=== PATIENT | female | born 1940 | race Hispanic/Latino ===

== ENCOUNTER 2016-09-25 13:33 | Inpatient (IN) | payer MEDICARE ==
[~2016-09-25] VITALS: Ht 157.5 cm; Wt 48.4 kg
[2016-09-25] MEDS: amLODIPine 10 MG TAB PO SCH (09:00)
[~2016-09-25 13:33] MED LIST: AMLO10TA2 PO; CARV3.12 PO; FOLI1TAB2 PO; GLIM2TA PO; GLIMEPIRIDE 1 MG TABLET PO SCH; HYDR-4266 PO; HYDR50TA PO; IRBE300T12 PO; IRON65TA PO; POTA10CA PO; PRED20TA PO; PROTPAK PO; TRIC145T PO; VITMTA PO
[2016-09-25] MEDS ORDERED: ACETAMINOPHEN 325 MG TAB As Ordered ONE (14:47)
--- NOTE | 2016-09-25 15:01 | REP ---
Clinical: Weakness with recent fall . Findings: Age-related atrophy and microvascular ischemic changes are appreciated. The ventricles and sulci are symmetric. Sevilla-white differentiation is maintained. There is no evidence for acute intracranial hemorrhage, mass/mass effect, pathology or infarction. No extra-axial fluid collection. Calvarium is intact. Paranasal sinuses and mastoid air cells are clear. Impression: Age related atrophy and microvascular ischemic changes. No acute intracranial hemorrhage, infarction, or mass/mass effect. Signed by Ariel Gray MD 09/25/2016 02:53 P
[2016-09-25 15:09] LABS: BASO % 0.8 % (0.0-1.0); LARGE UNSTAINED CELL # 0.1 K/mm3 (0.0-0.4); LARGE UNSTAINED CELL % 7.2 % (0.0-4.0); LYMPH # 0.2 K/mm3 (1.5-4.5); LYMPH % 14.1 % (24.0-44.0); MEAN CORPUSCULAR HEMOGLOBIN 29.2 pg (27.0-33.0); MEAN CORPUSCULAR HGB CONC 33.3 g/dl (32.0-36.5); MEAN CORPUSCULAR VOLUME 87.6 fl (80.0-96.0); NEUTROPHILS # 1.1 K/mm3 (1.8-7.7); PLATELET COUNT, AUTOMATED 126 k/mm3 (150-450); RED CELL DISTRIBUTION WIDTH 16.6 % (11.5-14.5)
[2016-09-25 15:14] LABS: CALCIUM LEVEL 8.1 MG/DL (8.8-10.2); CREATININE FOR GFR 3.57 MG/DL (0.55-1.02); GLOMERULAR FILTRATION RATE 13.2 (>39); POTASSIUM SERUM 4.3 MEQ/L (3.5-5.1)
[2016-09-25 15:19] LABS: WHITE BLOOD COUNT 1.4 K/mm3 (4.0-10.0)
--- NOTE | 2016-09-25 15:20 | REP ---
Clinical: Low grade fever and weakness. Technique: AP and lateral views. Comparison: 02/24/2016. Findings: Mediastinum and cardiac silhouette are stable. Lung doe demonstrate diffuse chronic interstitial changes without definite consolidation, effusion or pneumothorax. Lateral view cannot exclude density overlying the mid lung zone for which chest CT correlation may be warranted. Skeletal structures demonstrate age-related degenerative changes. Impression: Chronic stable changes. Cannot exclude subtle nodular density on lateral radiograph only. Consider chest CT follow-up. Signed by Ariel Gray MD 09/25/2016 03:11 P
[2016-09-25] MEDS ORDERED: ONDANSETRON 4MG/2ML VIAL (J2405) IV PRN (16:15)
[2016-09-25] MEDS ORDERED: ACETAMINOPHEN TAB 650MG DOSE (2X325MG) PO PRN (16:15)
[2016-09-25] MEDS ORDERED: BISACODYL 5 MG TAB PO PRN (16:15)
[2016-09-25] MEDS ORDERED: AMLO10TA2 PO (16:21)
[2016-09-25] MEDS ORDERED: CARV3.12 PO (16:21)
[2016-09-25] MEDS ORDERED: RANI150T PO (16:21)
[2016-09-25] MEDS ORDERED: GLIM1TAB PO (16:21)
[2016-09-25] MEDS ORDERED: CYCL1CAP2 PO (16:21)
[2016-09-25] MEDS ORDERED: CALC1CAP31 PO (16:21)
[2016-09-25] MEDS ORDERED: PRED20TA PO (16:21)
[2016-09-25] MEDS ORDERED: HYDR-4267 PO (16:21)
[2016-09-25 16:31] LABS: RETIC HEMOGLOBIN CONTENT CHr 33.8 PG (24-36); RETICULOCYTE ABSOLUTE ADVIA212 27 x10(9)/L (17-77)
[2016-09-25 16:32] LABS: REASON FOR REVIEW COMPREHENSIVE REVIEW
[2016-09-25 16:52] LABS: PERCENT SATURATION 16.3 % (13.2-37.4)
[2016-09-25] MEDS ORDERED: GLUCAGON FOR INJ 1 MG VIAL (J1610) SC PRN (17:30)
[2016-09-25] MEDS ORDERED: DEXTROSE 50% 50 ML SYRINGE IV PRN (17:30)
[2016-09-25] MEDS ORDERED: GLUCOSE 4 GM CHEW TABLET PO PRN (17:30)
--- NOTE | 2016-09-25 18:13 | ECGEPIP ---
Stationary ECG Study [facility] - ED Test Date: 2016-09-25 Pat Name: NISREEN GA Department: Room: - Gender: F Field Installer: juvencio : 1940 Requested By: JUSTIN Alonso Order Number: [id number] Reading MD: Meme Palomares Measurements Intervals [place] Rate: 102 P: 77 OR: 136 QRS: 55 QRSD: 87 T: 52 QT: 323 QTc: 423 Interpretive Statements SINUS TACHYCARDIA ABNORMAL RHYTHM ECG LOW VOLTAGE LIMB INCREASED RATE 01/25/16 Electronically Signed On 09-25-2016 18:13:24 EST by Meme Palomares
--- NOTE | 2016-09-25 19:40 | HPE ---
DATE OF ADMISSION: 09/25/2016 HOSPITALIST ATTENDING: DR. STEFAN CHURCH PRIMARY CARE PHYSICIAN: SOFIA MARSHALL NP CHIEF COMPLAINT: Weakness. HISTORY OF PRESENT ILLNESS: 75-year-old female with history of glomerulonephritis, kidney disease, stage V, follows with Dr. Albarado, on chronic prednisone and cyclophosphamide, recurrent anemia, requiring six blood transfusions in July 2016, bone marrow biopsy showing normocytic anemia and renal biopsy showing glomerulonephritis presents to the emergency room with two week history of worsening weakness. Per the daughter, the patient has been increasingly lethargic. No appetite, about a 5 pound weight loss since previous admission, lethargic and generally weak. She has not been herself and not been tidying around the house or herself. On Friday, the patient was walking into her room and lost her balance and fell down. She was unable to get up and was found by the daughter on the floor. She was on the floor for about half an hour. Mother refused to be evaluated in the emergency room at that time and daughter continued to monitor her for the past two days. The patient finally agreed to coming into the hospital today due to increasing weakness, recurrent falls and was found to be severely anemic with hemoglobin of 5 and pancytopenic with a white count of 1.4, platelet count of 126. She had been on prednisone and cyclophosphamide managed by Dr. Albarado and had missed an appointment today with him due to severe weakness and falls. She otherwise denies any bright red blood per rectum, melena , black tarry stools. Previous esophagogastroduodenoscopy (EGD), colonoscopy showed sessile polyps with no signs of active bleeding. She denies any diarrhea, any NSAID use at home and denies any chest pain, pressure or tightness, shortness of breath, lightheadedness or dizziness prior to her falls. Previous EGD was 2015 showing 4 mm sessile polyp, no stigmata of recent bleeding in the gastric body and a pedunculated polyp in the first part of the duodenum. Hospitalist service was called for admission for symptomatic anemia requiring red blood cell transfusion. PAST MEDICAL HISTORY: Renal failure, stage V. Glomerulonephritis, not on hemodialysis. Symptomatic anemia requiring 6 units of red blood cell transfusion in July 2016. Hypercholesterolemia. Hypertension. End-stage renal disease. PAST SURGICAL HISTORY: Eye surgery. ALLERGIES: No known drug allergies. HOME MEDICATIONS: - Ranitidine 150 twice a day - prednisone 20 two tablets daily - calcitriol 0.25 mcg daily - glimepiride 1 mg daily - cyclophos 150 mg twice a day - Coreg 3.125 every 12 hourly - Norvasc 10 mg daily - hydralazine 50 mg three times a day - iron 325, tablet daily - folic acid 1 mg daily - Irbesartan-hydrochlorothiazide 300/12.5 mg daily - multivitamin one tablet daily SOCIAL HISTORY: Denies any history of smoking, recreational drug use or alcohol use. Lives with her daughter at home and has her own room. Four steps to get into the home. The patient walks unassisted without a walker or a cane. Daughter checks up on her multiple times throughout the day. FAMILY HISTORY: Noncontributory due to her age. REVIEW OF SYSTEMS: 12 point system negative aside from positive findings in history of present illness. PHYSICAL EXAMINATION: Blood pressure supine 125/62, sitting 123/60, standing 99/59. Pulse supine is 96, sitting 102, standing 114. Temperature 100.3. 96% on room air. 48.5 kg. 5 foot 2 inches tall. GENERAL: The patient appears her stated age. Appears cachectic. No jaundice icterus. No respiratory distress. Cyanotic. No cyanosis. Positive pallor. Dry mucous membranes. LUNGS: Clear to auscultation. No wheezing, rales. Normal inspiratory/expiratory ratio. HEENT: No jugular venous distention. No thyromegaly. No carotid bruits. Pupils round and reactive. Extraocular muscles are intact. NECK: Supple. Full range of motion. HEART: S1, S2. Sinus tachycardia. No murmurs, rubs or gallops. ABDOMEN: Soft, nontender, nondistended. Positive bowel sounds. No rebound, guarding or hepatosplenomegaly. EXTREMITIES: No cyanosis, clubbing or pitting edema. EKG: Sinus tachycardia, ventricular rate of 102. DE interval 136. QRS of 87. LABORATORY DATA: White count 1.4, previously 6.4 08/02/2016. Hemoglobin 5.2. Previous hemoglobin was 8.9 08/02/2016. Hematocrit 15.5. Platelet count 126. Sodium 139, potassium 4.2, chloride 106, bicarbonate 20, BUN 87, creatinine 3.57 , glucose of 267. Lactic acid 1.4, calcium 8.1, iron 21, TIBC 141, ferritin 5870. Total CK 31, MB fraction 1. Troponin 0.03. Albumin of 2.9. Microbiology: Influenza C and B negative. Blood culture negative. Urine culture pending. Chest x-ray: Chronic stable changes. Cannot exclude nodule with density on lateral radiograph only. Chest CT for followup. CT of the head: Age related atrophy. Microvascular ischemic changes. No acute intracranial hemorrhage, infarction or mass effect. ASSESSMENT AND PLAN: This is a 75-year-old female with recent diagnosis in July 2016 of glomerulonephritis on cyclophosphamide and chronic prednisone, followed by Dr. Albarado. Recurrent anemia requiring 6 units of red blood cell transfusion, unremarkable bone marrow biopsy. EGD colonoscopy showing sessile polyps. No active signs of bleeding January 2016. Steroid induced hyperglycemia, on chronic glimepiride, hypertension, hypercholesterolemia, end-stage renal disease , prior eye surgery presents to the emergency room with recurrent falls, generalized weakness found to have symptomatic anemia and significant orthostasis with hemoglobin of 5. The patient will be admitted as an inpatient for two midnights to hospitalist service. Attending physician will be Dr. Stefan Church. IMPRESSION: 1. Symptomatic anemia most likely secondary to end-stage renal disease. Prior EGD and colonoscopy unremarkable in January 2016, but will check for hemoccult stools. Peripheral blood smear. Iron studies prior to blood transfusion. Will transfuse red blood cells and recheck hemoglobin and hematocrit every 6 hourly after 4 units have been given. The patient is continued on iron. Will defer to Dr. Albarado. Followup precautions. Prior bone marrow biopsy in 01/2016 anemia of chronic disease. 2. End-stage renal disease. Not on hemodialysis, secondary to glomerulonephritis , on chronic prednisone and cyclophosphamide per Dr. Albarado. We will hold off on patient's cyclophosphamide for now. He will see the patient in consult in the morning. Monitor renal dysfunction. No hyperkalemia or significant acidemia at this time. Will continue to check urine output and metabolic panel. Strict Intake and output (I and O), daily weights and avoid nephrotoxins, renally dose all medications. Will continue patient's prednisone for now. Renal biopsy by interventional radiology in 07/31 pathology from [facility]: glomerulonephritis drug- induced versus ANCA-induced. 3. Hypertension. Controlled. Will continue Coreg, amlodipine and hydralazine with holding parameters. Defer to Dr. Albarado for any changes. 4. Hypercholesterolemia. Check lipid profile in the morning. 5. Pancytopenia. Obtain peripheral smear. Avoid NSAIDs. 6. Low grade fever, 100.3. Microbiology is still pending for a UA and urine culture. Influenza A and B, blood cultures are negative. Chest x-ray shows a questionable fibronodular density on the lateral radiograph, diffuse chronic interstitial changes with no definite consolidation, effusion or pneumothorax. Will start on empiric ceftriaxone, obtain sputum culture if possible. Obtain CT chest without contrast for better definition. 7. Deep venous thrombosis (DVT) prophylaxis. Monitor patient's platelets. May start on heparin for now. If decreases, discontinue heparin, and check heparin induced antibodies. The patient will be assigned to Dr. Stefan Church at 10:00 pm on 09/25/2016. He will assume care of this patient on 09/26/2016 at 7:00 a.m. RAULITO
[2016-09-25 19:50] VITALS: BP 129/72
[2016-09-25] MEDS: CARVedilol 3.125 MG TAB PO SCH (21:00)
[2016-09-25] MEDS: HumaLOG INSULIN (NovoLOG) PER UNIT SC SCH (21:00)
[2016-09-25] MEDS: **hydrALAZINE** 50 MG TAB PO SCH (21:00)
[2016-09-25] MEDS ORDERED: FAMOTIDINE 20 MG TAB As Ordered ONE (21:22)
[2016-09-25] MEDS ORDERED: HEPARIN SOD (PORCINE) 5000 UNITS/ML VIAL As Ordered ONE (21:22)
[2016-09-25] MEDS: FAMOTIDINE 20 MG TAB PO SCH (21:29)
[2016-09-25] MEDS: CALCITRIOL 0.25 MCG CAP (S0169) PO SCH (21:30)
[2016-09-25] MEDS: FERROUS SULFATE 325MG TAB PO SCH (21:30)
[2016-09-25] MEDS: cefTRIAXone SOD 2 GM in D5W MINI-BAG PLUS 50 ML IV SCH (21:30)
[2016-09-25] MEDS: HEPARIN SOD (PORCINE) 5000 UNITS/ML VIAL SC SCH (21:54)
[2016-09-26] VITALS (7 sets, daily range): BP systolic 111–140; BP diastolic 64–81
--- NOTE | 2016-09-26 00:30 | REPUSA ---
CLINICAL STATEMENT: Low-grade fever with nodular density on chest x-ray. TECHNIQUE: CT of the chest was performed without intravenous contrast by obtaining contiguous axial s lices from level of the thyroid gland to level of the kidneys. Post imaging 3-D technique processing was utilized and multiplanar reformats were obtained in coronal and sagittal projections. COMPARISON: None FINDINGS: Lower neck: Visualized thyroid gland unremarkable. No mass or suspicious cystic lesion. Lungs / airways / pleura: Mosaic attenuation pattern noted with groundglass and mild atelectatic agrawal ges toward the bases. No consolidation, effusion, mass, suspicious nodule, or pneumothorax. Central a nd visualized peripheral airways are patent. Mediastinum: No mass or suspicious cystic lesion. Heart normal in size with coronary calcination. No pericardial effusion. Thoracic aorta and pulmonary trunk normal in caliber. Lymph nodes: No enlarged adenopathy. Paratracheal, bihilar and subcarinal granulomatous calcification s. Upper abdomen: Status post cholecystectomy. Osseous structures/Soft tissues/thoracic wall: Mild scoliosis with multilevel [id number] dege nerative changes of the thoracic spine with endplate sclerosis, disc space narrowing with spurring. N o soft tissue abnormality or hernia. Line/devices: None. IMPRESSION: 1. No infiltrate, consolidation or suspicious nodule. 2. Mild scoliosis with multilevel [id number] degenerative changes of the thoracic spine with endplate sclerosis, disc space narrowing with spurring. ND
[2016-09-26] MEDS ORDERED: ACETAMINOPHEN TAB 650MG DOSE (2X325MG) As Ordered ONE (03:52)
[2016-09-26 05:37] LABS: MEAN CORPUSCULAR HEMOGLOBIN 31.4 pg (27.0-33.0); MEAN CORPUSCULAR VOLUME 85.3 fl (80.0-96.0); RED CELL DISTRIBUTION WIDTH 15.1 % (11.5-14.5); WHITE BLOOD COUNT 2.2 K/mm3 (4.0-10.0)
[2016-09-26 05:39] LABS: MEAN CORPUSCULAR HGB CONC 36.4 g/dl (32.0-36.5)
[2016-09-26 05:47] LABS: ALBUMIN 2.3 GM/DL (3.2-5.2); ALBUMIN/GLOBULIN RATIO 0.7 (1.00-1.93); BILIRUBIN,TOTAL 1.2 MG/DL (0.2-1.0); CALCIUM LEVEL 7.5 MG/DL (8.8-10.2); CREATININE FOR GFR 3.13 MG/DL (0.55-1.02); GLOMERULAR FILTRATION RATE 15.4 (>39); POTASSIUM SERUM 3.6 MEQ/L (3.5-5.1); TOTAL PROTEIN 5.6 GM/DL (6.4-8.2)
[2016-09-26] MEDS ORDERED: HEPARIN SOD (PORCINE) 5000 UNITS/ML VIAL As Ordered ONE ×2 (06:07→14:04)
[2016-09-26] MEDS: HEPARIN SOD (PORCINE) 5000 UNITS/ML VIAL SC SCH ×3 (06:11→21:06)
[2016-09-26] MEDS: HumaLOG INSULIN (NovoLOG) PER UNIT SC SCH ×4 (07:30→21:11)
[2016-09-26] MEDS: GLIMEPIRIDE 1 MG TABLET PO SCH (08:00)
[2016-09-26] MEDS ORDERED: predniSONE 20 MG TAB PO SCH (09:00)
[2016-09-26] MEDS: MULTIVITAMINS/MINERALS THERAP 1 TAB PO SCH (09:26)
[2016-09-26] MEDS: FOLIC ACID 1 MG TAB PO SCH (09:26)
[2016-09-26] MEDS: FAMOTIDINE 20 MG TAB PO SCH ×2 (09:26→21:06)
[2016-09-26] MEDS: CARVedilol 3.125 MG TAB PO SCH ×2 (09:26→21:00)
[2016-09-26] MEDS: amLODIPine 10 MG TAB PO SCH (09:26)
[2016-09-26] MEDS: FERROUS SULFATE 325MG TAB PO SCH (09:27)
[2016-09-26] MEDS: CALCITRIOL 0.25 MCG CAP (S0169) PO SCH (09:27)
[2016-09-26] MEDS: **hydrALAZINE** 50 MG TAB PO SCH ×3 (09:27→21:00)
[2016-09-26] MEDS ORDERED: POTASSIUM CHLORIDE 10 MEQ SR TABLET PO ONE (09:45)
[2016-09-26 10:40] LABS: MAGNESIUM LEVEL 1.5 MG/DL (1.8-2.4)
[2016-09-26] MEDS ORDERED: MAGNESIUM SULFATE 1 GM/100 ML D5W BAG (10MG/ML) (J3475) As Ordered ONE (11:28)
[2016-09-26] MEDS ORDERED: POTASSIUM CHLORIDE 10 MEQ SR TABLET As Ordered ONE (11:38)
[2016-09-26] MEDS ORDERED: MAG SULF 1GM/100ML (MAG RUN) 1 GM in APPROPRIATE DILUENT 1 EA IV ONE (12:00)
--- NOTE | 2016-09-26 12:02 | CR.PDOC ---
[facility] Consultation Consultation DATE OF ADMISSION: 09/25/2016 DATE OF CONSULTATION: 09/26/2016 REQUESTING PROVIDER: Dr. Kramer REASON FOR CONSULTATION/CHIEF COMPLAINT: Acute renal failure and anemia HISTORY OF PRESENT ILLNESS: Ms. Espitia is a 75 year old female with past medical history significant for hypertension, hyperlipidemia, chronic anemia requiring multiple transfusions who had been having worsening anemia as well as renal function. She recently underwent a bone marrow biopsy which showed anemia of chronic disease without any evidence of light chain disease. She was admitted back in July with acute renal failure and was noticed to have proteinuria and hematuria with subsequent biopsy done on 08/02/2016 showing focal necrotizing and crescentic glomerulonephritis with scattered immune complex deposition in the mesangium and along the glomerular capillary snowden. Biopsy also revealed acute tubular injury with focal global and segmental glomerular sclerosis and scarring with mild chronic interstitial nephritis. Initial ANCA was negative, however repeat ANCA after biopsy was positive. She was initiated on prednisone as well as cyclophosphamide. She was seen in the office on August 21 after initiation of treatment for her glomerulonephritis and renal function had improved to creatinine of 2.2, BUN 99. At that time, white blood cell count was 7.1, hemoglobin 10.1, hematocrit 31.1, and platelet count 178. Her urinalysis did continue to show large amounts of blood with greater than 300 mg of protein. Yesterday, patient was supposed to be seen in the office but decided to come to the emergency department instead. She reports that she has had increased weakness, poor appetite and that she was staying in bed a lot. She gives history of a fall on Friday while she was in the kitchen. She is not able to give any details of this fall as she is not clear on what happened but states that she thinks she passed out. She does not think she hit her head. Nonetheless head CT was negative. She reports that her son-in-law helped her up. She denies any chest pain, shortness of breath. No lightheadedness, dizziness or palpitations. She denies any nausea, vomiting, diarrhea, abdominal pain, hematochezia, melena, hematuria, hematemesis. She denies any recent NSAID or aspirin use. She reports that she has been urinating well. No sore throat or trouble swallowing. No rashes or increased joint or muscle pains. In the emergency department, she was found to have a hemoglobin of 5.2, white count of 1.4, platelet count 126, BUN 87, creatinine 3.57. Nephrology consultation was requested to help with management of renal failure and anemia. PAST MEDICAL HISTORY: 1. Focal and crescentic glomerulonephritis, diagnosed July 2016 2. Chronic kidney disease stage IV 3. Recurrent anemia requiring multiple transfusions in the past 4. Hypertension 5. Hyperlipidemia PAST SURGICAL HISTORY: 1. Bilateral cataract surgery 2. Tonsillectomy ALLERGIES: No known drug allergies HOME MEDICATIONS: Please see below. FAMILY HISTORY: Significant for diabetes, hypertension and hyperlipidemia. No kidney disease. SOCIAL HISTORY: Denies any smoking, alcohol use or illicit drug use. Lives with her daughter. REVIEW OF SYSTEMS: CONSTITUTIONAL: No fevers, chills. She does report weakness and decreased appetite. HEENT: No headache, lightheadedness or dizziness. No sore throat or difficulty swallowing. No visual disturbances such as loss of vision, blurry or double vision. CARDIOVASCULAR: No chest pain or pressure, no palpitations. No shortness of breath with exertion. No chronic lower extremity edema. RESPIRATORY: No cough or hemoptysis. No shortness of breath. GENITOURINARY: No change in frequency of urination. She reports that she has been urinating well. No hematuria or dysuria. MUSCULOSKELETAL: No unusual joint or muscle pains. GASTROINTESTINAL: No nausea, vomiting, diarrhea, abdominal pain, hematochezia, melena, hematemesis. SKIN: No unusual rashes or skin lesions. NEUROLOGICAL: She gives report of a fall/syncopal episode. ENDOCRINE: History of steroid-induced diabetes. No thyroid problems. HEMATOLOGIC/LYMPHATIC: Has recurrent anemia requiring transfusions. PHYSICAL EXAMINATION: Vital Signs Date Time Temp Pulse Resp B/P Pulse Ox O2 Delivery O2 Flow Rate FiO2 09/26/16 09:26 81 140/81 09/26/16 08:00 Room Air 09/26/16 08:00 98.4 18 99 I&O- Last 24 Hours up to 6 AM 09/26/16 06:00 Intake Total 240 ml Output Total 0 ml Balance 240 ml GENERAL APPEARANCE: Alert and oriented 3. In no acute distress. HEENT: Normocephalic, atraumatic. Pupils are round and reactive to light. No scleral icterus. Extra muscles are intact. No oral thrush or ulcers. NECK: Supple. No jugular venous distention. HEART: Normal S1, S2. Regular rate and rhythm. No gallops, rubs or gallops appreciated. LUNGS: Positive for bilateral crackles in lower bases. No rhonchi or wheezing appreciated. ABDOMEN: Soft, nontender, nondistended. Bowel sounds are present. No organomegaly appreciated. EXTREMITIES: No cyanosis or edema. Positive pedal pulses bilaterally. SKIN: No rashes noted. NEUROLOGIC: No focal deficits. Moving all extremities. LABORATORY DATA: 09/26/16 05:18 Calcium Level 7.5 L, Red Blood Count 3.33 L, Mean Corpuscular Volume 85.3, Mean Corpuscular Hemoglobin 31.4, Mean Corpuscular Hemoglobin Concentration 36.4, Red Cell Distribution Width 15.1 H, Aspartate Amino Transferase (AST/SGOT) 42 H , Alanine Aminotransferase (ALT/SGPT) 18, Alkaline Phosphatase 44 L, Total Bilirubin 1.2 H, Total Protein 5.6 L, Albumin 2.3 L, Total Creatine Kinase 31, Creatine Kinase MB 1.0, Creatine Kinase MB Relative Index 3.22, Ferritin 5870H, Glomerular Filtration Rate 13.2L, Iron Level 23L, Percent Reticulocyte Count 1.50, Total Iron Binding Capacity 141L, Transferrin % Saturation 16.3, Troponin I 0.03, Lactic Acid Level 1.4 MICROBIOLOGY: Blood cultures pending IMAGING: Chest x-ray cultures pending. Showed stable chronic changes. Could not exclude nodular density. Follow-up chest CT did not show any infiltrate, consolidation or suspicious nodule, mild scoliosis with multilevel moderate to severe degenerative changes in the thoracic spine with endplate sclerosis. Head CT showed age-related atrophy and microvascular ischemic changes, no acute pathology. ASSESSMENT/PLAN: 1. Acute on chronic kidney disease stage IV. Creatinine in August was 2.2. It had been improving after initiation of prednisone and cyclophosphamide for acute glomerulonephritis.This acute injury is likely secondary to hypovolemia in the setting of anemia. It appears that her creatinine is already improving and will continue to be monitored. 2. Symptomatic anemia with fall. No signs of acute bleeding. This is likely secondary to a combination of cyclophosphamide inducing pancytopenia along with renal disease. She is status post 3 units of packed red blood cells and hemoglobin is currently stable at 10.3. She remains on iron supplementation daily. 3. Focal and crescentic glomerulonephritis, diagnosed in July 2016. She is on prednisone 40 mg daily and cyclophosphamide 50 mg twice daily. She was placed on a lower dose of cyclophosphamide however still developed pancytopenia. For this reason, cyclophosphamide has not been resumed during hospitalization. 4. Pancytopenia, likely secondary to cyclophosphamide. It appears that her white cell count is improving. 5. Fever in the setting of pancytopenia. She was empirically started on ceftriaxone which is appropriate given her immunosuppression and risk of infection. 6. Episode of nonsustained V. tach in emergency department. Potassium was 3.6, oral supplementation was given to keep potassium above 4. Magnesium level was ordered. 7. Hypertension. Blood pressure stable. She is on Norvasc 10 mg daily, Coreg 3.125 mg twice daily, hydralazine 50 mg 3 times daily. Her Irbesartan/HCTZ was held due to acute renal failure. 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 Current hemoglobin A1c of 7.0. 9. Secondary hyperparathyroidism. Continue calcitriol 0.25 MCG daily. Thank you for the consultation and allowing us to participate in the care of Ms. Espitia. We will continue to follow along with you. Allergies Coded Allergies: No Known Allergies (Unverified , 03/15/15) Home Medications Scheduled (Iron) 325 Mg Tab 325 MG PO DAILY (Reported) (Cyclophosphamide) 50 Mg Cap 50 MG PO BID (Reported) Amlodipine Besylate (Amlodipine Besylate) 10 Mg Tab 10 MG PO DAILY (Reported) Calcitriol (Calcitriol) 0.25 Mcg Cap 0.25 MCG PO DAILY (Reported) Carvedilol (Carvedilol) 3.125 Mg Tab 3.125 MG PO BID (Reported) Folic Acid (Folic Acid) 1 Mg Tab 1 MG PO DAILY (Reported) Glimepiride (Glimepiride) 1 Mg Tab 1 MG PO DAILY (Reported) Hydralazine HCl (Hydralazine HCl) 50 Mg Tab 50 MG PO TID (Reported) Multivitamins *[facility] STOCKED* (Thera M Plus *[facility] STOCKED*) 1 Tab Tab 1 TAB PO DAILY (Reported) Prednisone (Prednisone) 20 Mg Tab 40 MG PO DAILY (Reported) Ranitidine HCl (Ranitidine HCl) 150 Mg Tab 1 TAB PO BID (Reported) GME ATTESTATION GME ATTESTATION My preceptor for this patient encounter was physically present in the building during the encounter and was fully available. As needed, all aspects of the patient interview, examination, medical decision making process, and medical care plan development were reviewed and approved by the preceptor. Preceptor is aware and concurs with the plan as stated in the body of this note and will attest to such by his/her cosignature. SUNDAY FLORES, Sep 26, 2016 12:02 attest to such by his/her cosignature. SUNDAY FLORES, Sep 26, 2016 12:02
--- NOTE | 2016-09-26 14:35 | EDDOCDS ---
Nurse's Notes [facility] Name: Mila Espitia Age: 75 yrs Sex: Female : 1940 Arrival Date: 09/25/2016 Time: 13:33 Bed Admit Hold Private MD: Diagnosis: Anemia, unspecified;Abnormal findings on diagnostic imaging of lung;Orthostatic hypotension Presentation: 09/25 13:49 Presenting complaint: Child states: being seen by Dr Albarado for kidney failure. for the dy last 2 weeks has had increased weakness. was placed on medication by Dr. Albarado 1 month ago and concerned that it may be medication related. Adult Sepsis Screening: The patient does not have new or worsening altered mentation. Patient's respiratory rate is less than 22. Systolic blood pressure is greater than 100. Patient has a qSOFA score of 0- Negative Sepsis Screen. Suicide/Homicide risk assessment- the patient denies having any suicidal and/or homicidal ideations and does not present with any other emotional, behavioral or mental health complaints. 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 Transition of care: patient was not received from another setting of care. 13:49 Acuity: WILLARD Level 3 dy 13:49 Method Of Arrival: Wheelchair dy Triage Assessment: 13:56 General: Appears in no apparent distress. Pain: Denies pain. dy Historical: - Allergies: No known drug Allergies; - Home Meds: 1. ranitidine HCl 150 mg Oral tab 1 tab 2 times per day 2. prednisone 20 mg Oral tab 2 tabs once daily 3. calcitriol 0.25 mcg oral cap 1 cap 4. glimepiride 1 mg Oral tab 1 tab once daily 5. cyclophosphamide 50 mg oral cap twice a day 6. Coreg 3.125 mg Oral tab 1 tab every 12 hours 7. amlodipine 10 mg Oral tab 1 tab once daily 8. hydralazine 50 mg Oral tab 1 tab three times a day 9. iron 325 mg (65 mg iron) oral tab daily 10. folic acid 1 mg Oral tab 1 tab once daily 11. irbesartan-hydrochlorothiazide 300-12.5 mg oral tab 1 tab once daily 12. multivitamin Oral tab 1 tablet daily - PMHx: Anemia; Hypercholesterolemia; Hypertension; ESRD; - PSHx: eye surgery; - Social history: Smoking status: Patient states was never smoker of tobacco. No barriers to communication noted, The patient speaks fluent [place], Speaks appropriately for age. - Family history: Not pertinent. - : The pt / caregiver states he / she is not on anticoagulants. Home medication list is obtained from the patient. - Exposure Risk Screening:: None identified. Screenin:37 Screening information is obtained from the patient. Fall risk: No risks identified. dsf Assistance ADL's: requires no assistance with activities of daily living. Abuse/DV Screen: The patient / caregiver reports he/she is: not in a situation that causes fear, pain or injury. Nutritional screening: No deficits noted. home support is adequate. 18:37 Advance Directives: Currently, there is no health care proxy. dsf Assessment: 15:20 General: Orthostatic vitals obtained at this time. Pt stated felt weak when standing. hs1 No other needs noted. . Pain: Denies pain. Neurological: Level of Consciousness is awake, alert, obeys commands, Oriented to person, place, time, Chief Optometry Service are equal bilaterally. Cardiovascular: Rhythm is sinus tachycardia No ectopy. Respiratory: Airway is patent Respiratory effort is even, unlabored, Respiratory pattern is regular, symmetrical. GI: other Pt reports lack of appetitie. Derm: Skin is pink, warm & dry. normal. 16:14 Adult Sepsis Screening: The patient does not have new or worsening altered mentation. dsf Patient's respiratory rate is less than 22. Systolic blood pressure is less than or equal to 100 (1 point). Patient has a qSOFA score of 1- Negative Sepsis Screen. General: Appears in no apparent distress, Behavior is appropriate for age, cooperative. Pain: Denies pain. Neurological: Level of Consciousness is awake, alert, obeys commands, Oriented to person, place, time. Cardiovascular: Capillary refill < 3 seconds Heart tones S1 S2 present Rhythm is sinus rhythm No ectopy. Respiratory: Airway is patent Respiratory effort is even, unlabored, Respiratory pattern is regular, symmetrical, Breath sounds are clear bilaterally. GI: Abdomen is non- distended Bowel sounds present X 4 quads. Abd is soft and non tender X 4 quads. Derm: Skin is dry, Skin is jaundiced, pale, Skin temperature is warm. 17:03 General: Dr. Kramer in room examining patient . dsf 17:15 General: first unit RPBC started. VS stable. pt educated on signs and sxs to report to dsf the nurse. See transfusion record. will continue to monitor. 17:30 General: PRBC infusion rate increased 240 ml/hr. no signs or sxs of transfusion dsf reaction. see transfusion record sheet. will continue to monitor . 17:35 General: Appears in no apparent distress, comfortable, Behavior is appropriate for age, dsf cooperative. Pain: Denies pain. Neurological: Level of Consciousness is awake, alert, Oriented to person, place, time. Cardiovascular: Capillary refill < 3 seconds Heart tones S1 S2 present Rhythm is sinus rhythm No ectopy. Respiratory: Airway is patent Respiratory effort is even, unlabored, Respiratory pattern is regular, symmetrical, Breath sounds are clear bilaterally. GI: Abdomen is non- distended Bowel sounds present X 4 quads. Abd is soft and non tender X 4 quads. Derm: Skin is dry, Skin is jaundiced, pale, Skin temperature is warm. 18:25 Adult Sepsis Screening: The patient does not have new or worsening altered mentation. dsf Patient's respiratory rate is less than 22. Systolic blood pressure is greater than 100. Patient has a qSOFA score of 0- Negative Sepsis Screen. General: Appears in no apparent distress, Behavior is appropriate for age, cooperative. Pain: Denies pain. Neurological: Level of Consciousness is awake, alert, Oriented to person, place, time. Cardiovascular: Capillary refill < 3 seconds Heart tones S1 S2 present Rhythm is sinus rhythm No ectopy. Respiratory: Airway is patent Respiratory effort is even, unlabored, Respiratory pattern is regular, symmetrical, Breath sounds are clear bilaterally. GI: Abdomen is non- distended Bowel sounds present X 4 quads. Abd is soft and non tender X 4 quads. Derm: Skin is dry, Skin is jaundiced, pale, Skin temperature is warm. 18:43 General: pt ate 100% of dinner tray . dsf 18:50 General: 2nd unit PRBC started. VS stable see transfusion record. no signs or SXS of a dsf transfusion reaction . 19:15 Adult Sepsis Screening: The patient does not have new or worsening altered mentation. dsf Patient's respiratory rate is less than 22. Systolic blood pressure is greater than 100. Patient has a qSOFA score of 0- Negative Sepsis Screen. General: Appears in no apparent distress, comfortable, Behavior is appropriate for age, cooperative. Pain: Denies pain. Neurological: Level of Consciousness is awake, alert, obeys commands, Oriented to person, place, time. Cardiovascular: Capillary refill < 3 seconds Heart tones S1 S2 present Rhythm is sinus rhythm No ectopy. Respiratory: Airway is patent Respiratory effort is even, unlabored, Respiratory pattern is regular, symmetrical, Breath sounds are clear bilaterally. GI: Abdomen is non- distended Bowel sounds present X 4 quads. Abd is soft and non tender X 4 quads. Derm: Skin is dry, Skin is jaundiced, pale, Skin temperature is warm. Vital Signs: 13:35 BP 117 / 74; Pulse 115; Resp 18; Temp 100.3(O); Pulse Ox 96% ; Weight 48.53 kg; Height cmb 5 ft. 2 in. (157.48 cm); Pain 0/10; 15:20 BP 125 / 62 Supine; Pulse 96; dsf 15:20 BP 123 / 60 Sitting; Pulse 102; dsf 15:20 BP 99 / 59 Standing; Pulse 114; dsf 15:21 BP 124 / 59 (auto/); dsf 15:21 Pulse 98 MON; Pulse Ox 98% ; dsf 15:36 BP 102 / 58 (auto/); dsf 15:36 Pulse 98 MON; Pulse Ox 92% ; dsf 15:51 BP 104 / 55 (auto/); dsf 15:51 Pulse 96 MON; Pulse Ox 94% ; dsf 16:06 BP 98 / 53 (auto/); dsf 16:06 Pulse 92 MON; Pulse Ox 93% ; dsf 16:13 Resp 20; Temp 98.3; Pain 0/10; dsf 16:21 BP 104 / 57 (auto/); dsf 16:21 Pulse 90 MON; Pulse Ox 93% ; dsf 16:36 BP 104 / 55 (auto/); dsf 16:36 Pulse 86 MON; Pulse Ox 92% ; dsf 16:51 BP 102 / 56 (auto/); dsf 16:51 Pulse 82 MON; Pulse Ox 91% ; dsf 17:02 BP 110 / 57 (auto/); dsf 17:02 Pulse 80 MON; Pulse Ox 93% ; dsf 17:06 BP 105 / 55 (auto/); dsf 17:06 Pulse 78 MON; Pulse Ox 93% ; dsf 17:21 BP 107 / 59 (auto/); dsf 17:21 Pulse 76 MON; Pulse Ox 91% ; dsf 17:29 BP 104 / 58 (auto/); dsf 17:29 Pulse 76 MON; Pulse Ox 93% ; dsf 17:36 BP 110 / 58 (auto/); dsf 17:36 Pulse 74 MON; Pulse Ox 92% ; dsf 17:51 BP 119 / 64 (auto/); dsf 17:51 Pulse 72 MON; Pulse Ox 94% ; dsf 18:06 Pulse 72 MON; Pulse Ox 96% ; dsf 18:06 BP 116 / 65 (auto/); dsf 18:09 BP 112 / 64 (auto/); dsf 18:09 Pulse 74 MON; dsf 18:21 BP 133 / 62 (auto/); dsf 18:21 Pulse 74 MON; dsf 18:36 BP 154 / 58 (auto/); dsf 18:38 Pulse 78 MON; Pulse Ox 97% ; dsf 18:51 BP 111 / 59 (auto/); dsf 18:51 Pulse 72 MON; Pulse Ox 97% ; dsf 19:04 BP 132 / 64 (auto/); dsf 19:04 Pulse 72 MON; Pulse Ox 95% ; dsf 19:06 BP 124 / 69 (auto/); dsf 19:06 Pulse 74 MON; Pulse Ox 94% ; dsf 19:21 BP 126 / 66 (auto/); dsf 19:21 Pulse 74 MON; Pulse Ox 95% ; dsf 19:36 BP 128 / 70 (auto/); dsf 19:36 Pulse 86 MON; Pulse Ox 94% ; dsf 19:47 BP 129 / 72 (auto/); dsf 19:47 Pulse 82 MON; Pulse Ox 93% ; dsf 19:51 BP 125 / 72 (auto/); dsf 19:51 Pulse 80 MON; Pulse Ox 95% ; dsf 20:06 Pulse 78 MON; Pulse Ox 97% ; dsf 20:06 BP 144 / 73 (auto/); dsf 20:21 BP 137 / 74 (auto/); dsf 20:21 Pulse 68 MON; Pulse Ox 95% ; dsf 20:36 BP 135 / 70 (auto/); dsf 20:51 BP 135 / 73 (auto/); dsf 20:58 BP 134 / 71 (auto/); dsf 13:35 Body Mass Index 19.57 (48.53 kg, 157.48 cm) cmb Vitals: 13:35 Log In Time: September 25, 2016 at 13:33. cmb ED Course: 13:35 Patient visited by Rox Gonzalez. cmb 13:35 Patient moved to Waiting cmb 13:37 Patient moved to Pre RCE cmb 13:51 Triage Initiated dy 14:17 Patient moved to 11 mlb1 14:17 The patient / caregiver is instructed regarding the plan of care and ED course. Patient dsf has correct armband on for positive identification. Placed in gown. Bed in low position. Call light in reach. Side rails up X2. monitor technician on. Pulse ox on. NIBP on. 14:23 Patient visited by Humera Dumont PCA. jlf 14:25 Justin Arceo MD is Attending Physician. br1 14:32 Patient visited by Justin Arceo MD. br1 14:43 Troponin Sent. ttb 14:43 Cardiac Injury Profile Sent. ttb 14:43 CBC with Diff Sent. ttb 14:43 Basic Metabolic Profile Sent. ttb 14:43 Inserted peripheral IV: 20gauge IV in left antecubital area and blood collected. ttb Patient tolerated the procedure well. Labs drawn. 15:05 Patient visited by Humera Dumont PCA. jlf 15:05 Patient visited by Humera Dumont PCA. jlf 15:05 EKG done. (by ED staff). Reviewed by Justin Arceo MD. jlf 15:10 CT Head Without Contrast Returned. EDMS 15:35 Notified attending ED physician of Critical lab value. Hgb--5.2 and Hct--15.5. mcp 15:37 PA-[facility] Payment Agreement was scanned into [employer] and attached to record. gjb 15:44 TYPE & SCREEN Sent. dsf 15:44 Type and Cross, Packed Cells Sent. dsf 15:44 BLOOD CULTURES Sent. dsf 16:10 Chest, 2 View (pa\E\lat) Returned. EDMS 16:15 Patient visited by Carlotta Mcconnell RN. dsf 16:20 Susu Kramer is Hospitalizing Provider. br1 17:03 Patient visited by [place], Jordain, E LEARNING COORDINATOR. jlf 17:17 Patient moved to Admit Hold mcp 17:35 Patient visited by Carlotta Mcconnell,OMAR. dsf 18:[address] dsf 18:39 Patient moved to 11 dsf 18:39 No procedures done that require assistance. dsf 18:40 Blood products: PRBCs X 1 unit given. dsf 18:44 Patient moved to Admit Hold mcp 18:59 Inserted saline lock: 20 gauge in right forearm The patient tolerated the procedure dsf well. 19:00 Patient visited by Carlotta Mcconnell RN. dsf 19:13 EKG-ADULT Returned. EDMS 19:16 Patient visited by Carlotta Mcconnell RN. dsf 0112 00:40 CT Chest without contrast Returned. EDMS 03:36 Patient moved to 20 cz 06:22 Patient moved to Admit Hold ml3 12:59 Krys Barreto,RN is Primary Nurse. nr1 13:31 T-Sheet-- Draft Copy was scanned into [employer] and attached to record. gb 13:32 Radiology Report was scanned into [employer] and attached to record. gb Administered Medications: 09/25 15:00 Drug: Acetaminophen 650 mg [acetaminophen 325 mg tablet (2 tabs)] Route: PO; hs1 16:13 Follow up: Resp 20 bpm; Temp 98.3; Pain 0/10 Adult dsf Intake: 18:40 IV: 300.00ml (PRBC); Total: 300.00ml. dsf Order Results: Lab Order: Basic Metabolic Profile; SPEC'M 09/25/16 14:39 Test: GLUCOSE, FASTING; Value: 267; Range: 83-110; Abnormal: Above high normal; Units: MG/DL; Status: F Test: BLOOD UREA NITROGEN; Value: 87; Range: 7-18; Abnormal: Above high normal; Units: MG/DL; Status: F Test: CREATININE FOR GFR; Value: 3.57; Range: 0.55-1.02; Abnormal: Above high normal; Units: MG/DL; Status: F Test: GLOMERULAR FILTRATION RATE; Value: 13.2; Range: >39; Abnormal: Below low normal; Status: F Test: SODIUM LEVEL; Value: 139; Range: 136-145; Units: MEQ/L; Status: F Test: POTASSIUM SERUM; Value: 4.3; Range: 3.5-5.1; Units: MEQ/L; Status: F Test: CHLORIDE LEVEL; Value: 106; Range: 98-107; Units: MEQ/L; Status: F Test: CARBON DIOXIDE LEVEL; Value: 20; Range: 21-32; Abnormal: Below low normal; Units: MEQ/L; Status: F Test: ANION GAP; Value: 13; Range: 8-16; Units: MEQ/L; Status: F Test: CALCIUM LEVEL; Value: 8.1; Range: 8.8-10.2; Abnormal: Below low normal; Units: MG/DL; Status: F Test Note: ; Units are mL/min/1.73 m2 Chronic Kidney Disease Staging per NKF: Stage I & II GFR >=60 Normal to Mildly Decreased Stage III GFR 30-59 Moderately Decreased Stage IV GFR 15-29 Severely Decreased Stage V GFR <15 Very Little GFR Left ESRD GFR <15 on SURVEYOR GEOPHYSICAL PROSPECTING Lab Order: CBC with Diff; SPEC'M 09/25/16 14:39 Test: WHITE BLOOD COUNT; Value: 1.4; Range: 4.0-10.0; Abnormal: Below low normal; Units: K/mm3; Status: F Test: RED BLOOD COUNT; Value: 1.77; Range: 4.00-5.40; Abnormal: Below low normal; Units: M/mm3; Status: F Test: HEMOGLOBIN; Value: 5.2; Range: 12.0-16.0; Abnormal: Critical Low; Units: g/dl; Status: F Test: HEMATOCRIT; Value: 15.5; Range: 36.0-47.0; Abnormal: Below low normal; Units: %; Status: F Test: MEAN CORPUSCULAR VOLUME; Value: 87.6; Range: 80.0-96.0; Units: fl; Status: F Test: MEAN CORPUSCULAR HEMOGLOBIN; Value: 29.2; Range: 27.0-33.0; Units: pg; Status: F Test: MEAN CORPUSCULAR HGB CONC; Value: 33.3; Range: 32.0-36.5; Units: g/dl; Status: F Test: RED CELL DISTRIBUTION WIDTH; Value: 16.6; Range: 11.5-14.5; Abnormal: Above high normal; Units: %; Status: F Test: PLATELET COUNT, AUTOMATED; Value: 126; Range: 150-450; Abnormal: Below low normal; Units: k/mm3; Status: F Test: NEUTROPHILS %; Value: 74.0; Range: 36.0-66.0; Abnormal: Above high normal; Units: %; Status: F Test: LYMPH %; Value: 14.1; Range: 24.0-44.0; Abnormal: Below low normal; Units: %; Status: F Test: MONO %; Value: 3.0; Range: 0.0-5.0; Units: %; Status: F Test: EOS %; Value: 1.0; Range: 0.0-3.0; Units: %; Status: F Test: BASO %; Value: 0.8; Range: 0.0-1.0; Units: %; Status: F Test: LARGE UNSTAINED CELL %; Value: 7.2; Range: 0.0-4.0; Abnormal: Above high normal; Units: %; Status: F Test: NEUTROPHILS #; Value: 1.1; Range: 1.8-7.7; Abnormal: Below low normal; Units: K/mm3; Status: F Test: LYMPH #; Value: 0.2; Range: 1.5-4.5; Abnormal: Below low normal; Units: K/mm3; Status: F Test: MONO #; Value: 0.0; Range: 0.0-0.8; Units: K/mm3; Status: F Test: EOS #; Value: 0.0; Range: 0.0-0.50; Units: K/mm3; Status: F Test: BASO #; Value: 0.0; Range: 0.0-0.2; Units: K/mm3; Status: F Test: LARGE UNSTAINED CELL #; Value: 0.1; Range: 0.0-0.4; Units: K/mm3; Status: F Lab Order: Cardiac Injury Profile; SPEC'M 09/25/16 14:39 Test: CPK CREATINE PHOSPHOKINASE; Value: 31; Range: 26-192; Units: U/L; Status: F Test: CK-MB VALUE MASS; Value: 1.0; Range: 0.0-3.6; Units: NG/ML; Status: F Test: MB/CK RELATIVE INDEX; Value: 3.22; Range: < OR =4; Status: F Test Note: ; DIAGNOSIS CRITERIA MMB ng/ml Relative Index (RI) NON-AMI < or = 5 N/A [place] > 5 < or = 4 AMI > 5 > 4 Lab Order: Troponin; [facility]' 09/25/16 14:39 Test: TROPONIN I; Value: 0.03; Range: < 0.10; Units: NG/ML; Status: F Test Note: ; Troponin I Reference Interval for [employer] LOCI: 99th Percentile= 0.00-0.045 ng/ml Risk Stratification: <= 0.10 ng/ml Decreased Risk for Adverse Clinical Events. 0.10-1.50 ng/ml Increased Risk for Adverse Clinical Events. Evaluation of additional criterion and/or repeat testing in 2-6 hours is suggested to rule out myocardial damage. >= 1.50 ng/ml Indicative of Myocardial Injury. Lab Order: -Influenza A&B Rapid Antigen - Nose; SPEC'M 09/25/16 15:12 Test: INFLUENZA A RAPID SCR by ICA; Value: INFLUENZA A RESULTS NEGATIVE; Status: F Test: INFLUENZA A RAPID SCR by ICA; Value: Comments:; Status: F Test: INFLUENZA B RAPID SCR by ICA; Value: INFLUENZA B RESULTS NEGATIVE; Status: F Test Note: ; The Influenza test is a direct rapid immunoassay for the qualitative detection of Influenza viral antigen. Cell culture (Viral Culture) testing should be considered to confirm NEGATIVE results and to assist in detecting other viruses that can provide similar clinical symptoms. Please contact the lab within 24 hours ([phone]) if confirmatory testing is desired. Lab Order: Lactic Acid ([place] tube on ice); SPEC'M 09/25/16 15:12 Test: LACTIC ACID LEVEL, LACTATE; Value: 1.4; Range: 0.4-2.0; Units: MMOL/L; Status: F Lab Order: TYPE & SCREEN; SPEC'M 09/25/16 15:43 Test: BLOOD TYPE; Value: A POS; Status: F Test: AB SCREEN (INDIRECT CARIDAD)GEL; Value: NEGATIVE; Status: F Test: IMMEDIATE SPIN CROSSMATCH; Value: [id number] A POSITIVE Compatible? Y; Status: F Test: IMMEDIATE SPIN CROSSMATCH; Value: [id number] A POSITIVE Compatible? Y; Status: F Test: IMMEDIATE SPIN CROSSMATCH; Value: [id number] A POSITIVE Compatible? Y; Status: F Test: IMMEDIATE SPIN CROSSMATCH; Value: [id number] A POSITIVE Compatible? Y; Status: F Lab Order: PATHOLOGIST REVIEW COMPREHENSI; [facility]09/25/16 14:39 Test: SLIDE REVIEW; Value: Report; Status: F Test: SOURCE; Value: PERIPHERAL SMEAR; Status: F Test: REASON FOR REVIEW; Value: COMPREHENSIVE REVIEW; Status: F Test Note: ; Slide and/or specimen referred to Pathologist for review. Results of the review are located in the EMR Pathology module under Peripheral Smear when completed. Lab Order: RETICULOCYTE COUNT; [facility] 09/25/16 14:39 Test: RETICULOCYTE % [id number]; Value: 1.50; Range: 0.5-1.5; Units: %; Status: F Test: RETICULOCYTE ABSOLUTE [id number]; Value: 27; Range: 17-77; Units: x10(9)/L; Status: F Test: RETIC HEMOGLOBIN CONTENT CHr; Value: 33.8; Range: 24-36; Units: PG; Status: F Lab Order: TOTAL IRON BINDING CAPACIT; [facility] 09/25/16 14:39 Test: IRON (FE); Value: 23; Range: 50-170; Abnormal: Below low normal; Units: UG/DL; Status: F Test: TOTAL IRON BINDING CAPACITY; Value: 141; Range: 250-450; Abnormal: Below low normal; Units: UG/DL; Status: F Test: PERCENT SATURATION; Value: 16.3; Range: 13.2-37.4; Units: %; Status: F Lab Order: FERRITIN; [facility] 09/25/16 14:39 Test: FERRITIN; Value: 5870; Range: 8-252; Abnormal: Above high normal; Units: NG/ML; Status: F Lab Order: HEMOGLOBIN & HEMATOCRIT; [facility] 09/26/16 11:57 Test: HEMOGLOBIN; Value: 10.8; Range: 12.0-16.0; Abnormal: Below low normal; Units: g/dl; Status: F Test: HEMATOCRIT; Value: 29.2; Range: 36.0-47.0; Abnormal: Below low normal; Units: %; Status: F Lab Order: COMPLETE BLOOD COUNT; [facility] 09/26/16 05:18 Test: WHITE BLOOD COUNT; Value: 2.2; Range: 4.0-10.0; Abnormal: Below low normal; Units: K/mm3; Status: F Test: RED BLOOD COUNT; Value: 3.33; Range: 4.00-5.40; Abnormal: Below low normal; Units: M/mm3; Status: F Test: HEMOGLOBIN; Value: 10.3; Range: 12.0-16.0; Units: g/dl; Status: F Test: HEMATOCRIT; Value: 28.4; Range: 36.0-47.0; Abnormal: Below low normal; Units: %; Status: F Test: MEAN CORPUSCULAR VOLUME; Value: 85.3; Range: 80.0-96.0; Units: fl; Status: F Test: MEAN CORPUSCULAR HEMOGLOBIN; Value: 31.4; Range: 27.0-33.0; Units: pg; Status: F Test: MEAN CORPUSCULAR HGB CONC; Value: 36.4; Range: 32.0-36.5; Units: g/dl; Status: F Test: RED CELL DISTRIBUTION WIDTH; Value: 15.1; Range: 11.5-14.5; Abnormal: Above high normal; Units: %; Status: F Test: PLATELET COUNT, AUTOMATED; Value: 119; Range: 150-450; Abnormal: Below low normal; Units: k/mm3; Status: F Lab Order: HEMOGLOBIN A1C; [facility] 09/26/16 05:18 Test: HEMOGLOBIN A1c; Value: 7.0; Range: 4.5-6.2; Abnormal: Above high normal; Units: %; Status: F Test: ESTIMATED AVERAGE GLUCOSE; Value: 154; Range: 60-110; Abnormal: Above high normal; Units: MG/DL; Status: F Lab Order: COMPLETE COMPHRENSIVE METABOLI; [facility]09/26/16 05:18 Test: GLUCOSE, FASTING; Value: 56; Range: 83-110; Abnormal: Below low normal; Units: MG/DL; Status: F Test: BLOOD UREA NITROGEN; Value: 84; Range: 7-18; Abnormal: Above high normal; Units: MG/DL; Status: F Test: CREATININE FOR GFR; Value: 3.13; Range: 0.55-1.02; Abnormal: Above high normal; Units: MG/DL; Status: F Test: GLOMERULAR FILTRATION RATE; Value: 15.4; Range: >39; Abnormal: Below low normal; Status: F Test: SODIUM LEVEL; Value: 139; Range: 136-145; Units: MEQ/L; Status: F Test: POTASSIUM SERUM; Value: 3.6; Range: 3.5-5.1; Units: MEQ/L; Status: F Test: CHLORIDE LEVEL; Value: 107; Range: 98-107; Units: MEQ/L; Status: F Test: CARBON DIOXIDE LEVEL; Value: 18; Range: 21-32; Abnormal: Below low normal; Units: MEQ/L; Status: F Test: ANION GAP; Value: 14; Range: 8-16; Units: MEQ/L; Status: F Test: CALCIUM LEVEL; Value: 7.5; Range: 8.8-10.2; Abnormal: Below low normal; Units: MG/DL; Status: F Test: AST/SGOT; Value: 42; Range: 15-37; Abnormal: Above high normal; Units: U/L; Status: F Test: ALT/SGPT; Value: 18; Range: 12-78; Units: U/L; Status: F Test: ALKALINE PHOSPHATASE; Value: 44; Range: 45-117; Abnormal: Below low normal; Units: U/L; Status: F Test: BILIRUBIN,TOTAL; Value: 1.2; Range: 0.2-1.0; Abnormal: Above high normal; Units: MG/DL; Status: F Test: TOTAL PROTEIN; Value: 5.6; Range: 6.4-8.2; Abnormal: Below low normal; Units: GM/DL; Status: F Test: ALBUMIN; Value: 2.3; Range: 3.2-5.2; Abnormal: Below low normal; Units: GM/DL; Status: F Test: ALBUMIN/GLOBULIN RATIO; Value: 0.70; Range: 1.00-1.93; Abnormal: Below low normal; Status: F Test Note: ; Units are mL/min/1.73 m2 Chronic Kidney Disease Staging per NKF: Stage I & II GFR >=60 Normal to Mildly Decreased Stage III GFR 30-59 Moderately Decreased Stage IV GFR 15-29 Severely Decreased Stage V GFR <15 Very Little GFR Left ESRD GFR <15 on SURVEYOR GEOPHYSICAL PROSPECTING Lab Order: Fingerstick Blood Sugar; SPEC'M 09/26/16 07:31 Test: BEDSIDE GLUCOSE; Value: 60; Range: 83-110; Abnormal: Below low normal; Units: MG/DL; Status: F Lab Order: Fingerstick Blood Sugar; SPEC'M 09/26/16 09:34 Test: BEDSIDE GLUCOSE; Value: 110; Range: 83-110; Units: MG/DL; Status: F Lab Order: MAGNESIUM LEVEL; SPEC'M 09/26/16 05:18 Test: MAGNESIUM LEVEL; Value: 1.5; Range: 1.8-2.4; Abnormal: Below low normal; Units: MG/DL; Status: F Lab Order: Fingerstick Blood Sugar; SPEC'M 09/26/16 11:43 Test: BEDSIDE GLUCOSE; Value: 92; Range: 83-110; Units: MG/DL; Status: F Radiology Order: Chest, 2 View (pa\E\lat) Test: Chest, 2 View (pa\E\lat) REASON FOR EXAMINATION: weak, low grade fever; Clinical: Low grade fever and weakness.; ; Technique: AP and lateral views.; ; Comparison: 02/24/2016.; ; Findings: Mediastinum and cardiac silhouette are stable. Lung doe; demonstrate diffuse chronic interstitial changes without definite consolidation,; effusion or pneumothorax. Lateral view cannot exclude density overlying the mid; lung zone for which chest CT correlation may be warranted. Skeletal structures; demonstrate age-related degenerative changes.; ; Impression:; Chronic stable changes.; Cannot exclude subtle nodular density on lateral radiograph only. 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; : 1940 Requested By: JUSTIN Alonso; Order Number: [id number] Maldonado MD: Meme Palomares; Measurements; Intervals [place]; Rate: 102 P: 77; MD: 136 QRS: 55; QRSD: 87 T: 52; QT: 323; QTc: 423; Interpretive Statements; SINUS TACHYCARDIA; ABNORMAL RHYTHM ECG; LOW VOLTAGE LIMB; INCREASED RATE 01/25/16; Electronically Signed On 09-25-2016 18:13:24 EST by Meme Palomares; Radiology Order: CT Head Without Contrast Test: CT Head Without Contrast REASON FOR EXAMINATION: weakness, fall 4 days ago; Clinical: Weakness with recent fall .; ; Findings:; Age-related atrophy and microvascular ischemic changes are appreciated. The; ventricles and sulci are symmetric. [place]-white differentiation is maintained.; There is no evidence for acute intracranial hemorrhage, mass/mass effect,; pathology or infarction. No extra-axial fluid collection. Calvarium is intact.; Paranasal sinuses and mastoid air cells are clear.; ; Impression:; Age related atrophy and microvascular ischemic changes.; No acute intracranial hemorrhage, infarction, or mass/mass effect.; ; ; Signed by; Ariel Gray MD 09/25/2016 02:53 P; Radiology Order: CT Chest without contrast Test: CT Chest without contrast REASON FOR EXAMINATION: LOW GRADE FEVER NODULAR DENSITY ON CXR.; ; CLINICAL STATEMENT: Low-grade fever with nodular density on chest x-ray.; TECHNIQUE: CT of the chest was performed without intravenous contrast by obtaining contiguous axial s; lices from level of the thyroid gland to level of the kidneys. Post imaging 3-D technique processing; was utilized and multiplanar reformats were obtained in coronal and sagittal projections.; COMPARISON: None; FINDINGS:; Lower neck: Visualized thyroid gland unremarkable. No mass or suspicious cystic lesion.; Lungs / airways / pleura: Mosaic attenuation pattern noted with groundglass and mild atelectatic agrawal; ges toward the bases. No consolidation, effusion, mass, suspicious nodule, or pneumothorax. Central a; nd visualized peripheral airways are patent.; Mediastinum: No mass or suspicious cystic lesion. Heart normal in size with coronary calcination. No; pericardial effusion. Thoracic aorta and pulmonary trunk normal in caliber.; Lymph nodes: No enlarged adenopathy. Paratracheal, bihilar and subcarinal granulomatous calcification; s.; Upper abdomen: Status post cholecystectomy.; Osseous structures/Soft tissues/thoracic wall: Mild scoliosis with multilevel gltyjniy-zx-pnowqx dege; nerative changes of the thoracic spine with endplate sclerosis, disc space narrowing with spurring. N; o soft tissue abnormality or hernia.; Line/devices: None.; IMPRESSION:; 1. No infiltrate, consolidation or suspicious nodule.; 2. Mild scoliosis with multilevel cmajmbgb-nr-zvhrfk degenerative changes of the thoracic spine with; endplate sclerosis, disc space narrowing with spurring.; ; Outcome: 16:20 Decision to Hospitalize by Provider. br1 18:37 CT Study completed. dsf 18:44 Discharge Assessment: patient administered narcotics - no. dsf 19:25 Admission hand-off: Other: report given to Ekaterina NELSON . f 09/26 14:34 Patient left the ED. nr1 Signatures: Dispatcher [employer] EDMS Ester Sellers RN Moe Lloyd mcp, RN RN cz Richard, Flakita, Reg Reg Kolby Riddle, RN Ceferino Hancock RN RN mlb1 Amanda Veras, Foreman Or Supervisor And Operator Unit ml3 Justin Arceo MD MD br1 Karen Park RN RN hs1 Carlotta McconnellRN RN f Rox Gonzalez Teresa, RN OMAR ttb Humera Dumont, AFSANEH E LEARNING COORDINATOR jlf Krys Barreto RN RN nr1 Sheree Balderas MTDD
--- NOTE | 2016-09-26 14:35 | EDDOCDS ---
Physician Documentation [facility] Name: Mila Espitia Age: 75 yrs Sex: Female : 1940 Arrival Date: 09/25/2016 Time: 13:33 Bed Admit Hold Private MD: Disposition: 09/25/16 16:20 Hospitalization ordered by Susu Kramer for Inpatient Admission. Preliminary diagnosis are Anemia, unspecified, Abnormal findings on diagnostic imaging of lung, Orthostatic hypotension. - Bed requested for PCU. - Status is Inpatient Admission. nr1 - Condition is Stable. - Problem is new. - Symptoms are unchanged. Historical: - Allergies: No known drug Allergies; - Home Meds: 1. ranitidine HCl 150 mg Oral tab 1 tab 2 times per day 2. prednisone 20 mg Oral tab 2 tabs once daily 3. calcitriol 0.25 mcg oral cap 1 cap 4. glimepiride 1 mg Oral tab 1 tab once daily 5. cyclophosphamide 50 mg oral cap twice a day 6. Coreg 3.125 mg Oral tab 1 tab every 12 hours 7. amlodipine 10 mg Oral tab 1 tab once daily 8. hydralazine 50 mg Oral tab 1 tab three times a day 9. iron 325 mg (65 mg iron) oral tab daily 10. folic acid 1 mg Oral tab 1 tab once daily 11. irbesartan-hydrochlorothiazide 300-12.5 mg oral tab 1 tab once daily 12. multivitamin Oral tab 1 tablet daily - PMHx: Anemia; Hypercholesterolemia; Hypertension; ESRD; - PSHx: eye surgery; - Social history: Smoking status: Patient states was never smoker of tobacco. No barriers to communication noted, The patient speaks fluent Wolof, Speaks appropriately for age. - Family history: Not pertinent. - : The pt / caregiver states he / she is not on anticoagulants. Home medication list is obtained from the patient. - Exposure Risk Screening:: None identified. Vital Signs: 09/25 13:35 BP 117 / 74; Pulse 115; Resp 18; Temp 100.3(O); Pulse Ox 96% ; Weight 48.53 kg / 106.99 cmb lbs; Height 5 ft. 2 in. (157.48 cm); Pain 0/10; 15:20 BP 125 / 62 Supine; Pulse 96; dsf 15:20 BP 123 / 60 Sitting; Pulse 102; dsf 15:20 BP 99 / 59 Standing; Pulse 114; dsf 15:21 BP 124 / 59 (auto/); dsf 15:21 Pulse 98 MON; Pulse Ox 98% ; dsf 15:36 BP 102 / 58 (auto/); dsf 15:36 Pulse 98 MON; Pulse Ox 92% ; dsf 15:51 BP 104 / 55 (auto/); dsf 15:51 Pulse 96 MON; Pulse Ox 94% ; dsf 16:06 BP 98 / 53 (auto/); dsf 16:06 Pulse 92 MON; Pulse Ox 93% ; dsf 16:13 Resp 20; Temp 98.3; Pain 0/10; dsf 16:21 BP 104 / 57 (auto/); dsf 16:21 Pulse 90 MON; Pulse Ox 93% ; dsf 16:36 BP 104 / 55 (auto/); dsf 16:36 Pulse 86 MON; Pulse Ox 92% ; dsf 16:51 BP 102 / 56 (auto/); dsf 16:51 Pulse 82 MON; Pulse Ox 91% ; dsf 17:02 BP 110 / 57 (auto/); dsf 17:02 Pulse 80 MON; Pulse Ox 93% ; dsf 17:06 BP 105 / 55 (auto/); dsf 17:06 Pulse 78 MON; Pulse Ox 93% ; dsf 17:21 BP 107 / 59 (auto/); dsf 17:21 Pulse 76 MON; Pulse Ox 91% ; dsf 17:29 BP 104 / 58 (auto/); dsf 17:29 Pulse 76 MON; Pulse Ox 93% ; dsf 17:36 BP 110 / 58 (auto/); dsf 17:36 Pulse 74 MON; Pulse Ox 92% ; dsf 17:51 BP 119 / 64 (auto/); dsf 17:51 Pulse 72 MON; Pulse Ox 94% ; dsf 18:06 Pulse 72 MON; Pulse Ox 96% ; dsf 18:06 BP 116 / 65 (auto/); dsf 18:09 BP 112 / 64 (auto/); dsf 18:09 Pulse 74 MON; dsf 18:21 BP 133 / 62 (auto/); dsf 18:21 Pulse 74 MON; dsf 18:36 BP 154 / 58 (auto/); dsf 18:38 Pulse 78 MON; Pulse Ox 97% ; dsf 18:51 BP 111 / 59 (auto/); dsf 18:51 Pulse 72 MON; Pulse Ox 97% ; dsf 19:04 BP 132 / 64 (auto/); dsf 19:04 Pulse 72 MON; Pulse Ox 95% ; dsf 19:06 BP 124 / 69 (auto/); dsf 19:06 Pulse 74 MON; Pulse Ox 94% ; dsf 19:21 BP 126 / 66 (auto/); dsf 19:21 Pulse 74 MON; Pulse Ox 95% ; dsf 19:36 BP 128 / 70 (auto/); dsf 19:36 Pulse 86 MON; Pulse Ox 94% ; dsf 19:47 BP 129 / 72 (auto/); dsf 19:47 Pulse 82 MON; Pulse Ox 93% ; dsf 19:51 BP 125 / 72 (auto/); dsf 19:51 Pulse 80 MON; Pulse Ox 95% ; dsf 20:06 Pulse 78 MON; Pulse Ox 97% ; dsf 20:06 BP 144 / 73 (auto/); dsf 20:21 BP 137 / 74 (auto/); dsf 20:21 Pulse 68 MON; Pulse Ox 95% ; dsf 20:36 BP 135 / 70 (auto/); dsf 20:51 BP 135 / 73 (auto/); dsf 20:58 BP 134 / 71 (auto/); dsf 13:35 Body Mass Index 19.57 (48.53 kg, 157.48 cm) cmb MDM: 14:33 Electronic Systems Technician/Pulse Ox/q 30 min VS ordered. br1 14:33 IV Saline Lock ordered. br1 14:33 Rhythm Strip to chart ordered. br1 14:33 Undress patient appropriately for examination ordered. br1 14:33 Orthostatic VS ordered. br1 14:33 -Blood Culture (Adults Only), peripheral from different site, or from device/port/PICC br1 etc. if present ordered. 14:34 Acetaminophen Tablet 650 mg PO once ordered. br1 14:34 Basic Metabolic Profile Ordered. EDMS 14:34 CBC with Diff Ordered. EDMS 14:34 Cardiac Injury Profile Ordered. EDMS 14:34 Troponin Ordered. EDMS 14:35 Chest, 2 View (pa\E\lat) Ordered. EDMS 14:35 ECG WITH READING ER PHYS+CARDIAG ordered. EDMS 14:35 CT Head Without Contrast Ordered. EDMS 14:35 -Influenza A&B Rapid Antigen - Nose Ordered. EDMS 14:36 Lactic Acid ([place] tube on ice) Ordered. EDMS 14:36 -Blood Culture Ordered. EDMS 14:46 -Blood Culture (Adults Only), peripheral from different site, or from device/port/PICC lbd etc. if present complete. 14:47 BLOOD CULTURES Ordered. EDMS 15:21 Type and Cross, Packed Cells Ordered. EDMS 15:23 TYPE & SCREEN Ordered. EDMS 15:33 Financial registration complete. gjb 15:37 [facility] Payment Agreement was scanned into [employer] and attached to record. gjb 15:42 Basic Metabolic Profile Reviewed. br1 15:42 CBC with Diff Reviewed. br1 15:42 Cardiac Injury Profile Reviewed. br1 15:42 Troponin Reviewed. br1 15:42 -Influenza A&B Rapid Antigen - Nose Reviewed. br1 15:42 Lactic Acid ([place] tube on ice) Reviewed. br1 15:42 CT Head Without Contrast Reviewed. br1 15:51 Transfuse PRBC's 2 units, ensure PRBCs ordered in lab ordered. br1 15:51 BED REQUEST+ADM ordered. EDMS 16:10 PATHOLOGIST REVIEW COMPREHENSI Ordered. EDMS 16:10 RETICULOCYTE COUNT Ordered. EDMS 16:14 PHYSICAL THERAPY EVAL & TREAT ordered. EDMS 16:15 Admission / Observation Status ordered. EDMS 16:32 PACKED CELLS Ordered. EDMS 17:31 RENAL DIET ordered. EDMS 17:40 URINALYSIS Ordered. EDMS 17:40 URINE CULTURE Ordered. EDMS 17:47 CT Chest without contrast Ordered. EDMS 19:33 HEMOGLOBIN & HEMATOCRIT Ordered. EDMS 19:33 HEMOGLOBIN & HEMATOCRIT Ordered. EDMS 19:33 COMPLETE BLOOD COUNT Ordered. EDMS 19:33 HEMOGLOBIN A1C Ordered. EDMS 21:31 Fingerstick Blood Sugar Ordered. EDMS 09/26 07:44 Fingerstick Blood Sugar Ordered. EDMS 09:48 Fingerstick Blood Sugar Ordered. EDMS 10:24 MAGNESIUM LEVEL Ordered. EDMS 11:56 Fingerstick Blood Sugar Ordered. EDMS 13:31 T-Sheet-- Draft Copy was scanned into [employer] and attached to record. gb 13:32 Radiology Report was scanned into [employer] and attached to record. gb 13:42 ELECTROCARDIOGRAM ADULT ordered. EDMS Administered Medications: 09/25 15:00 Drug: Acetaminophen 650 mg [acetaminophen 325 mg tablet (2 tabs)] Route: PO; hs1 16:13 Follow up: Resp 20 bpm; Temp 98.3; Pain 0/10 Adult dsf Signatures: Dispatcher [employer] EDMS Deborah Gutierrez, Hematology Supervisor Unit lbd Joselyn Cast, Hematology Supervisor Unit deg Sola Gutierres RN RN srm Barnilst, Flakita, Reg Reg gb Kolby Broussard RN RN dy Elijah Arceo MD MD br1 Carlotta Mcconnell RN RN dsf Krys Barreto RN RN nr1 Sheree Balderas [facility] Karen Park RN hs1 The chart was reviewed and I authenticate all verbal orders and agree with the evaluation and treatment provided.Corrections: (The following items were deleted from the chart) 16:29 16:10 IRON (FE) ordered. EDMS EDMS 16:29 16:10 TOTAL IRON BINDING CAPACIT ordered. EDMS EDMS 16:29 16:10 FERRITIN ordered. EDMS EDMS 16:32 16:15 PACKED CELLS ordered. EDMS EDMS 16:32 16:17 TYPE & SCREEN ordered. EDMS EDMS 17:31 16:15 OTHER CUSTOM DIETS ordered. EDMS EDMS 09/26 03:58 09/25 19:33 BASIC METABOLIC PROFILE ordered. EDMS EDMS 09/26 03:58 03:53 COMPLETE COMPHRENSIVE METABOLI ordered. EDMS EDMS 04:17 03:58 COMPLETE COMPHRENSIVE METABOLI ordered. EDMS EDMS 10:24 09:42 MAGNESIUM LEVEL ordered. EDMS EDMS Attachments: 09/25 15:37 [facility] Payment Agreement gj 09/26 13:31 T-Sheet-- Draft Copy gb MTDD
[2016-09-26 17:21] LABS: MEAN CORPUSCULAR HEMOGLOBIN 30.8 pg (27.0-33.0); MEAN CORPUSCULAR HGB CONC 35.8 g/dl (32.0-36.5); PLATELET COUNT, AUTOMATED 113 k/mm3 (150-450); RED CELL DISTRIBUTION WIDTH 15.5 % (11.5-14.5); WHITE BLOOD COUNT 2.2 K/mm3 (4.0-10.0)
[2016-09-26 17:35] LABS: POTASSIUM SERUM 4.8 MEQ/L (3.5-5.1)
--- NOTE | 2016-09-26 17:42 | IPNPDOC ---
Text Note Date of Service The patient was seen on 09/26/16 at 17:27. NOTE Subjective: Patient states that she feels much better. No bleeding noted. No hematuria/hematachezia/melanotic stools. Patient did have an episode of V. tach this a.m., however patient was asymptomatic. She does tell me that she had a syncopal episode on Friday and since then has been having generalized weakness. No head trauma. Objective: Vitals: (see below) General: No acute distress, laying comfortably in bed. HEENT: Moist mucous membranes. Neck: No JVD or lymphadenopathy Cardiac: RRR, No murmurs Pulm: Coarse crackles at the bases b/l. No wheezing, rhonchi Abd: NT/ND + BS Ext: No edema or cyanosis Labs (see below) Images: CT Head 09/25/16 Impression: Age related atrophy and microvascular ischemic changes. No acute intracranial hemorrhage, infarction, or mass/mass effect. CXR 09/25/16 Impression: Chronic stable changes. Cannot exclude subtle nodular density on lateral radiograph only. Consider chest CT follow-up. CT Chest 09/26/16 IMPRESSION: 1. No infiltrate, consolidation or suspicious nodule. 2. Mild scoliosis with multilevel meejopqo-dy-armhhz degenerative changes of the thoracic spine with endplate sclerosis, disc space narrowing with spurring. Assessment/Plan 1. Symptomatically anemia- likely related to cyclophosphamide. Patient has a previous episode in July, requiring 6 units PRBC. Patient did have 3 units PRBC, and the fourth was discontinued as the patient had a fever. It appears that the patient has been having low-grade temps even prior to receiving blood. She has been prophylactically started on Rocephin. Her CT of the chest is negative for pneumonia. Her UA negative. No acute source of infection at this time. Follow blood cultures. 2. Asymptomatic nonsustained ventricular tachycardia- noted in the ED. Patient' s denies any chest pain/palpitations. Given her recent syncopal episode questionable whether her syncopal episode was due to symptomatic anemia versus ventricular tachycardia. Her magnesium and potassium have been replaced. On BB , Appreciate Dr. Albarado's input, as well as Dr. Arroyo for evaluating her. 3. Acute on Chronic Kidney Disease - Stage 5. Cr in august was reported to be 2.2. 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 4. HTN - continue current home meds except for ARB and HCTZ. DVT prophy: SCDs VS,Fishbone, I+O VS, Fishbone, I+O Laboratory Tests 09/26/16 05:18 Calcium Level 7.5 L, Aspartate Amino Transf (AST/SGOT) 42 H, Alanine Aminotransferase (ALT/SGPT) 18, Alkaline Phosphatase 44 L, Total Bilirubin 1.2 H , Total Protein 5.6 L, Albumin 2.3 L, Red Blood Count 3.33 L, Mean Corpuscular Volume 85.3, Mean Corpuscular Hemoglobin 31.4, Mean Corpuscular Hemoglobin Concent 36.4, Red Cell Distribution Width 15.1 H 09/26/16 11:57 09/26/16 17:10 Red Blood Count 3.62 L, Mean Corpuscular Volume 86.0, Mean Corpuscular Hemoglobin 30.8, Mean Corpuscular Hemoglobin Concent 35.8, Red Cell Distribution Width 15.5 H, Neutrophils (%) (Auto) , Lymphocytes (%) (Auto) , Monocytes (%) (Auto) , Eosinophils (%) (Auto) , Basophils (%) (Auto) , Neutrophils # (Auto) , Lymphocytes # (Auto) , Monocytes # (Auto) , Eosinophils # (Auto) , Basophils # (Auto) Vital Signs Date Time Temp Pulse Resp B/P Pulse Ox O2 Delivery O2 Flow Rate FiO2 09/26/16 16:31 85 111/65 09/26/16 15:00 Room Air 09/26/16 14:40 96.2 20 93 I&O- Last 24 Hours up to 6 AM 09/26/16 06:00 Intake Total 240 ml Output Total 0 ml Balance 240 ml STEFAN CHURCH MD Sep 26, 2016 17:41
[2016-09-26 18:17] LABS: BASOPHILS 1 % (0-4)
[2016-09-26 18:21] LABS: CALCIUM LEVEL 7.9 MG/DL (8.8-10.2); CREATININE FOR GFR 3.23 MG/DL (0.55-1.02); GLOMERULAR FILTRATION RATE 14.9 (>39); MAGNESIUM LEVEL 2.1 MG/DL (1.8-2.4)
[2016-09-26] MEDS: cefTRIAXone SOD 2 GM in D5W MINI-BAG PLUS 50 ML IV SCH (18:57)
[2016-09-27] VITALS (7 sets, daily range): BP systolic 121–152; BP diastolic 52–83
[2016-09-27] MEDS ORDERED: SLF 3 ML SYR IV PRN (02:00)
[2016-09-27] MEDS: HEPARIN SOD (PORCINE) 5000 UNITS/ML VIAL SC SCH ×2 (05:04→13:24)
[2016-09-27] MEDS: SLF 3 ML SYR IV SCH ×3 (05:05→20:41)
[2016-09-27 06:17] LABS: MEAN CORPUSCULAR HGB CONC 35.2 g/dl (32.0-36.5); RED CELL DISTRIBUTION WIDTH 15.6 % (11.5-14.5)
[2016-09-27 06:19] LABS: CALCIUM LEVEL 7.8 MG/DL (8.8-10.2); CREATININE FOR GFR 3.02 MG/DL (0.55-1.02); GLOMERULAR FILTRATION RATE 16.1 (>39); POTASSIUM SERUM 4.7 MEQ/L (3.5-5.1)
[2016-09-27] MEDS ORDERED: predniSONE 10 MG TAB PO ONE (09:30)
[2016-09-27] MEDS: HumaLOG INSULIN (NovoLOG) PER UNIT SC SCH ×4 (09:32→20:43)
[2016-09-27] MEDS: FOLIC ACID 1 MG TAB PO SCH (09:33)
[2016-09-27] MEDS: **hydrALAZINE** 50 MG TAB PO SCH ×3 (09:33→20:22)
[2016-09-27] MEDS: amLODIPine 10 MG TAB PO SCH (09:33)
[2016-09-27] MEDS: CALCITRIOL 0.25 MCG CAP (S0169) PO SCH (09:34)
[2016-09-27] MEDS: GLIMEPIRIDE 1 MG TABLET PO SCH (09:34)
[2016-09-27] MEDS: predniSONE 10 MG TAB PO SCH (09:34)
[2016-09-27] MEDS: FERROUS SULFATE 325MG TAB PO SCH (09:35)
[2016-09-27] MEDS: CARVedilol 3.125 MG TAB PO SCH ×2 (09:35→20:21)
[2016-09-27] MEDS: FAMOTIDINE 20 MG TAB PO SCH ×2 (09:35→20:41)
[2016-09-27] MEDS: MULTIVITAMINS/MINERALS THERAP 1 TAB PO SCH (09:36)
--- NOTE | 2016-09-27 09:51 | ECGEPIP ---
Stationary ECG Study [facility] Test Date: 2016-09-26 Pat Name: NISREEN GA Department: Room: [place] [address] Gender: F Unleavened Dough Mixer: JUAN : 1940 Requested By: STEFAN CHURCH Order Number: [id number] Reading MD: Kolby Mora Measurements Intervals [place] Rate: 75 P: 56 ID: [id number] QRS: 23 QRSD: 87 T: 42 QT: 389 QTc: 435 Interpretive Statements SINUS RHYTHM WITH SHORT ID INTERVAL Rate decreased from tracing 09-25-16 Electronically Signed On 09-27-2016 9:50:39 EST by Kolby Mora
--- NOTE | 2016-09-27 13:35 | IPNPDOC ---
Date of Service/Time The patient was seen on 09/27/16. Progress Note DATE OF ENCOUNTER: 09/27/2016 SUBJECTIVE: Patient was seen this morning at bedside. No acute overnight issues. She does report that she did not sleep too well. She reports that her weakness is improved and she has been ambulating to the bathroom and window, which she could not do prior to admission. She denies any chest pain, palpitations or shortness of breath. No nausea, vomiting, abdominal pain, diarrhea. She has been afebrile for 24 hours, white count remains low. OBJECTIVE: Vital Signs Date Time Temp Pulse Resp B/P Pulse Ox O2 Delivery O2 Flow Rate FiO2 09/27/16 12:00 95.6 77 20 140/68 98 Room Air I&O- Last 24 Hours up to 6 AM 09/27/16 06:00 Intake Total 1370 ml Output Total 375 ml Balance 995 ml GENERAL APPEARANCE: Alert and oriented 3. In no acute distress. HEENT: Normocephalic, atraumatic. Extraocular muscles are intact. No oral thrush or ulcers. NECK: Supple. No jugular venous distention. HEART: Normal S1, S2. Regular rate and rhythm. No gallops, rubs or gallops appreciated. LUNGS: Positive for bilateral crackles in lower bases. No rhonchi or wheezing appreciated. ABDOMEN: Soft, nontender, nondistended. Bowel sounds are present. No organomegaly appreciated. EXTREMITIES: No cyanosis or edema. Positive pedal pulses bilaterally. NEUROLOGIC: No focal deficits. LABORATORY DATA: 09/27/16 05:27 Red Blood Count 3.28 L, Mean Corpuscular Volume 88.0, Mean Corpuscular Hemoglobin 31.0, Mean Corpuscular Hemoglobin Concent 35.2, Red Cell Distribution Width 15.6 H, Anion Gap 10, Calcium Level 7.8L, Glomerular Filtration Rate 16.1L MICROBIOLOGY: Blood cultures show no growth thus far ASSESSMENT/PLAN: 1. Acute on chronic kidney disease stage IV. Creatinine in August was 2.2. It had been improving after initiation of prednisone and cyclophosphamide for acute glomerulonephritis.This acute injury is likely secondary to hypovolemia in the setting of anemia as well as depressed blood count from cyclophosphamide. Creatinine does appear to be improving. 2. Symptomatic anemia with fall/syncopal episode. No signs of acute bleeding. This is likely secondary to a combination of cyclophosphamide inducing pancytopenia along with renal disease. She is status post 3 units of packed red blood cells on 09/26 and hemoglobin remains stable. 3. Focal and crescentic glomerulonephritis, diagnosed in July 2016. She was on prednisone 40 mg daily and cyclophosphamide 50 mg twice daily at home. Due to her pancytopenia, cyclophosphamide has not been resumed. Her prednisone is also being tapered down as she has been on this since last hospital discharge on August 02. 4. Pancytopenia, likely secondary to cyclophosphamide. Continue to monitor blood counts. 5. Fever in the setting of pancytopenia. She was empirically started on ceftriaxone given her immunosuppression and risk of infection. 6. Episode of nonsustained V. tach in emergency department. Potassium and magnesium supplementation was given yesterday. Electrolytes are stable this morning. She has not had any recurrence on telemetry overnight. 7. Mild acidosis. Hopefully as her renal function improves, this will correct. No intervention at this time. 8. Hypertension. Blood pressure stable. She is on Norvasc 10 mg daily, Coreg 3.125 mg twice daily, hydralazine 50 mg 3 times daily. Her Irbesartan/HCTZ was held on admission. 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 Current hemoglobin A1c of 7.0. Her prednisone is being tapered which should help with her blood sugars. 10. Secondary hyperparathyroidism. Continue calcitriol 0.25mcg daily. GME ATTESTATION GME ATTESTATION My preceptor for this patient encounter was physically present in the building during the encounter and was fully available. As needed, all aspects of the patient interview, examination, medical decision making process, and medical care plan development were reviewed and approved by the preceptor. Preceptor is aware and concurs with the plan as stated in the body of this note and will attest to such by his/her cosignature. SUNDAY FLORES DO Sep 27, 2016 13:35
--- NOTE | 2016-09-27 15:29 | IPNPDOC ---
Text Note Date of Service The patient was seen on 09/27/16 at 15:27. NOTE Subjective: Patient denies any complaints. No other episodes of V. tach. Objective: Vitals: (see below) General: No acute distress, laying comfortably in bed. HEENT: Moist mucous membranes. Neck: No JVD or lymphadenopathy Cardiac: RRR, No murmurs Pulm: Coarse crackles at the bases b/l. No wheezing, rhonchi Abd: NT/ND + BS Ext: No edema or cyanosis Labs (see below) Images: CT Head 09/25/16 Impression: Age related atrophy and microvascular ischemic changes. No acute intracranial hemorrhage, infarction, or mass/mass effect. CXR 09/25/16 Impression: Chronic stable changes. Cannot exclude subtle nodular density on lateral radiograph only. Consider chest CT follow-up. CT Chest 09/26/16 IMPRESSION: 1. No infiltrate, consolidation or suspicious nodule. 2. Mild scoliosis with multilevel pdndzaxs-le-mqhwno degenerative changes of the thoracic spine with endplate sclerosis, disc space narrowing with spurring. Assessment/Plan 1. Symptomatically anemia- likely related to cyclophosphamide. Patient has a previous episode in July, requiring 6 units PRBC. Patient did have 3 units PRBC, and the fourth was discontinued as the patient had a fever. It appears that the patient has been having low-grade temps even prior to receiving blood. She has been prophylactically started on Rocephin. Her CT of the chest is negative for pneumonia. Her UA negative. No acute source of infection at this time. Follow blood cultures. 2. Asymptomatic nonsustained ventricular tachycardia- noted in the ED. Patient' s denies any chest pain/palpitations. Given her recent syncopal episode questionable whether her syncopal episode was due to symptomatic anemia versus ventricular tachycardia. Her magnesium and potassium have been replaced. On BB , Appreciate Dr. Albarado's input, as well as Dr. Arroyo for evaluating her. 3. Acute on Chronic Kidney Disease - Stage 5. Cr in august was reported to be 2.2. 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 4. HTN - continue current home meds except for ARB and HCTZ. 5. Pancytopenia- secondary to cyclophosphamide, which has been stopped. Her platelets have decreased. No bleeding noted at this time. DVT prophy: SCDs VS,Fishbone, I+O VS, Fishbone, I+O Laboratory Tests 09/26/16 17:10 Calcium Level 7.9 L, Red Blood Count 3.62 L, Mean Corpuscular Volume 86.0, Mean Corpuscular Hemoglobin 30.8, Mean Corpuscular Hemoglobin Concent 35.8, Red Cell Distribution Width 15.5 H, Neutrophils (%) (Auto) , Lymphocytes (%) (Auto) , Monocytes (%) (Auto) , Eosinophils (%) (Auto) , Basophils (%) (Auto) , Neutrophils # (Auto) , Lymphocytes # (Auto) , Monocytes # (Auto) , Eosinophils # (Auto) , Basophils # (Auto) 09/27/16 00:00 09/27/16 05:27 Calcium Level 7.8 L, Red Blood Count 3.28 L, Mean Corpuscular Volume 88.0, Mean Corpuscular Hemoglobin 31.0, Mean Corpuscular Hemoglobin Concent 35.2, Red Cell Distribution Width 15.6 H 09/27/16 12:04 Vital Signs Date Time Temp Pulse Resp B/P Pulse Ox O2 Delivery O2 Flow Rate FiO2 09/27/16 12:00 95.6 77 20 140/68 98 Room Air I&O- Last 24 Hours up to 6 AM 09/27/16 06:00 Intake Total 1370 ml Output Total 375 ml Balance 995 ml STEFAN CHURCH MD Sep 27, 2016 15:29
[2016-09-27] MEDS: cefTRIAXone SOD 2 GM in D5W MINI-BAG PLUS 50 ML IV SCH (19:07)
--- NOTE | 2016-09-28 01:22 | CR ---
DATE OF CONSULTATION: 09/27/2016 REFERRING PROVIDER: Adonis Sánchez MD. REASON FOR CONSULTATION: Ventricular tachycardia. HISTORY OF PRESENT ILLNESS: 75-year-old woman with a history of chronic anemia diagnosed by bone marrow biopsy done last year, anemia, hyperlipidemia, and also last July she was diagnosed with focal necrotizing and crescentic glomerulonephritis and was started on treatment with prednisone and cyclophosphamide. She came to the emergency room (ER) on 09/25/2016, because of increasing weakness. According to the nephrology note, her kidney function has initially improved, as well as her anemia. She was being admitted yesterday and while in the ER, she was found to have a short run of ventricular tachycardia. Cardiology consult was called. When I saw Mrs. Mila Espitia this evening, she was supine in bed in no acute distress at rest. She denies any chest pain or shortness of breath or palpitations. She has been ambulating. She thinks she feels better since in the hospital. She is on prednisone and she has received three units of packed red blood cells. She has not been having any new episode of ventricular tachycardia. She denies any nausea, vomiting, diarrhea, melena or hematemesis. She denies any active bleeding problems. She has a past medical history as mentioned above for hypertension, hyperlipidemia, chronic kidney disease, and underlying glomerulonephritis, chronic anemia and her labs revealed hypomagnesemia of 1.5. She denies any history of coronary artery disease, myocardial infarction, significant valvular heart disease, congestive heart failure, atrial fibrillation, CVA, cardiomyopathy, sudden cardiac . She denies thyroid disorders. She does have a history of diabetes mellitus. PAST SURGICAL HISTORY: Positive for bilateral cataract extraction and tonsillectomy. CURRENT MEDICATIONS: - prednisone 30 mg by mouth daily - folic acid 1 mg by mouth daily - multivitamins one tablet by mouth daily - glimepiride 1 mg by mouth daily - regular insulin coverage - heparin subcutaneously 5000 units every 8 hours - carvedilol 3.125 mg by mouth twice a day - hydralazine 50 mg by mouth three times a day - famotidine 20 mg by mouth twice a day - ceftriaxone 2 grams intravenously (IV) every 24 hours - D50 as well as glucose tablets and Glucagon for hypoglycemia episodes - Zofran 4 mg IV every 6 hours as needed for nausea and vomiting - Tylenol 650 mg by mouth every 4 hours as needed for pain - Dulcolax 5 mg daily as needed for constipation - amlodipine 10 mg by mouth daily - calcitriol 0.25 mg by mouth daily - ferrous sulfate 325 mg by mouth daily FAMILY HISTORY: Noncontributory, but significant for diabetes mellitus, hypertension, hyperlipidemia. SOCIAL HISTORY: Patient lives with her daughter and there is no report of smoking or ethyl alcohol (EtOH) abuse or illicit drugs. ALLERGIES: No known drug allergies. ADVANCED DIRECTIVES: Patient is a FULL CODE. PHYSICAL EXAMINATION: Patient is alert and oriented, in no acute distress at rest. Her last vital signs today revealed a blood pressure of 132/52 with a pulse of 70, respirations 18, and her temperature is 96.8 degrees Fahrenheit with an oxygen saturation of 96% on room air. She has a positive fluid balance of 1.2 liters. Examination of the head, ears, eyes, nose and throat: Atraumatic. Neck is supple. No jugular venous distention (JVD). I could not appreciate any carotid bruits. The lungs reveal minimal crackles that seem to be dry in nature at the bases, but no wheezing. The heart examination revealed normal S1, S2 without gallops. The point of maximal impulse (PMI) is not displaced. There is no rub. There is a systolic murmur grade 1-2 over 6 at the lower left sternal border without any significant radiation. Abdomen is soft and nontender. Bowel sounds are active. Extremities revealed no pedal edema. Neurological examination is negative for focal deficit. LABORATORIES: CBC done today revealed a WBC of 2.0, hemoglobin 10.2, hematocrit 28.9, and platelets 89,000 and on admission the CBC revealed a WBC of 1.4, hemoglobin 5.2, hematocrit 15.5, and platelets 126,000. BMP done today revealed a sodium of 139, potassium 4.7, chloride 109, CO2 20, BUN 84, creatinine 3.02, GFR 16.1, and fasting glucose 199. Magnesium on 09/26/2016, was 1.5 and today upon repeating it about 12 hours later, it was 2.1. BMP on admission revealed a sodium of 139, potassium 4.3, chloride 106, CO2 20, BUN 87, creatinine 3.5, GFR 13.2, fasting glucose 267. Calcium was 8.1. Serum troponin was normal. Liver enzymes on 09/26/2016, revealed a total bilirubin of 1.2, AST 42, ALT 18, alkaline phosphatase 44, total protein 5.6, albumin 2.3. Urinalysis is positive for protein and blood, RBCs. Head CT on 09/25/2016, revealed age-related atrophy and microvascular ischemic changes, but no intracranial bleed or mass effect. Chest x-ray on admission revealed chronic stable changes. Chest CT on 09/25/2016, revealed no infiltrate or consolidation, moderate to severe degenerative disc disease. No pleural effusion. No cardiomegaly, but coronary calcification was noted. Electrocardiogram on admission 09/25/2016, revealed normal sinus rhythm and repolarization on the monitor, otherwise unremarkable. There are borderline low voltage QRS complexes noted in the limb leads. Electrocardiogram on 09/26/2016, did not reveal any significant changes, but QRS voltages are higher and heart rate is slower. Telemetry in the ER on 09/26/2016, at 9:39:12 revealed normal sinus rhythm with a 10-beat ventricular tachycardia going at about 180 beats per minute and no symptom was reported. IMPRESSION: 1. Ventricular tachycardia in this 75-year-old woman, asymptomatic with history of hypertension, hyperlipidemia, diabetes mellitus, and her chest CT revealed coronary artery calcifications. Patient has no prior cardiac workup. She has been asymptomatic. Her serum troponin is negative. Her anemia may be a contributing factor, but she is at risk to have underlying obstructive coronary artery disease and she will need further cardiac workup. Will continue current medications, currently on AV blocking agent. Her serum magnesium was low, but now corrected and we will continue to monitor her serum magnesium while in the hospital. I will assess her left ventricular systolic function with an echocardiogram and I will ask Dr. Valenzuela to review it for me over the weekend. Upon discharge, if she agrees, she will come to the office for further cardiac workup, particularly when she is more stable with her kidney function and her anemia. 2. Hypertension under control with current medications and she will continue the same. 3. Anemia is being addressed and patient is status post transfusion of three units of packed red blood cells. She had bone marrow biopsy last year and malignancy was ruled out and she was told she has anemia similar to chronic disease process. 4. History of hyperlipidemia. 5. Chronic kidney disease stage IV. 6. History of diabetes mellitus, being addressed. 7. Glomerulonephritis diagnosed last July with a biopsy, necrotizing and crescentic glomerulonephritis. 8. Status post hypomagnesemia. It was a pleasure to participate in the care of . Mila Espitia for her underlying cardiac condition. I will continue to monitor along with you while in the hospital. At this present time, she appears to be stable. Please do not hesitate to call if any questions. DAVIDD
[2016-09-28 04:00] VITALS: BP 134/66
[2016-09-28] MEDS: SLF 3 ML SYR IV SCH (04:02)
[2016-09-28 05:31] LABS: MEAN CORPUSCULAR HEMOGLOBIN 29.9 pg (27.0-33.0); MEAN CORPUSCULAR HGB CONC 34.6 g/dl (32.0-36.5); MEAN CORPUSCULAR VOLUME 86.3 fl (80.0-96.0); RED CELL DISTRIBUTION WIDTH 16.4 % (11.5-14.5); WHITE BLOOD COUNT 2.9 K/mm3 (4.0-10.0)
[2016-09-28 05:42] LABS: CALCIUM LEVEL 8.2 MG/DL (8.8-10.2); CREATININE FOR GFR 2.8 MG/DL (0.55-1.02); GLOMERULAR FILTRATION RATE 17.5 (>39); POTASSIUM SERUM 4.7 MEQ/L (3.5-5.1)
[2016-09-28 08:00] VITALS: BP 126/52
[2016-09-28] MEDS: MULTIVITAMINS/MINERALS THERAP 1 TAB PO SCH (08:15)
[2016-09-28] MEDS: HumaLOG INSULIN (NovoLOG) PER UNIT SC SCH ×2 (08:15→12:00)
[2016-09-28] MEDS: FAMOTIDINE 20 MG TAB PO SCH (08:15)
[2016-09-28] MEDS: predniSONE 10 MG TAB PO SCH (08:16)
[2016-09-28] MEDS: **hydrALAZINE** 50 MG TAB PO SCH (08:16)
[2016-09-28] MEDS: FERROUS SULFATE 325MG TAB PO SCH (08:16)
[2016-09-28 08:17] VITALS: BP 126/52
[2016-09-28] MEDS: CARVedilol 3.125 MG TAB PO SCH (08:17)
[2016-09-28] MEDS: amLODIPine 10 MG TAB PO SCH (08:17)
[2016-09-28] MEDS: FOLIC ACID 1 MG TAB PO SCH (08:18)
[2016-09-28] MEDS: CALCITRIOL 0.25 MCG CAP (S0169) PO SCH (08:18)
[2016-09-28] MEDS: GLIMEPIRIDE 1 MG TABLET PO SCH (08:18)
[2016-09-28] MEDS ORDERED: PRED20TA PO (11:12)
[2016-09-28] MEDS ORDERED: PRED10TA PO (11:12)
[2016-09-28] MEDS ORDERED: HYDR10TAB PO (11:19)
--- NOTE | 2016-09-28 13:12 | IPNPDOC ---
Date/Time Seen The patient was seen on 09/28/16 at 12:51. Progress Note DATE OF ENCOUNTER: 09/28/2016 SUBJECTIVE: Patient was seen this morning at bedside. No acute overnight issues. She reports a very mild headache this morning, but does not wish to take anything for it. States that usually her headaches resolve on their own. No dizziness or lightheadedness. She reports that her weakness is improved and she is ambulating without any difficulty. She denies any chest pain, palpitations or shortness of breath. No nausea, vomiting, abdominal pain, diarrhea, fever or chills. OBJECTIVE: Vital Signs Date Time Temp Pulse Resp B/P Pulse Ox O2 Delivery O2 Flow Rate FiO2 09/28/16 08:24 Room Air 09/28/16 08:17 80 126/52 09/28/16 08:00 98.0 18 97 I&O- Last 24 Hours up to 6 AM 09/28/16 05:59 Intake Total 1190 ml Output Total 475 ml Balance 715 ml GENERAL APPEARANCE: Alert and oriented 3. In no acute distress. HEENT: Normocephalic, atraumatic. Extraocular muscles are intact. No oral thrush or ulcers. Moist mucosa. NECK: Supple. No jugular venous distention. HEART: Normal S1, S2. Regular rate and rhythm. No gallops, rubs or gallops appreciated. LUNGS: Positive for bilateral fine crackles in lower bases, improved from prior. No rhonchi or wheezing appreciated. ABDOMEN: Soft, nontender, nondistended. Bowel sounds are present. No organomegaly appreciated. EXTREMITIES: No cyanosis or edema. Positive pedal pulses bilaterally. NEUROLOGIC: No focal deficits. LABORATORY DATA: 09/28/16 05:08 Red Blood Count 3.63 L, Mean Corpuscular Volume 86.3, Mean Corpuscular Hemoglobin 29.9, Mean Corpuscular Hemoglobin Concent 34.6, Red Cell Distribution Width 16.4 H, Anion Gap 12, Calcium Level 8.2L, Glomerular Filtration Rate 17.5L, Magnesium Level 2.0 MICROBIOLOGY: Blood cultures show no growth thus far ASSESSMENT/PLAN: 1. Acute on chronic kidney disease stage IV. Her renal function is improving. We will continue to monitor, given her glomerulonephritis. 2. Symptomatic anemia, likely secondary to a combination of cyclophosphamide inducing pancytopenia along with renal disease. She is status post 3 units of packed red blood cells on 09/26 and hemoglobin remains stable. She was found to have positive fecal occult and will need a colonoscopy as outpatient. 3. Focal and crescentic glomerulonephritis, diagnosed in July 2016. She was on prednisone 40 mg daily and cyclophosphamide 50 mg twice daily at home. Due to her pancytopenia, cyclophosphamide has been discontinued. Prednisone will continue to be tapered as outpatient. 4. Pancytopenia, likely secondary to cyclophosphamide. Cell counts are improving. 5. Mild acidosis. With continued improvement of her renal function, this should normalize. 6. Hypertension. Blood pressure stable. She is on Norvasc 10 mg daily, Coreg 3.125 mg twice daily, hydralazine 50 mg 3 times daily. Irbesartan and HCTZ have been discontinued. They are not to be resumed on discharge. 7. Steroid induced diabetes. She is currently on glimepiride daily. Current hemoglobin A1c of 7.0. Her prednisone is being tapered which should help with her blood sugars. 8. Secondary hyperparathyroidism. Continue calcitriol 0.25mcg daily. DISPOSITION: Renal function is improved. She will be discharged to follow up with nephrology next week. GME ATTESTATION GME ATTESTATION My preceptor for this patient encounter was physically present in the building during the encounter and was fully available. As needed, all aspects of the patient interview, examination, medical decision making process, and medical care plan development were reviewed and approved by the preceptor. Preceptor is aware and concurs with the plan as stated in the body of this note and will attest to such by his/her cosignature. SUNDAY FLORES DO Sep 28, 2016 13:11
--- NOTE | 2016-09-28 13:33 | DS.PDOC ---
Discharge Summary General Date of Admission Sep 25, 2016 at 16:09 Date of Discharge 09/28/16 Attending Physician: STEFAN CHURCH MD Specialist/Consultants Involve: Julia Albarado MD Discharge Summary PROCEDURES PERFORMED DURING STAY: None. COMPLICATIONS/CHIEF COMPLAINT: Symptomatic Anemia ADMISSION/DISCHARGE DIAGNOSES: 1. Symptomatic anemia secondary to cyclophosphamide, requiring 4 PRBC 2. Pancytopenia secondary to cyclophosphamide 3. Asymptomatic nonsustained V. tach 4. End-stage renal disease, not on hemodialysis 5. focal crescentic glomerulonephritis 6. Hypertension HISTORY OF PRESENT ILLNESS/HOSPITAL COURSE: This 75-year-old female with a past medical history of CKD stage IV and focal crescentic glomerulonephritis following a Dr. Albarado on cyclophosphamide who presents with generalized weakness. As per the daughter the patient's been having increasing lethargy with decreased appetite and 5 pound weight loss or prior to admission. On Friday the patient was walking into her room and she lost her balance and fell down. She was found by her daughter on the floor with generalized weakness unable to get up. Patient refused further emergency department for 2 days. Given her increased generalized weakness she presented to the ED and found to be severely anemic with a hemoglobin of 5 as well as pancytopenic with leukopenia and cytopenia. Patient had a recent admission in July with similar symptoms since she has been started on cyclophosphamide. Given her second episode of pancytopenia requiring multiple blood transfusions, her cyclophosphamide was discontinued. The patient was maintained on prednisone 30 mg for another week followed by [address] Albarado's input was appreciated.. On admission patient did have a short run of nonsustained V. tach. The patient is currently on a beta warren and her electrolytes were corrected. Appreciate Dr. Arroyo's input. Patient does not have any recurrent episodes of V. tach. Patient was asymptomatic during that initial episode. We'll have her follow-up with Dr. Arroyo outpatient. Patient's hemoglobin remained stable after the blood transfusions and she had remained hemodynamically stable. In addition, patient had a positive occult blood however recent EGD and colonoscopy only showed a polyp. Given her symptomatically anemia was secondary to the cyclophosphamide, we will have her follow-up with Dr. Damian outpatient indicates that she may need repeat colonoscopy. DISCHARGE MEDICATIONS: Please see below. ALLERGIES: Please see below. PHYSICAL EXAMINATION ON DISCHARGE: Vitals: (see below) General: No acute distress, laying comfortably in bed. HEENT: Moist mucous membranes. Neck: No JVD or lymphadenopathy Cardiac: RRR, No murmurs Pulm: Coarse crackles at the bases b/l. No wheezing, rhonchi Abd: NT/ND + BS Ext: No edema or cyanosis LABORATORY DATA: Please see below. IMAGING: CT Head 09/25/16 Impression: Age related atrophy and microvascular ischemic changes. No acute intracranial hemorrhage, infarction, or mass/mass effect. CXR 09/25/16 Impression: Chronic stable changes. Cannot exclude subtle nodular density on lateral radiograph only. Consider chest CT follow-up. CT Chest 09/26/16 IMPRESSION: 1. No infiltrate, consolidation or suspicious nodule. 2. Mild scoliosis with multilevel [id number] degenerative changes of the thoracic spine with endplate sclerosis, disc space narrowing with spurring. VTE Prophylaxis ordered?: Yes DISCHARGE CONDITION: Stable DISPOSITION: Discharged to home ACTIVITY: As tolerated DIET: Renal diet DISCHARGE PLAN AND INSTRUCTIONS: 1. Follow-up with PCP, Dr. Albarado, Dr. Arroyo, Dr. Damian in 1-2 weeks. TIME SPENT ON DISCHARGE: Greater than 30 minutes. Vital Signs/I&Os Vital Signs Date Time Temp Pulse Resp B/P Pulse Ox O2 Delivery O2 Flow Rate FiO2 09/28/16 08:24 Room Air 09/28/16 08:17 80 126/52 09/28/16 08:00 98.0 18 97 I&O- Last 24 Hours up to 6 AM 09/28/16 06:00 Intake Total 1370 ml Output Total 975 ml Balance 395 ml Laboratory Data Labs 24H Laboratory Tests 2 09/27/16 17:02: Bedside Glucose (Misc Panel) 248H 09/27/16 20:42: Bedside Glucose (Misc Panel) 152H 09/28/16 05:08: Anion Gap 12, Blood Urea Nitrogen 88H, Creatinine 2.80H, Sodium Level 138, Potassium Level 4.7, Chloride Level 107, Carbon Dioxide Level 19L, Calcium Level 8.2L, Glomerular Filtration Rate 17.5L, Magnesium Level 2.0 CBC/BMP Laboratory Tests 09/27/16 17:48 09/27/16 23:22 09/28/16 05:08 Calcium Level 8.2 L, Red Blood Count 3.63 L, Mean Corpuscular Volume 86.3, Mean Corpuscular Hemoglobin 29.9, Mean Corpuscular Hemoglobin Concent 34.6, Red Cell Distribution Width 16.4 H 09/28/16 12:21 FSBS Laboratory Tests Test 09/27/16 17:02 09/27/16 20:42 Range/Units Bedside Glucose (Misc Panel) 248 152 83-110 MG/DL Microbiology Microbiology 09/25/16 Blood Culture - Preliminary, Resulted No Growth after 48 hours. All Specime... 09/25/16 Blood Culture - Preliminary, Resulted No Growth after 48 hours. All Specime... 09/27/16 Stool Occult Blood (JADYN) - Final, Complete 09/25/16 Influenza Virus Type A Antigen - Final, Complete 09/25/16 Influenza Virus Type B Antigen - Final, Complete 09/26/16 Urine Culture - Final, Complete Medications Scheduled (Iron) 325 Mg Tab 325 MG PO DAILY Amlodipine Besylate (Amlodipine Besylate) 10 Mg Tab 10 MG PO DAILY Calcitriol (Calcitriol) 0.25 Mcg Cap 0.25 MCG PO DAILY Carvedilol (Carvedilol) 3.125 Mg Tab 3.125 MG PO BID Folic Acid (Folic Acid) 1 Mg Tab 1 MG PO DAILY Glimepiride (Glimepiride) 1 Mg Tab 1 MG PO DAILY Hydralazine HCl (Hydralazine HCl) 10 Mg Tab 10 MG PO TID Multivitamins *[facility] STOCKED* (Thera M Plus *[facility] STOCKED*) 1 Tab Tab 1 TAB PO DAILY Prednisone (Prednisone) 20 Mg Tab 20 MG PO DAILY Prednisone (Prednisone) 10 Mg Tab 30 MG PO DAILY Ranitidine HCl (Ranitidine HCl) 150 Mg Tab 1 TAB PO BID Allergies Coded Allergies: No Known Allergies (Unverified , 03/15/15) STEFAN CHURCH MD Sep 28, 2016 13:33
--- NOTE | 2016-09-28 15:35 | EDDOCDS ---
Physician Documentation [facility] Name: Mila Espitia Age: 75 yrs Sex: Female : 1940 Arrival Date: 09/25/2016 Time: 13:33 Bed Admit Hold Private MD: Disposition: 09/25/16 16:20 Hospitalization ordered by Susu Kramer for Inpatient Admission. Preliminary diagnosis are Anemia, unspecified, Abnormal findings on diagnostic imaging of lung, Orthostatic hypotension. - Bed requested for PCU. - Status is Inpatient Admission. nr1 - Condition is Stable. - Problem is new. - Symptoms are unchanged. Historical: - Allergies: No known drug Allergies; - Home Meds: 1. ranitidine HCl 150 mg Oral tab 1 tab 2 times per day 2. prednisone 20 mg Oral tab 2 tabs once daily 3. calcitriol 0.25 mcg oral cap 1 cap 4. glimepiride 1 mg Oral tab 1 tab once daily 5. cyclophosphamide 50 mg oral cap twice a day 6. Coreg 3.125 mg Oral tab 1 tab every 12 hours 7. amlodipine 10 mg Oral tab 1 tab once daily 8. hydralazine 50 mg Oral tab 1 tab three times a day 9. iron 325 mg (65 mg iron) oral tab daily 10. folic acid 1 mg Oral tab 1 tab once daily 11. irbesartan-hydrochlorothiazide 300-12.5 mg oral tab 1 tab once daily 12. multivitamin Oral tab 1 tablet daily - PMHx: Anemia; Hypercholesterolemia; Hypertension; ESRD; - PSHx: eye surgery; - Social history: Smoking status: Patient states was never smoker of tobacco. No barriers to communication noted, The patient speaks fluent Upper Sor[place], Speaks appropriately for age. - Family history: Not pertinent. - : The pt / caregiver states he / she is not on anticoagulants. Home medication list is obtained from the patient. - Exposure Risk Screening:: None identified. Vital Signs: 09/25 13:35 BP 117 / 74; Pulse 115; Resp 18; Temp 100.3(O); Pulse Ox 96% ; Weight 48.53 kg / 106.99 cmb lbs; Height 5 ft. 2 in. (157.48 cm); Pain 0/10; 15:20 BP 125 / 62 Supine; Pulse 96; dsf 15:20 BP 123 / 60 Sitting; Pulse 102; dsf 15:20 BP 99 / 59 Standing; Pulse 114; dsf 15:21 BP 124 / 59 (auto/); dsf 15:21 Pulse 98 MON; Pulse Ox 98% ; dsf 15:36 BP 102 / 58 (auto/); dsf 15:36 Pulse 98 MON; Pulse Ox 92% ; dsf 15:51 BP 104 / 55 (auto/); dsf 15:51 Pulse 96 MON; Pulse Ox 94% ; dsf 16:06 BP 98 / 53 (auto/); dsf 16:06 Pulse 92 MON; Pulse Ox 93% ; dsf 16:13 Resp 20; Temp 98.3; Pain 0/10; dsf 16:21 BP 104 / 57 (auto/); dsf 16:21 Pulse 90 MON; Pulse Ox 93% ; dsf 16:36 BP 104 / 55 (auto/); dsf 16:36 Pulse 86 MON; Pulse Ox 92% ; dsf 16:51 BP 102 / 56 (auto/); dsf 16:51 Pulse 82 MON; Pulse Ox 91% ; dsf 17:02 BP 110 / 57 (auto/); dsf 17:02 Pulse 80 MON; Pulse Ox 93% ; dsf 17:06 BP 105 / 55 (auto/); dsf 17:06 Pulse 78 MON; Pulse Ox 93% ; dsf 17:21 BP 107 / 59 (auto/); dsf 17:21 Pulse 76 MON; Pulse Ox 91% ; dsf 17:29 BP 104 / 58 (auto/); dsf 17:29 Pulse 76 MON; Pulse Ox 93% ; dsf 17:36 BP 110 / 58 (auto/); dsf 17:36 Pulse 74 MON; Pulse Ox 92% ; dsf 17:51 BP 119 / 64 (auto/); dsf 17:51 Pulse 72 MON; Pulse Ox 94% ; dsf 18:06 Pulse 72 MON; Pulse Ox 96% ; dsf 18:06 BP 116 / 65 (auto/); dsf 18:09 BP 112 / 64 (auto/); dsf 18:09 Pulse 74 MON; dsf 18:21 BP 133 / 62 (auto/); dsf 18:21 Pulse 74 MON; dsf 18:36 BP 154 / 58 (auto/); dsf 18:38 Pulse 78 MON; Pulse Ox 97% ; dsf 18:51 BP 111 / 59 (auto/); dsf 18:51 Pulse 72 MON; Pulse Ox 97% ; dsf 19:04 BP 132 / 64 (auto/); dsf 19:04 Pulse 72 MON; Pulse Ox 95% ; dsf 19:06 BP 124 / 69 (auto/); dsf 19:06 Pulse 74 MON; Pulse Ox 94% ; dsf 19:21 BP 126 / 66 (auto/); dsf 19:21 Pulse 74 MON; Pulse Ox 95% ; dsf 19:36 BP 128 / 70 (auto/); dsf 19:36 Pulse 86 MON; Pulse Ox 94% ; dsf 19:47 BP 129 / 72 (auto/); dsf 19:47 Pulse 82 MON; Pulse Ox 93% ; dsf 19:51 BP 125 / 72 (auto/); dsf 19:51 Pulse 80 MON; Pulse Ox 95% ; dsf 20:06 Pulse 78 MON; Pulse Ox 97% ; dsf 20:06 BP 144 / 73 (auto/); dsf 20:21 BP 137 / 74 (auto/); dsf 20:21 Pulse 68 MON; Pulse Ox 95% ; dsf 20:36 BP 135 / 70 (auto/); dsf 20:51 BP 135 / 73 (auto/); dsf 20:58 BP 134 / 71 (auto/); dsf 13:35 Body Mass Index 19.57 (48.53 kg, 157.48 cm) cmb MDM: 14:33 Pile Header/Pulse Ox/q 30 min VS ordered. br1 14:33 IV Saline Lock ordered. br1 14:33 Rhythm Strip to chart ordered. br1 14:33 Undress patient appropriately for examination ordered. br1 14:33 Orthostatic VS ordered. br1 14:33 -Blood Culture (Adults Only), peripheral from different site, or from device/port/PICC br1 etc. if present ordered. 14:34 Acetaminophen Tablet 650 mg PO once ordered. br1 14:34 Basic Metabolic Profile Ordered. EDMS 14:34 CBC with Diff Ordered. EDMS 14:34 Cardiac Injury Profile Ordered. EDMS 14:34 Troponin Ordered. EDMS 14:35 Chest, 2 View (pa\E\lat) Ordered. EDMS 14:35 ECG WITH READING ER PHYS+CARDIAG ordered. EDMS 14:35 CT Head Without Contrast Ordered. EDMS 14:35 -Influenza A&B Rapid Antigen - Nose Ordered. EDMS 14:36 Lactic Acid ([place] tube on ice) Ordered. EDMS 14:36 -Blood Culture Ordered. EDMS 14:46 -Blood Culture (Adults Only), peripheral from different site, or from device/port/PICC lbd etc. if present complete. 14:47 BLOOD CULTURES Ordered. EDMS 15:21 Type and Cross, Packed Cells Ordered. EDMS 15:23 TYPE & SCREEN Ordered. EDMS 15:33 Financial registration complete. gjb 15:37 [facility] Payment Agreement was scanned into [employer] and attached to record. gjb 15:42 Basic Metabolic Profile Reviewed. br1 15:42 CBC with Diff Reviewed. br1 15:42 Cardiac Injury Profile Reviewed. br1 15:42 Troponin Reviewed. br1 15:42 -Influenza A&B Rapid Antigen - Nose Reviewed. br1 15:42 Lactic Acid ([place] tube on ice) Reviewed. br1 15:42 CT Head Without Contrast Reviewed. br1 15:51 Transfuse PRBC's 2 units, ensure PRBCs ordered in lab ordered. br1 15:51 BED REQUEST+ADM ordered. EDMS 16:10 PATHOLOGIST REVIEW COMPREHENSI Ordered. EDMS 16:10 RETICULOCYTE COUNT Ordered. EDMS 16:14 PHYSICAL THERAPY EVAL & TREAT ordered. EDMS 16:15 Admission / Observation Status ordered. EDMS 16:32 PACKED CELLS Ordered. EDMS 17:31 RENAL DIET ordered. EDMS 17:40 URINALYSIS Ordered. EDMS 17:40 URINE CULTURE Ordered. EDMS 17:47 CT Chest without contrast Ordered. EDMS 19:33 HEMOGLOBIN & HEMATOCRIT Ordered. EDMS 19:33 HEMOGLOBIN & HEMATOCRIT Ordered. EDMS 19:33 COMPLETE BLOOD COUNT Ordered. EDMS 19:33 HEMOGLOBIN A1C Ordered. EDMS 21:31 Fingerstick Blood Sugar Ordered. EDMS 09/26 07:44 Fingerstick Blood Sugar Ordered. EDMS 09:48 Fingerstick Blood Sugar Ordered. EDMS 10:24 MAGNESIUM LEVEL Ordered. EDMS 11:56 Fingerstick Blood Sugar Ordered. EDMS 13:31 T-Sheet-- Draft Copy was scanned into [employer] and attached to record. gb 13:32 Radiology Report was scanned into [employer] and attached to record. gb 13:42 ELECTROCARDIOGRAM ADULT ordered. EDMS Administered Medications: 09/25 15:00 Drug: Acetaminophen 650 mg [acetaminophen 325 mg tablet (2 tabs)] Route: PO; hs1 16:13 Follow up: Resp 20 bpm; Temp 98.3; Pain 0/10 Adult dsf Signatures: Dispatcher [employer] EDMS Deborah Gutierrez, Liquor Grinding Mill Operator Unit lbd Joselyn Cast, Liquor Grinding Mill Operator Unit deg Sola Gutierres RN RN srm Barnilst, Flakita, Reg Reg gb Kolby Broussard RN RN dy Elijah Arceo MD MD br1 Carlotta Mcconnell RN RN dsf Krys Barreto RN RN nr1 Sheree Balderas [facility] Karen Park RN hs1 The chart was reviewed and I authenticate all verbal orders and agree with the evaluation and treatment provided.Corrections: (The following items were deleted from the chart) 16:29 16:10 IRON (FE) ordered. EDMS EDMS 16:29 16:10 TOTAL IRON BINDING CAPACIT ordered. EDMS EDMS 16:29 16:10 FERRITIN ordered. EDMS EDMS 16:32 16:15 PACKED CELLS ordered. EDMS EDMS 16:32 16:17 TYPE & SCREEN ordered. EDMS EDMS 17:31 16:15 OTHER CUSTOM DIETS ordered. EDMS EDMS 09/26 03:58 09/25 19:33 BASIC METABOLIC PROFILE ordered. EDMS EDMS 09/26 03:58 03:53 COMPLETE COMPHRENSIVE METABOLI ordered. EDMS EDMS 04:17 03:58 COMPLETE COMPHRENSIVE METABOLI ordered. EDMS EDMS 10:24 09:42 MAGNESIUM LEVEL ordered. EDMS EDMS Attachments: 09/25 15:37 [facility] Payment Agreement gj 09/26 13:31 T-Sheet-- Draft Copy gb Chart Complete MTDD
--- NOTE | 2016-09-28 15:35 | EDDOCDS ---
Physician Documentation [facility] Name: Mila Espitia Age: 75 yrs Sex: Female : 1940 Arrival Date: 09/25/2016 Time: 13:33 Bed Admit Hold Private MD: Disposition: 09/25/16 16:20 Hospitalization ordered by Susu Kramer for Inpatient Admission. Preliminary diagnosis are Anemia, unspecified, Abnormal findings on diagnostic imaging of lung, Orthostatic hypotension. - Bed requested for PCU. - Status is Inpatient Admission. nr1 - Condition is Stable. - Problem is new. - Symptoms are unchanged. Historical: - Allergies: No known drug Allergies; - Home Meds: 1. ranitidine HCl 150 mg Oral tab 1 tab 2 times per day 2. prednisone 20 mg Oral tab 2 tabs once daily 3. calcitriol 0.25 mcg oral cap 1 cap 4. glimepiride 1 mg Oral tab 1 tab once daily 5. cyclophosphamide 50 mg oral cap twice a day 6. Coreg 3.125 mg Oral tab 1 tab every 12 hours 7. amlodipine 10 mg Oral tab 1 tab once daily 8. hydralazine 50 mg Oral tab 1 tab three times a day 9. iron 325 mg (65 mg iron) oral tab daily 10. folic acid 1 mg Oral tab 1 tab once daily 11. irbesartan-hydrochlorothiazide 300-12.5 mg oral tab 1 tab once daily 12. multivitamin Oral tab 1 tablet daily - PMHx: Anemia; Hypercholesterolemia; Hypertension; ESRD; - PSHx: eye surgery; - Social history: Smoking status: Patient states was never smoker of tobacco. No barriers to communication noted, The patient speaks fluent Bengali, Speaks appropriately for age. - Family history: Not pertinent. - : The pt / caregiver states he / she is not on anticoagulants. Home medication list is obtained from the patient. - Exposure Risk Screening:: None identified. Vital Signs: 09/25 13:35 BP 117 / 74; Pulse 115; Resp 18; Temp 100.3(O); Pulse Ox 96% ; Weight 48.53 kg / 106.99 cmb lbs; Height 5 ft. 2 in. (157.48 cm); Pain 0/10; 15:20 BP 125 / 62 Supine; Pulse 96; dsf 15:20 BP 123 / 60 Sitting; Pulse 102; dsf 15:20 BP 99 / 59 Standing; Pulse 114; dsf 15:21 BP 124 / 59 (auto/); dsf 15:21 Pulse 98 MON; Pulse Ox 98% ; dsf 15:36 BP 102 / 58 (auto/); dsf 15:36 Pulse 98 MON; Pulse Ox 92% ; dsf 15:51 BP 104 / 55 (auto/); dsf 15:51 Pulse 96 MON; Pulse Ox 94% ; dsf 16:06 BP 98 / 53 (auto/); dsf 16:06 Pulse 92 MON; Pulse Ox 93% ; dsf 16:13 Resp 20; Temp 98.3; Pain 0/10; dsf 16:21 BP 104 / 57 (auto/); dsf 16:21 Pulse 90 MON; Pulse Ox 93% ; dsf 16:36 BP 104 / 55 (auto/); dsf 16:36 Pulse 86 MON; Pulse Ox 92% ; dsf 16:51 BP 102 / 56 (auto/); dsf 16:51 Pulse 82 MON; Pulse Ox 91% ; dsf 17:02 BP 110 / 57 (auto/); dsf 17:02 Pulse 80 MON; Pulse Ox 93% ; dsf 17:06 BP 105 / 55 (auto/); dsf 17:06 Pulse 78 MON; Pulse Ox 93% ; dsf 17:21 BP 107 / 59 (auto/); dsf 17:21 Pulse 76 MON; Pulse Ox 91% ; dsf 17:29 BP 104 / 58 (auto/); dsf 17:29 Pulse 76 MON; Pulse Ox 93% ; dsf 17:36 BP 110 / 58 (auto/); dsf 17:36 Pulse 74 MON; Pulse Ox 92% ; dsf 17:51 BP 119 / 64 (auto/); dsf 17:51 Pulse 72 MON; Pulse Ox 94% ; dsf 18:06 Pulse 72 MON; Pulse Ox 96% ; dsf 18:06 BP 116 / 65 (auto/); dsf 18:09 BP 112 / 64 (auto/); dsf 18:09 Pulse 74 MON; dsf 18:21 BP 133 / 62 (auto/); dsf 18:21 Pulse 74 MON; dsf 18:36 BP 154 / 58 (auto/); dsf 18:38 Pulse 78 MON; Pulse Ox 97% ; dsf 18:51 BP 111 / 59 (auto/); dsf 18:51 Pulse 72 MON; Pulse Ox 97% ; dsf 19:04 BP 132 / 64 (auto/); dsf 19:04 Pulse 72 MON; Pulse Ox 95% ; dsf 19:06 BP 124 / 69 (auto/); dsf 19:06 Pulse 74 MON; Pulse Ox 94% ; dsf 19:21 BP 126 / 66 (auto/); dsf 19:21 Pulse 74 MON; Pulse Ox 95% ; dsf 19:36 BP 128 / 70 (auto/); dsf 19:36 Pulse 86 MON; Pulse Ox 94% ; dsf 19:47 BP 129 / 72 (auto/); dsf 19:47 Pulse 82 MON; Pulse Ox 93% ; dsf 19:51 BP 125 / 72 (auto/); dsf 19:51 Pulse 80 MON; Pulse Ox 95% ; dsf 20:06 Pulse 78 MON; Pulse Ox 97% ; dsf 20:06 BP 144 / 73 (auto/); dsf 20:21 BP 137 / 74 (auto/); dsf 20:21 Pulse 68 MON; Pulse Ox 95% ; dsf 20:36 BP 135 / 70 (auto/); dsf 20:51 BP 135 / 73 (auto/); dsf 20:58 BP 134 / 71 (auto/); dsf 13:35 Body Mass Index 19.57 (48.53 kg, 157.48 cm) cmb MDM: 14:33 Business Manager/Pulse Ox/q 30 min VS ordered. br1 14:33 IV Saline Lock ordered. br1 14:33 Rhythm Strip to chart ordered. br1 14:33 Undress patient appropriately for examination ordered. br1 14:33 Orthostatic VS ordered. br1 14:33 -Blood Culture (Adults Only), peripheral from different site, or from device/port/PICC br1 etc. if present ordered. 14:34 Acetaminophen Tablet 650 mg PO once ordered. br1 14:34 Basic Metabolic Profile Ordered. EDMS 14:34 CBC with Diff Ordered. EDMS 14:34 Cardiac Injury Profile Ordered. EDMS 14:34 Troponin Ordered. EDMS 14:35 Chest, 2 View (pa\E\lat) Ordered. EDMS 14:35 ECG WITH READING ER PHYS+CARDIAG ordered. EDMS 14:35 CT Head Without Contrast Ordered. EDMS 14:35 -Influenza A&B Rapid Antigen - Nose Ordered. EDMS 14:36 Lactic Acid ([place] tube on ice) Ordered. EDMS 14:36 -Blood Culture Ordered. EDMS 14:46 -Blood Culture (Adults Only), peripheral from different site, or from device/port/PICC lbd etc. if present complete. 14:47 BLOOD CULTURES Ordered. EDMS 15:21 Type and Cross, Packed Cells Ordered. EDMS 15:23 TYPE & SCREEN Ordered. EDMS 15:33 Financial registration complete. gjb 15:37 [facility] Payment Agreement was scanned into [employer] and attached to record. gjb 15:42 Basic Metabolic Profile Reviewed. br1 15:42 CBC with Diff Reviewed. br1 15:42 Cardiac Injury Profile Reviewed. br1 15:42 Troponin Reviewed. br1 15:42 -Influenza A&B Rapid Antigen - Nose Reviewed. br1 15:42 Lactic Acid ([place] tube on ice) Reviewed. br1 15:42 CT Head Without Contrast Reviewed. br1 15:51 Transfuse PRBC's 2 units, ensure PRBCs ordered in lab ordered. br1 15:51 BED REQUEST+ADM ordered. EDMS 16:10 PATHOLOGIST REVIEW COMPREHENSI Ordered. EDMS 16:10 RETICULOCYTE COUNT Ordered. EDMS 16:14 PHYSICAL THERAPY EVAL & TREAT ordered. EDMS 16:15 Admission / Observation Status ordered. EDMS 16:32 PACKED CELLS Ordered. EDMS 17:31 RENAL DIET ordered. EDMS 17:40 URINALYSIS Ordered. EDMS 17:40 URINE CULTURE Ordered. EDMS 17:47 CT Chest without contrast Ordered. EDMS 19:33 HEMOGLOBIN & HEMATOCRIT Ordered. EDMS 19:33 HEMOGLOBIN & HEMATOCRIT Ordered. EDMS 19:33 COMPLETE BLOOD COUNT Ordered. EDMS 19:33 HEMOGLOBIN A1C Ordered. EDMS 21:31 Fingerstick Blood Sugar Ordered. EDMS 09/26 07:44 Fingerstick Blood Sugar Ordered. EDMS 09:48 Fingerstick Blood Sugar Ordered. EDMS 10:24 MAGNESIUM LEVEL Ordered. EDMS 11:56 Fingerstick Blood Sugar Ordered. EDMS 13:31 T-Sheet-- Draft Copy was scanned into [employer] and attached to record. gb 13:32 Radiology Report was scanned into [employer] and attached to record. gb 13:42 ELECTROCARDIOGRAM ADULT ordered. EDMS Administered Medications: 09/25 15:00 Drug: Acetaminophen 650 mg [acetaminophen 325 mg tablet (2 tabs)] Route: PO; hs1 16:13 Follow up: Resp 20 bpm; Temp 98.3; Pain 0/10 Adult dsf Signatures: Dispatcher [employer] EDMS Deborah Gutierrez, Graphics Intern Unit lbd Joselyn Cast, Graphics Intern Unit deg Sola Gutierres RN RN srm Barnilst, Flakita, Reg Reg gb Kolby Broussard RN RN dy Elijah Arceo MD MD br1 Carlotta Mcconnell RN RN dsf Krys Barreto RN RN nr1 Sheree Balderas [facility] Karen Park RN hs1 The chart was reviewed and I authenticate all verbal orders and agree with the evaluation and treatment provided.Corrections: (The following items were deleted from the chart) 16:29 16:10 IRON (FE) ordered. EDMS EDMS 16:29 16:10 TOTAL IRON BINDING CAPACIT ordered. EDMS EDMS 16:29 16:10 FERRITIN ordered. EDMS EDMS 16:32 16:15 PACKED CELLS ordered. EDMS EDMS 16:32 16:17 TYPE & SCREEN ordered. EDMS EDMS 17:31 16:15 OTHER CUSTOM DIETS ordered. EDMS EDMS 09/26 03:58 09/25 19:33 BASIC METABOLIC PROFILE ordered. EDMS EDMS 09/26 03:58 03:53 COMPLETE COMPHRENSIVE METABOLI ordered. EDMS EDMS 04:17 03:58 COMPLETE COMPHRENSIVE METABOLI ordered. EDMS EDMS 10:24 09:42 MAGNESIUM LEVEL ordered. EDMS EDMS Attachments: 09/25 15:37 [facility] Payment Agreement gj 09/26 13:31 T-Sheet-- Draft Copy gb Chart Complete MTDD
--- NOTE | 2016-09-28 15:36 | EDDOCDS ---
Nurse's Notes [facility] Name: Mila Espitia Age: 75 yrs Sex: Female : 1940 Arrival Date: 09/25/2016 Time: 13:33 Bed Admit Hold Private MD: Diagnosis: Anemia, unspecified;Abnormal findings on diagnostic imaging of lung;Orthostatic hypotension Presentation: 09/25 13:49 Presenting complaint: Child states: being seen by Dr Albarado for kidney failure. for the dy last 2 weeks has had increased weakness. was placed on medication by Dr. Albarado 1 month ago and concerned that it may be medication related. Adult Sepsis Screening: The patient does not have new or worsening altered mentation. Patient's respiratory rate is less than 22. Systolic blood pressure is greater than 100. Patient has a qSOFA score of 0- Negative Sepsis Screen. Suicide/Homicide risk assessment- the patient denies having any suicidal and/or homicidal ideations and does not present with any other emotional, behavioral or mental health complaints. Status: Patient is not a financial services rep or dependent. Transition of care: patient was not received from another setting of care. 13:49 Acuity: WILLARD Level 3 dy 13:49 Method Of Arrival: Wheelchair dy Triage Assessment: 13:56 General: Appears in no apparent distress. Pain: Denies pain. dy Historical: - Allergies: No known drug Allergies; - Home Meds: 1. ranitidine HCl 150 mg Oral tab 1 tab 2 times per day 2. prednisone 20 mg Oral tab 2 tabs once daily 3. calcitriol 0.25 mcg oral cap 1 cap 4. glimepiride 1 mg Oral tab 1 tab once daily 5. cyclophosphamide 50 mg oral cap twice a day 6. Coreg 3.125 mg Oral tab 1 tab every 12 hours 7. amlodipine 10 mg Oral tab 1 tab once daily 8. hydralazine 50 mg Oral tab 1 tab three times a day 9. iron 325 mg (65 mg iron) oral tab daily 10. folic acid 1 mg Oral tab 1 tab once daily 11. irbesartan-hydrochlorothiazide 300-12.5 mg oral tab 1 tab once daily 12. multivitamin Oral tab 1 tablet daily - PMHx: Anemia; Hypercholesterolemia; Hypertension; ESRD; - PSHx: eye surgery; - Social history: Smoking status: Patient states was never smoker of tobacco. No barriers to communication noted, The patient speaks fluent Ethiopian, Speaks appropriately for age. - Family history: Not pertinent. - : The pt / caregiver states he / she is not on anticoagulants. Home medication list is obtained from the patient. - Exposure Risk Screening:: None identified. Screenin:37 Screening information is obtained from the patient. Fall risk: No risks identified. dsf Assistance ADL's: requires no assistance with activities of daily living. Abuse/DV Screen: The patient / caregiver reports he/she is: not in a situation that causes fear, pain or injury. Nutritional screening: No deficits noted. home support is adequate. 18:37 Advance Directives: Currently, there is no health care proxy. dsf Assessment: 15:20 General: Orthostatic vitals obtained at this time. Pt stated felt weak when standing. hs1 No other needs noted. . Pain: Denies pain. Neurological: Level of Consciousness is awake, alert, obeys commands, Oriented to person, place, time, Holter Technician are equal bilaterally. Cardiovascular: Rhythm is sinus tachycardia No ectopy. Respiratory: Airway is patent Respiratory effort is even, unlabored, Respiratory pattern is regular, symmetrical. GI: other Pt reports lack of appetitie. Derm: Skin is pink, warm & dry. normal. 16:14 Adult Sepsis Screening: The patient does not have new or worsening altered mentation. dsf Patient's respiratory rate is less than 22. Systolic blood pressure is less than or equal to 100 (1 point). Patient has a qSOFA score of 1- Negative Sepsis Screen. General: Appears in no apparent distress, Behavior is appropriate for age, cooperative. Pain: Denies pain. Neurological: Level of Consciousness is awake, alert, obeys commands, Oriented to person, place, time. Cardiovascular: Capillary refill < 3 seconds Heart tones S1 S2 present Rhythm is sinus rhythm No ectopy. Respiratory: Airway is patent Respiratory effort is even, unlabored, Respiratory pattern is regular, symmetrical, Breath sounds are clear bilaterally. GI: Abdomen is non- distended Bowel sounds present X 4 quads. Abd is soft and non tender X 4 quads. Derm: Skin is dry, Skin is jaundiced, pale, Skin temperature is warm. 17:03 General: Dr. Kramer in room examining patient . dsf 17:15 General: first unit RPBC started. VS stable. pt educated on signs and sxs to report to dsf the nurse. See transfusion record. will continue to monitor. 17:30 General: PRBC infusion rate increased 240 ml/hr. no signs or sxs of transfusion dsf reaction. see transfusion record sheet. will continue to monitor . 17:35 General: Appears in no apparent distress, comfortable, Behavior is appropriate for age, dsf cooperative. Pain: Denies pain. Neurological: Level of Consciousness is awake, alert, Oriented to person, place, time. Cardiovascular: Capillary refill < 3 seconds Heart tones S1 S2 present Rhythm is sinus rhythm No ectopy. Respiratory: Airway is patent Respiratory effort is even, unlabored, Respiratory pattern is regular, symmetrical, Breath sounds are clear bilaterally. GI: Abdomen is non- distended Bowel sounds present X 4 quads. Abd is soft and non tender X 4 quads. Derm: Skin is dry, Skin is jaundiced, pale, Skin temperature is warm. 18:25 Adult Sepsis Screening: The patient does not have new or worsening altered mentation. dsf Patient's respiratory rate is less than 22. Systolic blood pressure is greater than 100. Patient has a qSOFA score of 0- Negative Sepsis Screen. General: Appears in no apparent distress, Behavior is appropriate for age, cooperative. Pain: Denies pain. Neurological: Level of Consciousness is awake, alert, Oriented to person, place, time. Cardiovascular: Capillary refill < 3 seconds Heart tones S1 S2 present Rhythm is sinus rhythm No ectopy. Respiratory: Airway is patent Respiratory effort is even, unlabored, Respiratory pattern is regular, symmetrical, Breath sounds are clear bilaterally. GI: Abdomen is non- distended Bowel sounds present X 4 quads. Abd is soft and non tender X 4 quads. Derm: Skin is dry, Skin is jaundiced, pale, Skin temperature is warm. 18:43 General: pt ate 100% of dinner tray . dsf 18:50 General: 2nd unit PRBC started. VS stable see transfusion record. no signs or SXS of a dsf transfusion reaction . 19:15 Adult Sepsis Screening: The patient does not have new or worsening altered mentation. dsf Patient's respiratory rate is less than 22. Systolic blood pressure is greater than 100. Patient has a qSOFA score of 0- Negative Sepsis Screen. General: Appears in no apparent distress, comfortable, Behavior is appropriate for age, cooperative. Pain: Denies pain. Neurological: Level of Consciousness is awake, alert, obeys commands, Oriented to person, place, time. Cardiovascular: Capillary refill < 3 seconds Heart tones S1 S2 present Rhythm is sinus rhythm No ectopy. Respiratory: Airway is patent Respiratory effort is even, unlabored, Respiratory pattern is regular, symmetrical, Breath sounds are clear bilaterally. GI: Abdomen is non- distended Bowel sounds present X 4 quads. Abd is soft and non tender X 4 quads. Derm: Skin is dry, Skin is jaundiced, pale, Skin temperature is warm. Vital Signs: 13:35 BP 117 / 74; Pulse 115; Resp 18; Temp 100.3(O); Pulse Ox 96% ; Weight 48.53 kg; Height cmb 5 ft. 2 in. (157.48 cm); Pain 0/10; 15:20 BP 125 / 62 Supine; Pulse 96; dsf 15:20 BP 123 / 60 Sitting; Pulse 102; dsf 15:20 BP 99 / 59 Standing; Pulse 114; dsf 15:21 BP 124 / 59 (auto/); dsf 15:21 Pulse 98 MON; Pulse Ox 98% ; dsf 15:36 BP 102 / 58 (auto/); dsf 15:36 Pulse 98 MON; Pulse Ox 92% ; dsf 15:51 BP 104 / 55 (auto/); dsf 15:51 Pulse 96 MON; Pulse Ox 94% ; dsf 16:06 BP 98 / 53 (auto/); dsf 16:06 Pulse 92 MON; Pulse Ox 93% ; dsf 16:13 Resp 20; Temp 98.3; Pain 0/10; dsf 16:21 BP 104 / 57 (auto/); dsf 16:21 Pulse 90 MON; Pulse Ox 93% ; dsf 16:36 BP 104 / 55 (auto/); dsf 16:36 Pulse 86 MON; Pulse Ox 92% ; dsf 16:51 BP 102 / 56 (auto/); dsf 16:51 Pulse 82 MON; Pulse Ox 91% ; dsf 17:02 BP 110 / 57 (auto/); dsf 17:02 Pulse 80 MON; Pulse Ox 93% ; dsf 17:06 BP 105 / 55 (auto/); dsf 17:06 Pulse 78 MON; Pulse Ox 93% ; dsf 17:21 BP 107 / 59 (auto/); dsf 17:21 Pulse 76 MON; Pulse Ox 91% ; dsf 17:29 BP 104 / 58 (auto/); dsf 17:29 Pulse 76 MON; Pulse Ox 93% ; dsf 17:36 BP 110 / 58 (auto/); dsf 17:36 Pulse 74 MON; Pulse Ox 92% ; dsf 17:51 BP 119 / 64 (auto/); dsf 17:51 Pulse 72 MON; Pulse Ox 94% ; dsf 18:06 Pulse 72 MON; Pulse Ox 96% ; dsf 18:06 BP 116 / 65 (auto/); dsf 18:09 BP 112 / 64 (auto/); dsf 18:09 Pulse 74 MON; dsf 18:21 BP 133 / 62 (auto/); dsf 18:21 Pulse 74 MON; dsf 18:36 BP 154 / 58 (auto/); dsf 18:38 Pulse 78 MON; Pulse Ox 97% ; dsf 18:51 BP 111 / 59 (auto/); dsf 18:51 Pulse 72 MON; Pulse Ox 97% ; dsf 19:04 BP 132 / 64 (auto/); dsf 19:04 Pulse 72 MON; Pulse Ox 95% ; dsf 19:06 BP 124 / 69 (auto/); dsf 19:06 Pulse 74 MON; Pulse Ox 94% ; dsf 19:21 BP 126 / 66 (auto/); dsf 19:21 Pulse 74 MON; Pulse Ox 95% ; dsf 19:36 BP 128 / 70 (auto/); dsf 19:36 Pulse 86 MON; Pulse Ox 94% ; dsf 19:47 BP 129 / 72 (auto/); dsf 19:47 Pulse 82 MON; Pulse Ox 93% ; dsf 19:51 BP 125 / 72 (auto/); dsf 19:51 Pulse 80 MON; Pulse Ox 95% ; dsf 20:06 Pulse 78 MON; Pulse Ox 97% ; dsf 20:06 BP 144 / 73 (auto/); dsf 20:21 BP 137 / 74 (auto/); dsf 20:21 Pulse 68 MON; Pulse Ox 95% ; dsf 20:36 BP 135 / 70 (auto/); dsf 20:51 BP 135 / 73 (auto/); dsf 20:58 BP 134 / 71 (auto/); dsf 13:35 Body Mass Index 19.57 (48.53 kg, 157.48 cm) cmb Vitals: 13:35 Log In Time: September 25, 2016 at 13:33. cmb ED Course: 13:35 Patient visited by Rox Gonzalez. cmb 13:35 Patient moved to Waiting cmb 13:37 Patient moved to Pre RCE cmb 13:51 Triage Initiated dy 14:17 Patient moved to 11 mlb1 14:17 The patient / caregiver is instructed regarding the plan of care and ED course. Patient dsf has correct armband on for positive identification. Placed in gown. Bed in low position. Call light in reach. Side rails up X2. diesel engine tester on. Pulse ox on. NIBP on. 14:23 Patient visited by Humera Dumont PCA. jlf 14:25 Justin Arceo MD is Attending Physician. br1 14:32 Patient visited by Justin Arceo MD. br1 14:43 Troponin Sent. ttb 14:43 Cardiac Injury Profile Sent. ttb 14:43 CBC with Diff Sent. ttb 14:43 Basic Metabolic Profile Sent. ttb 14:43 Inserted peripheral IV: 20gauge IV in left antecubital area and blood collected. ttb Patient tolerated the procedure well. Labs drawn. 15:05 Patient visited by Humera Dumont PCA. jlf 15:05 Patient visited by Humera Dumont PCA. jlf 15:05 EKG done. (by ED staff). Reviewed by Justin Arceo MD. jlf 15:10 CT Head Without Contrast Returned. EDMS 15:35 Notified attending ED physician of Critical lab value. Hgb--5.2 and Hct--15.5. mcp 15:37 [facility] Payment Agreement was scanned into [employer] and attached to record. gjb 15:44 TYPE & SCREEN Sent. dsf 15:44 Type and Cross, Packed Cells Sent. dsf 15:44 BLOOD CULTURES Sent. dsf 16:10 Chest, 2 View (pa\E\lat) Returned. EDMS 16:15 Patient visited by Carlotta Mcconnell RN. dsf 16:20 Susu Kramer is Hospitalizing Provider. br1 17:03 Patient visited by [place], Jordain, PLASTICS FITTER. jlf 17:17 Patient moved to Admit Hold mcp 17:35 Patient visited by Carlotta Mcconnell,OMAR. dsf 18:[address] dsf 18:39 Patient moved to 11 dsf 18:39 No procedures done that require assistance. dsf 18:40 Blood products: PRBCs X 1 unit given. dsf 18:44 Patient moved to Admit Hold mcp 18:59 Inserted saline lock: 20 gauge in right forearm The patient tolerated the procedure dsf well. 19:00 Patient visited by Carlotta Mcconnell RN. dsf 19:13 EKG-ADULT Returned. EDMS 19:16 Patient visited by Carlotta Mcconnell RN. dsf 0112 00:40 CT Chest without contrast Returned. EDMS 03:36 Patient moved to 20 cz 06:22 Patient moved to Admit Hold ml3 12:59 Krys Barreto,RN is Primary Nurse. nr1 13:31 T-Sheet-- Draft Copy was scanned into [employer] and attached to record. gb 13:32 Radiology Report was scanned into [employer] and attached to record. gb Administered Medications: 09/25 15:00 Drug: Acetaminophen 650 mg [acetaminophen 325 mg tablet (2 tabs)] Route: PO; hs1 16:13 Follow up: Resp 20 bpm; Temp 98.3; Pain 0/10 Adult dsf Intake: 18:40 IV: 300.00ml (PRBC); Total: 300.00ml. dsf Order Results: Lab Order: Basic Metabolic Profile; SPEC'M 09/25/16 14:39 Test: GLUCOSE, FASTING; Value: 267; Range: 83-110; Abnormal: Above high normal; Units: MG/DL; Status: F Test: BLOOD UREA NITROGEN; Value: 87; Range: 7-18; Abnormal: Above high normal; Units: MG/DL; Status: F Test: CREATININE FOR GFR; Value: 3.57; Range: 0.55-1.02; Abnormal: Above high normal; Units: MG/DL; Status: F Test: GLOMERULAR FILTRATION RATE; Value: 13.2; Range: >39; Abnormal: Below low normal; Status: F Test: SODIUM LEVEL; Value: 139; Range: 136-145; Units: MEQ/L; Status: F Test: POTASSIUM SERUM; Value: 4.3; Range: 3.5-5.1; Units: MEQ/L; Status: F Test: CHLORIDE LEVEL; Value: 106; Range: 98-107; Units: MEQ/L; Status: F Test: CARBON DIOXIDE LEVEL; Value: 20; Range: 21-32; Abnormal: Below low normal; Units: MEQ/L; Status: F Test: ANION GAP; Value: 13; Range: 8-16; Units: MEQ/L; Status: F Test: CALCIUM LEVEL; Value: 8.1; Range: 8.8-10.2; Abnormal: Below low normal; Units: MG/DL; Status: F Test Note: ; Units are mL/min/1.73 m2 Chronic Kidney Disease Staging per NKF: Stage I & II GFR >=60 Normal to Mildly Decreased Stage III GFR 30-59 Moderately Decreased Stage IV GFR 15-29 Severely Decreased Stage V GFR <15 Very Little GFR Left ESRD GFR <15 on EMS DIRECTOR Lab Order: CBC with Diff; SPEC'M 09/25/16 14:39 Test: WHITE BLOOD COUNT; Value: 1.4; Range: 4.0-10.0; Abnormal: Below low normal; Units: K/mm3; Status: F Test: RED BLOOD COUNT; Value: 1.77; Range: 4.00-5.40; Abnormal: Below low normal; Units: M/mm3; Status: F Test: HEMOGLOBIN; Value: 5.2; Range: 12.0-16.0; Abnormal: Critical Low; Units: g/dl; Status: F Test: HEMATOCRIT; Value: 15.5; Range: 36.0-47.0; Abnormal: Below low normal; Units: %; Status: F Test: MEAN CORPUSCULAR VOLUME; Value: 87.6; Range: 80.0-96.0; Units: fl; Status: F Test: MEAN CORPUSCULAR HEMOGLOBIN; Value: 29.2; Range: 27.0-33.0; Units: pg; Status: F Test: MEAN CORPUSCULAR HGB CONC; Value: 33.3; Range: 32.0-36.5; Units: g/dl; Status: F Test: RED CELL DISTRIBUTION WIDTH; Value: 16.6; Range: 11.5-14.5; Abnormal: Above high normal; Units: %; Status: F Test: PLATELET COUNT, AUTOMATED; Value: 126; Range: 150-450; Abnormal: Below low normal; Units: k/mm3; Status: F Test: NEUTROPHILS %; Value: 74.0; Range: 36.0-66.0; Abnormal: Above high normal; Units: %; Status: F Test: LYMPH %; Value: 14.1; Range: 24.0-44.0; Abnormal: Below low normal; Units: %; Status: F Test: MONO %; Value: 3.0; Range: 0.0-5.0; Units: %; Status: F Test: EOS %; Value: 1.0; Range: 0.0-3.0; Units: %; Status: F Test: BASO %; Value: 0.8; Range: 0.0-1.0; Units: %; Status: F Test: LARGE UNSTAINED CELL %; Value: 7.2; Range: 0.0-4.0; Abnormal: Above high normal; Units: %; Status: F Test: NEUTROPHILS #; Value: 1.1; Range: 1.8-7.7; Abnormal: Below low normal; Units: K/mm3; Status: F Test: LYMPH #; Value: 0.2; Range: 1.5-4.5; Abnormal: Below low normal; Units: K/mm3; Status: F Test: MONO #; Value: 0.0; Range: 0.0-0.8; Units: K/mm3; Status: F Test: EOS #; Value: 0.0; Range: 0.0-0.50; Units: K/mm3; Status: F Test: BASO #; Value: 0.0; Range: 0.0-0.2; Units: K/mm3; Status: F Test: LARGE UNSTAINED CELL #; Value: 0.1; Range: 0.0-0.4; Units: K/mm3; Status: F Lab Order: Cardiac Injury Profile; SPEC'M 09/25/16 14:39 Test: CPK CREATINE PHOSPHOKINASE; Value: 31; Range: 26-192; Units: U/L; Status: F Test: CK-MB VALUE MASS; Value: 1.0; Range: 0.0-3.6; Units: NG/ML; Status: F Test: MB/CK RELATIVE INDEX; Value: 3.22; Range: < OR =4; Status: F Test Note: ; DIAGNOSIS CRITERIA MMB ng/ml Relative Index (RI) NON-AMI < or = 5 N/A [place] > 5 < or = 4 AMI > 5 > 4 Lab Order: Troponin; [facility] 09/25/16 14:39 Test: TROPONIN I; Value: 0.03; Range: < 0.10; Units: NG/ML; Status: F Test Note: ; Troponin I Reference Interval for Siemens [place]go LOCI: 99th Percentile= 0.00-0.045 ng/ml Risk Stratification: <= 0.10 ng/ml Decreased Risk for Adverse Clinical Events. 0.10-1.50 ng/ml Increased Risk for Adverse Clinical Events. Evaluation of additional criterion and/or repeat testing in 2-6 hours is suggested to rule out myocardial damage. >= 1.50 ng/ml Indicative of Myocardial Injury. Lab Order: -Influenza A&B Rapid Antigen - Nose; SPEC'M 09/25/16 15:12 Test: INFLUENZA A RAPID SCR by ICA; Value: INFLUENZA A RESULTS NEGATIVE; Status: F Test: INFLUENZA A RAPID SCR by ICA; Value: Comments:; Status: F Test: INFLUENZA B RAPID SCR by ICA; Value: INFLUENZA B RESULTS NEGATIVE; Status: F Test Note: ; The Influenza test is a direct rapid immunoassay for the qualitative detection of Influenza viral antigen. Cell culture (Viral Culture) testing should be considered to confirm NEGATIVE results and to assist in detecting other viruses that can provide similar clinical symptoms. Please contact the lab within 24 hours ([phone] if confirmatory testing is desired. Lab Order: Lactic Acid ([place] tube on ice); SPEC'M 09/25/16 15:12 Test: LACTIC ACID LEVEL, LACTATE; Value: 1.4; Range: 0.4-2.0; Units: MMOL/L; Status: F Lab Order: TYPE & SCREEN; SPEC'M 09/25/16 15:43 Test: BLOOD TYPE; Value: A POS; Status: F Test: AB SCREEN (INDIRECT CARIDAD)GEL; Value: NEGATIVE; Status: F Test: IMMEDIATE SPIN CROSSMATCH; Value: [id number] A POSITIVE Compatible? Y; Status: F Test: IMMEDIATE SPIN CROSSMATCH; Value: [id number] A POSITIVE Compatible? Y; Status: F Test: IMMEDIATE SPIN CROSSMATCH; Value: [id number] A POSITIVE Compatible? Y; Status: F Test: IMMEDIATE SPIN CROSSMATCH; Value: [id number] A POSITIVE Compatible? Y; Status: F Lab Order: PATHOLOGIST REVIEW COMPREHENSI; [facility]09/25/16 14:39 Test: SLIDE REVIEW; Value: Report; Status: F Test: SOURCE; Value: PERIPHERAL SMEAR; Status: F Test: REASON FOR REVIEW; Value: COMPREHENSIVE REVIEW; Status: F Test Note: ; Slide and/or specimen referred to Pathologist for review. Results of the review are located in the EMR Pathology module under Peripheral Smear when completed. Lab Order: RETICULOCYTE COUNT; [facility] 09/25/16 14:39 Test: RETICULOCYTE % [id number]; Value: 1.50; Range: 0.5-1.5; Units: %; Status: F Test: RETICULOCYTE ABSOLUTE [id number]; Value: 27; Range: 17-77; Units: x10(9)/L; Status: F Test: RETIC HEMOGLOBIN CONTENT CHr; Value: 33.8; Range: 24-36; Units: PG; Status: F Lab Order: TOTAL IRON BINDING CAPACIT; [facility] 09/25/16 14:39 Test: IRON (FE); Value: 23; Range: 50-170; Abnormal: Below low normal; Units: UG/DL; Status: F Test: TOTAL IRON BINDING CAPACITY; Value: 141; Range: 250-450; Abnormal: Below low normal; Units: UG/DL; Status: F Test: PERCENT SATURATION; Value: 16.3; Range: 13.2-37.4; Units: %; Status: F Lab Order: FERRITIN; [facility] 09/25/16 14:39 Test: FERRITIN; Value: 5870; Range: 8-252; Abnormal: Above high normal; Units: NG/ML; Status: F Lab Order: HEMOGLOBIN & HEMATOCRIT; [facility] 09/26/16 11:57 Test: HEMOGLOBIN; Value: 10.8; Range: 12.0-16.0; Abnormal: Below low normal; Units: g/dl; Status: F Test: HEMATOCRIT; Value: 29.2; Range: 36.0-47.0; Abnormal: Below low normal; Units: %; Status: F Lab Order: COMPLETE BLOOD COUNT; [facility] 09/26/16 05:18 Test: WHITE BLOOD COUNT; Value: 2.2; Range: 4.0-10.0; Abnormal: Below low normal; Units: K/mm3; Status: F Test: RED BLOOD COUNT; Value: 3.33; Range: 4.00-5.40; Abnormal: Below low normal; Units: M/mm3; Status: F Test: HEMOGLOBIN; Value: 10.3; Range: 12.0-16.0; Units: g/dl; Status: F Test: HEMATOCRIT; Value: 28.4; Range: 36.0-47.0; Abnormal: Below low normal; Units: %; Status: F Test: MEAN CORPUSCULAR VOLUME; Value: 85.3; Range: 80.0-96.0; Units: fl; Status: F Test: MEAN CORPUSCULAR HEMOGLOBIN; Value: 31.4; Range: 27.0-33.0; Units: pg; Status: F Test: MEAN CORPUSCULAR HGB CONC; Value: 36.4; Range: 32.0-36.5; Units: g/dl; Status: F Test: RED CELL DISTRIBUTION WIDTH; Value: 15.1; Range: 11.5-14.5; Abnormal: Above high normal; Units: %; Status: F Test: PLATELET COUNT, AUTOMATED; Value: 119; Range: 150-450; Abnormal: Below low normal; Units: k/mm3; Status: F Lab Order: HEMOGLOBIN A1C; [facility] 09/26/16 05:18 Test: HEMOGLOBIN A1c; Value: 7.0; Range: 4.5-6.2; Abnormal: Above high normal; Units: %; Status: F Test: ESTIMATED AVERAGE GLUCOSE; Value: 154; Range: 60-110; Abnormal: Above high normal; Units: MG/DL; Status: F Lab Order: COMPLETE COMPHRENSIVE METABOLI; [facility]09/[facility]16 05:18 Test: GLUCOSE, FASTING; Value: 56; Range: 83-110; Abnormal: Below low normal; Units: MG/DL; Status: F Test: BLOOD UREA NITROGEN; Value: 84; Range: 7-18; Abnormal: Above high normal; Units: MG/DL; Status: F Test: CREATININE FOR GFR; Value: 3.13; Range: 0.55-1.02; Abnormal: Above high normal; Units: MG/DL; Status: F Test: GLOMERULAR FILTRATION RATE; Value: 15.4; Range: >39; Abnormal: Below low normal; Status: F Test: SODIUM LEVEL; Value: 139; Range: 136-145; Units: MEQ/L; Status: F Test: POTASSIUM SERUM; Value: 3.6; Range: 3.5-5.1; Units: MEQ/L; Status: F Test: CHLORIDE LEVEL; Value: 107; Range: 98-107; Units: MEQ/L; Status: F Test: CARBON DIOXIDE LEVEL; Value: 18; Range: 21-32; Abnormal: Below low normal; Units: MEQ/L; Status: F Test: ANION GAP; Value: 14; Range: 8-16; Units: MEQ/L; Status: F Test: CALCIUM LEVEL; Value: 7.5; Range: 8.8-10.2; Abnormal: Below low normal; Units: MG/DL; Status: F Test: AST/SGOT; Value: 42; Range: 15-37; Abnormal: Above high normal; Units: U/L; Status: F Test: ALT/SGPT; Value: 18; Range: 12-78; Units: U/L; Status: F Test: ALKALINE PHOSPHATASE; Value: 44; Range: 45-117; Abnormal: Below low normal; Units: U/L; Status: F Test: BILIRUBIN,TOTAL; Value: 1.2; Range: 0.2-1.0; Abnormal: Above high normal; Units: MG/DL; Status: F Test: TOTAL PROTEIN; Value: 5.6; Range: 6.4-8.2; Abnormal: Below low normal; Units: GM/DL; Status: F Test: ALBUMIN; Value: 2.3; Range: 3.2-5.2; Abnormal: Below low normal; Units: GM/DL; Status: F Test: ALBUMIN/GLOBULIN RATIO; Value: 0.70; Range: 1.00-1.93; Abnormal: Below low normal; Status: F Test Note: ; Units are mL/min/1.73 m2 Chronic Kidney Disease Staging per NKF: Stage I & II GFR >=60 Normal to Mildly Decreased Stage III GFR 30-59 Moderately Decreased Stage IV GFR 15-29 Severely Decreased Stage V GFR <15 Very Little GFR Left ESRD GFR <15 on EMS DIRECTOR Lab Order: Fingerstick Blood Sugar; SPEC'M 09/26/16 07:31 Test: BEDSIDE GLUCOSE; Value: 60; Range: 83-110; Abnormal: Below low normal; Units: MG/DL; Status: F Lab Order: Fingerstick Blood Sugar; SPEC'M 09/26/16 09:34 Test: BEDSIDE GLUCOSE; Value: 110; Range: 83-110; Units: MG/DL; Status: F Lab Order: MAGNESIUM LEVEL; SPEC'M 09/26/16 05:18 Test: MAGNESIUM LEVEL; Value: 1.5; Range: 1.8-2.4; Abnormal: Below low normal; Units: MG/DL; Status: F Lab Order: Fingerstick Blood Sugar; SPEC'M 09/26/16 11:43 Test: BEDSIDE GLUCOSE; Value: 92; Range: 83-110; Units: MG/DL; Status: F Radiology Order: Chest, 2 View (pa\E\lat) Test: Chest, 2 View (pa\E\lat) REASON FOR EXAMINATION: weak, low grade fever; Clinical: Low grade fever and weakness.; ; Technique: AP and lateral views.; ; Comparison: 02/24/2016.; ; Findings: Mediastinum and cardiac silhouette are stable. Lung doe; demonstrate diffuse chronic interstitial changes without definite consolidation,; effusion or pneumothorax. Lateral view cannot exclude density overlying the mid; lung zone for which chest CT correlation may be warranted. Skeletal structures; demonstrate age-related degenerative changes.; ; Impression:; Chronic stable changes.; Cannot exclude subtle nodular density on lateral radiograph only. Consider chest; CT follow-up.; ; ; Signed by; Ariel Gray MD 09/25/2016 03:11 P; Radiology Order: EKG-ADULT Test: EKG-ADULT REASON FOR EXAMINATION: dysrhythmia; Stationary ECG Study; [facility] - ED; ; Test Date: 2016-09-25; Pat Name: MILA ESPITIA Department:; Room: -; Gender: F [employer] Investigator: [email or web address]; : 1940 Requested By: JUSTIN Alonso; Order Number: [id number] Maldonado MD: Meme Palomares; Measurements; Intervals [place]; Rate: 102 P: 77; MT: 136 QRS: 55; QRSD: 87 T: 52; QT: 323; QTc: 423; Interpretive Statements; SINUS TACHYCARDIA; ABNORMAL RHYTHM ECG; LOW VOLTAGE LIMB; INCREASED RATE 01/25/16; Electronically Signed On 09-25-2016 18:13:24 EST by Meme Palomares; Radiology Order: CT Head Without Contrast Test: CT Head Without Contrast REASON FOR EXAMINATION: weakness, fall 4 days ago; Clinical: Weakness with recent fall .; ; Findings:; Age-related atrophy and microvascular ischemic changes are appreciated. The; ventricles and sulci are symmetric. [place]-white differentiation is maintained.; There is no evidence for acute intracranial hemorrhage, mass/mass effect,; pathology or infarction. No extra-axial fluid collection. Calvarium is intact.; Paranasal sinuses and mastoid air cells are clear.; ; Impression:; Age related atrophy and microvascular ischemic changes.; No acute intracranial hemorrhage, infarction, or mass/mass effect.; ; ; Signed by; Ariel Gray MD 09/25/2016 02:53 P; Radiology Order: CT Chest without contrast Test: CT Chest without contrast REASON FOR EXAMINATION: LOW GRADE FEVER NODULAR DENSITY ON CXR.; ; CLINICAL STATEMENT: Low-grade fever with nodular density on chest x-ray.; TECHNIQUE: CT of the chest was performed without intravenous contrast by obtaining contiguous axial s; lices from level of the thyroid gland to level of the kidneys. Post imaging 3-D technique processing; was utilized and multiplanar reformats were obtained in coronal and sagittal projections.; COMPARISON: None; FINDINGS:; Lower neck: Visualized thyroid gland unremarkable. No mass or suspicious cystic lesion.; Lungs / airways / pleura: Mosaic attenuation pattern noted with groundglass and mild atelectatic agrawal; ges toward the bases. No consolidation, effusion, mass, suspicious nodule, or pneumothorax. Central a; nd visualized peripheral airways are patent.; Mediastinum: No mass or suspicious cystic lesion. Heart normal in size with coronary calcination. No; pericardial effusion. Thoracic aorta and pulmonary trunk normal in caliber.; Lymph nodes: No enlarged adenopathy. Paratracheal, bihilar and subcarinal granulomatous calcification; s.; Upper abdomen: Status post cholecystectomy.; Osseous structures/Soft tissues/thoracic wall: Mild scoliosis with multilevel uebofurm-zy-cznyja dege; nerative changes of the thoracic spine with endplate sclerosis, disc space narrowing with spurring. N; o soft tissue abnormality or hernia.; Line/devices: None.; IMPRESSION:; 1. No infiltrate, consolidation or suspicious nodule.; 2. Mild scoliosis with multilevel mqgncedf-da-xfbrzi degenerative changes of the thoracic spine with; endplate sclerosis, disc space narrowing with spurring.; ; Outcome: 16:20 Decision to Hospitalize by Provider. br1 18:37 CT Study completed. dsf 18:44 Discharge Assessment: patient administered narcotics - no. dsf 19:25 Admission hand-off: Other: report given to Ekaterina NELSON . f 09/26 14:34 Patient left the ED. nr1 Signatures: Dispatcher [employer] EDMS Ester Sellers RN Moe Lloyd mcp, RN RN cz Flakita Ramos, Reg Reg Kolby Riddle, RN Ceferino Hancock RN RN mlb1 Amanda Veras, Cheese Grader Unit ml3 Justin Arceo MD MD br1 Karen Park RN RN hs1 Carlotta McconnellRN RN f Rox Gonzalez Teresa, RN RN ttb Humera Dumont, AFSANEH PLASTICS FITTER jlf Krys Barreto RN RN nr1 Sheree Balderas Chart Complete MTDD
== END 2016-09-28 13:19 | disposition home or self-care (01) | DRG 812 ==
LOC: M ED 13:33 → M ED INP 16:09 → M PCU 09-26 14:40
PROVIDERS: ADMIT General Practice; ATTEND Internal Medicine
PROC: 30253N1 (ICD-10-PCS; principal; 2016-09-25)
DX: D64.2 Secondary sideroblastic anemia due to drugs and toxins (principal); N18.4 Chronic kidney disease, stage 4 (severe); N25.81 Secondary hyperparathyroidism of renal origin; I47.2 Ventricular tachycardia; N17.9 Acute kidney failure, unspecified; I12.9 Hypertensive chronic kidney disease with stage 1 through stage 4 chronic kidney disease, or unspecified chronic kidney disease; T38.0X5A Adverse effect of glucocorticoids and synthetic analogues, initial encounter; E03.9 Hypothyroidism, unspecified; D61.811 Other drug-induced pancytopenia; T45.1X5A Adverse effect of antineoplastic and immunosuppressive drugs, initial encounter; D63.1 Anemia in chronic kidney disease; Z79.52 Long term (current) use of systemic steroids; Z79.899 Other long term (current) drug therapy

== ENCOUNTER 2016-11-20 10:35 | Emergency (ER) | payer MEDICARE ==
[~2016-11-20] VITALS: Ht 157.5 cm; Wt 54.9 kg
[~2016-11-20 10:35] MED LIST changes: +CALC1CAP31 PO; +CYCL1CAP2 PO; +GLIM1TAB PO; -GLIMEPIRIDE 1 MG TABLET PO SCH; +HYDR-4267 PO; +HYDR10TAB PO; +PRED10TA PO; +RANI150T PO
[2016-11-20] MEDS ORDERED: NORCO, ANEXSIA 5/325MG TABLET (HYDROcodone/ACETAMINOPHEN) PO ONE (11:30)
[2016-11-20] MEDS ORDERED: FLEET OIL RETENTION ENEMA PR STA (11:35)
--- NOTE | 2016-11-20 12:23 | REP ---
CT HEAD WITHOUT CONTRAST: HISTORY: Trauma. COMPARISON: 09/25/2016. Areas of decreased attenuation are present in the periventricular white matter. This represents small vessel ischemic disease. There is no intraparenchymal hemorrhage, mass or midline shift. The ventricular system and cortical sulci are dilated consistent with moderate volume loss. There is no extracerebral collection. There is no fracture. Mucosal thickening is present in the left frontal sinus. IMPRESSION: 1. Small vessel ischemic disease. 2. Moderate volume loss. Signed by Ranjeet Hodges MD 11/20/2016 12:29 P
--- NOTE | 2016-11-20 13:05 | REP ---
MAXILLOFACIAL CT WITHOUT CONTRAST: HISTORY: Trauma. Bilateral Marcio cells are present. Minimal mucosal thickening is present in the right maxillary and left frontal sinuses. The remaining sinuses are clear. The ostiomeatal units are patent. The middle and inferior nasal turbinates are partially paradoxical. There is tory bullosa of the middle nasal turbinates. There is minimal deviation of the nasal septum to the left. A spur is present arising from the left side of the nasal septum. The cribriform plate, medial snowden of the orbits and optic canals are intact. There is aeration of the entire clinoid processes. The carotid canals form a segment of the posterolateral snowden of the sphenoid sinus. There is no fracture. Soft tissue swelling is present over the frontal bones. IMPRESSION: Sinus mucosal thickening as described above. Signed by Ranjeet Hodges MD 11/20/2016 01:19 P
[2016-11-20 13:27] VITALS: BP 173/86
== END 2016-11-20 14:09 | disposition home or self-care (01) ==
LOC: M ED 11:22
DX: S00.83XA Contusion of other part of head, initial encounter (principal); W10.8XXA Fall (on) (from) other stairs and steps, initial encounter; Y92.098 Other place in other non-institutional residence as the place of occurrence of the external cause; Y93.89 Activity, other specified; Y99.8 Other external cause status; I12.9 Hypertensive chronic kidney disease with stage 1 through stage 4 chronic kidney disease, or unspecified chronic kidney disease; N18.9 Chronic kidney disease, unspecified; Z79.899 Other long term (current) drug therapy; Z79.52 Long term (current) use of systemic steroids

== ENCOUNTER → 2016-11-28 | Outpatient (REF) | payer MEDICARE ==
[2016-11-28 19:32] LABS: PERCENT SATURATION 48.7 % (13.2-37.4)
== END ==
LOC: M LAB REF 17:04
PROVIDERS: ATTEND Internal Medicine Nephrology
DX: D50.9 Iron deficiency anemia, unspecified (principal)

== ENCOUNTER → 2017-02-04 | Outpatient (REF) | payer MEDICARE ==
[2017-02-04 14:11] LABS: BASO % 0.6 % (0.0-1.0); EOS # 0.2 K/mm3 (0.0-0.50); EOS % 3.5 % (0.0-3.0); LARGE UNSTAINED CELL # 0.1 K/mm3 (0.0-0.4); LARGE UNSTAINED CELL % 2.2 % (0.0-4.0); LYMPH % 16.6 % (24.0-44.0); MEAN CORPUSCULAR HEMOGLOBIN 30.7 pg (27.0-33.0); MEAN CORPUSCULAR HGB CONC 33.5 g/dl (32.0-36.5); MEAN CORPUSCULAR VOLUME 91.7 fl (80.0-96.0); MONO # 0.4 K/mm3 (0.0-0.8); MONO % 6.4 % (0.0-5.0); NEUTROPHILS # 4.2 K/mm3 (1.8-7.7); NEUTROPHILS % 70.6 % (36.0-66.0); PLATELET COUNT, AUTOMATED 231 k/mm3 (150-450); RED CELL DISTRIBUTION WIDTH 13.6 % (11.5-14.5)
[2017-02-04 14:24] LABS: FOLATE > 24.0 NG/ML; VITAMIN B12 LEVEL 665 PG/ML
[2017-02-04 14:34] LABS: ALBUMIN 3.3 GM/DL (3.2-5.2); ALKALINE PHOSPHATASE 66 U/L (45-117); ALT/SGPT 20 U/L (12-78); ANION GAP 9 MEQ/L (8-16); AST/SGOT 19 U/L (15-37); BILIRUBIN,TOTAL 0.4 MG/DL (0.2-1.0); BLOOD UREA NITROGEN 52 MG/DL (7-18); CARBON DIOXIDE LEVEL 24 MEQ/L (21-32); CHLORIDE LEVEL 107 MEQ/L (98-107); CREATININE FOR GFR 2.42 MG/DL (0.55-1.02); GLOMERULAR FILTRATION RATE 20.7 (>39); GLUCOSE, FASTING 109 MG/DL (83-110); POTASSIUM SERUM 4.3 MEQ/L (3.5-5.1); SODIUM LEVEL 140 MEQ/L (136-145); TOTAL PROTEIN 7.4 GM/DL (6.4-8.2)
[2017-02-04 15:26] LABS: ERYTHROCYTE SEDIMENTATION RATE > 140 mm/hr (0-30)
[2017-02-06 12:07] LABS: ALBUMIN % 51.4 % (55.8-66.1); GAMMA GLOBULIN % 18.9 % (11.1-18.8)
[2017-02-08 00:06] LABS: Lyme Disease IgG/IgM Antibodie <0.91 ISR (0.00-0.90); Lyme Disease IgM Ab Quantitati <0.80 index (0.00-0.79); VITAMIN E LEVEL 23.7 mg/L (6.5-21.5)
== END ==
LOC: M LABNEURO 13:04
PROVIDERS: ATTEND Psychiatry & Neurology Neurology
DX: G62.9 Polyneuropathy, unspecified (principal); Z79.899 Other long term (current) drug therapy

== ENCOUNTER → 2017-02-19 | Outpatient (REF) | payer MEDICARE ==
[2017-02-19 19:05] LABS: PERCENT SATURATION 33.8 % (13.2-37.4)
== END ==
LOC: M LAB REF 17:29
PROVIDERS: ATTEND Internal Medicine Nephrology
DX: D50.9 Iron deficiency anemia, unspecified (principal)

== ENCOUNTER → 2017-03-31 | Outpatient (CLI) | payer MEDICARE ==
[~2017-03-31] MED LIST changes: +CARV12.5 PO; +COLA100C5 PO; +FERR1TAB8 PO; -FOLI1TAB2 PO; +FOLI1TAB4 PO; +HYDR-3363 PO; +HYDR-3910 PO; +HYDR-3911 PO; -HYDR-4266 PO; -HYDR-4267 PO; +LOSA25TA8 PO; +MIRA3350 PO; +MYCO500T PO; -PRED10TA PO; +PRED10TA2 PO; +PROC1INJ2 IV; +PROC20004 SQ; +TERA2CAP3 PO; -TRIC145T PO; +TRIC145T22 PO
== END ==
LOC: M LAB 08:49
PROVIDERS: ATTEND Internal Medicine Nephrology
DX: D64.9 Anemia, unspecified (principal)

== ENCOUNTER 2017-04-01 10:30 | Outpatient (CLI) | payer MEDICARE ==
[~2017-04-01 10:30] MED LIST changes: -CARV12.5 PO; -COLA100C5 PO; -FERR1TAB8 PO; -HYDR-3363 PO; -LOSA25TA8 PO; -MIRA3350 PO; -MYCO500T PO; -PROC1INJ2 IV; -PROC20004 SQ; -TERA2CAP3 PO
[2017-04-01] MEDS ORDERED: LOSA25TA8 PO (12:13)
[2017-04-01] MEDS ORDERED: PROC1INJ2 IV (12:13)
[2017-05-05] MEDS ORDERED: CARV12.5 PO (09:18)
[2017-05-05] MEDS ORDERED: HYDR-3363 PO (09:18)
[2017-05-05] MEDS ORDERED: PROC20004 SQ (09:18)
[2017-05-05] MEDS ORDERED: AMLO10TA2 PO (09:18)
[2017-05-05] MEDS ORDERED: TERA2CAP3 PO (09:18)
[2017-05-05] MEDS ORDERED: COLA100C5 PO (09:18)
[2017-05-05] MEDS ORDERED: MIRA3350 PO (09:18)
[2017-05-05] MEDS ORDERED: MYCO500T PO (09:18)
[2017-05-05] MEDS ORDERED: FERR1TAB8 PO (09:18)
== END 2017-04-01 15:30 | disposition home or self-care (01) ==
LOC: M INFU 10:30
PROVIDERS: ATTEND Internal Medicine Nephrology
DX: D61.9 Aplastic anemia, unspecified (principal); N19 Unspecified kidney failure; I10 Essential (primary) hypertension; E78.00 Pure hypercholesterolemia, unspecified; Z79.899 Other long term (current) drug therapy
CPT/HCPCS: 36430; P9016

== ENCOUNTER → 2017-05-05 | Outpatient (CLI) | payer MEDICARE ==
[~2017-05-05] MED LIST changes: +CARV12.5 PO; +COLA100C5 PO; +FERR1TAB8 PO; +HYDR-3363 PO; +LOSA25TA8 PO; +MIRA3350 PO; +MYCO500T PO; +PROC1INJ2 IV; +PROC20004 SQ; +TERA2CAP3 PO
== END ==
LOC: M RROUT 08:58
PROVIDERS: ATTEND Internal Medicine Nephrology
DX: D50.0 Iron deficiency anemia secondary to blood loss (chronic) (principal)
CPT/HCPCS: 36415; 36430; 86850; 86900; 86901; 86920; P9016

== ENCOUNTER 2017-05-30 15:28 | Outpatient (CLI) | payer MEDICARE ==
[~2017-05-30] VITALS: Ht 157.5 cm; Wt 47.5 kg
[2017-05-30 17:00] VITALS: BP 141/67
== END 2017-05-31 | disposition home or self-care (01) ==
LOC: M OPCLI5PR 15:28 → M MS5PR 15:32 → M OPCLI5PR 05-31
PROVIDERS: ATTEND Internal Medicine Nephrology
DX: D61.9 Aplastic anemia, unspecified (principal); Z79.899 Other long term (current) drug therapy
CPT/HCPCS: 36415; 36430; 85046; 86850; 86900; 86901; 86920; P9016

== ENCOUNTER → 2017-05-30 | Outpatient (REF) | payer MEDICARE ==
[2017-05-30 13:41] LABS: RETIC HEMOGLOBIN CONTENT CHr 32.3 PG (24-36); RETICULOCYTE % 0.4 % (0.5-1.5)
== END ==
LOC: M LAB REF 12:54
PROVIDERS: ATTEND Internal Medicine Nephrology
DX: D64.9 Anemia, unspecified (principal)

== ENCOUNTER 2017-07-03 16:14 | Outpatient (CLI) | payer MEDICARE ==
[~2017-07-03] VITALS: Ht 157.5 cm; Wt 51.0 kg
[2017-07-03 17:00] VITALS: BP 102/47
[2017-07-03] MEDS: ONDANSETRON 4 MG TAB (S0181) PO PRN (17:15)
[2017-07-03 19:20] VITALS: BP 100/49
[2017-07-04] MEDS: ONDANSETRON 4 MG TAB (S0181) PO PRN (01:37)
[2017-07-04 03:30] VITALS: BP 129/63
[2017-07-04 04:30] VITALS: BP 146/72
== END 2017-07-04 04:30 | disposition home or self-care (01) ==
LOC: M OPCLI4PR 16:14 → M MS4PR 16:28 → M OPCLI4PR 07-04 04:30
PROVIDERS: ATTEND Internal Medicine Nephrology
DX: D61.9 Aplastic anemia, unspecified (principal); Z79.899 Other long term (current) drug therapy
CPT/HCPCS: 36415; 36430; 82728; 83550; 86850; 86900; 86901; 86920; P9016

== ENCOUNTER → 2017-07-03 | Outpatient (REF) | payer MEDICARE ==
[2017-07-03 20:36] LABS: PERCENT SATURATION 105.6 % (13.2-45.0)
== END ==
LOC: M LAB REF 17:50
PROVIDERS: ATTEND Internal Medicine Nephrology
DX: D50.9 Iron deficiency anemia, unspecified (principal)

== ENCOUNTER → 2017-08-18 | Outpatient (REF) | payer MEDICARE ==
[2017-08-18 13:34] LABS: RETIC HEMOGLOBIN EQUIVALENT 37.9 pg (24-36); RETICULOCYTE % 2.7 % (0.5-1.5)
== END ==
LOC: M LAB REF 13:06
PROVIDERS: ATTEND Internal Medicine Nephrology
DX: D64.9 Anemia, unspecified (principal)

== ENCOUNTER → 2017-10-31 | Outpatient (REF) | payer MEDICARE ==
[2017-10-31 14:27] LABS: VITAMIN B12 LEVEL 764 PG/ML
[2017-10-31 14:28] LABS: FOLATE > 24.0 NG/ML
== END ==
LOC: M LAB REF 13:47
DX: D53.1 Other megaloblastic anemias, not elsewhere classified (principal)
CPT/HCPCS: 82746

== ENCOUNTER 2017-12-02 09:32 | Outpatient (CLI) | payer MEDICARE ==
[2017-12-02 13:44] LABS: IMMEDIATE SPIN CROSSMATCH 1 2
== END 2017-12-02 17:05 | disposition home or self-care (01) ==
LOC: M INFU 09:32
DX: D61.9 Aplastic anemia, unspecified (principal); Z79.899 Other long term (current) drug therapy
CPT/HCPCS: 36430

== ENCOUNTER → 2017-12-15 | Outpatient (REF) | payer MEDICARE ==
[2017-12-16 13:50] LABS: REASON FOR REVIEW PLATELET MORPHOLOGY; SLIDE REVIEW Report; SOURCE PERIPHERAL SMEAR
== END ==
LOC: M LAB REF 13:07
DX: D69.6 Thrombocytopenia, unspecified (principal)

== ENCOUNTER 2017-12-26 12:36 | Emergency (ER) | payer MEDICARE ==
[2017-12-26 14:48] LABS: HEMATOCRIT 16.6 % (36.0-47.0); IMMATURE GRANULOCYTE % 0.7 % (0-3.0); LYMPH # 1.5 10^3/uL (1.5-4.5); LYMPH % 20.2 % (24.0-44.0); MEAN CORPUSCULAR HEMOGLOBIN 31.7 pg (27.0-33.0); MEAN CORPUSCULAR HGB CONC 34.9 g/dl (32.0-36.5); MEAN CORPUSCULAR VOLUME 90.7 fl (80.0-96.0); MONO # 0.7 10^3/uL (0.0-0.8); MONO % 9.2 % (0.0-5.0); NEUTROPHILS # 5.3 10^3/uL (1.8-7.7); NEUTROPHILS % 69.9 % (36.0-66.0); RED BLOOD COUNT 1.83 10^6/uL (4.00-5.40); RED CELL DISTRIBUTION WIDTH 15.9 % (11.5-14.5); WHITE BLOOD COUNT 7.5 10^3/uL (4.0-10.0)
[2017-12-26] MEDS: NS 500 ML IV (14:57)
[2017-12-26 15:09] LABS: INR 1.08; PARTIAL THROMBOPLASTIN TIME 32.7 SECONDS (26.8-37.9); PROTHROMBIN TIME 14.2 SECONDS (12.4-14.5)
[2017-12-26 15:15] LABS: HEMOGLOBIN 5.8 g/dl (12.0-15.5); PLATELET COUNT, AUTOMATED 1 10^3/uL (150-450); POS COUNT POS FLAG; POSITIVE MORPH POS FLAG
[2017-12-26 15:16] LABS: IMMATURE PLATELET FRACTION % 0.9 % (0.0-9.6); PLATELET F 0; SUSPECT SAMPLE POS FLAG
[2017-12-26 15:20] LABS: ALBUMIN 3.8 GM/DL (3.2-5.2); ALBUMIN/GLOBULIN RATIO 0.83 (1.00-1.93); ALKALINE PHOSPHATASE 91 U/L (45-117); ALT/SGPT 24 U/L (12-78); ANION GAP 9 MEQ/L (8-16); AST/SGOT 17 U/L (7-37); BILIRUBIN,DIRECT < 0.1 MG/DL (0.0-0.2); BILIRUBIN,TOTAL 0.4 MG/DL (0.2-1.0); BLOOD UREA NITROGEN 84 MG/DL (7-18); CALCIUM LEVEL 8.7 MG/DL (8.8-10.2); CARBON DIOXIDE LEVEL 21 MEQ/L (21-32); CHLORIDE LEVEL 108 MEQ/L (98-107); CREATININE FOR GFR 2.48 MG/DL (0.55-1.30); GLOMERULAR FILTRATION RATE 20.1 (>39); GLUCOSE, FASTING 144 MG/DL (70-100); POTASSIUM SERUM 4.8 MEQ/L (3.5-5.1); SODIUM LEVEL 138 MEQ/L (136-145); TOTAL PROTEIN 8.4 GM/DL (6.4-8.2)
[2017-12-26 17:11] LABS: REASON FOR REVIEW WBC/LEUKEMIA/BLAST; SLIDE REVIEW Report; SOURCE PERIPHERAL SMEAR
[2017-12-26 17:12] LABS: LDH LACTATE DEHYDROGENASE 212 U/L (84-246)
[2017-12-26 17:16] LABS: RETICULOCYTE # 1.7 10^9/L (17-77); RETICULOCYTE % 0.1 % (0.5-1.5)
[2017-12-26 17:29] LABS: RETIC HEMOGLOBIN EQUIVALENT 34.4 pg (24-36)
[2017-12-28 10:16] LABS: HAPTOGLOBIN 111 mg/dL (34-200)
[2017-12-30 09:50] LABS: DRVV SCREEN 48.7 SEC
[2017-12-30 10:34] LABS: PTT LUPUS TYPE ANTICOAG SCREEN 1.1 (0-1.2)
[2018-01-02 00:06] LABS: PHOSPHOLIPIDS LEVEL 275 mg/dL (150-250)
[2018-01-02 00:06] LABS: ANTI THROMBIN 3 ANTIGEN IMMUNO 119 % (72-124); ANTI THROMBIN 3 FUNCT ACTIVITY 113 % (75-135); CARDIOLIPIN IGA ANTIBODY <9 APL U/mL (0-11); CARDIOLIPIN IGG ANTIBODY 11 GPL U/mL (0-14); CARDIOLIPIN IGM ANTIBODY <9 MPL U/mL (0-12); PROTEIN C FUNCTIONAL ACTIVITY 112 % (73-180); PROTEIN S FUNCTIONAL ACTIVITY 78 % (63-140)
== END 2017-12-26 18:31 | disposition short-term general hospital (02) ==
LOC: M ED 12:36
DX: D69.6 Thrombocytopenia, unspecified (principal); D64.9 Anemia, unspecified; R04.0 Epistaxis; I10 Essential (primary) hypertension; N05.9 Unspecified nephritic syndrome with unspecified morphologic changes; Z79.899 Other long term (current) drug therapy
CPT/HCPCS: 83010

== ENCOUNTER → 2018-01-05 | Outpatient (REF) | payer MEDICARE ==
[2018-01-06 09:27] LABS: CONTROL LINE HPYORI INT CTR LINE PRESENT; H PYLORI QUALITATIVE IgG NEGATIVE (NEGATIVE)
== END ==
LOC: M LAB REF 17:04
DX: Z11.8 Encounter for screening for other infectious and parasitic diseases (principal)
CPT/HCPCS: 86677

== ENCOUNTER 2018-01-08 13:38 | Emergency (ER) | payer MEDICARE ==
[2018-01-08 14:15] LABS: HEMATOCRIT 13.1 % (36.0-47.0)
[2018-01-08 14:17] LABS: POS COUNT POS FLAG
[2018-01-08 14:24] LABS: HEMOGLOBIN 4.5 g/dl (12.0-15.5)
[2018-01-08 14:42] LABS: IRON (FE) 172 UG/DL (50-170); PERCENT SATURATION 94.5 % (13.2-45.0); TOTAL IRON BINDING CAPACITY 182 UG/DL (250-450)
[2018-01-08 15:30] LABS: IMMEDIATE SPIN CROSSMATCH 1
[2018-01-08] MEDS: PANTOPRAZOLE SODIUM 40 MG in D5W 50 ML IV (16:15)
[2018-01-08 16:44] LABS: ANION GAP 10 MEQ/L (8-16); BLOOD UREA NITROGEN 126 MG/DL (7-18); CALCIUM LEVEL 7.9 MG/DL (8.8-10.2); CARBON DIOXIDE LEVEL 21 MEQ/L (21-32); CHLORIDE LEVEL 107 MEQ/L (98-107); CREATININE FOR GFR 2.87 MG/DL (0.55-1.30); GLUCOSE, FASTING 150 MG/DL (70-100); POTASSIUM SERUM 4.5 MEQ/L (3.5-5.1); SODIUM LEVEL 138 MEQ/L (136-145)
[2018-01-08] MEDS: PANTOPRAZOLE 40MG INJ (PROTONIX) (C9113) IV (16:55)
[2018-01-08 18:01] LABS: IMMEDIATE SPIN CROSSMATCH 1 2
== END 2018-01-08 19:02 | disposition home or self-care (01) ==
LOC: M ED 13:38
DX: K92.2 Gastrointestinal hemorrhage, unspecified (principal); N03.9 Chronic nephritic syndrome with unspecified morphologic changes; D60.9 Acquired pure red cell aplasia, unspecified; D69.6 Thrombocytopenia, unspecified; I12.9 Hypertensive chronic kidney disease with stage 1 through stage 4 chronic kidney disease, or unspecified chronic kidney disease; N18.4 Chronic kidney disease, stage 4 (severe); Z79.899 Other long term (current) drug therapy
CPT/HCPCS: C9113

== ENCOUNTER → 2018-01-08 | Outpatient (CLI) | payer MEDICARE ==
[~2018-01-08] MED LIST changes: +ACETAMINOPHEN TAB 650MG DOSE (2X325MG) PO; -AMLO10TA2 PO; -CALC1CAP31 PO; -CARV12.5 PO; -CARV3.12 PO; -COLA100C5 PO; -CYCL1CAP2 PO; -FERR1TAB8 PO; -FOLI1TAB4 PO; -GLIM1TAB PO; -GLIM2TA PO; -HYDR-3363 PO; -HYDR-3910 PO; -HYDR-3911 PO; -HYDR10TAB PO; -HYDR50TA PO; -IRBE300T12 PO; -IRON65TA PO; -LOSA25TA8 PO; -MIRA3350 PO; -MYCO500T PO; -POTA10CA PO; -PRED10TA2 PO; -PRED20TA PO; -PROC1INJ2 IV; -PROC20004 SQ; -PROTPAK PO; -RANI150T PO; -TERA2CAP3 PO; -TRIC145T22 PO; -VITMTA PO; +diphenhydrAMINE 25 MG CAP PO
== END ==
LOC: M RROUT 12:46
DX: D64.89 Other specified anemias (principal); Z53.8 Procedure and treatment not carried out for other reasons

== ENCOUNTER → 2018-01-08 | Outpatient (REF) | payer MEDICARE | LOC: M LAB REF 12:55 | DX: R60.9 Edema, unspecified (principal); D69.6 Thrombocytopenia, unspecified ==

== ENCOUNTER 2018-01-20 08:51 | Outpatient (CLI) | payer MEDICARE ==
[2018-01-20] MEDS: ACETAMINOPHEN TAB 650MG DOSE (2X325MG) PO (09:25)
[2018-01-20] MEDS: diphenhydrAMINE 25 MG CAP PO (09:26)
== END 2018-01-20 11:30 | disposition home or self-care (01) ==
LOC: M INFU 08:51
DX: D61.9 Aplastic anemia, unspecified (principal); Z79.899 Other long term (current) drug therapy
CPT/HCPCS: 36430

== ENCOUNTER 2018-01-23 12:17 | Outpatient (CLI) | payer MEDICARE ==
[2018-01-23] MEDS: diphenhydrAMINE 25 MG CAP PO (12:00)
[2018-01-23] MEDS: ACETAMINOPHEN TAB 650MG DOSE (2X325MG) PO (12:00)
[2018-01-23 12:48] LABS: IMMEDIATE SPIN CROSSMATCH 1
[2018-01-23 14:45] LABS: IMMEDIATE SPIN CROSSMATCH 1 1
== END 2018-01-23 17:15 | disposition home or self-care (01) ==
LOC: M INFU 12:17
DX: D61.9 Aplastic anemia, unspecified (principal); I12.9 Hypertensive chronic kidney disease with stage 1 through stage 4 chronic kidney disease, or unspecified chronic kidney disease; E78.00 Pure hypercholesterolemia, unspecified; N18.9 Chronic kidney disease, unspecified; Z79.899 Other long term (current) drug therapy
CPT/HCPCS: 36430

== ENCOUNTER 2018-01-30 09:15 | Outpatient (CLI) | payer MEDICARE ==
[2018-01-30] MEDS: ACETAMINOPHEN TAB 650MG DOSE (2X325MG) PO (11:03)
[2018-01-30] MEDS: diphenhydrAMINE 25 MG CAP PO (11:03)
[2018-01-30 11:31] LABS: IMMEDIATE SPIN CROSSMATCH 1 1
== END 2018-01-30 15:12 | disposition home or self-care (01) ==
LOC: M OPCLI5PR 09:15 → M MS5PR 09:30 → M OPCLI5PR 15:12
DX: D61.9 Aplastic anemia, unspecified (principal)

== ENCOUNTER 2018-02-01 12:15 | Inpatient (IN) | payer MEDICARE ==
[2018-02-01 13:10] LABS: ALBUMIN 3.5 GM/DL (3.2-5.2); ALBUMIN/GLOBULIN RATIO 0.71 (1.00-1.93); ALKALINE PHOSPHATASE 86 U/L (45-117); ALT/SGPT 24 U/L (12-78); ANION GAP 11 MEQ/L (8-16); AST/SGOT 21 U/L (7-37); BILIRUBIN,DIRECT 0.1 MG/DL (0.0-0.2); BILIRUBIN,TOTAL 0.8 MG/DL (0.2-1.0); BLOOD UREA NITROGEN 96 MG/DL (7-18); CALCIUM LEVEL 8.6 MG/DL (8.8-10.2); CARBON DIOXIDE LEVEL 21 MEQ/L (21-32); CHLORIDE LEVEL 108 MEQ/L (98-107); CPK CREATINE PHOSPHOKINASE 160 U/L (26-192); CREATININE FOR GFR 2.99 MG/DL (0.55-1.30); GLOMERULAR FILTRATION RATE 16.2 (>39); GLUCOSE, FASTING 235 MG/DL (70-100); LIPASE 263 U/L (73-393); POTASSIUM SERUM 3.6 MEQ/L (3.5-5.1); SODIUM LEVEL 140 MEQ/L (136-145); TOTAL PROTEIN 8.4 GM/DL (6.4-8.2); TROPONIN I 0.22 NG/ML (< 0.10)
[2018-02-01] MEDS: PANTOPRAZOLE 40MG INJ (PROTONIX) (C9113) IV (13:14)
[2018-02-01] MEDS: NS 500 ML IV (13:15)
[2018-02-01 13:16] LABS: CK-MB VALUE MASS 2.6 NG/ML (<3.6); MB/CK RELATIVE INDEX 1.62 (< OR =4)
[2018-02-01] MEDS: PANTOPRAZOLE SODIUM 40 MG in D5W 50 ML IV ×3 (13:16→23:04)
[2018-02-01 13:23] LABS: BASO % 0.1 % (0.0-1.0); HEMATOCRIT 23.9 % (36.0-47.0); HEMOGLOBIN 8.1 g/dl (12.0-15.5); IMMATURE GRANULOCYTE % 1.2 % (0-3.0); LYMPH # 1.7 10^3/uL (1.5-4.5); LYMPH % 7.4 % (24.0-44.0); MEAN CORPUSCULAR HEMOGLOBIN 27.3 pg (27.0-33.0); MEAN CORPUSCULAR HGB CONC 33.9 g/dl (32.0-36.5); MEAN CORPUSCULAR VOLUME 80.5 fl (80.0-96.0); MONO # 0.8 10^3/uL (0.0-0.8); MONO % 3.5 % (0.0-5.0); NEUTROPHILS # 20.6 10^3/uL (1.8-7.7); NEUTROPHILS % 87.8 % (36.0-66.0); RED BLOOD COUNT 2.97 10^6/uL (4.00-5.40); RED CELL DISTRIBUTION WIDTH 16.1 % (11.5-14.5); WHITE BLOOD COUNT 23.4 10^3/uL (4.0-10.0)
[2018-02-01 13:35] LABS: INR 1.15; PROTHROMBIN TIME 14.9 SECONDS (12.4-14.5)
[2018-02-01 13:46] LABS: PLATELET COUNT, AUTOMATED 1 10^3/uL (150-450); POS COUNT POS FLAG
[2018-02-01 13:47] LABS: IMMATURE PLATELET FRACTION % 53.8 % (0.0-9.6)
[2018-02-01] MEDS ORDERED: NS 750 ML IV (14:41)
[2018-02-01 14:52] LABS: IMMEDIATE SPIN CROSSMATCH 1
[2018-02-01] MEDS: hydrALAZINE INJ 20 MG/ML VIAL IV ×2 (16:00→23:05)
[2018-02-01 20:11] LABS: IMMEDIATE SPIN CROSSMATCH 1 2
[2018-02-01 22:05] LABS: IMMEDIATE SPIN CROSSMATCH 1
[2018-02-01 22:27] LABS: CK-MB VALUE MASS 3.1 NG/ML (<3.6); CPK CREATINE PHOSPHOKINASE 162 U/L (26-192); MB/CK RELATIVE INDEX 1.91 (< OR =4); TROPONIN I 0.19 NG/ML (< 0.10)
[2018-02-02 01:32] LABS: PLATELET COUNT, AUTOMATED 59 10^3/uL (150-450)
[2018-02-02] MEDS: PANTOPRAZOLE SODIUM 40 MG in D5W 50 ML IV ×4 (02:48→20:11)
[2018-02-02 04:03] LABS: HEMATOCRIT 26.3 % (36.0-47.0); HEMOGLOBIN 9.4 g/dl (12.0-15.5); MEAN CORPUSCULAR HGB CONC 35.7 g/dl (32.0-36.5); MEAN CORPUSCULAR VOLUME 78.3 fl (80.0-96.0); RED BLOOD COUNT 3.36 10^6/uL (4.00-5.40); RED CELL DISTRIBUTION WIDTH 15.9 % (11.5-14.5); WHITE BLOOD COUNT 14.9 10^3/uL (4.0-10.0)
[2018-02-02 04:04] LABS: PLATELET COUNT, AUTOMATED 65 10^3/uL (150-450)
[2018-02-02] MEDS: hydrALAZINE INJ 20 MG/ML VIAL IV ×2 (04:10→10:39)
[2018-02-02 04:25] LABS: ANION GAP 12 MEQ/L (8-16); BLOOD UREA NITROGEN 85 MG/DL (7-18); CALCIUM LEVEL 8.7 MG/DL (8.8-10.2); CARBON DIOXIDE LEVEL 22 MEQ/L (21-32); CHLORIDE LEVEL 113 MEQ/L (98-107); CK-MB VALUE MASS 2.8 NG/ML (<3.6); CPK CREATINE PHOSPHOKINASE 176 U/L (26-192); CREATININE FOR GFR 2.68 MG/DL (0.55-1.30); GLOMERULAR FILTRATION RATE 18.3 (>39); GLUCOSE, FASTING 135 MG/DL (70-100); MAGNESIUM LEVEL 2.3 MG/DL (1.8-2.4); MB/CK RELATIVE INDEX 1.59 (< OR =4); POTASSIUM SERUM 3.7 MEQ/L (3.5-5.1); SODIUM LEVEL 147 MEQ/L (136-145); TROPONIN I 0.21 NG/ML (< 0.10)
[2018-02-02] MEDS: ONDANSETRON 4MG/2ML VIAL (J2405) IV ×2 (04:38→12:13)
[2018-02-02] MEDS: NS 500 ML IV (08:45)
[2018-02-02 13:29] LABS: CPK CREATINE PHOSPHOKINASE 209 U/L (26-192); MB/CK RELATIVE INDEX 1.91 (< OR =4); TROPONIN I 0.19 NG/ML (< 0.10)
[2018-02-03] MEDS: PANTOPRAZOLE SODIUM 40 MG in D5W 50 ML IV ×3 (00:10→09:43)
[2018-02-03 06:14] LABS: HEMATOCRIT 26.8 % (36.0-47.0); HEMOGLOBIN 9.2 g/dl (12.0-15.5); MEAN CORPUSCULAR HEMOGLOBIN 27.8 pg (27.0-33.0); MEAN CORPUSCULAR HGB CONC 34.3 g/dl (32.0-36.5); RED BLOOD COUNT 3.31 10^6/uL (4.00-5.40); RED CELL DISTRIBUTION WIDTH 16.4 % (11.5-14.5); WHITE BLOOD COUNT 9.2 10^3/uL (4.0-10.0)
[2018-02-03 06:16] LABS: IMMATURE PLATELET FRACTION % 0.1 % (0.0-9.6); PLATELET COUNT, AUTOMATED 38 10^3/uL (150-450)
[2018-02-03 06:37] LABS: ANION GAP 8 MEQ/L (8-16); BLOOD UREA NITROGEN 80 MG/DL (7-18); CALCIUM LEVEL 8.3 MG/DL (8.8-10.2); CARBON DIOXIDE LEVEL 24 MEQ/L (21-32); CHLORIDE LEVEL 115 MEQ/L (98-107); CREATININE FOR GFR 2.76 MG/DL (0.55-1.30); GLOMERULAR FILTRATION RATE 17.7 (>39); GLUCOSE, FASTING 121 MG/DL (70-100); MAGNESIUM LEVEL 2.4 MG/DL (1.8-2.4); POTASSIUM SERUM 3.6 MEQ/L (3.5-5.1); SODIUM LEVEL 147 MEQ/L (136-145)
[2018-02-03] MEDS: ONDANSETRON 4MG/2ML VIAL (J2405) IV (09:40)
[2018-02-03] MEDS: PANTOPRAZOLE 40MG TAB (PROTONIX) PO (13:16)
[2018-02-04 06:00] LABS: HEMOGLOBIN 9.4 g/dl (12.0-15.5); MEAN CORPUSCULAR HEMOGLOBIN 27.6 pg (27.0-33.0); MEAN CORPUSCULAR HGB CONC 33.6 g/dl (32.0-36.5); MEAN CORPUSCULAR VOLUME 82.4 fl (80.0-96.0); WHITE BLOOD COUNT 10.5 10^3/uL (4.0-10.0)
[2018-02-04 06:02] LABS: PLATELET COUNT, AUTOMATED 26 10^3/uL (150-450); POS COUNT POS FLAG
[2018-02-04 06:26] LABS: ANION GAP 5 MEQ/L (8-16); BLOOD UREA NITROGEN 68 MG/DL (7-18); CALCIUM LEVEL 8.4 MG/DL (8.8-10.2); CARBON DIOXIDE LEVEL 27 MEQ/L (21-32); CHLORIDE LEVEL 111 MEQ/L (98-107); CREATININE FOR GFR 2.64 MG/DL (0.55-1.30); GLOMERULAR FILTRATION RATE 18.7 (>39); GLUCOSE, FASTING 114 MG/DL (70-100); MAGNESIUM LEVEL 2.5 MG/DL (1.8-2.4); POTASSIUM SERUM 3.7 MEQ/L (3.5-5.1); SODIUM LEVEL 143 MEQ/L (136-145)
[2018-02-04] MEDS: amLODIPine 5 MG TAB PO (08:19)
[2018-02-04] MEDS: PANTOPRAZOLE 40MG TAB (PROTONIX) PO (08:19)
[2018-02-05 06:29] LABS: HEMATOCRIT 25.7 % (36.0-47.0); HEMOGLOBIN 8.9 g/dl (12.0-15.5); MEAN CORPUSCULAR HGB CONC 34.6 g/dl (32.0-36.5); MEAN CORPUSCULAR VOLUME 80.8 fl (80.0-96.0); RED BLOOD COUNT 3.18 10^6/uL (4.00-5.40); RED CELL DISTRIBUTION WIDTH 15.5 % (11.5-14.5); WHITE BLOOD COUNT 7.5 10^3/uL (4.0-10.0)
[2018-02-05 06:33] LABS: PLATELET COUNT, AUTOMATED 11 10^3/uL (150-450); POS COUNT POS FLAG
[2018-02-05 06:36] LABS: IMMATURE PLATELET FRACTION % 0.3 % (0.0-9.6)
[2018-02-05 06:58] LABS: ANION GAP 7 MEQ/L (8-16); BLOOD UREA NITROGEN 62 MG/DL (7-18); CALCIUM LEVEL 8.3 MG/DL (8.8-10.2); CARBON DIOXIDE LEVEL 25 MEQ/L (21-32); CHLORIDE LEVEL 107 MEQ/L (98-107); CREATININE FOR GFR 2.37 MG/DL (0.55-1.30); GLOMERULAR FILTRATION RATE 21.1 (>39); GLUCOSE, FASTING 121 MG/DL (70-100); MAGNESIUM LEVEL 2.1 MG/DL (1.8-2.4); SODIUM LEVEL 139 MEQ/L (136-145)
[2018-02-05] MEDS: amLODIPine 5 MG TAB PO (08:20)
[2018-02-05] MEDS: PANTOPRAZOLE 40MG TAB (PROTONIX) PO (08:21)
[2018-02-05 13:22] LABS: IMMEDIATE SPIN CROSSMATCH 1
[2018-02-06 06:21] LABS: HEMATOCRIT 24.6 % (36.0-47.0); HEMOGLOBIN 8.2 g/dl (12.0-15.5); MEAN CORPUSCULAR HGB CONC 33.3 g/dl (32.0-36.5); MEAN CORPUSCULAR VOLUME 80.9 fl (80.0-96.0); RED BLOOD COUNT 3.04 10^6/uL (4.00-5.40); RED CELL DISTRIBUTION WIDTH 15.2 % (11.5-14.5)
[2018-02-06] MEDS: PROMACTA 50 MG PO (06:26)
[2018-02-06 06:35] LABS: ANION GAP 7 MEQ/L (8-16); BLOOD UREA NITROGEN 61 MG/DL (7-18); CALCIUM LEVEL 8.1 MG/DL (8.8-10.2); CARBON DIOXIDE LEVEL 27 MEQ/L (21-32); CHLORIDE LEVEL 106 MEQ/L (98-107); CREATININE FOR GFR 2.41 MG/DL (0.55-1.30); GLOMERULAR FILTRATION RATE 20.7 (>39); GLUCOSE, FASTING 113 MG/DL (70-100); MAGNESIUM LEVEL 2.2 MG/DL (1.8-2.4); SODIUM LEVEL 140 MEQ/L (136-145)
[2018-02-06 06:46] LABS: PLATELET COUNT, AUTOMATED 63 10^3/uL (150-450)
[2018-02-06] MEDS: ONDANSETRON 4MG/2ML VIAL (J2405) IV (08:31)
[2018-02-06] MEDS: PANTOPRAZOLE 40MG TAB (PROTONIX) PO (08:31)
[2018-02-06] MEDS: amLODIPine 5 MG TAB PO (08:31)
[2018-02-06] MEDS ORDERED: NON-FORMULARY COMPOUNDED MEDICATION PO (09:00)
== END 2018-02-06 14:52 | DRG 813 ==
LOC: M MSPAV 02-02 12:15 → M ED 12:15 → M ED INP 14:41 → M ICU 18:33
PROC: 30233R1 Transfusion of Nonautologous Platelets into Peripheral Vein, Percutaneous Approach (ICD-10-PCS; principal; ~2018-02-01)
PROC: 30233N1 Transfusion of Nonautologous Red Blood Cells into Peripheral Vein, Percutaneous Approach (ICD-10-PCS; ~2018-02-01)
PROC: 30233N1 Transfusion of Nonautologous Red Blood Cells into Peripheral Vein, Percutaneous Approach (ICD-10-PCS; ~2018-02-01)
DX: D69.6 Thrombocytopenia, unspecified (principal); N18.4 Chronic kidney disease, stage 4 (severe); D61.9 Aplastic anemia, unspecified; K92.0 Hematemesis; I12.9 Hypertensive chronic kidney disease with stage 1 through stage 4 chronic kidney disease, or unspecified chronic kidney disease; D72.829 Elevated white blood cell count, unspecified; R33.9 Retention of urine, unspecified; N05.9 Unspecified nephritic syndrome with unspecified morphologic changes; Z79.899 Other long term (current) drug therapy

== ENCOUNTER 2018-02-06 15:00 | Inpatient (IN) | payer MEDICARE ==
[~2018-02-06 15:00] MED LIST changes: -ACETAMINOPHEN TAB 650MG DOSE (2X325MG) PO; +BISACODYL 10 MG SUPP PR; +BISACODYL 5 MG TAB PO; +FLEET ENEMA PR; +MOM 30ML SUSPENSION UDC PO; -diphenhydrAMINE 25 MG CAP PO
[2018-02-06] MEDS: BISACODYL 5 MG TAB PO (16:18)
[2018-02-06] MEDS: ONDANSETRON 4 MG ORAL DISINTEGRATING TAB (Q0162 PER 1MG) PO (20:42)
[2018-02-06] MEDS: FOLIC ACID 1 MG TAB PO (21:32)
[2018-02-06] MEDS: SENOKOT S TAB PO (21:33)
[2018-02-06] MEDS: MULTIVITAMINS/MINERALS THERAP 1 TAB PO (21:33)
[2018-02-07] MEDS: ELTROMBOPAG OLAMINE 50 MG PO (05:56)
[2018-02-07] MEDS: ONDANSETRON 4 MG ORAL DISINTEGRATING TAB (Q0162 PER 1MG) PO (06:21)
[2018-02-07 06:48] LABS: BASO % 0.1 % (0.0-1.0); HEMATOCRIT 23.8 % (36.0-47.0); HEMOGLOBIN 8.3 g/dl (12.0-15.5); LYMPH % 21.4 % (24.0-44.0); MEAN CORPUSCULAR HEMOGLOBIN 27.9 pg (27.0-33.0); MEAN CORPUSCULAR HGB CONC 34.9 g/dl (32.0-36.5); MEAN CORPUSCULAR VOLUME 79.9 fl (80.0-96.0); MONO # 0.9 10^3/uL (0.0-0.8); MONO % 9.8 % (0.0-5.0); NEUTROPHILS # 6.3 10^3/uL (1.8-7.7); NEUTROPHILS % 67.7 % (36.0-66.0); RED BLOOD COUNT 2.98 10^6/uL (4.00-5.40); RED CELL DISTRIBUTION WIDTH 15.1 % (11.5-14.5); WHITE BLOOD COUNT 9.4 10^3/uL (4.0-10.0)
[2018-02-07 06:50] LABS: PLATELET COUNT, AUTOMATED 40 10^3/uL (150-450)
[2018-02-07 07:07] LABS: ALBUMIN 3.1 GM/DL (3.2-5.2); ALBUMIN/GLOBULIN RATIO 0.74 (1.00-1.93); ALKALINE PHOSPHATASE 81 U/L (45-117); ALT/SGPT 18 U/L (12-78); ANION GAP 9 MEQ/L (8-16); AST/SGOT 18 U/L (7-37); BILIRUBIN,TOTAL 1.1 MG/DL (0.2-1.0); BLOOD UREA NITROGEN 63 MG/DL (7-18); CALCIUM LEVEL 8.5 MG/DL (8.8-10.2); CARBON DIOXIDE LEVEL 25 MEQ/L (21-32); CHLORIDE LEVEL 104 MEQ/L (98-107); CREATININE FOR GFR 2.59 MG/DL (0.55-1.30); GLOMERULAR FILTRATION RATE 19.1 (>39); GLUCOSE, FASTING 134 MG/DL (70-100); POTASSIUM SERUM 3.8 MEQ/L (3.5-5.1); SODIUM LEVEL 138 MEQ/L (136-145); TOTAL PROTEIN 7.3 GM/DL (6.4-8.2)
[2018-02-07] MEDS: SENOKOT S TAB PO ×2 (08:42→21:00)
[2018-02-07] MEDS: MIRALAX *UNIT DOSE* 17GM PACKET PO (08:42)
[2018-02-07 12:46] LABS: IMMATURE PLATELET FRACTION % 0.1 % (0.0-9.6)
[2018-02-07] MEDS: amLODIPine 10 MG TAB PO (21:56)
[2018-02-07] MEDS: MULTIVITAMINS/MINERALS THERAP 1 TAB PO (21:56)
[2018-02-07] MEDS: FOLIC ACID 1 MG TAB PO (21:57)
[2018-02-08] MEDS: ELTROMBOPAG OLAMINE 50 MG PO (05:58)
[2018-02-08] MEDS: ONDANSETRON 4 MG ORAL DISINTEGRATING TAB (Q0162 PER 1MG) PO (07:59)
[2018-02-08] MEDS: MIRALAX *UNIT DOSE* 17GM PACKET PO (08:00)
[2018-02-08] MEDS: SENOKOT S TAB PO ×2 (08:00→20:03)
[2018-02-08] MEDS: MECLIZINE 25 MG TABLET PO (11:37)
[2018-02-08] MEDS: amLODIPine 10 MG TAB PO (20:29)
[2018-02-08] MEDS: FOLIC ACID 1 MG TAB PO (20:29)
[2018-02-08] MEDS: MULTIVITAMINS/MINERALS THERAP 1 TAB PO (20:29)
[2018-02-09] MEDS: ELTROMBOPAG OLAMINE 50 MG PO (05:38)
[2018-02-09 07:06] LABS: HEMATOCRIT 20.7 % (36.0-47.0); HEMOGLOBIN 7.3 g/dl (12.0-15.5); IMMATURE GRANULOCYTE % 1.6 % (0-3.0); LYMPH # 1.5 10^3/uL (1.5-4.5); LYMPH % 17.6 % (24.0-44.0); MEAN CORPUSCULAR HEMOGLOBIN 28.1 pg (27.0-33.0); MEAN CORPUSCULAR HGB CONC 35.3 g/dl (32.0-36.5); MEAN CORPUSCULAR VOLUME 79.6 fl (80.0-96.0); MONO # 0.9 10^3/uL (0.0-0.8); MONO % 10.7 % (0.0-5.0); NEUTROPHILS % 70.1 % (36.0-66.0); RED CELL DISTRIBUTION WIDTH 14.9 % (11.5-14.5); WHITE BLOOD COUNT 8.6 10^3/uL (4.0-10.0)
[2018-02-09 07:09] LABS: IMMATURE PLATELET FRACTION % 0.3 % (0.0-9.6); PLATELET COUNT, AUTOMATED 13 10^3/uL (150-450); POS COUNT POS FLAG
[2018-02-09 07:14] LABS: INR 1.01; PROTHROMBIN TIME 13.4 SECONDS (12.4-14.5)
[2018-02-09 07:19] LABS: ANION GAP 6 MEQ/L (8-16); BLOOD UREA NITROGEN 54 MG/DL (7-18); CALCIUM LEVEL 7.8 MG/DL (8.8-10.2); CARBON DIOXIDE LEVEL 28 MEQ/L (21-32); CHLORIDE LEVEL 103 MEQ/L (98-107); CREATININE FOR GFR 2.56 MG/DL (0.55-1.30); GLOMERULAR FILTRATION RATE 19.3 (>39); GLUCOSE, FASTING 117 MG/DL (70-100); SODIUM LEVEL 137 MEQ/L (136-145)
[2018-02-09] MEDS: MIRALAX *UNIT DOSE* 17GM PACKET PO (08:46)
[2018-02-09] MEDS: SENOKOT S TAB PO ×2 (08:47→20:02)
[2018-02-09] MEDS: MECLIZINE 25 MG TABLET PO (08:47)
[2018-02-09 11:02] LABS: IMMEDIATE SPIN CROSSMATCH 1 1
[2018-02-09 13:29] LABS: IMMEDIATE SPIN CROSSMATCH 1
[2018-02-09] MEDS: MULTIVITAMINS/MINERALS THERAP 1 TAB PO (20:01)
[2018-02-09] MEDS: amLODIPine 10 MG TAB PO (20:02)
[2018-02-09] MEDS: FOLIC ACID 1 MG TAB PO (20:02)
[2018-02-10] MEDS: ELTROMBOPAG OLAMINE 50 MG PO (05:42)
[2018-02-10 07:19] LABS: BASO % 0.1 % (0.0-1.0); HEMATOCRIT 24.6 % (36.0-47.0); HEMOGLOBIN 8.8 g/dl (12.0-15.5); IMMATURE GRANULOCYTE % 1.5 % (0-3.0); LYMPH # 1.4 10^3/uL (1.5-4.5); LYMPH % 15.4 % (24.0-44.0); MEAN CORPUSCULAR HEMOGLOBIN 28.5 pg (27.0-33.0); MEAN CORPUSCULAR HGB CONC 35.8 g/dl (32.0-36.5); MEAN CORPUSCULAR VOLUME 79.6 fl (80.0-96.0); MONO % 11.2 % (0.0-5.0); NEUTROPHILS # 6.6 10^3/uL (1.8-7.7); NEUTROPHILS % 71.8 % (36.0-66.0); PLATELET COUNT, AUTOMATED 32 10^3/uL (150-450); RED BLOOD COUNT 3.09 10^6/uL (4.00-5.40); RED CELL DISTRIBUTION WIDTH 14.6 % (11.5-14.5); WHITE BLOOD COUNT 9.2 10^3/uL (4.0-10.0)
[2018-02-10 07:20] LABS: IMMATURE PLATELET FRACTION % 0.1 % (0.0-9.6)
[2018-02-10 07:41] LABS: ANION GAP 6 MEQ/L (8-16); BLOOD UREA NITROGEN 52 MG/DL (7-18); CALCIUM LEVEL 8.2 MG/DL (8.8-10.2); CARBON DIOXIDE LEVEL 27 MEQ/L (21-32); CHLORIDE LEVEL 104 MEQ/L (98-107); CREATININE FOR GFR 2.31 MG/DL (0.55-1.30); GLOMERULAR FILTRATION RATE 21.8 (>39); GLUCOSE, FASTING 116 MG/DL (70-100); POTASSIUM SERUM 3.8 MEQ/L (3.5-5.1); SODIUM LEVEL 137 MEQ/L (136-145)
[2018-02-10] MEDS: MIRALAX *UNIT DOSE* 17GM PACKET PO (09:00)
[2018-02-10] MEDS: SENOKOT S TAB PO ×2 (09:08→20:58)
[2018-02-10] MEDS: ONDANSETRON 4 MG ORAL DISINTEGRATING TAB (Q0162 PER 1MG) PO (09:08)
[2018-02-10] MEDS: MULTIVITAMINS/MINERALS THERAP 1 TAB PO (20:57)
[2018-02-10] MEDS: FOLIC ACID 1 MG TAB PO (20:57)
[2018-02-10] MEDS: amLODIPine 10 MG TAB PO (20:58)
[2018-02-11] MEDS: ELTROMBOPAG OLAMINE 50 MG PO (06:39)
[2018-02-11 06:59] LABS: HEMATOCRIT 25.3 % (36.0-47.0); IMMATURE GRANULOCYTE % 1.7 % (0-3.0); LYMPH # 1.6 10^3/uL (1.5-4.5); LYMPH % 17.3 % (24.0-44.0); MEAN CORPUSCULAR HEMOGLOBIN 28.6 pg (27.0-33.0); MEAN CORPUSCULAR HGB CONC 35.6 g/dl (32.0-36.5); MEAN CORPUSCULAR VOLUME 80.3 fl (80.0-96.0); MONO % 10.5 % (0.0-5.0); NEUTROPHILS # 6.6 10^3/uL (1.8-7.7); NEUTROPHILS % 70.5 % (36.0-66.0); RED BLOOD COUNT 3.15 10^6/uL (4.00-5.40); RED CELL DISTRIBUTION WIDTH 14.6 % (11.5-14.5); WHITE BLOOD COUNT 9.4 10^3/uL (4.0-10.0)
[2018-02-11 07:02] LABS: PLATELET COUNT, AUTOMATED 25 10^3/uL (150-450); POS COUNT POS FLAG
[2018-02-11 07:25] LABS: ANION GAP 6 MEQ/L (8-16); BLOOD UREA NITROGEN 55 MG/DL (7-18); CALCIUM LEVEL 8.4 MG/DL (8.8-10.2); CARBON DIOXIDE LEVEL 28 MEQ/L (21-32); CHLORIDE LEVEL 105 MEQ/L (98-107); CREATININE FOR GFR 2.75 MG/DL (0.55-1.30); GLOMERULAR FILTRATION RATE 17.8 (>39); GLUCOSE, FASTING 121 MG/DL (70-100); POTASSIUM SERUM 4.4 MEQ/L (3.5-5.1); SODIUM LEVEL 139 MEQ/L (136-145)
[2018-02-11] MEDS: SENOKOT S TAB PO ×2 (08:30→21:39)
[2018-02-11] MEDS: MIRALAX *UNIT DOSE* 17GM PACKET PO (08:30)
[2018-02-11] MEDS: ONDANSETRON 4 MG ORAL DISINTEGRATING TAB (Q0162 PER 1MG) PO (09:20)
[2018-02-11] MEDS: METOCLOPRAMIDE 5 MG TAB PO (11:04)
[2018-02-11] MEDS: FOLIC ACID 1 MG TAB PO (21:39)
[2018-02-11] MEDS: MULTIVITAMINS/MINERALS THERAP 1 TAB PO (21:39)
[2018-02-11] MEDS: amLODIPine 10 MG TAB PO (21:40)
[2018-02-12] MEDS: ELTROMBOPAG OLAMINE 50 MG PO (06:11)
[2018-02-12 06:28] LABS: BASO % 0.1 % (0.0-1.0); HEMATOCRIT 27.1 % (36.0-47.0); HEMOGLOBIN 9.4 g/dl (12.0-15.5); IMMATURE GRANULOCYTE % 1.7 % (0-3.0); LYMPH # 1.7 10^3/uL (1.5-4.5); LYMPH % 16.8 % (24.0-44.0); MEAN CORPUSCULAR HGB CONC 34.7 g/dl (32.0-36.5); MEAN CORPUSCULAR VOLUME 80.7 fl (80.0-96.0); MONO # 0.9 10^3/uL (0.0-0.8); NEUTROPHILS # 7.1 10^3/uL (1.8-7.7); NEUTROPHILS % 72.4 % (36.0-66.0); RED BLOOD COUNT 3.36 10^6/uL (4.00-5.40); RED CELL DISTRIBUTION WIDTH 14.6 % (11.5-14.5); WHITE BLOOD COUNT 9.8 10^3/uL (4.0-10.0)
[2018-02-12 06:34] LABS: ANION GAP 7 MEQ/L (8-16); BLOOD UREA NITROGEN 45 MG/DL (7-18); CALCIUM LEVEL 8.6 MG/DL (8.8-10.2); CARBON DIOXIDE LEVEL 27 MEQ/L (21-32); CHLORIDE LEVEL 103 MEQ/L (98-107); CREATININE FOR GFR 2.44 MG/DL (0.55-1.30); GLOMERULAR FILTRATION RATE 20.4 (>39); GLUCOSE, FASTING 117 MG/DL (70-100); POTASSIUM SERUM 4.1 MEQ/L (3.5-5.1); SODIUM LEVEL 137 MEQ/L (136-145)
[2018-02-12 06:38] LABS: INR 0.98; PROTHROMBIN TIME 13.1 SECONDS (12.4-14.5)
[2018-02-12 06:48] LABS: PLATELET COUNT, AUTOMATED 11 10^3/uL (150-450); POS COUNT POS FLAG
[2018-02-12 06:52] LABS: IMMATURE PLATELET FRACTION % 0.1 % (0.0-9.6)
[2018-02-12] MEDS: METOCLOPRAMIDE 5 MG TAB PO ×2 (07:02→11:14)
[2018-02-12] MEDS: MIRALAX *UNIT DOSE* 17GM PACKET PO (09:22)
[2018-02-12] MEDS: SENOKOT S TAB PO ×2 (09:23→20:35)
[2018-02-12 11:23] LABS: IMMEDIATE SPIN CROSSMATCH 1
[2018-02-12 15:58] LABS: IMMEDIATE SPIN CROSSMATCH 1
[2018-02-12] MEDS: MULTIVITAMINS/MINERALS THERAP 1 TAB PO (21:43)
[2018-02-12] MEDS: amLODIPine 10 MG TAB PO (21:43)
[2018-02-12] MEDS: FOLIC ACID 1 MG TAB PO (21:43)
[2018-02-13] MEDS: ELTROMBOPAG OLAMINE 50 MG PO (05:40)
[2018-02-13] MEDS: METOCLOPRAMIDE 5 MG TAB PO ×2 (06:12→11:55)
[2018-02-13 07:04] LABS: HEMOGLOBIN 8.2 g/dl (12.0-15.5); LYMPH # 1.2 10^3/uL (1.5-4.5); LYMPH % 12.6 % (24.0-44.0); MEAN CORPUSCULAR HEMOGLOBIN 27.9 pg (27.0-33.0); MEAN CORPUSCULAR HGB CONC 34.2 g/dl (32.0-36.5); MEAN CORPUSCULAR VOLUME 81.6 fl (80.0-96.0); MONO # 0.8 10^3/uL (0.0-0.8); MONO % 8.4 % (0.0-5.0); NEUTROPHILS # 7.7 10^3/uL (1.8-7.7); RED BLOOD COUNT 2.94 10^6/uL (4.00-5.40); RED CELL DISTRIBUTION WIDTH 14.6 % (11.5-14.5); WHITE BLOOD COUNT 9.9 10^3/uL (4.0-10.0)
[2018-02-13 07:05] LABS: IMMATURE PLATELET FRACTION % 1.2 % (0.0-9.6); PLATELET COUNT, AUTOMATED 56 10^3/uL (150-450)
[2018-02-13 07:18] LABS: ANION GAP 7 MEQ/L (8-16); BLOOD UREA NITROGEN 46 MG/DL (7-18); CALCIUM LEVEL 8.2 MG/DL (8.8-10.2); CARBON DIOXIDE LEVEL 28 MEQ/L (21-32); CHLORIDE LEVEL 103 MEQ/L (98-107); CREATININE FOR GFR 2.41 MG/DL (0.55-1.30); GLOMERULAR FILTRATION RATE 20.7 (>39); GLUCOSE, FASTING 118 MG/DL (70-100); POTASSIUM SERUM 4.2 MEQ/L (3.5-5.1); SODIUM LEVEL 138 MEQ/L (136-145)
[2018-02-13] MEDS: MIRALAX *UNIT DOSE* 17GM PACKET PO (09:00)
[2018-02-13] MEDS: SENOKOT S TAB PO ×2 (09:00→21:00)
[2018-02-13] MEDS: FOLIC ACID 1 MG TAB PO (21:34)
[2018-02-13] MEDS: MULTIVITAMINS/MINERALS THERAP 1 TAB PO (21:34)
[2018-02-13] MEDS: amLODIPine 10 MG TAB PO (21:34)
[2018-02-13] MEDS: ACETAMINOPHEN TAB 650MG DOSE (2X325MG) PO (23:31)
[2018-02-14] MEDS: ELTROMBOPAG OLAMINE 50 MG PO (06:19)
[2018-02-14 07:15] LABS: HEMATOCRIT 23.2 % (36.0-47.0); HEMOGLOBIN 8.2 g/dl (12.0-15.5); IMMATURE GRANULOCYTE % 0.7 % (0-3.0); LYMPH # 1.5 10^3/uL (1.5-4.5); LYMPH % 13.2 % (24.0-44.0); MEAN CORPUSCULAR HEMOGLOBIN 28.5 pg (27.0-33.0); MEAN CORPUSCULAR HGB CONC 35.3 g/dl (32.0-36.5); MEAN CORPUSCULAR VOLUME 80.6 fl (80.0-96.0); MONO % 9.1 % (0.0-5.0); NEUTROPHILS # 8.7 10^3/uL (1.8-7.7); RED BLOOD COUNT 2.88 10^6/uL (4.00-5.40); RED CELL DISTRIBUTION WIDTH 14.6 % (11.5-14.5); WHITE BLOOD COUNT 11.3 10^3/uL (4.0-10.0)
[2018-02-14 07:27] LABS: PLATELET COUNT, AUTOMATED 39 10^3/uL (150-450)
[2018-02-14 07:28] LABS: IMMATURE PLATELET FRACTION % 0.6 % (0.0-9.6)
[2018-02-14 07:41] LABS: ANION GAP 8 MEQ/L (8-16); BLOOD UREA NITROGEN 44 MG/DL (7-18); CALCIUM LEVEL 8.4 MG/DL (8.8-10.2); CARBON DIOXIDE LEVEL 25 MEQ/L (21-32); CHLORIDE LEVEL 103 MEQ/L (98-107); CREATININE FOR GFR 2.32 MG/DL (0.55-1.30); GLOMERULAR FILTRATION RATE 21.7 (>39); GLUCOSE, FASTING 141 MG/DL (70-100); POTASSIUM SERUM 3.9 MEQ/L (3.5-5.1); SODIUM LEVEL 136 MEQ/L (136-145)
[2018-02-14] MEDS: SENOKOT S TAB PO ×2 (08:17→20:37)
[2018-02-14] MEDS: METOCLOPRAMIDE 5 MG TAB PO (08:17)
[2018-02-14] MEDS: MIRALAX *UNIT DOSE* 17GM PACKET PO (08:17)
[2018-02-14] MEDS: ACETAMINOPHEN TAB 650MG DOSE (2X325MG) PO ×2 (08:17→19:45)
[2018-02-14] MEDS: MULTIVITAMINS/MINERALS THERAP 1 TAB PO (20:37)
[2018-02-14] MEDS: amLODIPine 10 MG TAB PO (20:37)
[2018-02-14] MEDS: FOLIC ACID 1 MG TAB PO (20:37)
[2018-02-15] MEDS: ACETAMINOPHEN TAB 650MG DOSE (2X325MG) PO ×2 (05:10→20:13)
[2018-02-15] MEDS: ELTROMBOPAG OLAMINE 50 MG PO (06:38)
[2018-02-15 07:02] LABS: HEMOGLOBIN 7.6 g/dl (12.0-15.5); IMMATURE GRANULOCYTE % 0.5 % (0-3.0); LYMPH # 1.6 10^3/uL (1.5-4.5); MEAN CORPUSCULAR HGB CONC 34.5 g/dl (32.0-36.5); MEAN CORPUSCULAR VOLUME 81.2 fl (80.0-96.0); MONO # 1.1 10^3/uL (0.0-0.8); MONO % 9.2 % (0.0-5.0); NEUTROPHILS # 8.7 10^3/uL (1.8-7.7); NEUTROPHILS % 76.3 % (36.0-66.0); RED BLOOD COUNT 2.71 10^6/uL (4.00-5.40); RED CELL DISTRIBUTION WIDTH 14.7 % (11.5-14.5); WHITE BLOOD COUNT 11.4 10^3/uL (4.0-10.0)
[2018-02-15 07:15] LABS: IMMATURE PLATELET FRACTION % 0.4 % (0.0-9.6); PLATELET COUNT, AUTOMATED 25 10^3/uL (150-450); POS COUNT POS FLAG
[2018-02-15 07:33] LABS: ALBUMIN 2.7 GM/DL (3.2-5.2); ALKALINE PHOSPHATASE 87 U/L (45-117); ALT/SGPT 15 U/L (12-78); ANION GAP 9 MEQ/L (8-16); AST/SGOT 12 U/L (7-37); BILIRUBIN,DIRECT 0.1 MG/DL (0.0-0.2); BILIRUBIN,TOTAL 0.8 MG/DL (0.2-1.0); BLOOD UREA NITROGEN 49 MG/DL (7-18); CALCIUM LEVEL 8.2 MG/DL (8.8-10.2); CARBON DIOXIDE LEVEL 25 MEQ/L (21-32); CHLORIDE LEVEL 102 MEQ/L (98-107); CK-MB VALUE MASS < 1.0 NG/ML (<3.6); CPK CREATINE PHOSPHOKINASE 29 U/L (26-192); CREATININE FOR GFR 2.47 MG/DL (0.55-1.30); GLOMERULAR FILTRATION RATE 20.2 (>39); GLUCOSE, FASTING 119 MG/DL (70-100); MB/CK RELATIVE INDEX 3.44 (< OR =4); SODIUM LEVEL 136 MEQ/L (136-145); TOTAL PROTEIN 7.2 GM/DL (6.4-8.2); TROPONIN I 0.04 NG/ML (< 0.10)
[2018-02-15] MEDS: MIRALAX *UNIT DOSE* 17GM PACKET PO (08:37)
[2018-02-15] MEDS: METOCLOPRAMIDE 5 MG TAB PO (08:37)
[2018-02-15] MEDS: SENOKOT S TAB PO ×2 (08:37→20:14)
[2018-02-15] MEDS: tiZANidine 4 MG TAB PO (10:44)
[2018-02-15 13:07] LABS: IMMEDIATE SPIN CROSSMATCH 1 1
[2018-02-15] MEDS: MULTIVITAMINS/MINERALS THERAP 1 TAB PO (20:14)
[2018-02-15] MEDS: FOLIC ACID 1 MG TAB PO (20:14)
[2018-02-15] MEDS: amLODIPine 10 MG TAB PO (20:14)
[2018-02-16] MEDS: ELTROMBOPAG OLAMINE 50 MG PO (06:08)
[2018-02-16] MEDS: METOCLOPRAMIDE 5 MG TAB PO (06:08)
[2018-02-16 06:59] LABS: HEMATOCRIT 27.4 % (36.0-47.0); IMMATURE GRANULOCYTE % 0.6 % (0-3.0); LYMPH # 1.9 10^3/uL (1.5-4.5); LYMPH % 18.2 % (24.0-44.0); MEAN CORPUSCULAR HEMOGLOBIN 28.5 pg (27.0-33.0); MEAN CORPUSCULAR HGB CONC 35.4 g/dl (32.0-36.5); MEAN CORPUSCULAR VOLUME 80.6 fl (80.0-96.0); MONO # 1.1 10^3/uL (0.0-0.8); MONO % 10.7 % (0.0-5.0); NEUTROPHILS # 7.5 10^3/uL (1.8-7.7); NEUTROPHILS % 70.5 % (36.0-66.0); RED CELL DISTRIBUTION WIDTH 14.3 % (11.5-14.5); WHITE BLOOD COUNT 10.6 10^3/uL (4.0-10.0)
[2018-02-16 07:06] LABS: HEMOGLOBIN 9.7 g/dl (12.0-15.5); PLATELET COUNT, AUTOMATED 18 10^3/uL (150-450); POS COUNT POS FLAG
[2018-02-16 07:07] LABS: INR 1.07
[2018-02-16 07:08] LABS: ANION GAP 8 MEQ/L (8-16); BLOOD UREA NITROGEN 55 MG/DL (7-18); CALCIUM LEVEL 8.6 MG/DL (8.8-10.2); CARBON DIOXIDE LEVEL 25 MEQ/L (21-32); CHLORIDE LEVEL 104 MEQ/L (98-107); CREATININE FOR GFR 2.71 MG/DL (0.55-1.30); GLOMERULAR FILTRATION RATE 18.1 (>39); GLUCOSE, FASTING 111 MG/DL (70-100); SODIUM LEVEL 137 MEQ/L (136-145)
[2018-02-16] MEDS: MIRALAX *UNIT DOSE* 17GM PACKET PO (07:29)
[2018-02-16] MEDS: SENOKOT S TAB PO ×2 (07:30→09:11)
[2018-02-16 11:57] LABS: IMMEDIATE SPIN CROSSMATCH 1
== END 2018-02-16 14:35 | disposition home or self-care (01) | DRG 948 ==
LOC: M PM&R 15:00
PROC: 30233N1 Transfusion of Nonautologous Red Blood Cells into Peripheral Vein, Percutaneous Approach (ICD-10-PCS; principal; 2018-02-09)
PROC: 30233R1 Transfusion of Nonautologous Platelets into Peripheral Vein, Percutaneous Approach (ICD-10-PCS; 2018-02-09)
DX: R53.81 Other malaise (principal); N18.4 Chronic kidney disease, stage 4 (severe); K62.5 Hemorrhage of anus and rectum; D61.9 Aplastic anemia, unspecified; D69.6 Thrombocytopenia, unspecified; I12.9 Hypertensive chronic kidney disease with stage 1 through stage 4 chronic kidney disease, or unspecified chronic kidney disease; R13.13 Dysphagia, pharyngeal phase; R26.81 Unsteadiness on feet; N05.9 Unspecified nephritic syndrome with unspecified morphologic changes; R53.1 Weakness; M25.511 Pain in right shoulder; M25.512 Pain in left shoulder; R42 Dizziness and giddiness; R11.2 Nausea with vomiting, unspecified; Z79.899 Other long term (current) drug therapy

== ENCOUNTER 2018-02-17 11:44 | Outpatient (RCR) | payer MEDICARE | END 2018-03-14 | LOC: M PT 11:44 | DX: Z51.89 Encounter for other specified aftercare (principal); R53.81 Other malaise | CPT/HCPCS: 97110 ==

== ENCOUNTER → 2018-02-26 | Outpatient (REF) | payer MEDICARE ==
[2018-02-27 11:05] LABS: IMMEDIATE SPIN CROSSMATCH 1 1
== END ==
LOC: M LAB REF 12:50
DX: D64.9 Anemia, unspecified (principal)
CPT/HCPCS: 86900

== ENCOUNTER 2018-02-27 09:53 | Outpatient (CLI) | payer MEDICARE ==
[2018-02-27] MEDS: diphenhydrAMINE 25 MG CAP PO ×2 (10:19)
[2018-02-27] MEDS: ACETAMINOPHEN TAB 650MG DOSE (2X325MG) PO ×2 (10:19)
[2018-02-27 12:57] LABS: IMMEDIATE SPIN CROSSMATCH 1
== END 2018-02-27 15:33 | disposition home or self-care (01) ==
LOC: M OPCLI4PR 09:53 → M PED 09:54 → M OPCLI4PR 15:33
DX: D61.9 Aplastic anemia, unspecified (principal)
CPT/HCPCS: 36430

== ENCOUNTER 2018-03-05 10:37 | Emergency (ER) | payer MEDICARE | END 2018-03-05 13:27 | disposition short-term general hospital (02) | LOC: M ED 10:37 | DX: I61.4 Nontraumatic intracerebral hemorrhage in cerebellum (principal); D61.9 Aplastic anemia, unspecified; N18.4 Chronic kidney disease, stage 4 (severe); I10 Essential (primary) hypertension; Z79.899 Other long term (current) drug therapy | CPT/HCPCS: 70450 ==

== ENCOUNTER 2018-03-10 20:28 | Emergency (ER) | payer MEDICARE ==
[2018-03-10 21:31] LABS: BASO % 0.1 % (0.0-1.0); HEMATOCRIT 23.9 % (36.0-47.0); HEMOGLOBIN 8.4 g/dl (12.0-15.5); IMMATURE GRANULOCYTE % 0.5 % (0-3.0); LYMPH % 13.7 % (24.0-44.0); MEAN CORPUSCULAR HEMOGLOBIN 28.6 pg (27.0-33.0); MEAN CORPUSCULAR HGB CONC 35.1 g/dl (32.0-36.5); MEAN CORPUSCULAR VOLUME 81.3 fl (80.0-96.0); MONO # 0.8 10^3/uL (0.0-0.8); MONO % 10.1 % (0.0-5.0); NEUTROPHILS # 5.6 10^3/uL (1.8-7.7); NEUTROPHILS % 75.6 % (36.0-66.0); RED BLOOD COUNT 2.94 10^6/uL (4.00-5.40); RED CELL DISTRIBUTION WIDTH 14.7 % (11.5-14.5); WHITE BLOOD COUNT 7.5 10^3/uL (4.0-10.0)
[2018-03-10 21:34] LABS: PROTHROMBIN TIME 14.4 SECONDS (12.4-14.5)
[2018-03-10 21:35] LABS: PARTIAL THROMBOPLASTIN TIME 31.7 SECONDS (26.8-37.9); PLATELET COUNT, AUTOMATED 9 10^3/uL (150-450); POS COUNT POS FLAG
[2018-03-10 21:37] LABS: IMMATURE PLATELET FRACTION % 0.3 % (0.0-9.6)
[2018-03-10 21:39] LABS: BEDSIDE GLUCOSE 134 MG/DL (83-110)
[2018-03-10 21:43] LABS: ANION GAP 12 MEQ/L (8-16); BLOOD UREA NITROGEN 64 MG/DL (7-18); CALCIUM LEVEL 7.9 MG/DL (8.8-10.2); CARBON DIOXIDE LEVEL 21 MEQ/L (21-32); CHLORIDE LEVEL 106 MEQ/L (98-107); CK-MB VALUE MASS < 1.0 NG/ML (<3.6); CPK CREATINE PHOSPHOKINASE 52 U/L (26-192); CREATININE FOR GFR 3.35 MG/DL (0.55-1.30); GLOMERULAR FILTRATION RATE 14.2 (>39); GLUCOSE, FASTING 171 MG/DL (70-100); MB/CK RELATIVE INDEX 1.92 (< OR =4); POTASSIUM SERUM 4.1 MEQ/L (3.5-5.1); SODIUM LEVEL 139 MEQ/L (136-145); TROPONIN I 0.02 NG/ML (< 0.10)
== END 2018-03-10 23:56 | disposition short-term general hospital (02) ==
LOC: M ED 20:28
DX: I61.4 Nontraumatic intracerebral hemorrhage in cerebellum (principal); D69.6 Thrombocytopenia, unspecified; D61.9 Aplastic anemia, unspecified; Z86.73 Personal history of transient ischemic attack (TIA), and cerebral infarction without residual deficits; I12.9 Hypertensive chronic kidney disease with stage 1 through stage 4 chronic kidney disease, or unspecified chronic kidney disease; E78.00 Pure hypercholesterolemia, unspecified; K21.9 Gastro-esophageal reflux disease without esophagitis; N18.4 Chronic kidney disease, stage 4 (severe); Z79.899 Other long term (current) drug therapy; R29.700 NIHSS score 0
CPT/HCPCS: 71045

== ENCOUNTER 2018-03-16 12:53 | Outpatient (CLI) | payer MEDICARE ==
[2018-03-16] MEDS: ACETAMINOPHEN TAB 650MG DOSE (2X325MG) PO (14:03)
[2018-03-16] MEDS: diphenhydrAMINE 25 MG CAP PO (14:04)
[2018-03-16 20:02] LABS: IMMEDIATE SPIN CROSSMATCH 1
[2018-03-17 00:07] LABS: IMMEDIATE SPIN CROSSMATCH 1 2
== END 2018-03-17 08:20 | disposition home or self-care (01) ==
LOC: M INFU 12:53 → M MSPAV 13:08
DX: D61.9 Aplastic anemia, unspecified (principal); Z79.899 Other long term (current) drug therapy
CPT/HCPCS: 36430

== ENCOUNTER → 2018-03-20 | Outpatient (REF) | payer MEDICARE ==
[2018-03-20 14:14] LABS: IRON (FE) 254 UG/DL (50-170); PERCENT SATURATION 112.4 % (13.2-45.0); TOTAL IRON BINDING CAPACITY 226 UG/DL (250-450)
[2018-03-20 14:17] LABS: FERRITIN 4078 NG/ML (8-252)
== END ==
LOC: M LAB REF 13:24
DX: D64.9 Anemia, unspecified (principal); D69.6 Thrombocytopenia, unspecified
CPT/HCPCS: 83550

== ENCOUNTER 2018-03-27 15:19 | Outpatient (CLI) | payer MEDICARE ==
[2018-03-27] MEDS: ACETAMINOPHEN TAB 650MG DOSE (2X325MG) PO (16:42)
[2018-03-27] MEDS: diphenhydrAMINE 25 MG CAP PO (16:42)
[2018-03-28] MEDS: amLODIPine 10 MG TAB PO (06:21)
== END 2018-03-28 08:50 | disposition home or self-care (01) ==
LOC: M OPCLI4PV 03-28 08:50 → M MSPAV 15:45
DX: D61.9 Aplastic anemia, unspecified (principal); Z79.899 Other long term (current) drug therapy
CPT/HCPCS: 36430

== ENCOUNTER → 2018-03-27 | Outpatient (REF) | payer MEDICARE ==
[2018-03-27 20:07] LABS: IMMEDIATE SPIN CROSSMATCH 1 2
[2018-03-27 23:58] LABS: IMMEDIATE SPIN CROSSMATCH 1
== END ==
LOC: M LAB REF 12:51
PROVIDERS: Pediatrics
DX: D61.9 Aplastic anemia, unspecified (principal)

== ENCOUNTER 2018-04-20 11:41 | Outpatient (CLI) | payer MEDICARE ==
[2018-04-20] MEDS: ACETAMINOPHEN TAB 650MG DOSE (2X325MG) PO (15:50)
[2018-04-20] MEDS: diphenhydrAMINE 25 MG CAP PO (15:50)
[2018-04-20 16:21] LABS: IMMEDIATE SPIN CROSSMATCH 1 2
== END 2018-04-20 22:29 | disposition home or self-care (01) ==
LOC: M OPCLI4PV 11:41 → M MSPAV 11:45 → M OPCLI4PV 22:29
DX: D64.9 Anemia, unspecified (principal)
CPT/HCPCS: 36430

== ENCOUNTER → 2018-04-27 | Outpatient (REF) | payer MEDICARE ==
[2018-04-27 15:50] LABS: FERRITIN 3390 NG/ML (8-252)
== END ==
LOC: M LAB REF 13:11
DX: D64.9 Anemia, unspecified (principal); D69.6 Thrombocytopenia, unspecified
CPT/HCPCS: 82728

== ENCOUNTER 2018-05-06 13:54 | Outpatient (CLI) | payer MEDICARE ==
[2018-05-06] MEDS: ACETAMINOPHEN TAB 650MG DOSE (2X325MG) PO (15:09)
[2018-05-06] MEDS: diphenhydrAMINE 25 MG CAP PO (15:09)
== END 2018-05-07 00:15 | disposition home or self-care (01) ==
LOC: M OPCLI4 05-07 00:15 → M MSPAV 14:13
DX: D61.9 Aplastic anemia, unspecified (principal); Z79.899 Other long term (current) drug therapy
CPT/HCPCS: 36430

== ENCOUNTER → 2018-05-06 | Outpatient (REF) | payer MEDICARE ==
[2018-05-06 19:40] LABS: IMMEDIATE SPIN CROSSMATCH 1 2
== END ==
LOC: M LAB REF 12:55
DX: D64.9 Anemia, unspecified (principal)

== ENCOUNTER 2018-05-20 12:10 | Outpatient (CLI) | payer MEDICARE ==
[2018-05-20] MEDS: diphenhydrAMINE 25 MG CAP PO (12:39)
[2018-05-20] MEDS: ACETAMINOPHEN TAB 650MG DOSE (2X325MG) PO (12:39)
[2018-05-20 12:40] LABS: IMMEDIATE SPIN CROSSMATCH 1 2
== END 2018-05-20 17:15 | disposition home or self-care (01) ==
LOC: M INFU 12:10
DX: D61.9 Aplastic anemia, unspecified (principal); R51 Headache; E78.00 Pure hypercholesterolemia, unspecified; E78.5 Hyperlipidemia, unspecified; I12.9 Hypertensive chronic kidney disease with stage 1 through stage 4 chronic kidney disease, or unspecified chronic kidney disease; K21.9 Gastro-esophageal reflux disease without esophagitis; N18.4 Chronic kidney disease, stage 4 (severe); M12.9 Arthropathy, unspecified; H93.11 Tinnitus, right ear; N39.3 Stress incontinence (female) (male); Z79.899 Other long term (current) drug therapy; Z86.79 Personal history of other diseases of the circulatory system
CPT/HCPCS: 36430

== ENCOUNTER 2018-06-01 13:51 | Outpatient (CLI) | payer MEDICARE ==
[2018-06-01] MEDS: ACETAMINOPHEN TAB 650MG DOSE (2X325MG) PO (14:17)
[2018-06-01] MEDS: diphenhydrAMINE 25 MG CAP PO (14:17)
[2018-06-01 14:25] LABS: IMMEDIATE SPIN CROSSMATCH 1 1
== END 2018-06-01 17:00 | disposition home or self-care (01) ==
LOC: M INFU 13:51
DX: D61.9 Aplastic anemia, unspecified (principal); N18.4 Chronic kidney disease, stage 4 (severe); N39.3 Stress incontinence (female) (male); E78.00 Pure hypercholesterolemia, unspecified; E78.5 Hyperlipidemia, unspecified; R51 Headache; K21.9 Gastro-esophageal reflux disease without esophagitis; Z79.899 Other long term (current) drug therapy
CPT/HCPCS: 36430

== ENCOUNTER 2018-06-29 11:29 | Outpatient (CLI) | payer MEDICARE ==
[2018-06-29] MEDS: ACETAMINOPHEN TAB 650MG DOSE (2X325MG) PO ×2 (13:16)
== END 2018-06-29 21:34 | disposition home or self-care (01) ==
LOC: M OPCLI4PV 11:29 → M MSPAV 11:33 → M OPCLI4PV 21:34
DX: D64.9 Anemia, unspecified (principal)
CPT/HCPCS: 36430

== ENCOUNTER 2018-07-27 11:22 | Outpatient (CLI) | payer MEDICARE ==
[2018-07-27] MEDS: ACETAMINOPHEN TAB 650MG DOSE (2X325MG) PO (12:19)
[2018-07-27] MEDS: cloNIDine 0.1 MG TAB PO (18:20)
== END 2018-07-27 20:02 | disposition home or self-care (01) ==
LOC: M INFU 11:22 → M MSPAV 11:30 → M INFU 20:02
DX: N18.6 End stage renal disease (principal); D63.1 Anemia in chronic kidney disease
CPT/HCPCS: 36430

== ENCOUNTER → 2018-08-05 | Outpatient (CLI) | payer MEDICARE | LOC: M RAD 14:24 | DX: Z01.818 Encounter for other preprocedural examination (principal); N18.5 Chronic kidney disease, stage 5 (principal) | CPT/HCPCS: G0365 ==

== ENCOUNTER 2018-08-10 09:43 | Inpatient (IN) | payer MEDICARE ==
[2018-08-10 12:18] LABS: HEMATOCRIT 20.6 % (36.0-47.0); HEMOGLOBIN 7.1 g/dl (12.0-15.5); IMMATURE GRANULOCYTE % 0.4 % (0-3.0); LYMPH % 11.2 % (24.0-44.0); MEAN CORPUSCULAR HGB CONC 34.5 g/dl (32.0-36.5); MEAN CORPUSCULAR VOLUME 86.9 fl (80.0-96.0); MONO # 0.5 10^3/uL (0.0-0.8); MONO % 5.8 % (0.0-5.0); NEUTROPHILS # 7.1 10^3/uL (1.8-7.7); NEUTROPHILS % 82.6 % (36.0-66.0); PLATELET COUNT, AUTOMATED 109 10^3/uL (150-450); RED BLOOD COUNT 2.37 10^6/uL (4.00-5.40); WHITE BLOOD COUNT 8.6 10^3/uL (4.0-10.0)
[2018-08-10 12:48] LABS: ANION GAP 11 MEQ/L (8-16); BLOOD UREA NITROGEN 112 MG/DL (7-18); CALCIUM LEVEL 8.6 MG/DL (8.8-10.2); CARBON DIOXIDE LEVEL 22 MEQ/L (21-32); CHLORIDE LEVEL 100 MEQ/L (98-107); CREATININE FOR GFR 5.19 MG/DL (0.55-1.30); GLOMERULAR FILTRATION RATE 8.6 (>39); GLUCOSE, FASTING 141 MG/DL (70-100); POTASSIUM SERUM 4.5 MEQ/L (3.5-5.1); SODIUM LEVEL 133 MEQ/L (136-145)
[2018-08-10 12:52] LABS: CPK CREATINE PHOSPHOKINASE 29 U/L (26-192); MB/CK RELATIVE INDEX 3.79 (< OR =4); TROPONIN I < 0.02 NG/ML (< 0.10)
[2018-08-10] MEDS: ONDANSETRON 4MG/2ML VIAL (J2405) IV (13:51)
[2018-08-10] MEDS: NS 1,000 ML IV ×2 (13:58→17:06)
[2018-08-10 15:14] LABS: AMORPHOUS SEDIMENT RFX SMALL (NEGATIVE); KETONE, URINE AUTO RFX NEGATIVE (NEGATIVE); LEUKOCYTE ESTERASE UR AUTO RFX NEGATIVE (NEGATIVE); MUCUS, URINE RFX SMALL (NEGATIVE); NITRITE, URINE AUTO RFX NEGATIVE (NEGATIVE); RBC, URINE AUTO RFX 5 /HPF (0-3); SPECIFIC GRAVITY UR AUTO RFX 1.011 (1.002-1.035); SQUAM EPITHELIAL CELL UR AURFX 0 /HPF (0-6); WBC, URINE AUTO RFX 4 /HPF (0-3)
[2018-08-10] MEDS ORDERED: ACETAMINOPHEN TAB 650MG DOSE (2X325MG) PO (17:15)
[2018-08-10 19:07] LABS: IRON (FE) 197 UG/DL (50-170); PERCENT SATURATION 134.9 % (13.2-45.0); TOTAL IRON BINDING CAPACITY 146 UG/DL (250-450)
[2018-08-10] MEDS: FOLIC ACID 1 MG TAB PO (20:49)
[2018-08-10] MEDS: amLODIPine 10 MG TAB PO (20:49)
[2018-08-10] MEDS: METOPROLOL SUCC *XL* 25MG TAB (TopROL *XL*) PO (20:49)
[2018-08-10] MEDS: PANTOPRAZOLE 40MG INJ (PROTONIX) (C9113) IV (20:49)
[2018-08-10 23:56] LABS: IMMEDIATE SPIN CROSSMATCH 1 2
[2018-08-11] MEDS: NS 1,000 ML IV ×3 (05:17→13:06)
[2018-08-11 06:36] LABS: ANION GAP 10 MEQ/L (8-16); BLOOD UREA NITROGEN 91 MG/DL (7-18); CALCIUM LEVEL 7.9 MG/DL (8.8-10.2); CARBON DIOXIDE LEVEL 21 MEQ/L (21-32); CHLORIDE LEVEL 107 MEQ/L (98-107); GLOMERULAR FILTRATION RATE 9.4 (>39); GLUCOSE, FASTING 111 MG/DL (70-100); POTASSIUM SERUM 4.4 MEQ/L (3.5-5.1); SODIUM LEVEL 138 MEQ/L (136-145)
[2018-08-11 08:07] LABS: HEMATOCRIT 28.2 % (36.0-47.0); MEAN CORPUSCULAR HEMOGLOBIN 29.1 pg (27.0-33.0); MEAN CORPUSCULAR HGB CONC 34.4 g/dl (32.0-36.5); MEAN CORPUSCULAR VOLUME 84.7 fl (80.0-96.0); PLATELET COUNT, AUTOMATED 100 10^3/uL (150-450); RED BLOOD COUNT 3.33 10^6/uL (4.00-5.40); RED CELL DISTRIBUTION WIDTH 14.4 % (11.5-14.5); WHITE BLOOD COUNT 6.8 10^3/uL (4.0-10.0)
[2018-08-11 08:11] LABS: HEMOGLOBIN 9.7 g/dl (12.0-15.5)
[2018-08-11] MEDS: amLODIPine 10 MG TAB PO (15:14)
[2018-08-11] MEDS: PANTOPRAZOLE 40MG INJ (PROTONIX) (C9113) IV (21:21)
[2018-08-11] MEDS: METOPROLOL SUCC *XL* 25MG TAB (TopROL *XL*) PO (21:21)
[2018-08-11] MEDS: FOLIC ACID 1 MG TAB PO (21:21)
[2018-08-12] MEDS: **hydrALAZINE HCL** 25 MG TAB PO ×5 (01:08→17:21)
[2018-08-12] MEDS: NS 1,000 ML IV (01:08)
[2018-08-12 07:56] LABS: HEMATOCRIT 28.2 % (36.0-47.0); HEMOGLOBIN 9.9 g/dl (12.0-15.5); MEAN CORPUSCULAR HEMOGLOBIN 29.6 pg (27.0-33.0); MEAN CORPUSCULAR HGB CONC 35.1 g/dl (32.0-36.5); MEAN CORPUSCULAR VOLUME 84.2 fl (80.0-96.0); RED BLOOD COUNT 3.35 10^6/uL (4.00-5.40); RED CELL DISTRIBUTION WIDTH 14.7 % (11.5-14.5)
[2018-08-12 08:05] LABS: PLATELET COUNT, AUTOMATED 81 10^3/uL (150-450)
[2018-08-12 08:06] LABS: IMMATURE PLATELET FRACTION % 0.9 % (0.0-9.6); PLATELET F 0.9
[2018-08-12 08:17] LABS: ANION GAP 9 MEQ/L (8-16); BLOOD UREA NITROGEN 81 MG/DL (7-18); CARBON DIOXIDE LEVEL 21 MEQ/L (21-32); CHLORIDE LEVEL 108 MEQ/L (98-107); CREATININE FOR GFR 4.49 MG/DL (0.55-1.30); GLOMERULAR FILTRATION RATE 10.1 (>39); GLUCOSE, FASTING 123 MG/DL (70-100); POTASSIUM SERUM 4.3 MEQ/L (3.5-5.1); SODIUM LEVEL 138 MEQ/L (136-145)
[2018-08-12] MEDS: PANTOPRAZOLE 40MG INJ (PROTONIX) (C9113) IV (22:15)
[2018-08-12] MEDS: METOPROLOL SUCC *XL* 25MG TAB (TopROL *XL*) PO (22:15)
[2018-08-12] MEDS: FOLIC ACID 1 MG TAB PO (22:16)
[2018-08-12] MEDS: amLODIPine 10 MG TAB PO (22:16)
[2018-08-13] MEDS: **hydrALAZINE HCL** 25 MG TAB PO ×5 (00:19→23:22)
[2018-08-13 06:02] LABS: HEMATOCRIT 28.7 % (36.0-47.0); HEMOGLOBIN 9.9 g/dl (12.0-15.5); MEAN CORPUSCULAR HEMOGLOBIN 28.9 pg (27.0-33.0); MEAN CORPUSCULAR HGB CONC 34.5 g/dl (32.0-36.5); MEAN CORPUSCULAR VOLUME 83.9 fl (80.0-96.0); RED BLOOD COUNT 3.42 10^6/uL (4.00-5.40); RED CELL DISTRIBUTION WIDTH 14.6 % (11.5-14.5); WHITE BLOOD COUNT 6.4 10^3/uL (4.0-10.0)
[2018-08-13 06:03] LABS: PLATELET COUNT, AUTOMATED 98 10^3/uL (150-450)
[2018-08-13 06:17] LABS: ALBUMIN 2.7 GM/DL (3.2-5.2); ANION GAP 10 MEQ/L (8-16); BLOOD UREA NITROGEN 68 MG/DL (7-18); CALCIUM LEVEL 8.1 MG/DL (8.8-10.2); CARBON DIOXIDE LEVEL 21 MEQ/L (21-32); CHLORIDE LEVEL 108 MEQ/L (98-107); GLOMERULAR FILTRATION RATE 10.4 (>39); GLUCOSE, FASTING 125 MG/DL (70-100); PHOSPHORUS LEVEL 4.7 MG/DL (2.5-4.9); POTASSIUM SERUM 3.9 MEQ/L (3.5-5.1); SODIUM LEVEL 139 MEQ/L (136-145)
[2018-08-13 10:22] LABS: CHOLESTEROL LEVEL 270 MG/DL (<200); HDL CHOLESTEROL 30 MG/DL (>40); NON-HDL-C 240 MG/DL; TRIGLYCERIDES LEVEL 557 MG/DL (<150)
[2018-08-13 11:09] LABS: ESTIMATED AVERAGE GLUCOSE 143 MG/DL (60-110); HEMOGLOBIN A1c 6.6 %
[2018-08-13] MEDS: PANTOPRAZOLE 40MG INJ (PROTONIX) (C9113) IV (21:00)
[2018-08-13] MEDS: amLODIPine 10 MG TAB PO (21:01)
[2018-08-13] MEDS: FOLIC ACID 1 MG TAB PO (21:01)
[2018-08-13] MEDS: METOPROLOL SUCC *XL* 25MG TAB (TopROL *XL*) PO (21:01)
[2018-08-14 05:57] LABS: HEMATOCRIT 28.1 % (36.0-47.0); HEMOGLOBIN 9.6 g/dl (12.0-15.5); MEAN CORPUSCULAR HEMOGLOBIN 29.3 pg (27.0-33.0); MEAN CORPUSCULAR HGB CONC 34.2 g/dl (32.0-36.5); MEAN CORPUSCULAR VOLUME 85.7 fl (80.0-96.0); PLATELET COUNT, AUTOMATED 113 10^3/uL (150-450); RED BLOOD COUNT 3.28 10^6/uL (4.00-5.40); RED CELL DISTRIBUTION WIDTH 14.8 % (11.5-14.5); WHITE BLOOD COUNT 7.1 10^3/uL (4.0-10.0)
[2018-08-14] MEDS: **hydrALAZINE HCL** 25 MG TAB PO ×4 (05:59→23:15)
[2018-08-14 06:21] LABS: ALBUMIN 2.7 GM/DL (3.2-5.2); ANION GAP 10 MEQ/L (8-16); BLOOD UREA NITROGEN 80 MG/DL (7-18); CALCIUM LEVEL 8.1 MG/DL (8.8-10.2); CARBON DIOXIDE LEVEL 22 MEQ/L (21-32); CHLORIDE LEVEL 107 MEQ/L (98-107); CREATININE FOR GFR 4.78 MG/DL (0.55-1.30); GLOMERULAR FILTRATION RATE 9.4 (>39); GLUCOSE, FASTING 141 MG/DL (70-100); PHOSPHORUS LEVEL 4.5 MG/DL (2.5-4.9); POTASSIUM SERUM 3.9 MEQ/L (3.5-5.1); SODIUM LEVEL 139 MEQ/L (136-145)
[2018-08-14] MEDS ORDERED: LIDOCAINE 2% MDV 20 ML VIAL As Ordered ×2 (06:34→13:22)
[2018-08-14] MEDS ORDERED: HEPARIN 1,000 UNITS/ML 10ML VIAL (FOR RADIOLOGY& DIALYSIS ONLY) As Ordered ×2 (06:34→13:22)
[2018-08-14 10:35] LABS: HEPATITIS B SURFACE ANTIBODY NEGATIVE (POSITIVE)
[2018-08-14 10:46] LABS: HEPATITIS B SURFACE ANTIGEN NEGATIVE (NEGATIVE)
[2018-08-14 11:14] LABS: HEPATITIS C VIRUS ABY INDEX 0.1 INDEX (<0.8)
[2018-08-14 11:15] LABS: HEPATITIS B CORE ANTIBODY IGM NEGATIVE (NEGATIVE)
[2018-08-14] MEDS: HEPARIN 1,000 UNITS/ML 10ML VIAL (FOR RADIOLOGY& DIALYSIS ONLY) IV (12:00)
[2018-08-14] MEDS: ONDANSETRON 4MG/2ML VIAL (J2405) IV (15:14)
[2018-08-14] MEDS: METOPROLOL SUCC *XL* 25MG TAB (TopROL *XL*) PO (20:06)
[2018-08-14] MEDS: amLODIPine 10 MG TAB PO (20:06)
[2018-08-14] MEDS: PANTOPRAZOLE 40MG INJ (PROTONIX) (C9113) IV (20:06)
[2018-08-14] MEDS: FOLIC ACID 1 MG TAB PO (20:06)
[2018-08-15] MEDS: **hydrALAZINE HCL** 25 MG TAB PO ×3 (05:07→18:00)
[2018-08-15 06:17] LABS: HEMATOCRIT 27.8 % (36.0-47.0); HEMOGLOBIN 9.2 g/dl (12.0-15.5); MEAN CORPUSCULAR HEMOGLOBIN 28.4 pg (27.0-33.0); MEAN CORPUSCULAR HGB CONC 33.1 g/dl (32.0-36.5); MEAN CORPUSCULAR VOLUME 85.8 fl (80.0-96.0); PLATELET COUNT, AUTOMATED 108 10^3/uL (150-450); RED BLOOD COUNT 3.24 10^6/uL (4.00-5.40); WHITE BLOOD COUNT 6.3 10^3/uL (4.0-10.0)
[2018-08-15 06:31] LABS: ALBUMIN 2.7 GM/DL (3.2-5.2); ANION GAP 11 MEQ/L (8-16); BLOOD UREA NITROGEN 81 MG/DL (7-18); CALCIUM LEVEL 8.1 MG/DL (8.8-10.2); CARBON DIOXIDE LEVEL 21 MEQ/L (21-32); CHLORIDE LEVEL 107 MEQ/L (98-107); CREATININE FOR GFR 5.09 MG/DL (0.55-1.30); GLOMERULAR FILTRATION RATE 8.8 (>39); GLUCOSE, FASTING 118 MG/DL (70-100); PHOSPHORUS LEVEL 4.9 MG/DL (2.5-4.9); POTASSIUM SERUM 3.9 MEQ/L (3.5-5.1); SODIUM LEVEL 139 MEQ/L (136-145)
[2018-08-15] MEDS ORDERED: DARBEPOETIN 100 MCG/0.5 ML *DIALYSIS* SYRINGE (J0882) IV (09:30)
[2018-08-15] MEDS: METOPROLOL SUCC *XL* 25MG TAB (TopROL *XL*) PO (22:07)
[2018-08-15] MEDS: FOLIC ACID 1 MG TAB PO (22:07)
[2018-08-15] MEDS: amLODIPine 10 MG TAB PO (22:08)
[2018-08-15] MEDS: PANTOPRAZOLE 40MG INJ (PROTONIX) (C9113) IV (22:08)
[2018-08-16] MEDS: **hydrALAZINE HCL** 25 MG TAB PO ×4 (00:43→18:34)
[2018-08-16 06:02] LABS: HEMATOCRIT 27.4 % (36.0-47.0); HEMOGLOBIN 9.1 g/dl (12.0-15.5); MEAN CORPUSCULAR HEMOGLOBIN 28.7 pg (27.0-33.0); MEAN CORPUSCULAR HGB CONC 33.2 g/dl (32.0-36.5); MEAN CORPUSCULAR VOLUME 86.4 fl (80.0-96.0); PLATELET COUNT, AUTOMATED 117 10^3/uL (150-450); RED BLOOD COUNT 3.17 10^6/uL (4.00-5.40); RED CELL DISTRIBUTION WIDTH 14.7 % (11.5-14.5); WHITE BLOOD COUNT 7.5 10^3/uL (4.0-10.0)
[2018-08-16 06:28] LABS: ALBUMIN 2.6 GM/DL (3.2-5.2); ANION GAP 6 MEQ/L (8-16); BLOOD UREA NITROGEN 44 MG/DL (7-18); CALCIUM LEVEL 7.9 MG/DL (8.8-10.2); CARBON DIOXIDE LEVEL 27 MEQ/L (21-32); CHLORIDE LEVEL 104 MEQ/L (98-107); CREATININE FOR GFR 3.69 MG/DL (0.55-1.30); GLOMERULAR FILTRATION RATE 12.7 (>39); GLUCOSE, FASTING 111 MG/DL (70-100); PHOSPHORUS LEVEL 2.9 MG/DL (2.5-4.9); POTASSIUM SERUM 4.1 MEQ/L (3.5-5.1); SODIUM LEVEL 137 MEQ/L (136-145)
[2018-08-16] MEDS: ONDANSETRON 4 MG ORAL DISINTEGRATING TAB (Q0162 PER 1MG) SL (10:41)
[2018-08-16] MEDS: amLODIPine 10 MG TAB PO (20:49)
[2018-08-16] MEDS: FOLIC ACID 1 MG TAB PO (20:49)
[2018-08-16] MEDS: METOPROLOL SUCC *XL* 25MG TAB (TopROL *XL*) PO (20:49)
[2018-08-17] MEDS: **hydrALAZINE HCL** 25 MG TAB PO ×4 (00:33→19:52)
[2018-08-17] MEDS: ONDANSETRON 4 MG ORAL DISINTEGRATING TAB (Q0162 PER 1MG) SL (06:00)
[2018-08-17 06:24] LABS: HEMATOCRIT 27.1 % (36.0-47.0); MEAN CORPUSCULAR HGB CONC 33.2 g/dl (32.0-36.5); MEAN CORPUSCULAR VOLUME 87.4 fl (80.0-96.0); PLATELET COUNT, AUTOMATED 131 10^3/uL (150-450); RED CELL DISTRIBUTION WIDTH 14.6 % (11.5-14.5); WHITE BLOOD COUNT 6.2 10^3/uL (4.0-10.0)
[2018-08-17 06:42] LABS: ALBUMIN 2.7 GM/DL (3.2-5.2); ANION GAP 8 MEQ/L (8-16); BLOOD UREA NITROGEN 58 MG/DL (7-18); CALCIUM LEVEL 8.2 MG/DL (8.8-10.2); CARBON DIOXIDE LEVEL 26 MEQ/L (21-32); CHLORIDE LEVEL 102 MEQ/L (98-107); CREATININE FOR GFR 4.31 MG/DL (0.55-1.30); GLOMERULAR FILTRATION RATE 10.6 (>39); GLUCOSE, FASTING 127 MG/DL (70-100); PHOSPHORUS LEVEL 3.4 MG/DL (2.5-4.9); POTASSIUM SERUM 3.9 MEQ/L (3.5-5.1); SODIUM LEVEL 136 MEQ/L (136-145)
[2018-08-17] MEDS: HEPARIN 1,000 UNITS/ML 10ML VIAL (FOR RADIOLOGY& DIALYSIS ONLY) XX (10:30)
[2018-08-17] MEDS: HEPARIN 1,000 UNITS/ML 10ML VIAL (FOR RADIOLOGY& DIALYSIS ONLY) IV (10:30)
[2018-08-17] MEDS: PANTOPRAZOLE 40MG INJ (PROTONIX) (C9113) IV (11:15)
[2018-08-17] MEDS: PANTOPRAZOLE 40MG TAB (PROTONIX) PO (11:58)
[2018-08-17] MEDS: FOLIC ACID 1 MG TAB PO (21:59)
[2018-08-17] MEDS: amLODIPine 10 MG TAB PO (21:59)
[2018-08-17] MEDS: METOPROLOL SUCC *XL* 25MG TAB (TopROL *XL*) PO (22:01)
[2018-08-17] MEDS: LABETALOL HCL 100 MG/20 ML VIAL IV (22:14)
[2018-08-18] MEDS: **hydrALAZINE HCL** 25 MG TAB PO ×5 (00:18→23:33)
[2018-08-18 06:57] LABS: HEMATOCRIT 25.3 % (36.0-47.0); HEMOGLOBIN 8.4 g/dl (12.0-15.5); MEAN CORPUSCULAR HGB CONC 33.2 g/dl (32.0-36.5); MEAN CORPUSCULAR VOLUME 87.2 fl (80.0-96.0); PLATELET COUNT, AUTOMATED 145 10^3/uL (150-450); RED CELL DISTRIBUTION WIDTH 14.4 % (11.5-14.5); WHITE BLOOD COUNT 6.6 10^3/uL (4.0-10.0)
[2018-08-18 07:27] LABS: ALBUMIN 2.6 GM/DL (3.2-5.2); ANION GAP 4 MEQ/L (8-16); BLOOD UREA NITROGEN 24 MG/DL (7-18); CALCIUM LEVEL 8.1 MG/DL (8.8-10.2); CARBON DIOXIDE LEVEL 30 MEQ/L (21-32); CHLORIDE LEVEL 103 MEQ/L (98-107); CREATININE FOR GFR 2.23 MG/DL (0.55-1.30); GLOMERULAR FILTRATION RATE 22.7 (>39); GLUCOSE, FASTING 115 MG/DL (70-100); POTASSIUM SERUM 4.3 MEQ/L (3.5-5.1); SODIUM LEVEL 137 MEQ/L (136-145)
[2018-08-18] MEDS: PANTOPRAZOLE 40MG TAB (PROTONIX) PO (07:50)
[2018-08-18] MEDS: ONDANSETRON 4 MG ORAL DISINTEGRATING TAB (Q0162 PER 1MG) SL (07:50)
[2018-08-18] MEDS: FOLIC ACID 1 MG TAB PO (20:05)
[2018-08-18] MEDS: amLODIPine 10 MG TAB PO (20:05)
[2018-08-18] MEDS: METOPROLOL SUCC *XL* 25MG TAB (TopROL *XL*) PO (20:05)
[2018-08-19] MEDS: **hydrALAZINE HCL** 25 MG TAB PO ×4 (05:15→23:21)
[2018-08-19 06:54] LABS: HEMATOCRIT 25.8 % (36.0-47.0); HEMOGLOBIN 8.4 g/dl (12.0-15.5); MEAN CORPUSCULAR HEMOGLOBIN 28.4 pg (27.0-33.0); MEAN CORPUSCULAR HGB CONC 32.6 g/dl (32.0-36.5); MEAN CORPUSCULAR VOLUME 87.2 fl (80.0-96.0); PLATELET COUNT, AUTOMATED 151 10^3/uL (150-450); RED BLOOD COUNT 2.96 10^6/uL (4.00-5.40); RED CELL DISTRIBUTION WIDTH 14.3 % (11.5-14.5); WHITE BLOOD COUNT 6.1 10^3/uL (4.0-10.0)
[2018-08-19 07:14] LABS: ALBUMIN 2.6 GM/DL (3.2-5.2); ANION GAP 7 MEQ/L (8-16); BLOOD UREA NITROGEN 36 MG/DL (7-18); CALCIUM LEVEL 7.9 MG/DL (8.8-10.2); CARBON DIOXIDE LEVEL 28 MEQ/L (21-32); CHLORIDE LEVEL 98 MEQ/L (98-107); CREATININE FOR GFR 3.26 MG/DL (0.55-1.30); GLOMERULAR FILTRATION RATE 14.6 (>39); GLUCOSE, FASTING 126 MG/DL (70-100); POTASSIUM SERUM 4.2 MEQ/L (3.5-5.1); SODIUM LEVEL 133 MEQ/L (136-145)
[2018-08-19] MEDS ORDERED: DARBEPOETIN 100 MCG/0.5 ML *DIALYSIS* SYRINGE (J0882) IV (08:45)
[2018-08-19] MEDS: PANTOPRAZOLE 40MG TAB (PROTONIX) PO (13:18)
[2018-08-19] MEDS: amLODIPine 10 MG TAB PO (20:59)
[2018-08-19] MEDS: METOPROLOL SUCC *XL* 25MG TAB (TopROL *XL*) PO (20:59)
[2018-08-19] MEDS: FOLIC ACID 1 MG TAB PO (20:59)
[2018-08-20] MEDS: **hydrALAZINE HCL** 25 MG TAB PO ×4 (05:40→23:50)
[2018-08-20] MEDS: PANTOPRAZOLE 40MG TAB (PROTONIX) PO (08:29)
[2018-08-20 08:30] LABS: HEMATOCRIT 24.1 % (36.0-47.0); MEAN CORPUSCULAR HEMOGLOBIN 29.2 pg (27.0-33.0); MEAN CORPUSCULAR HGB CONC 33.2 g/dl (32.0-36.5); PLATELET COUNT, AUTOMATED 156 10^3/uL (150-450); RED BLOOD COUNT 2.74 10^6/uL (4.00-5.40); RED CELL DISTRIBUTION WIDTH 14.3 % (11.5-14.5); WHITE BLOOD COUNT 6.3 10^3/uL (4.0-10.0)
[2018-08-20 08:53] LABS: ANION GAP 8 MEQ/L (8-16); BLOOD UREA NITROGEN 27 MG/DL (7-18); CARBON DIOXIDE LEVEL 27 MEQ/L (21-32); CHLORIDE LEVEL 98 MEQ/L (98-107); CREATININE FOR GFR 2.59 MG/DL (0.55-1.30); GLOMERULAR FILTRATION RATE 19.1 (>39); GLUCOSE, FASTING 217 MG/DL (70-100); POTASSIUM SERUM 4.5 MEQ/L (3.5-5.1); SODIUM LEVEL 133 MEQ/L (136-145)
[2018-08-20] MEDS: amLODIPine 10 MG TAB PO (21:20)
[2018-08-20] MEDS: FOLIC ACID 1 MG TAB PO (21:20)
[2018-08-20] MEDS: METOPROLOL SUCC *XL* 25MG TAB (TopROL *XL*) PO (21:20)
[2018-08-21] MEDS: **hydrALAZINE HCL** 25 MG TAB PO ×4 (05:07→23:37)
[2018-08-21] MEDS: PANTOPRAZOLE 40MG TAB (PROTONIX) PO (05:07)
[2018-08-21 06:46] LABS: HEMATOCRIT 21.5 % (36.0-47.0); HEMOGLOBIN 7.1 g/dl (12.0-15.5); MEAN CORPUSCULAR HEMOGLOBIN 29.1 pg (27.0-33.0); MEAN CORPUSCULAR VOLUME 88.1 fl (80.0-96.0); PLATELET COUNT, AUTOMATED 148 10^3/uL (150-450); RED BLOOD COUNT 2.44 10^6/uL (4.00-5.40); RED CELL DISTRIBUTION WIDTH 14.1 % (11.5-14.5)
[2018-08-21 07:06] LABS: ANION GAP 7 MEQ/L (8-16); BLOOD UREA NITROGEN 49 MG/DL (7-18); CALCIUM LEVEL 7.7 MG/DL (8.8-10.2); CARBON DIOXIDE LEVEL 29 MEQ/L (21-32); CHLORIDE LEVEL 98 MEQ/L (98-107); CREATININE FOR GFR 3.35 MG/DL (0.55-1.30); GLOMERULAR FILTRATION RATE 14.2 (>39); GLUCOSE, FASTING 127 MG/DL (70-100); POTASSIUM SERUM 4.9 MEQ/L (3.5-5.1); SODIUM LEVEL 134 MEQ/L (136-145)
[2018-08-21 09:00] LABS: IMMEDIATE SPIN CROSSMATCH 1 2
[2018-08-21] MEDS: HEPARIN 1,000 UNITS/ML 10ML VIAL (FOR RADIOLOGY& DIALYSIS ONLY) XX (11:00)
[2018-08-21] MEDS: SENOKOT S TAB PO ×2 (12:18→20:20)
[2018-08-21] MEDS: FOLIC ACID 1 MG TAB PO (20:20)
[2018-08-21] MEDS: METOPROLOL SUCC *XL* 25MG TAB (TopROL *XL*) PO (20:21)
[2018-08-21] MEDS: amLODIPine 10 MG TAB PO (20:21)
[2018-08-22] MEDS: **hydrALAZINE HCL** 25 MG TAB PO ×3 (05:50→18:18)
[2018-08-22 06:49] LABS: HEMATOCRIT 28.3 % (36.0-47.0); MEAN CORPUSCULAR HEMOGLOBIN 29.2 pg (27.0-33.0); MEAN CORPUSCULAR HGB CONC 33.9 g/dl (32.0-36.5); PLATELET COUNT, AUTOMATED 139 10^3/uL (150-450); RED BLOOD COUNT 3.29 10^6/uL (4.00-5.40); RED CELL DISTRIBUTION WIDTH 14.2 % (11.5-14.5); WHITE BLOOD COUNT 9.8 10^3/uL (4.0-10.0)
[2018-08-22 06:54] LABS: HEMOGLOBIN 9.6 g/dl (12.0-15.5)
[2018-08-22 07:07] LABS: ANION GAP 7 MEQ/L (8-16); BLOOD UREA NITROGEN 29 MG/DL (7-18); CALCIUM LEVEL 7.9 MG/DL (8.8-10.2); CARBON DIOXIDE LEVEL 28 MEQ/L (21-32); CHLORIDE LEVEL 99 MEQ/L (98-107); GLOMERULAR FILTRATION RATE 19.9 (>39); GLUCOSE, FASTING 133 MG/DL (70-100); SODIUM LEVEL 134 MEQ/L (136-145)
[2018-08-22] MEDS: SENOKOT S TAB PO ×2 (08:25→20:48)
[2018-08-22] MEDS: PANTOPRAZOLE 40MG TAB (PROTONIX) PO (08:25)
[2018-08-22] MEDS: METOPROLOL SUCC *XL* 25MG TAB (TopROL *XL*) PO (20:49)
[2018-08-22] MEDS: amLODIPine 10 MG TAB PO (20:49)
[2018-08-22] MEDS: FOLIC ACID 1 MG TAB PO (20:49)
[2018-08-23] MEDS: **hydrALAZINE HCL** 25 MG TAB PO ×3 (00:02→11:55)
[2018-08-23 06:12] LABS: HEMATOCRIT 29.6 % (36.0-47.0); HEMOGLOBIN 10.1 g/dl (12.0-15.5); MEAN CORPUSCULAR HEMOGLOBIN 29.4 pg (27.0-33.0); MEAN CORPUSCULAR HGB CONC 34.1 g/dl (32.0-36.5); MEAN CORPUSCULAR VOLUME 86.3 fl (80.0-96.0); PLATELET COUNT, AUTOMATED 141 10^3/uL (150-450); RED BLOOD COUNT 3.43 10^6/uL (4.00-5.40); RED CELL DISTRIBUTION WIDTH 14.3 % (11.5-14.5); WHITE BLOOD COUNT 9.3 10^3/uL (4.0-10.0)
[2018-08-23 06:49] LABS: ANION GAP 7 MEQ/L (8-16); BLOOD UREA NITROGEN 46 MG/DL (7-18); CALCIUM LEVEL 8.1 MG/DL (8.8-10.2); CARBON DIOXIDE LEVEL 27 MEQ/L (21-32); CHLORIDE LEVEL 100 MEQ/L (98-107); CREATININE FOR GFR 3.45 MG/DL (0.55-1.30); GLOMERULAR FILTRATION RATE 13.7 (>39); GLUCOSE, FASTING 125 MG/DL (70-100); POTASSIUM SERUM 4.2 MEQ/L (3.5-5.1); SODIUM LEVEL 134 MEQ/L (136-145)
[2018-08-23] MEDS: PANTOPRAZOLE 40MG TAB (PROTONIX) PO (08:44)
[2018-08-23] MEDS: SENOKOT S TAB PO (08:44)
== END 2018-08-23 12:30 | disposition home or self-care (01) | DRG 673 ==
LOC: M MS4PR 08-17 14:23 → M ED 09:43 → M ED INP 17:06 → M MSPAV 20:03
PROC: 0JH63XZ Insertion of Tunneled Vascular Access Device into Chest Subcutaneous Tissue and Fascia, Percutaneous Approach (ICD-10-PCS; 2018-08-14)
PROC: 02HV33Z Insertion of Infusion Device into Superior Vena Cava, Percutaneous Approach (ICD-10-PCS; 2018-08-14)
PROC: 5A1D70Z Performance of Urinary Filtration, Intermittent, Less than 6 Hours Per Day (ICD-10-PCS; principal; 2018-08-15)
DX: N18.6 End stage renal disease (principal); D61.3 Idiopathic aplastic anemia; N25.81 Secondary hyperparathyroidism of renal origin; E87.1 Hypo-osmolality and hyponatremia; K29.00 Acute gastritis without bleeding; N17.9 Acute kidney failure, unspecified; I12.0 Hypertensive chronic kidney disease with stage 5 chronic kidney disease or end stage renal disease; E83.39 Other disorders of phosphorus metabolism; D63.1 Anemia in chronic kidney disease; Z79.899 Other long term (current) drug therapy

== ENCOUNTER 2018-09-11 11:13 | Outpatient (CLI) | payer MEDICARE ==
[~2018-09-11] VITALS: Ht 157.5 cm; Wt 50.5 kg
[~2018-09-11 11:13] MED LIST changes: +AMLO10TA5 PO; -BISACODYL 10 MG SUPP PR; -BISACODYL 5 MG TAB PO; +CALC1CAP31 PO; +CARV12.5 PO; +CARV3.12 PO; +COLA100C5 PO; +CYCL1CAP2 PO; +DAILTAB51 PO; +FENO145T13 PO; +FERR1TAB8 PO; +FERR325T3 PO; -FLEET ENEMA PR; +FOLI1TAB11 PO; +GLIM1TAB PO; +GLIM2TA PO; +HYDR-3363 PO; +HYDR-3910 PO; +HYDR-3911 PO; +HYDR10TAB PO; +HYDR50TA PO; +IRBE300T12 PO; +IRON65TA PO; +KLOR10TA76 PO; +LOSA100T8 PO; +LOSA25TA14 PO; +METO1TAB32 PO; +METO5TAB2 PO; +MIRA3350 PO; -MOM 30ML SUSPENSION UDC PO; +MYCO500T PO; +ONDA4TAB6 PO; +PEG1POW PO; +PRED10TA2 PO; +PRED20TA PO; +PROC1INJ2 IV; +PROC20004 SQ; +PROM12.548 PO; +PROTPAK PO; +RANI150T PO; +SENN1TAB2 PO; +TERA2CAP3 PO; +TIZA2TA PO; +TRIC145T22 PO; +VITMTA PO; +ZANA4TAB PO
[2018-09-11 11:45] VITALS: BP 175/77
[2018-09-11] MEDS ORDERED: ACETAMINOPHEN 325 MG TAB PO ONE (12:00)
[2018-09-11] MEDS ORDERED: diphenhydrAMINE 25 MG CAP PO ONE (12:00)
[2018-09-11 15:15] VITALS: BP_SYST 121; BP_SYST 171; BP_DIAS 81
[2018-09-11 17:15] VITALS: BP 179/88
== END 2018-09-11 19:20 | disposition home or self-care (01) ==
LOC: M INFU 11:13 → M MS5PR 11:20 → M INFU 19:20
PROVIDERS: ATTEND Internal Medicine Nephrology
DX: D64.9 Anemia, unspecified (principal)
CPT/HCPCS: 36415; 36430; 86850; 86900; 86901; 86920; P9016

== ENCOUNTER 2018-09-24 12:00 | Outpatient (CLI) | payer MEDICARE ==
[~2018-09-24] VITALS: Ht 157.5 cm; Wt 50.5 kg
[~2018-09-24 12:00] MED LIST changes: +ACETAMINOPHEN TAB 650MG DOSE (2X325MG) PO SCH
[2018-09-24 12:25] VITALS: BP 163/71
[2018-09-24 17:15] VITALS: BP 176/84
[2018-10-01] MEDS ORDERED: METO1TAB32 PO (10:18)
== END 2018-09-24 17:15 | disposition home or self-care (01) ==
LOC: M INFU 12:00
PROVIDERS: ATTEND Internal Medicine Hematology & Oncology
DX: D64.9 Anemia, unspecified (principal); N18.6 End stage renal disease
CPT/HCPCS: 36415; 36430; 85027; 86850; 86900; 86901; 86920; 96372; G0463; J0885; P9016

== ENCOUNTER 2018-10-09 15:57 | Outpatient (CLI) | payer MEDICARE ==
[~2018-10-09] VITALS: Ht 157.5 cm; Wt 50.5 kg
[~2018-10-09 15:57] MED LIST changes: -ACETAMINOPHEN TAB 650MG DOSE (2X325MG) PO SCH; +PROM50TA28 PO
[2018-10-09 16:45] VITALS: BP 162/78
[2018-10-09] MEDS ORDERED: ACETAMINOPHEN 325 MG TAB PO ONE (17:00)
[2018-10-09] MEDS ORDERED: diphenhydrAMINE 25 MG CAP PO ONE (17:00)
[2018-10-09 20:05] VITALS: BP 156/78
[2018-10-09 21:05] VITALS: BP 158/78
[2018-10-09 21:50] VITALS: BP 148/78
[2018-10-09 22:50] VITALS: BP 154/82
[2018-10-09 23:40] VITALS: BP 166/82
[2018-10-10 00:25] VITALS: BP 166/86
[2018-10-10 01:25] VITALS: BP 172/88
[2018-10-10] MEDS ORDERED: amLODIPine 10 MG TAB PO ONE (01:45)
[2018-10-10] MEDS ORDERED: METOPROLOL SUCC *XL* 25MG TAB (TopROL *XL*) PO ONE (01:45)
[2018-10-10 01:50] VITALS: BP 172/88
[2018-10-10 02:15] VITALS: BP 172/88
[2018-10-10 03:15] VITALS: BP 154/78
[2018-10-10 05:40] VITALS: BP 164/84
[2018-10-10] MEDS ORDERED: METOPROLOL SUCC *XL* 25MG TAB (TopROL *XL*) PO SCH (09:00)
== END 2018-10-10 09:00 | disposition home or self-care (01) ==
LOC: M OPCLI4PV 15:57 → M MSPAV 16:03 → M OPCLI4PV 10-10 09:00
PROVIDERS: ATTEND Internal Medicine Nephrology
DX: D61.9 Aplastic anemia, unspecified (principal); N18.6 End stage renal disease
CPT/HCPCS: 36415; 36430; 86850; 86900; 86901; 86920; P9016

== ENCOUNTER → 2018-10-21 | Outpatient (CLI) | payer MEDICARE | LOC: M LAB 15:57 | PROVIDERS: ATTEND Internal Medicine Nephrology | DX: D64.9 Anemia, unspecified (principal) ==

== ENCOUNTER 2018-10-22 11:38 | Outpatient (CLI) | payer MEDICARE ==
[~2018-10-22] VITALS: Ht 154.9 cm; Wt 47.2 kg
[~2018-10-22 11:38] MED LIST changes: +diphenhydrAMINE 25 MG CAP PO SCH
[2018-10-22 12:00] VITALS: BP 186/80
[2018-10-22 17:46] VITALS: BP 164/72
== END 2018-10-22 17:40 | disposition home or self-care (01) ==
LOC: M INFU 11:38
PROVIDERS: ATTEND Internal Medicine Nephrology
DX: D61.9 Aplastic anemia, unspecified (principal); N18.6 End stage renal disease
CPT/HCPCS: 36430; P9016

== ENCOUNTER 2018-11-05 08:00 | Outpatient (CLI) | payer MEDICARE ==
[~2018-11-05] VITALS: Ht 154.9 cm; Wt 47.2 kg
[~2018-11-05 08:00] MED LIST changes: -diphenhydrAMINE 25 MG CAP PO SCH
[2018-11-05 08:05] VITALS: BP 166/69
[2018-11-05] MEDS ORDERED: ACETAMINOPHEN 325 MG TAB PO ONE (08:15)
[2018-11-05 10:00] VITALS: BP 167/71
[2018-11-05 11:00] VITALS: BP 171/77
[2018-11-05 13:00] VITALS: BP 170/70
[2018-11-05 14:45] VITALS: BP_SYST 158; BP_SYST 160; BP_DIAS 70; BP_DIAS 74
== END 2018-11-05 15:00 | disposition home or self-care (01) ==
LOC: M INFU 08:00
PROVIDERS: ATTEND Internal Medicine Nephrology
DX: N18.9 Chronic kidney disease, unspecified (principal); D63.1 Anemia in chronic kidney disease; Z79.899 Other long term (current) drug therapy
CPT/HCPCS: 36430; 86850; 86900; 86901; 86920; P9016

== ENCOUNTER → 2018-11-18 | Outpatient (CLI) | payer MEDICARE | LOC: M LAB 16:46 | PROVIDERS: ATTEND Internal Medicine Nephrology | DX: N18.9 Chronic kidney disease, unspecified (principal); D63.1 Anemia in chronic kidney disease ==

== ENCOUNTER 2018-11-19 09:35 | Outpatient (CLI) | payer MEDICARE ==
[~2018-11-19] VITALS: Ht 152.4 cm; Wt 47.2 kg
[~2018-11-19 09:35] MED LIST changes: +ACETAMINOPHEN 325 MG TAB PO ONE
[2018-11-19 10:06] VITALS: BP 168/76
[2018-11-19 14:36] VITALS: BP 176/84
== END 2018-11-19 14:30 | disposition home or self-care (01) ==
LOC: M INFU 09:35
PROVIDERS: ATTEND Internal Medicine Nephrology
DX: N18.9 Chronic kidney disease, unspecified (principal); D63.1 Anemia in chronic kidney disease
CPT/HCPCS: 36430; P9016

== ENCOUNTER → 2018-12-03 | Outpatient (CLI) | payer MEDICARE ==
[~2018-12-03] MED LIST changes: -ACETAMINOPHEN 325 MG TAB PO ONE
== END ==
LOC: M LAB 12:01
PROVIDERS: ATTEND Internal Medicine Nephrology
DX: D61.9 Aplastic anemia, unspecified (principal); Z01.83 Encounter for blood typing

== ENCOUNTER 2018-12-04 08:27 | Outpatient (CLI) | payer MEDICARE ==
[2018-12-04] VITALS (8 sets, daily range): BP systolic 135–168; BP diastolic 70–88
[~2018-12-04] VITALS: Ht 152.4 cm; Wt 47.2 kg
== END 2018-12-04 14:10 | disposition home or self-care (01) ==
LOC: M INFU 08:27
PROVIDERS: ATTEND Internal Medicine Nephrology
DX: D64.9 Anemia, unspecified (principal)
CPT/HCPCS: 36430; P9016

== ENCOUNTER → 2018-12-13 | Outpatient (CLI) | payer MEDICARE ==
[~2018-12-13] MED LIST changes: -GLIM2TA PO; +GLIM2TAB29 PO; -SENN1TAB2 PO; +SENN1TAB40 PO
== END ==
LOC: M LAB 10:11
PROVIDERS: ATTEND Internal Medicine Nephrology
DX: D64.9 Anemia, unspecified (principal)

== ENCOUNTER 2018-12-14 10:01 | Outpatient (CLI) | payer MEDICARE ==
[~2018-12-14] VITALS: Ht 152.4 cm; Wt 47.2 kg
[2018-12-14] MEDS ORDERED: ACETAMINOPHEN 325 MG TAB PO ONE (10:30)
[2018-12-14 10:50] VITALS: BP 174/80
[2018-12-14 15:15] VITALS: BP 171/74
== END 2018-12-14 15:15 | disposition home or self-care (01) ==
LOC: M INFU 10:01
PROVIDERS: ATTEND Internal Medicine Nephrology
DX: N18.4 Chronic kidney disease, stage 4 (severe) (principal); D63.1 Anemia in chronic kidney disease
CPT/HCPCS: 36430; P9016

== ENCOUNTER → 2018-12-23 | Outpatient (CLI) | payer MEDICARE | LOC: M LAB 16:09 | PROVIDERS: ATTEND Internal Medicine Nephrology | DX: D64.9 Anemia, unspecified (principal) ==

== ENCOUNTER 2018-12-24 08:32 | Outpatient (CLI) | payer MEDICARE ==
[~2018-12-24] VITALS: Ht 152.4 cm; Wt 47.2 kg
[2018-12-24 08:56] VITALS: BP 166/81
[2018-12-24] MEDS ORDERED: ACETAMINOPHEN TAB 650MG DOSE (2X325MG) As Ordered ONE (09:03)
[2018-12-24] MEDS ORDERED: diphenhydrAMINE 25 MG CAP As Ordered ONE (09:04)
[2018-12-24] MEDS ORDERED: diphenhydrAMINE 25 MG CAP PO ONE (09:15)
[2018-12-24] MEDS ORDERED: ACETAMINOPHEN 500 MG TAB PO ONE (09:15)
[2018-12-24 13:51] VITALS: BP 150/70
[2018-12-24 14:15] VITALS: BP 168/85
== END 2018-12-24 14:15 | disposition home or self-care (01) ==
LOC: M INFU 08:32
PROVIDERS: ATTEND Internal Medicine Nephrology
DX: D61.9 Aplastic anemia, unspecified (principal); N18.6 End stage renal disease
CPT/HCPCS: 36430; P9016

== ENCOUNTER 2019-01-04 12:00 | Inpatient (IN) | payer MEDICARE ==
[2019-01-04] VITALS (17 sets, daily range): BP systolic 148–226; BP diastolic 100–128
[~2019-01-04] VITALS: Ht 154.9 cm; Wt 46.5 kg
[~2019-01-04 12:00] MED LIST changes: +METOPROLOL SUCC *XL* 25MG TAB (TopROL *XL*) PO SCH
[2019-01-04] MEDS ORDERED: ONDANSETRON 4MG/2ML VIAL (J2405) IV ONE (12:45)
[2019-01-04 12:54] LABS: BASO % 0.1 % (0.0-1.0); EOS % 0.1 % (0.0-3.0); LYMPH # 1.1 10^3/uL (1.5-4.5); LYMPH % 6.9 % (24.0-44.0); MEAN CORPUSCULAR HEMOGLOBIN 28.5 pg (27.0-33.0); MEAN CORPUSCULAR HGB CONC 33.2 g/dl (32.0-36.5); MONO # 0.9 10^3/uL (0.0-0.8); MONO % 5.9 % (0.0-5.0); NEUTROPHILS # 13.2 10^3/uL (1.8-7.7); NEUTROPHILS % 85.8 % (36.0-66.0); PLATELET COUNT, AUTOMATED 136 10^3/uL (150-450); RED BLOOD COUNT 2.21 10^6/uL (4.00-5.40); VENOUS BASE EXCESS -7.6 (-2.0-2.0); VENOUS HCO3 17.9 MEQ/L (23.0-27.0); VENOUS PARTIAL PRESSURE O2 46.9 mmHg (30.0-50.0); VENOUS PH 7.315 UNITS (7.330-7.430); WHITE BLOOD COUNT 15.4 10^3/uL (4.0-10.0)
[2019-01-04 12:56] LABS: HEMOGLOBIN 6.3 g/dl (12.0-15.5)
[2019-01-04 13:41] LABS: ALBUMIN 3.5 GM/DL (3.2-5.2); BILIRUBIN,DIRECT 0.1 MG/DL (0.0-0.2); BILIRUBIN,TOTAL 0.8 MG/DL (0.2-1.0); CALCIUM LEVEL 8.5 MG/DL (8.8-10.2); CREATININE FOR GFR 6.82 MG/DL (0.55-1.30); GLOMERULAR FILTRATION RATE 6.2 (>39); MB/CK RELATIVE INDEX 8.12 (< OR =4); POTASSIUM SERUM 5.6 MEQ/L (3.5-5.1); TOTAL PROTEIN 8.1 GM/DL (6.4-8.2); TROPONIN I 1.73 NG/ML (< 0.10)
--- NOTE | 2019-01-04 14:00 | REP ---
CHEST, PORTABLE: AP portable view of the chest is performed and compared to a prior study of 08/10/2018. There is mild cardiomegaly. Vasculature is prominent and there are diffuse interstitial and alveolar infiltrates with bilateral pleural effusions layering posteriorly. Findings suggest congestive heart failure and pulmonary edema. Mediastinal silhouette is grossly unremarkable with mild calcification of the thoracic aorta. There are degenerative changes of the spine. There is a right central venous catheter with the tip in the right atrium. IMPRESSION: Mild cardiomegaly. There appears to be vascular congestion with diffuse interstitial and alveolar infiltrates and bilateral pleural effusions most consistent with congestive heart failure and pulmonary edema. Electronically Signed by Germain Sevilla MD 01/04/2019 05:41 P
--- NOTE | 2019-01-04 14:03 | REP ---
CT ABDOMEN/PELVIS WITHOUT IV OR ORAL CONTRAST: HISTORY: Vomiting. Comparison abdomen CT study is from May 03, 2009. CT FINDINGS: Digital preliminary alfalfa dehydrator operator radiograph demonstrates that the arms cannot be raised out of the scanned field of view. Axial CT images show small to moderate bilateral pleural effusions. Pulmonary vascular and interstitial markings are crowded and prominent in the lung bases, question pulmonary edema. There is no evidence of ascites. The liver is normal in size, homogeneous in texture. The spleen is homogeneous and normal in size as well. No abnormalities noted in the gallbladder or pancreas. There is an accessory splenule. No adrenal lesion is observed on either side. There is a dextroconvex lumbar scoliosis. The abdominal aorta is calcified and tortuous but not aneurysmal. The kidneys appear morphologically intact, perhaps somewhat atrophic. No retroperitoneal mass or adenopathy is seen. No gastric or small intestine or large intestinal dilation is seen. No evidence of obstruction. A normal appendix is seen in the right lower quadrant. No abdominal wall defect is observed. No uterine or ovarian abnormality is seen. The urinary bladder is largely empty but appears intact. IMPRESSION: Vascular calcification. Bilateral pleural effusions question pulmonary edema in the lung bases. Vascular calcification. Mildly atrophic appearing kidneys. No acute intra-abdominal abnormality. Electronically Signed by Smith Polanco MD 01/04/2019 03:15 P
[2019-01-04] MEDS ORDERED: NS 500 ML IV ONE (14:15)
[2019-01-04] MEDS ORDERED: PROM50TA28 PO (15:52)
[2019-01-04] MEDS ORDERED: LOSA100T50 PO (15:52)
[2019-01-04] MEDS ORDERED: AMLO10TA5 PO (15:52)
[2019-01-04] MEDS: LOSARTAN 50 MG TAB PO SCH (16:36)
--- NOTE | 2019-01-04 18:12 | HPEPDOC ---
[facility] Medical History & Physical Date of Admission Jan 04, 2019 Primary Care Physician: Megan Avalos N.P. History and Physical CHIEF COMPLAINT: Nausea, vomiting and dizziness and weakness HISTORY OF PRESENT ILLNESS: 78-year-old female with a pertinent past medical history of aplastic anemia, hypertension, AND end-stage renal disease on dialysis M/W/F who presented today to the ER with her daughter for nausea, nonbilious vomiting, dizziness and generalized weakness for last couple of days. The patient was not the best historian and majority of the story was provided by reading the report and nursing. It stated that the patient has been weak for the last 1 week and according to the family the patient has been noncompliant with her medication for a couple of days as well. They state that she's had nausea and nonbilious vomiting for the last couple days no exacerbating factors. The patient does admit to having epigastric discomfort after all the vomiting. She did not go to dialysis as scheduled this morning and presented to the ER for further evaluation. In the ER her heart rate was elevated at 120 irregular, blood pressure 165/76, pulse ox of 91% on room air and her hemoglobin was low at 6.3. VBG pH was acidotic at 7.31. Potassium was elevated at 5.6, lactic acid elevated at 8.3. Troponin 1 was slightly elevated at 1.63. EKG in the ER showed atrial fibrillation with rapid ventricular response with a ventricular rate of 105. There is no Q waves ST depressions or ST elevations noted. Possible steam was then called for admission Dr. Albarado was informed that the patient is going to be admitted and will be dialysis today. PAST MEDICAL HISTORY: 1. Aplastic anemia 2. End-stage renal disease dialysis M/W/F 3. Hypertension PAST SURGICAL HISTORY: 1. Permacath placement August 2018 2. Bone marrow biopsy 2016 SOCIAL HISTORY: Denies illicit drug use smoking alcohol. Lives with her daughter FAMILY HISTORY: Negative for ischemic heart disease, diabetes or kidney disease ALLERGIES: Please see below. REVIEW OF SYSTEMS: Unless stated in HPI. Remaining 11 point review of system is negative HOME MEDICATIONS: Please see below. PHYSICAL EXAMINATION: VITAL SIGNS: Temperature 98.7, pulse 133, respiratory rate 20, blood pressure 161/102 (106), pulse oximetry 91% % on 1 L. GENERAL APPEARANCE: Elderly woman, lying calmly in bed, not in any apparent distress. Pale but appropriately answering questions soft spoken does not appear short of breath and was continued conversation. No accessory muscle use no belly breathing HEENT: Atraumatic normocephalic dry mucous membranes foul-smelling breath LUNGS: Diminished breath sounds bibasilar crackles R>L CARDIOVASCULAR: Irregularly irregular not rate controlled S1-S2 sounds, no murmurs, rubs or gallops. ABDOMEN: Scaphoid abdomen soft slightly tender in the epigastric area hepatomegaly and spleenmegaly noted on exam. Bowel sounds normoactive. EXTREMITIES: No lower extremity edema NEUROLOGICAL: Awake, alert, oriented 3. PSYCHIATRIC: Normal affect LABORATORY DATA: See below. IMAGING: Chest x-ray IMPRESSION: Mild cardiomegaly. There appears to be vascular congestion with diffuse interstitial and alveolar infiltrates and bilateral pleural effusions most consistent with congestive heart failure and pulmonary edema. CT abdomen and pelvis without contrast IMPRESSION: Vascular calcification. Bilateral pleural effusions question pulmonary edema in the lung bases. Vascular calcification. Mildly atrophic appearing kidneys. No acute intra-abdominal abnormality. MICROBIOLOGY: Please see below. ASSESSMENT: 78-year-old female with a pertinent past medical history of aplastic anemia, hypertension, end-stage renal disease on dialysis M/W/F and noncompliance who presented today to the ER with her daughter for nausea, nonbilious vomiting, dizziness and generalized weakness for last couple of days. PLAN: Acute blood loss anemia -Noncompliant with medication History of aplastic anemia -Stool occult in the ER was positive for trace -Colonoscopy and EGD done in 2016 negative for ulcers or polyps Type and screen now, and transfuse 2 units packed RBCs -Will monitor H&H's. If it does not appropriately spontaneous repeat stool occult in the a.m. and consider if GI consult as needed Gastroenteritis -Gastrointestinal panel pending -Afebrile does not appear septic even though lactic acid accumulated to end- stage renal disease as well as history of aplastic anemia -Can be viral versus bacterial -we'll continue to monitor leukocytosis Bilateral pulmonary edema -Hypoxic on room air currently satting appropriately on 1 L of oxygen -Unsure secondary to atrial fibrillation versus underlying valvular disease Patient missed dialysis today -Does appear entirely fluid overloaded but her lungs did have crackles in the lower bases and CT was consistent with bilateral pulmonary edema -She is being dialyzed today. Continue to monitor New-onset atrial fibrillation paroxysmal? Secondary to acute blood loss anemia? vs valvular -EKG in the ER showed -Echocardiogram ordered -c/w home metoprolol succinate 25 mg Daily -No anticoagulation indicated at this time for the patient does have history of aplastic anemia -Monitor telemetry Elevated troponins likely secondary to ischemic demand versus pericarditis less likely CA -EKG negative for acute CA -Continue to trend cardiac markers 2 -echo to assess for wall motion abnormalities -Likely secondary to ischemia demand as well as poor renal clearance secondary to end-stage renal disease Anion gap Metabolic acidemia Anion Gap:16 (Normal 14) -VBG pH 7.31 -Likely secondary to lactic acidosis as well as uremia -Lactic acid elevated at 8.3 -Hemodialysis today and continue to trend Leukocytosis Reactive versus infectious (gastrointestinal?) -Will monitor no antibiotics indicated at this time Thrombocytopenia -Splenic sequestration End-stage renal disease -Dialysis M/W/F -Nephrology consulted History of aplastic anemia Diet -Clear liquid diet DVT prophylaxis -Valentino's and sequential because of history of aplastic anemia Vital Signs Vital Signs Date Time Temp Pulse Resp B/P (MAP) Pulse Ox O2 Delivery O2 Flow Rate FiO2 01/04/19 15:00 132 16 153/102 (119) 94 Room Air 01/04/19 12:01 98.3 Laboratory Data Labs 24H Laboratory Tests 2 01/04/19 12:38: Immature Granulocyte % (Auto) 1.2, White Blood Count 15.4H, Red Blood Count 2.21L, Hemoglobin 6.3*L, Hematocrit 19.0L, Mean Corpuscular Volume 86.0, Mean Corpuscular Hemoglobin 28.5, Mean Corpuscular Hemoglobin Concent 33.2, Red Cell Distribution Width 13.5, Platelet Count 136L, Neutrophils (%) (Auto) 85.8H, Lymphocytes (%) (Auto) 6.9L, Monocytes (%) (Auto) 5.9H, Eosinophils (%) (Auto) 0.1, Basophils (%) (Auto) 0.1, Neutrophils # (Auto) 13.2H, Lymphocytes # (Auto) 1.1L, Monocytes # (Auto) 0.9H, Eosinophils # (Auto) 0.0, Basophils # (Auto) 0.0, Nucleated Red Blood Cells % (auto) 0.0, Blood Gas Bicarbonate Standard 18.0, Venous Blood pH 7.315L, Venous Blood Partial Pressure CO2 36.0L, Venous Blood Partial Pressure O2 46.9, Venous Blood Total Carbon Dioxide 19.0L, Venous Blood HCO3 17.9L, Venous Blood Oxygen Saturation 79.0, Venous Blood Base Excess -7.6L, Anion Gap 16, Glomerular Filtration Rate 6.2L, Calcium Level 8.5L, Aspartate Amino Transf (AST/SGOT) 49H, Alanine Aminotransferase (ALT/SGPT) 47, Alkaline Phosphatase 91, Total Bilirubin 0.8, Direct Bilirubin 0.1, Total Creatine Kinase 128, Creatine Kinase MB 10.0H, Creatine Kinase MB Relative Index 8.12H, Troponin I 1.73*H, Total Protein 8.1, Albumin 3.5, Albumin/Globulin Ratio 0.76L, Lipase 165 01/04/19 12:41: Lactic Acid Level 8.3*H CBC/BMP Laboratory Tests 01/04/19 12:38 Red Blood Count 2.21 L, Mean Corpuscular Volume 86.0, Mean Corpuscular Hemog lobin 28.5, Mean Corpuscular Hemoglobin Concent 33.2, Red Cell Distribution Width 13.5, Neutrophils (%) (Auto) 85.8 H, Lymphocytes (%) (Auto) 6.9 L, Monocytes (%) (Auto) 5.9 H, Eosinophils (%) (Auto) 0.1, Basophils (%) (Auto) 0.1, Neutrophils # (Auto) 13.2 H, Lymphocytes # (Auto) 1.1 L, Monocytes # (Auto) 0.9 H, Eosinophils # (Auto) 0.0, Basophils # (Auto) 0.0 Microbiology Microbiology 01/04/19 Blood Culture, Received Pending 01/04/19 Blood Culture, Received Pending Home Medications Scheduled Amlodipine Besylate (Amlodipine Besylate) 10 Mg Tablet, 10 MG PO QHS Eltrombopag Olamine (Promacta) 50 Mg Tablet, 50 MG PO DAILY Losartan Potassium (Losartan Potassium) 100 Mg Tablet, 100 MG PO DAILY Metoprolol Succinate (Metoprolol Succinate) 25 Mg Tab, 25 MG PO DAILY Multivitamin (Daily Jose Juan) 1 Tab Tab, 1 TAB PO QHS Allergies Coded Allergies: No Known Allergies (Unverified , 02/23/18) GME ATTESTATION GME ATTESTATION My faculty preceptor for this patient encounter was physically present during the encounter and was fully available. All aspects of the patient interview, examination, medical decision making process, and medical care plan development were reviewed and approved by the faculty preceptor. The faculty preceptor is aware and concurs with the plan as stated in the body of this note and will attest to such by his/her cosignature. ARA NEFF DO Jan 04, 2019 18:10
[2019-01-04] MEDS: amLODIPine 10 MG TAB PO SCH (20:19)
[2019-01-04] MEDS ORDERED: METOPROLOL 5 MG/5 ML VIAL IV ONE (20:30)
[2019-01-04] MEDS ORDERED: hydrALAZINE INJ 20 MG/ML VIAL IV ONE (22:15)
[2019-01-04 23:02] LABS: MB/CK RELATIVE INDEX 5.99 (< OR =4); TROPONIN I 3.75 NG/ML (< 0.10)
[2019-01-04] MEDS: METOPROLOL 5 MG/5 ML VIAL IV PRN (23:06)
[2019-01-05] VITALS (37 sets, daily range): BP systolic 114–222; BP diastolic 54–109
[2019-01-05] MEDS ORDERED: NITROGLYCERIN 0.4 MG SUBL TABLET SL PRN
[2019-01-05] MEDS: ATORVASTATIN 20 MG TAB PO SCH ×3 (00:15→09:00)
[2019-01-05] MEDS: ASPIRIN 81 MG ENTERIC TAB PO SCH ×2 (00:15)
--- NOTE | 2019-01-05 00:16 | IPNPDOC ---
Text Note Date of Service The patient was seen on 01/05/19. NOTE NIGHT FLOAT NOTE Pt noted to have rising troponin from 1.73 on admission to 3.75 overnight. Chart reviewed and pt examined at bedside. Noted to be asymptomatic, resting comfortably, in NAD, and denies any cp, sob, abd pain, dizziness, lightheadedness. Hemodynamically stable. EKG obtained reveals ST depressions in precordial leads V4-V6, new compared to prior EKG. Pt already on B-Rebeca. Pt discussed with Cardio supervisor precision optical elements, who recommended starting baby ASA, statin, nitro, and to continue current med regimen and monitor progression, without Plavix or AC. It appears pt has had mild troponin elevations in the past, but none to this degree. Although there are multiple factors that could be contributing, including baseline ESRD dialyzed earlier today, aplastic anemia, new pleural effusions/possible CHF, ?new Afib RVR, given her ST depressions and significant troponin level, will proceed with tx as NSTEMI. Cardio has been consulted. Appreciate input. Repeat cardiac markers and EKG have been ordered for the am. VS,Fishbone, I+O VS, Fishbone, I+O Laboratory Tests 01/04/19 12:38 Red Blood Count 2.21 L, Mean Corpuscular Volume 86.0, Mean Corpuscular Hemoglobin 28.5, Mean Corpuscular Hemoglobin Concent 33.2, Red Cell Distribution Width 13.5, Neutrophils (%) (Auto) 85.8 H, Lymphocytes (%) (Auto) 6.9 L, [place] cytes (%) (Auto) 5.9 H, Eosinophils (%) (Auto) 0.1, Basophils (%) (Auto) 0.1, Neutrophils # (Auto) 13.2 H, Lymphocytes # (Auto) 1.1 L, Monocytes # (Auto) 0.9 H, Eosinophils # (Auto) 0.0, Basophils # (Auto) 0.0 Vital Signs Date Time Temp Pulse Resp B/P (MAP) Pulse Ox O2 Delivery O2 Flow Rate FiO2 01/04/19 23:06 101 218/112 01/04/19 20:00 4.0 01/04/19 16:00 98.7 20 91 Nasal Cannula I&O- Last 24 Hours up to 6 AM 01/05/19 06:00 Intake Total 500 ml Output Total 400 ml Balance 100 ml GME ATTESTATION GME ATTESTATION My faculty preceptor for this patient encounter was physically present during the encounter and was fully available. All aspects of the patient interview, examination, medical decision making process, and medical care plan development were reviewed and approved by the faculty preceptor. The faculty preceptor is aware and concurs with the plan as stated in the body of this note and will attest to such by his/her cosignature. HENRI VAUGHN DO Jan 05, 2019 00:16 TOMAS VALLE MD Jan 05, 2019 05:08
[2019-01-05 00:54] LABS: HEMATOCRIT 28.5 % (36.0-47.0)
[2019-01-05 01:19] LABS: HEMOGLOBIN 9.9 g/dl (12.0-15.5)
--- NOTE | 2019-01-05 01:35 | ECGEPIP ---
Stationary ECG Study [facility] - ED Test Date: 2019-01-04 Pat Name: NISREEN GA Department: Room: - Gender: F Director Of State: : 1940 Requested By: MALIK Boone Order Number: [id number] Reading MD: Edgar Carver Measurements Intervals [place] Rate: 105 P: MN: 0 QRS: 86 QRSD: 90 T: 57 QT: 343 QTc: 453 Interpretive Statements ATRIAL FIBRILLATION WITH RAPID VENTRICULAR RESPONSE MODERATE ST DEPRESSION RHYTHM/RATE CHANGE COMPARED TO 08/10/18 Electronically Signed On 01-05-2019 1:34:47 EDT by Edgar Carver
[2019-01-05] MEDS ORDERED: METOPROLOL 5 MG/5 ML VIAL IV STA (01:51)
[2019-01-05] MEDS ORDERED: NITROGLYCERIN 2% OINT 1 GM *U/D* PKT TOP ONE (02:00)
[2019-01-05 05:21] LABS: HEMATOCRIT 26.3 % (36.0-47.0); HEMOGLOBIN 9.1 g/dl (12.0-15.5); MEAN CORPUSCULAR HEMOGLOBIN 29.4 pg (27.0-33.0); MEAN CORPUSCULAR HGB CONC 34.6 g/dl (32.0-36.5); MEAN CORPUSCULAR VOLUME 84.8 fl (80.0-96.0); WHITE BLOOD COUNT 13.4 10^3/uL (4.0-10.0)
[2019-01-05 05:48] LABS: PLATELET COUNT, AUTOMATED 89 10^3/uL (150-450)
[2019-01-05 05:50] LABS: CALCIUM LEVEL 8.1 MG/DL (8.8-10.2); CREATININE FOR GFR 3.1 MG/DL (0.55-1.30); GLOMERULAR FILTRATION RATE 15.5 (>39); MB/CK RELATIVE INDEX 4.66 (< OR =4); POTASSIUM SERUM 4.2 MEQ/L (3.5-5.1); TROPONIN I 3.25 NG/ML (< 0.10)
[2019-01-05] MEDS: METOPROLOL 5 MG/5 ML VIAL IV PRN (06:14)
[2019-01-05] MEDS ORDERED: **hydrALAZINE** 10 MG TAB PO PRN (07:45)
[2019-01-05] MEDS: hydrALAZINE INJ 20 MG/ML VIAL IV SCH ×4 (08:34→21:33)
--- NOTE | 2019-01-05 08:42 | CR ---
DATE OF CONSULTATION: 01/05/2019 I was asked to see Mrs. Espitia because of elevated troponin and atrial fibrillation. She is a 78-year old female who is previously unknown to me. Her baseline medical issue is chronic aplastic anemia, for which she has been receiving Procrit and intermittent transfusions, together with end-stage renal disease on dialysis since August 2018. She came to emergency room yesterday after several days of nausea and vomiting. She was found to be in atrial fibrillation with rapid ventricular response and her troponin was elevated. Her ECG revealed atrial fibrillation and there were nonspecific repolarization abnormalities. She was admitted to the hospital because she missed her dialysis on Friday and was briefly dialyzed last night with removal of about 400 mL of volume. Overnight she did relatively well, has been alternating between sinus rhythm and atrial fibrillation, even though most of the time she was in sinus rhythm and this morning she seems comfortable. Unfortunately, there is a considerable language barrier and to obtain relevant history has been challenging. Nevertheless, she seems to deny any chest discomfort or shortness of breath. She continues to claim that she is dying though. We are hoping that when her daughter arrives we will be able to get a little bit better assessment of her condition because the communication is certainly a significant problem. To the best of my understanding the patient does not carry a history of coronary artery disease. I could not find any evidence for prior cardiac evaluation in her history or available test in the hospital. PAST MEDICAL HISTORY: 1. End-stage renal disease on dialysis as above. She normally gets dialyzed on Friday, Friday and Friday. 2. History of aplastic anemia. She was followed by oncology but now is handled mostly by nephrology. She is on Epogen and iron supplementation. 3. Hypertension. SURGICAL HISTORY: Essentially negative. She had bone marrow biopsy and PermaCath placement. SOCIAL HISTORY: The patient is a lady. She speaks limited Divehi. She lives with her daughter. There is no history of alcohol or smoking. FAMILY HISTORY: Negative for diabetes, ischemic heart disease or kidney disease based on hospital records. OUTPATIENT MEDICATIONS: - amlodipine 10 mg a day - Promacta 50 mg a day - losartan 100 mg a day - metoprolol 25 mg a day - multivitamin ALLERGIES: She has no known medication allergies. REVIEW OF SYSTEMS: Apparently there was no clear cut melena. There was no hematemesis. There was no chest pain. No obvious shortness of breath. No syncope, near syncope. She had nausea, vomiting, and generalized malaise which had been going on for few days. PHYSICAL EXAMINATION: Mrs. Espitia is a slim elderly woman, she appears to be comfortable in no apparent distress even though she repeatedly states that she is dying. Her last blood pressure was documented at 193/104, heart rate has been mostly in 80s and 90s, overwhelming majority of time sinus rhythm. I reviewed her telemetry tracing and there were occasional brief episodes of atrial fibrillation with rapid ventricular response. No ventricular arrhythmias. Her JVP does not look high. Lungs are reasonably clear. Heart exam reveals a regular rhythm. There is a relatively high-pitched murmur best heard over the left lower sternum, about 2/6 in intensity radiating towards her neck. I would do not appreciate any murmur at the apex. No gallop or rub. Abdomen is soft without obvious tenderness, very slim. Extremities are free of edema. Neurologically she has intact speech and she moves all four extremities. I am not completely certain that she is fully oriented though. Peripheral pulses are palpable. LABORATORIES: Her CBC as of yesterday revealed hemoglobin 6.3 and hematocrit 29 and after 2 units of blood her hemoglobin is 9.1, hematocrit 26 this morning. WBC count is 13.4 and platelet count 89,000. Basic metabolic panel as of this morning sodium 136, potassium 4.2, BUN 33, creatinine 3.1, GFR 15 and glucose 131. She had three sets of cardiac enzymes. The initial troponin was 0.173. The second one was 3.75 and this morning 3.25, total CK peaked at 192 and CK-MB peaked at 12.0, albumin is 3.5. She had a CT of the abdomen and pelvis that besides vascular calcifications and atrophic kidneys, did not reveal any additional intra-abdominal pathology. There were pleural effusions. Chest x-ray revealed mild cardiomegaly and abnormalities suggestive of congestive heart failure. ASSESSMENT/PLAN: Mrs. Espitia is an elderly female who has end-stage renal disease and is on dialysis. She did not have any prior history of coronary artery disease to the best of my knowledge. She presented with atrial fibrillation with RVR in the setting of severe anemia, nausea and vomiting and missed dialysis. She certainly is seriously ill. Unfortunately, the management at this point is very jeopardized by her refusal to take medications. She refused to take aspirin. She also refused to take all the remaining oral medications. Consequently, we will have to address this issue first. I will leave this segment to her primary team and nephrology who have known the patient for a long time. Apparently her daughter will be arriving to the hospital shortly so these issues can be addressed. Provided she agrees to full medical support, which I am doubtful of, then the cardiovascular management is certainly very jeopardized by her anemia. She apparently had weakly positive guaiac positive stools and consequently full anticoagulation is probably not an option. Also, the prospect for coronary intervention is certainly problematic for the same reason. At this point I would continue monitoring her. We will see whether her hemoglobin stabilizes and platelet count does not drop further and I would focus on controlling hemodynamics. I ordered for her to be given intravenous hydralazine and hopefully she can be dialyzed again, which in my opinion will help her blood pressure as well. Also, her statin and beta warren will be continued. My initial impression though is that the patient is approaching the end of her life and we will most likely be very conservative. RAULITO
--- NOTE | 2019-01-05 08:49 | CR ---
DATE OF CONSULTATION: 01/04/2019 CONSULTATION FOR: Brian Shannon MD REASON FOR CONSULTATION: Is to assist in the management of end-stage renal disease and associated complications. HISTORY OF PRESENT ILLNESS: Mrs. Espitia is a 78-year-old female with known history of hypertension, end-stage renal disease with necrotizing glomerulonephritis, aplastic anemia, and end-stage renal disease. She has been dialysis dependent and also transfusion dependent. She has not responded to high-dose erythropoiesis-stimulating agent (CORTES). She presented to dialysis treatment today and was very confused and disoriented due to which she was sent to the emergency room. She was found to have elevated lactic acid level and was confused. She is admitted with possible sepsis. The patient was due for dialysis today, and a nephrology consultation is requested. She is seen on her bedside. PAST MEDICAL AND SURGICAL HISTORY: Is significant for: 1. Hypertension. 2. End-stage renal disease secondary to necrotizing glomerulonephritis. 3. Aplastic anemia. PAST SURGICAL HISTORY: Is significant for: 1. PermCath placement. 2. Bone marrow biopsy. PERSONAL AND SOCIAL HISTORY: The patient lives with her daughter and does not smoke or drink. FAMILY HISTORY: Is negative for end-stage renal disease. MEDICATIONS: Her home medications include: - amlodipine 10 mg daily - Prometa 50 mg daily - losartan 100 mg daily - metoprolol 25 mg daily - multivitamin tablet daily ALLERGIES: She has no known drug allergies. REVIEW OF SYSTEMS: The patient is quite confused and disoriented. She is not able to provide any reliable information. There is no known history of high-grade fever at home. Her oral intake has been poor but no vomiting or diarrhea reported by her family. The patient is quite vague at this time and not able to answer questions appropriately. No other relevant information is available at present, and the rest of her review of system is negative. PHYSICAL EXAMINATION: Chronically ill-looking elderly female lying in the bed without any acute distress. Temperature 98.7 degrees Fahrenheit, heart rate 130 per minute, and respiratory rate 20 per minute. Blood pressure 160/102 mmHg and oxygen saturation 91% on 2 liters oxygen. Head is atraumatic. She has no oral thrush or ulcers. Neck is supple and without jugular venous distention (JVD) or thyroid enlargement. Heart sounds are tachycardiac and irregular in rhythm. Lungs: Clear to auscultation. Abdomen: Soft and bowel sounds are present. Extremities: Without any cyanosis or clubbing. Neurologically, she is confused and disoriented. Skin has no rash or ulcers. LABORATORY DATA: WBC count 15.4, hemoglobin 6.3, and hematocrit 19. Platelets 136. Sodium 137, potassium 5.6, CO2 18, BUN 77, and creatinine 6.82. Lactic acid level was initially 8.3 and calcium 8.5. Troponin 1.73. PROBLEMS: 1. End-stage renal disease. The patient is due for dialysis today and will be dialyzed this afternoon. 2. Hyperkalemia. This is mild and will be corrected with dialysis. No other intervention will be needed. 3. Hypertension, uncontrolled. The patient has not been taking her medications appropriately. I would suggest to resume her beta warren and calcium channel warren along with angiotensin receptor warren. Will need to monitor her blood pressure closely. Her volume status is well compensated, or it could be slightly depleted. We will replace her volume during dialysis if needed. 4. Anemia. She has known history of aplastic anemia and has not responded to medical treatment. She has been transfusion dependent and receives blood transfusions every couple of weeks. We will try to transfuse her during dialysis today with 2 units of packed red blood cells (RBCs). 5. Elevated troponin. She does have initial troponin elevated and will need a followup troponin level and close monitoring. I am not sure if the patient will be willing to go for intervention. It remains to be seen how her condition evolves. Thank you for involving me in the care of Mrs. Espitia. I will follow her along with you.
[2019-01-05] MEDS: METOPROLOL SUCC *XL* 25MG TAB (TopROL *XL*) PO SCH ×2 (08:58→21:34)
[2019-01-05] MEDS: LOSARTAN 50 MG TAB PO SCH (08:59)
--- NOTE | 2019-01-05 20:34 | ECHO ---
DATE OF PROCEDURE: 01/05/2019 REFERRING PHYSICIAN: Dr. Singh HEIGHT: 155 cm WEIGHT: 45 kg DIMENSIONS: IVS: 1.2 LV: 4.3 LVPW: 1.5 LA: 4.0 Aorta: 2.9 IVC: 2.1 Mitral E wave velocity: 125 A wave: 58 E prime septal: 7.1 E prime lateral: 9.8 FINDINGS: The study is of good technical quality. Left ventricle is normal size and systolic function with estimated ejection fraction (EF) around 55-60%, moderate left ventricle hypertrophy is noted. Right ventricle appears normal size and systolic function. Both atria appear at least mildly enlarged. Aortic valve is heavily sclerotic but mobility is preserved. Mitral, tricuspid and pulmonic valves were reasonably well seen and appear grossly normal. No pericardial effusion is noted. Inferior vena cava is dilated, and there is limited collapse with respiration indicative of high central venous pressure. Aortic root is normal. Aortic arch and abdominal aorta were poorly seen. Doppler interrogation of aortic valve reveals mild insufficiency. No significant stenosis. There is approximately moderate mitral and tricuspid insufficiency. Calculated pulmonary artery pressure is at a minimum in high 50s to low 60s corresponding to moderately severe pulmonary hypertension. Mild pulmonic insufficiency is noted. Mitral inflow pattern and tissue Doppler imaging of mitral annulus revealed grade 2 diastolic dysfunction indicative of elevated left ventricle end-diastolic pressure. CONCLUSIONS: 1. Study is of good technical quality. 2. Normal left ventricular (LV) size with moderate left ventricular hypertrophy (LVH) and preserved LV systolic function, grade 2 diastolic dysfunction. 3. Aortic sclerosis but no significant stenosis and mild insufficiency. 4. Mild mitral and tricuspid insufficiency. 5. High central venous pressure and moderately severe pulmonary hypertension. 6. Bilateral pleural effusions. COMMENTS: Subacute bacterial endocarditis (SBE) prophylaxis is not recommended. Study is consistent with hypertensive heart disease and diastolic congestive heart failure.
--- NOTE | 2019-01-05 21:22 | ECGEPIP ---
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
--- NOTE | 2019-01-05 21:27 | ECGEPIP ---
Stationary ECG Study [facility] Test Date: 2019-01-05 Pat Name: NISREEN GA Department: Room: [place] [address] Gender: F Quality Control Assistant: LOYD : 1940 Requested By: HENRI VAUGHN Order Number: [id number] Reading MD: Kolby Mora Measurements Intervals [place] Rate: 89 P: 85 FL: 123 QRS: 77 QRSD: 93 T: 93 QT: 424 QTc: 516 Interpretive Statements SINUS RHYTHM Prolonged QTc evolving ST-T wave abnormalities Electronically Signed On 01-05-2019 21:27:08 EDT by Kolby Mora
[2019-01-05] MEDS: amLODIPine 10 MG TAB PO SCH (21:33)
--- NOTE | 2019-01-05 21:38 | IPNPDOC ---
Date Seen The patient was seen on 01/05/19. Progress Note SUBJECTIVE: Patient with history of noncompliance. During my visit patient seemed more cooperative alleged take her medication including statin. Social workers was able to pull out a form that showedpatient requests CPR if necessary. I'm not sure if patient understand by not being compliant with her medication that aggressive therapy including CPR may be futile. We'll try to address this issue with the help of Dr. Albarado and her family when available. OBJECTIVE PHYSICAL EXAMINATION: VITAL SIGNS: Please see below. GENERAL APPEARANCE: Resting comfortably HEENT: Normocephalic, PERRLA, Mucous moist, CARDIOVASCULAR: S1,S2, pulse present, regularly, regular LUNGS: Equal air entry b/l ABDOMEN: Soft, BS present, no tenderness, no guarding EXTREMITIES: B/L no edema, capillary refill present SKIN: Warm, No fever NEUROLOGICAL: Cranial nerves grossly intact PSYCHIATRIC: Normal mood and affect for current situation LABORATORY DATA, IMAGING STUDIES, MICROBIOLOGY: Please see below. 78-year-old female with a pertinent past medical history of aplastic anemia, hypertension, AND end-stage renal disease on dialysis M/W/F who presented today to the ER with her daughter for nausea, nonbilious vomiting, dizziness and generalized weakness for last couple of days. The patient was not the best historian and majority of the story was provided by reading the report and nursing. It stated that the patient has been weak for the last 1 week and according to the family the patient has been noncompliant with her medication for a couple of days as well. They state that she's had nausea and nonbilious vomiting for the last couple days no exacerbating factors. The patient does admit to having epigastric discomfort after all the vomiting. She did not go to dialysis as scheduled this morning and presented to the ER for further evaluation. In the ER her heart rate was elevated at 120 irregular, blood pressure 165/76, pulse ox of 91% on room air and her hemoglobin was low at 6.3. VBG pH was acidotic at 7.31. Potassium was elevated at 5.6, lactic acid elevated at 8.3. Troponin 1 was slightly elevated at 1.63. EKG in the ER showed atrial fibrillation with rapid ventricular response with a ventricular rate of 105. There is no Q waves ST depressions or ST elevations noted. Possible steam was then called for admission Dr. Albarado was informed that the patient is going to be admitted and will be dialysis today. PROBLEMS: Acute blood loss anemia, improved -Noncompliant with medication History of aplastic anemia -Stool occult in the ER was positive for trace -Colonoscopy and EGD done in 2016 negative for ulcers or polyps Type and screen now, and transfuse 2 units packed RBCs -Will monitor H&H's. If it does not appropriately spontaneous repeat stool occult in the a.m. and consider if GI consult as needed Gastroenteritis -Gastrointestinal panel pending -Afebrile does not appear septic even though lactic acid accumulated to end- stage renal disease as well as history of aplastic anemia -Can be viral versus bacterial -we'll continue to monitor leukocytosis Bilateral pulmonary edema -Hypoxic on room air currently satting appropriately on 1 L of oxygen -Unsure secondary to atrial fibrillation versus underlying valvular disease HD with renal -Does appear entirely fluid overloaded but her lungs did have crackles in the lower bases and CT was consistent with bilateral pulmonary edema New-onset atrial fibrillation paroxysmal? Secondary to acute blood loss anemia? vs valvular -EKG in the ER showed -Echocardiogram ordered -c/w home metoprolol succinate 25 mg Daily -No anticoagulation indicated at this time for the patient does have history of aplastic anemia -Monitor telemetry Elevated troponins likely secondary to ischemic demand versus pericarditis less likely UT -EKG negative for acute UT -echo to assess for wall motion abnormalities -Likely secondary to ischemia demand as well as poor renal clearance secondary to end-stage renal disease -dr. Schaeffer on board -patient at times refused therapy, will encourage and explain risk and benefit -told she wants CPR but not sure if she understand non compliance will make CPR futile or not as beneficial if that time arrives Anion gap Metabolic acidemia Anion Gap:16 (Normal 14) -VBG pH 7.31 -Likely secondary to lactic acidosis as well as uremia -Lactic acid elevated at 8.3 -Hemodialysis today and continue to trend Leukocytosis Reactive versus infectious (gastrointestinal?) -Will monitor no antibiotics indicated at this time Thrombocytopenia -Splenic sequestration End-stage renal disease -Dialysis M/W/F -Nephrology consulted History of aplastic anemia Diet -Clear liquid diet DVT prophylaxis -Valentino's and sequential because of history of aplastic anemia VS, I&O, 24H, Fishbone Vital Signs/I&O Vital Signs Date Time Temp Pulse Resp B/P (MAP) Pulse Ox O2 Delivery O2 Flow Rate FiO2 01/05/19 17:24 148/62 01/05/19 16:00 2.0 01/05/19 16:00 100.1 93 18 94 01/04/19 16:00 Nasal Cannula I&O- Last 24 Hours up to 6 AM 01/05/19 06:00 Intake Total 530 ml Output Total 400 ml Balance 130 ml Laboratory Data 24H LABS Laboratory Tests 2 01/04/19 22:11: Total Creatine Kinase 192, Creatine Kinase MB 12.0H, Creatine Kinase MB Relative Index 5.99H, Troponin I 3.75#*H 01/05/19 05:05: Total Creatine Kinase 174, Creatine Kinase MB 8.0H, Creatine Kinase MB Relative Index 4.66H, Troponin I 3.25*H, Nucleated Red Blood Cells % (auto) 0.0, Immature Platelet Fraction 1.9, Anion Gap 5L, Glomerular Filtration Rate 15.5L, Blood Urea Nitrogen 33#H, Creatinine 3.10#H, Sodium Level 136, Potassium Level 4.2#, Chloride Level 101, Carbon Dioxide Level 30, Calcium Level 8.1L, Magnesium Level 2.0 CBC/BMP Laboratory Tests 01/05/19 00:11 01/05/19 05:05 Red Blood Count 3.10 L, Mean Corpuscular Volume 84.8, Mean Corpuscular Hemoglobin 29.4, Mean Corpuscular Hemoglobin Concent 34.6, Red Cell Distribution Width 13.2, Calcium Level 8.1 L, Total Creatine Kinase 174 Microbiology Microbiology 01/04/19 Blood Culture - Preliminary, Resulted No growth after 24 hours . All specim... 01/04/19 Blood Culture - Preliminary, Resulted No growth after 24 hours . All specim... MIKE STEPHEN MD Jan 05, 2019 21:38
[2019-01-06] VITALS (7 sets, daily range): BP systolic 143–172; BP diastolic 68–83
[2019-01-06] MEDS: hydrALAZINE INJ 20 MG/ML VIAL IV SCH ×6 (00:25→20:18)
[2019-01-06 05:58] LABS: HEMATOCRIT 25.5 % (36.0-47.0); HEMOGLOBIN 8.6 g/dl (12.0-15.5); MEAN CORPUSCULAR HGB CONC 33.7 g/dl (32.0-36.5); MEAN CORPUSCULAR VOLUME 85.9 fl (80.0-96.0); RED BLOOD COUNT 2.97 10^6/uL (4.00-5.40); WHITE BLOOD COUNT 9.7 10^3/uL (4.0-10.0)
[2019-01-06 06:02] LABS: PLATELET COUNT, AUTOMATED 98 10^3/uL (150-450)
[2019-01-06 06:13] LABS: CALCIUM LEVEL 7.8 MG/DL (8.8-10.2); CREATININE FOR GFR 4.69 MG/DL (0.55-1.30); GLOMERULAR FILTRATION RATE 9.6 (>39); MAGNESIUM LEVEL 2.1 MG/DL (1.8-2.4); POTASSIUM SERUM 3.7 MEQ/L (3.5-5.1)
[2019-01-06] MEDS: ATORVASTATIN 20 MG TAB PO SCH (06:22)
[2019-01-06] MEDS: LOSARTAN 50 MG TAB PO SCH (06:26)
--- NOTE | 2019-01-06 08:03 | IPN ---
DATE: 01/06/2019 Mrs. Espitia is like a new person today. She is completely alert and oriented and appropriate and can speak fluent Lithuanian without any difficulty. She tells me that she feels much better. Denies any chest discomfort or sensation of palpitations or shortness of breath. When asked, she says that she believes that she may have had chest pain many days ago, but she cannot recall any details of it. Her echocardiogram yesterday revealed finding consistent with hypertensive heart disease. She had approximately moderate mitral and tricuspid insufficiency, high central venous pressure and moderately severe pulmonary hypertension. She had also prominent aortic sclerosis, but only trivial stenosis. PHYSICAL EXAMINATION: Frail, elderly, female. Blood pressure documented 143/70. Heart rate has been mostly in 80s and sinus rhythm. She had only a very brief episode of atrial fibrillation that lasted less than a minute. Saturation 97% on 2 liters of oxygen and she remained afebrile. Yesterday, her fluid balance was 700 positive. She was not dialyzed so she made no urine. Weight is 45.7 kg. She is alert and oriented and appropriate. She has a dialysis catheter. Her jugular venous pulse (JVP) does not appear overly high. Lungs are relatively clear, but for diminished breath sounds over both bases. Heart exam reveals a regular rhythm. There is a murmur heard at the apex and left lower sternal border, maybe 2/6 intensity, somewhat high pitched. Abdomen is soft. No tenderness and no rebound tenderness. No peripheral edema. Neurologically, she appears intact. LABORATORIES: CBC today reveals WBC count 9.7, hemoglobin 8.6, hematocrit 25, platelet count 98,000. Basic metabolic panel with sodium 135, potassium 3.7, BUN 60, creatinine 4.7 and glucose 128. ASSESSMENT/PLAN: Mrs. Espitia is a 78-year-old female who has been dialysis dependent for less than a year after presentation with glomerulonephritis. She also has aplastic anemia and requires intermittent blood transfusions. She presented with atrial fibrillation with rapid ventricular response in setting of severe anemia and missed dialysis. I was originally told that she had nausea, vomiting and was not taking her medications, but now I am not certain whether this information was accurate. Nevertheless, as far as the heart is concerned, there are several issues. First of all is the atrial fibrillation. She is back in sinus rhythm and has been for the most part. I do not believe that we can safely anticoagulate her with a low platelet count and anemia where her baseline hemoglobin is typically rather low to start with. Consequently, I would give her only aspirin and I would continue her beta blockers. Provided there should be frequent relapses, then amiodarone can be considered. The second issue is that of troponin elevation. There are no visible wall motion abnormalities on her echocardiogram and when she presented she was tachycardiac and she was quite severely anemic and her blood pressure was also extremely high. Again, with her severe anemia and a baseline thrombocytopenia, I think she is not a good candidate for interventions because the risk of dual antiplatelet therapy certainly would be rather high. Consequently, I would focus on medical management at this point. She is on high-dose statin and she is on beta-blockers and we have to accomplish better blood pressure control. Her current medications for blood pressure include her chronic dose of amlodipine 10 mg a day, 100 mg of losartan and she has been receiving metoprolol 25 twice a day. She is written for as needed hydralazine that she has been receiving. Will see what her blood pressure will be after dialysis. She certainly is volume overloaded, even though she does not appear as such, systemically volume overloaded. Hopefully, after removal of fluids, blood pressure will come down, which I think is likely. It is possible that some of her medications will have to be administered only on non dialysis days. Tentatively, we can plan on further evaluation on an outpatient basis, but my gut feeling is that she will remain with purely medical management.
[2019-01-06] MEDS: ASPIRIN 81 MG ENTERIC TAB PO SCH (08:53)
[2019-01-06] MEDS: METOPROLOL SUCC *XL* 25MG TAB (TopROL *XL*) PO SCH ×2 (08:53→21:09)
--- NOTE | 2019-01-06 09:16 | IPN ---
DATE OF SERVICE: 01/05/2019 SUBJECTIVE: The patient is seen and examined at the bedside in the intensive care unit. There is no family present at the time of my visit and the patient is only able to provide a limited history. She denies chest pain or shortness of breath at rest. She complains of feeling overall weak and tired. She was dialyzed yesterday, but she cannot recall her treatment. She seems frustrated by the same. She has received a total of two units of packed red cells with improvement in her hemoglobin and hematocrit. Her blood pressures have improved as well. VITAL SIGNS: Temperature 98.6, pulse 95, respiratory rate 18, blood pressure systolic 110s to 160, diastolic 50s to 80, saturating 94% on 2 liters nasal cannula. Weight on the bed scale today 45.4 kg. GENERAL: The patient is seen lying in bed, thin and elderly appearing female, frail, in no acute distress. HEAD: Atraumatic. NECK: Supple. Jugular veins are not elevated. LUNGS: Clear to auscultation. Neck veins are not elevated. CARDIAC: Regular heart rate with a systolic murmur. ABDOMEN: Soft and nontender. EXTREMITIES: Negative for edema. There is a tunneled PermaCath present in the right chest wall. She is cooperative with physical exam and answers some simple questions appropriately. LABS: White count 13.4, hemoglobin 9.1, platelets 89. Sodium 136, potassium 4.2, troponin 3.2, magnesium 2.0. Blood cultures no growth for 24 hours times two sets. INPATIENT MEDICATIONS: She continues on amlodipine and losartan with hydralazine as needed and metoprolol 25 mg twice a day. PROBLEMS: 1. End stage renal disease on hemodialysis. She was dialyzed yesterday with minimal fluid removed and with transfusion of packed red blood cells. Her electrolytes are volume status are acceptable. Her next dialysis will be on Friday. 2. Hypertension. Previously uncontrolled, now with improved readings. She continues on metoprolol, amlodipine and losartan. Cardiology has also added as needed hydralazine. Her blood pressures have improved. 3. Recurrent severe anemia with known aplastic anemia. Unresponsive to erythropoietin stimulating agents and has been transfusion dependent and receives two units of packed red blood cells every couple of weeks. She was transfused yesterday with improvement in her hemoglobin and hematocrit.
[2019-01-06] MEDS ORDERED: HEPARIN 1,000 UNITS/ML 10ML VIAL (FOR RADIOLOGY& DIALYSIS ONLY) XX ONE (11:30)
--- NOTE | 2019-01-06 18:04 | IPNPDOC ---
Date Seen The patient was seen on 01/06/19. Progress Note SUBJECTIVE: Patient feeling better today and as per nurse has been compliant with her medication. She did put out 520 mL of urine that negative. Hemoglobin has been stable between high 8 and 9. No overt signs of bleeding at this time. OBJECTIVE PHYSICAL EXAMINATION: VITAL SIGNS: Please see below. GENERAL APPEARANCE: Resting comfortably HEENT: Normocephalic, PERRLA, Mucous moist, CARDIOVASCULAR: S1,S2, pulse present, regularly, regular LUNGS: Equal air entry b/l ABDOMEN: Soft, BS present, no tenderness, no guarding EXTREMITIES: B/L no edema, capillary refill present SKIN: Warm, No fever NEUROLOGICAL: Cranial nerves grossly intact PSYCHIATRIC: Normal mood and affect for current situation LABORATORY DATA, IMAGING STUDIES, MICROBIOLOGY: Please see below. 78-year-old female with a pertinent past medical history of aplastic anemia, hypertension, AND end-stage renal disease on dialysis M/W/F who presented today to the ER with her daughter for nausea, nonbilious vomiting, dizziness and generalized weakness for last couple of days. The patient was not the best historian and majority of the story was provided by reading the report and nursing. It stated that the patient has been weak for the last 1 week and according to the family the patient has been noncompliant with her medication for a couple of days as well. They state that she's had nausea and nonbilious vomiting for the last couple days no exacerbating factors. The patient does admit to having epigastric discomfort after all the vomiting. She did not go to dialysis as scheduled this morning and presented to the ER for further evaluation. In the ER her heart rate was elevated at 120 irregular, blood pressure 165/76 , pulse ox of 91% on room air and her hemoglobin was low at 6.3. VBG pH was acidotic at 7.31. Potassium was elevated at 5.6, lactic acid elevated at 8.3. Troponin 1 was slightly elevated at 1.63. EKG in the ER showed atrial fibrillation with rapid ventricular response with a ventricular rate of 105. There is no Q waves ST depressions or ST elevations noted. Possible steam was then called for admission Dr. Albarado was informed that the patient is going to be admitted and will be dialysis today. PROBLEMS: Acute blood loss anemia, improved -History of aplastic anemia and requires intermittent blood transfusions -Noncompliant with medication History of aplastic anemia -Stool occult in the ER was positive for trace -Colonoscopy and EGD done in 2016 negative for ulcers or polyps packed RBCs transfusion via iv and via HD per renal -Will monitor H&H's. If it does not appropriately spontaneous repeat stool occult in the a.m. and consider if GI consult as needed Gastroenteritis -Gastrointestinal panel pending -Afebrile does not appear septic even though lactic acid accumulated to end-sta ge renal disease as well as history of aplastic anemia -Can be viral versus bacterial -we'll continue to monitor leukocytosis Bilateral pulmonary edema -Oxygen prn -Unsure secondary to atrial fibrillation versus underlying valvular disease HD with renal -Does appear entirely fluid overloaded but her lungs did have crackles in the lower bases and CT was consistent with bilateral pulmonary edema New-onset atrial fibrillation paroxysmal, resolved -EKG in the ER showed -Echocardiogram:CONCLUSIONS:1. Study is of good technical quality. 2. Normal left ventricular (LV) size with moderate left ventricular hypertrophy (LVH) and preserved LV systolic function, grade 2 diastolic dysfunction. 3. Aortic sclerosis but no significant stenosis and mild insufficiency. 4. Mild mitral and tricuspid insufficiency. 5. High central venous pressure and moderately severe pulmonary hypertension. 6. Bilateral pleural effusions. -c/w home metoprolol succinate 25 mg Daily -No anticoagulation indicated at this time for the patient does have history of aplastic anemia; only asa per cardiology -Monitor telemetry Elevated troponins likely secondary to ischemic demand versus pericarditis less likely MN -EKG negative for acute MN -echo as above -Likely secondary to ischemia demand as well as poor renal clearance secondary to end-stage renal disease -dr. Schaeffer on board -patient at times refused therapy, will encourage and explain risk and benefit -told she wants CPR but not sure if she understand non compliance will make CPR futile or not as beneficial if that time arrives Anion gap Metabolic acidemia Anion Gap:16 (Normal 14) -VBG pH 7.31 -Likely secondary to lactic acidosis as well as uremia -Lactic acid elevated at 8.3 -Hemodialysis today and continue to trend Leukocytosis Reactive -Will monitor no antibiotics indicated at this time Thrombocytopenia -Splenic sequestration End-stage renal disease -Dialysis M/W/F -Nephrology consulted History of aplastic anemia Diet -Clear liquid diet DVT prophylaxis -Valentino's and sequential because of history of aplastic anemia VS, I&O, 24H, [facility] Vital Signs/I&O Vital Signs Date Time Temp Pulse Resp B/P (MAP) Pulse Ox O2 Delivery O2 Flow Rate FiO2 01/06/19 12:00 98.5 88 18 155/74 (101) 92 01/06/19 08:00 2.0 01/04/19 16:00 Nasal Cannula I&O- Last 24 Hours up to 6 AM 01/06/19 06:00 Intake Total 700 ml Output Total 0 ml Balance 700 ml Laboratory Data 24H LABS Laboratory Tests 2 01/06/19 05:36: Nucleated Red Blood Cells % (auto) 0.0, Immature Platelet Fraction 1.8, Anion Gap 7L, Glomerular Filtration Rate 9.6L, Blood Urea Nitrogen 60#H, Creatinine 4.69#H, Sodium Level 135L, Potassium Level 3.7, Chloride Level 101, Carbon Dioxide Level 27, Calcium Level 7.8L, Magnesium Level 2.1 CBC/BMP Laboratory Tests 01/06/19 05:36 Red Blood Count 2.97 L, Mean Corpuscular Volume 85.9, Mean Corpuscular Hemoglobin 29.0, Mean Corpuscular Hemoglobin Concent 33.7, Red Cell Distribution Width 13.8, Calcium Level 7.8 L Microbiology Microbiology 01/04/19 Blood Culture - Preliminary, Resulted No Growth after 48 hours. All Specime... 01/04/19 Blood Culture - Preliminary, Resulted No Growth after 48 hours. All Specime... MIKE STEPHEN MD Jan 06, 2019 18:04
[2019-01-06] MEDS: amLODIPine 10 MG TAB PO SCH (21:09)
[2019-01-07] VITALS: BP 140/76
--- NOTE | 2019-01-07 00:37 | ECGEPIP ---
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
[2019-01-07] MEDS: hydrALAZINE INJ 20 MG/ML VIAL IV SCH ×6 (00:59→20:00)
[2019-01-07 04:00] VITALS: BP 138/63
[2019-01-07 08:00] VITALS: BP 150/70
--- NOTE | 2019-01-07 08:38 | IPN ---
DATE: 01/07/2019 Ms. Espitia is feeling well. She tolerated dialysis yesterday without difficulty and says that she slept reasonably well. She denies any chest discomfort or shortness of breath. There has been no paroxysmal nocturnal dyspnea (PND). Her blood pressure continues to improve and mostly has been in 130s to 150s. Vital signs this morning with blood pressure 138/63. Heart rate has been in the 80s and 90s, sinus rhythm with brief episodes of atrial fibrillation. She is afebrile. Saturation is 92%. Her fluid balance yesterday was documented as about a liter positive. Weight is 44.9 kg. She is alert and oriented and appropriate. Her jugular venous pulse (JVP) is somewhat difficult to dressage judge, but does not appear elevated on my exam. Lungs are clear. Heart exam reveals a regular rhythm. I do not appreciate any gallop. The murmur is unchanged. Abdomen is soft, nontender. There is no peripheral edema. Neurologically she is intact. Laboratory-melchor, her CBC and basic metabolic panel were not drawn today and tentatively will be drawn in dialysis. Her ECG this morning reveals what I believe is most likely sinus rhythm with PVCs, even though the official report interpretation was atrial fibrillation. I do not appreciate any ST-segment abnormalities. ASSESSMENT/PLAN: Ms. Espitia is a 78-year-old female who came in after she missed dialysis and after a few days of malaise. She had some form of encephalopathy and was also found to be in atrial fibrillation with rapid ventricular response associated with troponin elevation that peaked a little over 3. There were no convincing ST-T abnormalities on EKG. Because of her underlying chronic anemia associated with thrombocytopenia, I believe that she will have to be treated conservatively. I cannot imagine that she would be on dual antiplatelet therapy on anticoagulation, in my opinion the risk would far outweigh the benefit, unless there are recurrent symptoms. My hope is that the presentation was mostly due to severe anemia rather than that she has severe obstructive coronary artery disease. She has been receiving aspirin and she also has been getting beta blockers. The dose was appropriately increased today and I would increase it further. I think we should try to accomplish a resting heart rate closer to 60 beats per minute, even though it might be challenging on account of her underlying anemia. Otherwise, I would continue full dose of amlodipine and losartan. She currently has been receiving hydralazine for blood pressure, but hopefully will be able to get away with this medication as the dose of beta warren is increased and his she is being dialyzed. As far as the management of atrial fibrillation is concerned, she is quite tachycardiac during her episodes even though they have been very, very brief, generally few seconds at a time, but still advancing the dose of beta warren should provide better rate control. I do not believe that she can be safely anticoagulated as explained above.
[2019-01-07] MEDS: LOSARTAN 50 MG TAB PO SCH (08:43)
[2019-01-07] MEDS: METOPROLOL SUCC *XL* 12.5MG PER 1/2 TAB (TopROL *XL*) PO SCH ×2 (08:43→20:48)
[2019-01-07] MEDS: ATORVASTATIN 20 MG TAB PO SCH (08:44)
[2019-01-07] MEDS: ASPIRIN 81 MG ENTERIC TAB PO SCH (08:44)
[2019-01-07 10:46] LABS: HEMATOCRIT 26.5 % (36.0-47.0); HEMOGLOBIN 8.8 g/dl (12.0-15.5); MEAN CORPUSCULAR HEMOGLOBIN 28.8 pg (27.0-33.0); MEAN CORPUSCULAR HGB CONC 33.2 g/dl (32.0-36.5); MEAN CORPUSCULAR VOLUME 86.6 fl (80.0-96.0); RED BLOOD COUNT 3.06 10^6/uL (4.00-5.40); WHITE BLOOD COUNT 7.5 10^3/uL (4.0-10.0)
[2019-01-07 10:54] LABS: PLATELET COUNT, AUTOMATED 94 10^3/uL (150-450)
[2019-01-07 11:13] LABS: CALCIUM LEVEL 8.5 MG/DL (8.8-10.2); CREATININE FOR GFR 3.25 MG/DL (0.55-1.30); GLOMERULAR FILTRATION RATE 14.6 (>39); MAGNESIUM LEVEL 1.7 MG/DL (1.8-2.4); POTASSIUM SERUM 3.2 MEQ/L (3.5-5.1)
--- NOTE | 2019-01-07 11:35 | ECGEPIP ---
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
[2019-01-07 12:00] VITALS: BP 156/80
--- NOTE | 2019-01-07 13:04 | IPNPDOC ---
Date Seen The patient was seen on 01/07/19. Progress Note SUBJECTIVE: Patient refused blood draws this morning. Patient denied of any acute distress. Patient has a tendency to comply at times and refused treatment at times. Patient states that she is feeling better and most likely will be going home this week. OBJECTIVE PHYSICAL EXAMINATION: VITAL SIGNS: Please see below. GENERAL APPEARANCE: Resting comfortably HEENT: Normocephalic, PERRLA, Mucous moist, CARDIOVASCULAR: S1,S2, pulse present, regularly, regular LUNGS: Equal air entry b/l ABDOMEN: Soft, BS present, no tenderness, no guarding EXTREMITIES: B/L no edema, capillary refill present SKIN: Warm, No fever NEUROLOGICAL: Cranial nerves grossly intact PSYCHIATRIC: Normal mood and affect for current situation LABORATORY DATA, IMAGING STUDIES, MICROBIOLOGY: Please see below. 78-year-old female with a pertinent past medical history of aplastic anemia, hypertension, AND end-stage renal disease on dialysis M/W/F who presented today to the ER with her daughter for nausea, nonbilious vomiting, dizziness and generalized weakness for last couple of days. The patient was not the best hi storian and majority of the story was provided by reading the report and nursing. It stated that the patient has been weak for the last 1 week and according to the family the patient has been noncompliant with her medication for a couple of days as well. They state that she's had nausea and nonbilious vomiting for the last couple days no exacerbating factors. The patient does admit to having epigastric discomfort after all the vomiting. She did not go to dialysis as scheduled this morning and presented to the ER for further evaluation. In the ER her heart rate was elevated at 120 irregular, blood pressure 165/76, pulse ox of 91% on room air and her hemoglobin was low at 6.3. VBG pH was acidotic at 7.31. Potassium was elevated at 5.6, lactic acid elevated at 8.3. Troponin 1 was slightly elevated at 1.63. EKG in the ER showed atrial fibrillation with rapid ventricular response with a ventricular rate of 105. There is no Q waves ST depressions or ST elevations noted. Possible steam was then called for admission Dr. Albarado was informed that the patient is going to be admitted and will be dialysis today. PROBLEMS: Acute blood loss anemia, improved -History of aplastic anemia and requires intermittent blood transfusions -Noncompliant with medication History of aplastic anemia -Stool occult in the ER was positive for trace -Colonoscopy and EGD done in 2016 negative for ulcers or polyps packed RBCs transfusion via iv and via HD per renal -monitor H&H's if patient allows. Gastroenteritis -Gastrointestinal panel pending -Afebrile does not appear septic even though lactic acid accumulated to end- stage renal disease as well as history of aplastic anemia -Can be viral versus bacterial -we'll continue to monitor leukocytosis Bilateral pulmonary edema -Oxygen prn -Unsure secondary to atrial fibrillation versus underlying valvular disease HD with renal -Does appear entirely fluid overloaded but her lungs did have crackles in the lower bases and CT was consistent with bilateral pulmonary edema New-onset atrial fibrillation paroxysmal, resolved -EKG in the ER showed -Echocardiogram:CONCLUSIONS:1. Study is of good technical quality. 2. Normal left ventricular (LV) size with moderate left ventricular hypertrophy (LVH) and preserved LV systolic function, grade 2 diastolic dysfunction. 3. Aortic sclerosis but no significant stenosis and mild insufficiency. 4. Mild mitral and tricuspid insufficiency. 5. High central venous pressure and moderately severe pulmonary hypertension. 6. Bilateral pleural effusions. -c/w home metoprolol succinate 25 mg Daily -No anticoagulation indicated at this time for the patient does have history of aplastic anemia; only asa per cardiology -Monitor telemetry Elevated troponins likely secondary to ischemic demand versus pericarditis less likely VT -EKG negative for acute VT -echo as above -Likely secondary to ischemia demand as well as poor renal clearance secondary to end-stage renal disease -dr. Schaeffer on board: Recommends aspirin, titration of present warren with the goal resting heart rate of even with the challenge of her underlying anemia. -patient at times refused therapy, will encourage and explain risk and benefit. Recommends continuing of the amlodipine and losartan and may no longer need hydralazine. Anticoagulant with baby aspirin. -told she wants CPR but not sure if she understand non compliance will make CPR futile or not as beneficial if that time arrives. No family available at bedside. Anion gap Metabolic acidemia Anion Gap:16 (Normal 14) -VBG pH 7.31 -Likely secondary to lactic acidosis as well as uremia -Lactic acid elevated at 8.3 -Hemodialysis today and continue to trend Leukocytosis Reactive -Will monitor no antibiotics indicated at this time Thrombocytopenia -Splenic sequestration End-stage renal disease -Dialysis M/W/F -Nephrology consulted History of aplastic anemia Diet -Clear liquid diet DVT prophylaxis -Valentino's and sequential because of history of aplastic anemia DISPOSITION: [Anticipate 24-48 hours]. VS, I&O, 24H, Fishbone Vital Signs/I&O Vital Signs Date Time Temp Pulse Resp B/P (MAP) Pulse Ox O2 Delivery O2 Flow Rate FiO2 01/07/19 12:24 156/80 01/07/19 12:00 98.4 88 18 93 01/06/19 08:00 2.0 01/04/19 16:00 Nasal Cannula I&O- Last 24 Hours up to 6 AM 01/07/19 06:00 Intake Total 1010 ml Output Total 1000 ml Balance 10 ml Laboratory Data 24H LABS Laboratory Tests 2 01/07/19 09:45: Nucleated Red Blood Cells % (auto) 0.0, Immature Platelet Fraction 1.7, Anion Gap 6L, Glomerular Filtration Rate 14.6L, Blood Urea Nitrogen 27#H, Creatinine 3.25H, Sodium Level 135L, Potassium Level 3.2L, Chloride Level 101, Carbon Dioxide Level 28, Calcium Level 8.5L, Magnesium Level 1.7L CBC/BMP Laboratory Tests 01/07/19 09:45 Red Blood Count 3.06 L, Mean Corpuscular Volume 86.6, Mean Corpuscular Hemoglobin 28.8, Mean Corpuscular Hemoglobin Concent 33.2, Red Cell Distribution Width 13.9, Calcium Level 8.5 L Microbiology Microbiology 01/04/19 Blood Culture - Preliminary, Resulted No Growth after 48 hours. All Specime... 01/04/19 Blood Culture - Preliminary, Resulted No Growth after 72 hours. All specime... MIKE STEPHEN MD Jan 07, 2019 13:04
--- NOTE | 2019-01-07 14:26 | IPN ---
DATE OF SERVICE: 01/06/2019 SUBJECTIVE: Mila is seen and examined this morning at the bedside. She is back to her baseline mentation. She is dialyzed today with 1 liter of fluid removed which is the maximum that she tolerates in the outpatient setting. Today she denies any complaints including chest pain, shortness of breath, palpitations, nausea, vomiting, or diarrhea. She reports her fatigue has improved. VITAL SIGNS: Temperature 98.7, pulse 92, respiratory rate 18, blood pressure 172/83, saturating 95%. Intake yesterday was 700. Dialysis today removed 1 liter. Weight in the bed scale today is 45.7 kg. GENERAL: The patient is seen sitting out of bed to the chair, frail, elderly, female, smiles and greets me when I come into the room. Recognizes me today. She is alert and oriented and interactive. There is a tunnel dialysis catheter present in the right chest wall. NECK: The neck veins are not distended. LUNGS: Clear with symmetric air entry and no crackle or rale. CARDIAC: Heart sounds are regular. There is no peripheral edema. ABDOMEN: Soft. There are bowel sounds. There is no tenderness to palpation. NEUROLOGIC: She is at baseline mentation, interactive and conversational . Cooperative with physical examination. LABS: Sodium 135, potassium 3.7, magnesium 2.1. Hemoglobin 8.6. INPATIENT MEDICATIONS: I increased the Toprol XL to 37.5 mg by mouth twice a day with holding parameters. Remainder of medications are unchanged from prior. PROBLEMS: 1. End-stage renal disease on hemodialysis. She is dialyzed today with the fluid removal of 1 kilogram which about the maximum we have taken off of her in the outpatient setting as well. Her electrolytes are accetable. We can challenge her dry weight and attempt further fluid removal as tolerated by the patient though Clinically she does not seem to have much extra fluid on board. 2. Hypertension. Suboptimally controlled. I am increasing her Toprol XL to 37.5 mg by mouth twice a day. She should tolerate it as her heart rate has been in the 80s to 90s. She also continues on amlodipine, losartan, and hydralazine. 3. Recurrent severe anemia with known aplastic anemia. Unresponsive to erythropoietin stimulating agents and has been transfusion dependent and receives two units of packed red blood cells every couple of weeks. I would transfuse again for hemoglobin less than 8.5. She also receives Desferal in the outpatient setting for significant iron accumulation.
[2019-01-07] MEDS ORDERED: SLF 3 ML SYR IV PRN (14:45)
[2019-01-07 16:00] VITALS: BP 135/73
[2019-01-07 20:00] VITALS: BP 156/71
[2019-01-07] MEDS: SLF 3 ML SYR IV SCH (20:48)
[2019-01-07] MEDS: amLODIPine 10 MG TAB PO SCH (20:48)
[2019-01-08] VITALS: BP 149/69
[2019-01-08] MEDS: hydrALAZINE INJ 20 MG/ML VIAL IV SCH ×7 (00:19→23:58)
[2019-01-08 04:00] VITALS: BP 158/78
[2019-01-08] MEDS: SLF 3 ML SYR IV SCH ×3 (04:24→22:00)
[2019-01-08 05:26] LABS: HEMATOCRIT 24.2 % (36.0-47.0); HEMOGLOBIN 8.1 g/dl (12.0-15.5); MEAN CORPUSCULAR HEMOGLOBIN 28.8 pg (27.0-33.0); MEAN CORPUSCULAR HGB CONC 33.5 g/dl (32.0-36.5); MEAN CORPUSCULAR VOLUME 86.1 fl (80.0-96.0); RED BLOOD COUNT 2.81 10^6/uL (4.00-5.40); WHITE BLOOD COUNT 6.8 10^3/uL (4.0-10.0)
[2019-01-08 05:51] LABS: CALCIUM LEVEL 7.9 MG/DL (8.8-10.2); CREATININE FOR GFR 4.3 MG/DL (0.55-1.30); GLOMERULAR FILTRATION RATE 10.6 (>39); MAGNESIUM LEVEL 1.7 MG/DL (1.8-2.4); POTASSIUM SERUM 3.1 MEQ/L (3.5-5.1)
[2019-01-08 05:53] LABS: PLATELET COUNT, AUTOMATED 78 10^3/uL (150-450)
[2019-01-08 08:00] VITALS: BP 150/76
[2019-01-08] MEDS: ATORVASTATIN 20 MG TAB PO SCH (08:16)
[2019-01-08] MEDS: LOSARTAN 50 MG TAB PO SCH (08:17)
[2019-01-08] MEDS: ASPIRIN 81 MG ENTERIC TAB PO SCH (08:17)
[2019-01-08] MEDS: METOPROLOL SUCC *XL* 12.5MG PER 1/2 TAB (TopROL *XL*) PO SCH (08:17)
--- NOTE | 2019-01-08 08:48 | IPN ---
DATE OF VISIT: 01/08/2019 Mrs. Espitia did not have any significant events yesterday. Her monitor revealed sinus rhythm throughout the day with brief occasional episodes of probably atrial tachycardia. The duration was not sufficient to call it atrial fibrillation. She has no complaints today and would like to go home. VITAL SIGNS: Blood pressure 150/76, heart rate has been mostly 80s. She is afebrile. Saturation is 94% on room air. Her fluid balance yesterday was about 900 positive. She did not make any urine and is tentatively scheduled for dialysis today. Weight is documented 45 kg. She is alert, oriented and appropriate. Her JVP is not high. Lungs are clear. Heart exam regular rhythm. No gallop or rub, murmur is unchanged. Abdomen soft, nontender. No peripheral edema. Neurologically intact. LABORATORIES: Sodium 134, potassium 3.1, BUN 39, creatinine 4.3, glucose 128,000. CBC hemoglobin 8.1, hematocrit 24, platelet count 78,000. ASSESSMENT/PLAN: Mrs. Espitia is a 78-year-old female who has been dialysis dependent and has aplastic anemia and requires intermittent blood transfusions. She presented with somewhat altered mental status in the setting of atrial fibrillation with rapid ventricular response (RVR), there was troponin elevation but no definitive ischemic abnormalities on EKG and echo revealed no wall motion abnormalities. Management is complicated by her anemia and thrombocytopenia, and consequently, she is a poor candidate for anticoagulation of coronary intervention because of high risk of bleeding complications on dual antiplatelet therapy or on anticoagulation. At this point, I do recommend to continue current management. Atrial fibrillation seems to have calmed down. She has very brief episodes of atrial tachycardia, but no sustained arrhythmias in the last 48 hours. I will further advance the dose of beta-warren because she is still relatively tachycardia and it will also help to control her rate if she has a relapse of atrial fibrillation and consequently there is not that much demand for oxygen in her myocardium during episodes of profound tachycardia. Otherwise, I will leave her antihypertensive medications unchanged. I believe that it is likely that on the high dose of beta-warren in combination with losartan and amlodipine, her blood pressure will be reasonably well-controlled. As far as the likely coronary artery disease is concerned, I am a little bit reluctant to recommend intervention for reasons explained above. We will tentatively see on an outpatient basis, but I do foresee that we will likely continue purely medical management. At this point, I am going to sign off her care. Please call our service back if further assistance is desired.
[2019-01-08] MEDS ORDERED: METOPROLOL SUCC (TopROL XL) 50MG **XL** TAB PO ONE (09:00)
[2019-01-08 12:25] VITALS: BP 133/85
[2019-01-08] MEDS ORDERED: HEPARIN 1,000 UNITS/ML 10ML VIAL (FOR RADIOLOGY& DIALYSIS ONLY) XX ONE (12:45)
--- NOTE | 2019-01-08 14:18 | IPNPDOC ---
Date Seen The patient was seen on 01/08/19. Progress Note SUBJECTIVE: Today she was agreeable to providing blood for lab draw this morning. Patient resting comfortably and hemodialysis without any complaints. She does want to start eating solid food. Will change her diet to regular renal cardiac diet from liquids. Possible discharge tomorrow as patient had hemodialysis today. OBJECTIVE PHYSICAL EXAMINATION: VITAL SIGNS: Please see below. GENERAL APPEARANCE: Resting comfortably HEENT: Normocephalic, PERRLA, Mucous moist, CARDIOVASCULAR: S1,S2, pulse present, regularly, regular LUNGS: Equal air entry b/l ABDOMEN: Soft, BS present, no tenderness, no guarding EXTREMITIES: B/L no edema, capillary refill present SKIN: Warm, No fever NEUROLOGICAL: Cranial nerves grossly intact PSYCHIATRIC: Normal mood and affect for current situation LABORATORY DATA, IMAGING STUDIES, MICROBIOLOGY: Please see below. 78-year-old female with a pertinent past medical history of aplastic anemia, hypertension, AND end-stage renal disease on dialysis M/W/F who presented today to the ER with her daughter for nausea, nonbilious vomiting, dizziness and generalized weakness for last couple of days. The patient was not the best historian and majority of the story was provided by reading the report and nursing. It stated that the patient has been weak for the last 1 week and according to the family the patient has been noncompliant with her medication for a couple of days as well. They state that she's had nausea and nonbilious vomiting for the last couple days no exacerbating factors. The patient does admit to having epigastric discomfort after all the vomiting. She did not go to dialysis as scheduled this morning and presented to the ER for further stephanie luation. In the ER her heart rate was elevated at 120 irregular, blood pressure 165/76, pulse ox of 91% on room air and her hemoglobin was low at 6.3. VBG pH was acidotic at 7.31. Potassium was elevated at 5.6, lactic acid elevated at 8.3. Troponin 1 was slightly elevated at 1.63. EKG in the ER showed atrial fibrillation with rapid ventricular response with a ventricular rate of 105. There is no Q waves ST depressions or ST elevations noted. Possible steam was then called for admission Dr. Albarado was informed that the patient is going to be admitted and will be dialysis today. PROBLEMS: Acute blood loss anemia, improved -History of aplastic anemia and requires intermittent blood transfusions -Noncompliant with medication History of aplastic anemia -Stool occult in the ER was positive for trace -Colonoscopy and EGD done in 2016 negative for ulcers or polyps packed RBCs transfusion via iv and via HD per renal -monitor H&H's if patient allows. Gastroenteritis -Gastrointestinal panel pending -Afebrile does not appear septic even though lactic acid accumulated to end- stage renal disease as well as history of aplastic anemia -Can be viral versus bacterial -we'll continue to monitor leukocytosis Bilateral pulmonary edema -Oxygen prn -Unsure secondary to atrial fibrillation versus underlying valvular disease HD with renal -Does appear entirely fluid overloaded but her lungs did have crackles in the lower bases and CT was consistent with bilateral pulmonary edema New-onset atrial fibrillation paroxysmal, resolved -EKG in the ER showed -Echocardiogram:CONCLUSIONS:1. Study is of good technical quality. 2. Normal left ventricular (LV) size with moderate left ventricular hypertrophy (LVH) and preserved LV systolic function, grade 2 diastolic dysfunction. 3. Aortic sclerosis but no significant stenosis and mild insufficiency. 4. Mild mitral and tricuspid insufficiency. 5. High central venous pressure and moderately severe pulmonary hypertension. 6. Bilateral pleural effusions. -c/w home metoprolol succinate 25 mg Daily -per cardiology: No anticoagulation indicated at this time for the patient does have history of aplastic anemia; only asa -Monitor telemetry Elevated troponins likely secondary to ischemic demand versus pericarditis less likely [place] -EKG negative for acute [place] -echo as above -Likely secondary to ischemia demand as well as poor renal clearance secondary to end-stage renal disease -dr. Schaeffer on board: Recommends aspirin, titration of present warren with the goal resting heart rate of even with the challenge of her underlying anemia. -patient at times refused therapy, will encourage and explain risk and benefit. Recommends continuing of the amlodipine and losartan and may no longer need hydralazine. Anticoagulant with baby aspirin. -told she wants CPR but not sure if she understand non compliance will make CPR futile or not as beneficial if that time arrives. No family available at bedside. Anion gap Metabolic acidemia Anion Gap:16 (Normal 14) -VBG pH 7.31 -Likely secondary to lactic acidosis as well as uremia -Lactic acid elevated at 8.3 -Hemodialysis today and continue to trend Leukocytosis Reactive -Will monitor no antibiotics indicated at this time Thrombocytopenia -Splenic sequestration End-stage renal disease -Dialysis M/W/F -Nephrology consulted History of aplastic anemia Diet -Clear liquid diet DVT prophylaxis -Valentino's and sequential because of history of aplastic anemia DISPOSITION: [Anticipate 24-48 hours with [facility] PT if safe to return home]. VS, I&O, 24H, Fishbone Vital Signs/I&O Vital Signs Date Time Temp Pulse Resp B/P (MAP) Pulse Ox O2 Delivery O2 Flow Rate FiO2 01/08/19 12:28 89 133/87 01/08/19 12:25 99.0 18 95 01/06/19 08:00 2.0 01/04/19 16:00 Nasal Cannula I&O- Last 24 Hours up to 6 AM 01/08/19 06:00 Intake Total 910 ml Output Total 0 ml Balance 910 ml Laboratory Data 24H LABS Laboratory Tests 2 01/08/19 04:49: Nucleated Red Blood Cells % (auto) 0.0, Anion Gap 9, Glomerular Filtration Rate 10.6L, Blood Urea Nitrogen 39H, Creatinine 4.30H, Sodium Level 134L, Potassium Level 3.1L, Chloride Level 100, Carbon Dioxide Level 25, Calcium Level 7.9L, Magnesium Level 1.7L CBC/BMP Laboratory Tests 01/08/19 04:49 Red Blood Count 2.81 L, Mean Corpuscular Volume 86.1, Mean Corpuscular Hemoglobin 28.8, Mean Corpuscular Hemoglobin Concent 33.5, Red Cell Distribution Width 13.8, Calcium Level 7.9 L Microbiology Microbiology 01/04/19 Blood Culture - Preliminary, Resulted No Growth after 72 hours. All specime... 01/04/19 Blood Culture - Preliminary, Resulted No Growth after 72 hours. All specime... MIKE STEPHEN MD Jan 08, 2019 14:18
[2019-01-08 16:00] VITALS: BP 146/76
--- NOTE | 2019-01-08 17:49 | IPN ---
DATE: 01/08/2019 SUBJECTIVE: Mila is seen and examined this morning at the bedside. She denies any complaints. No chest pain or shortness of breath. Her blood pressure has improved since metoprolol dose was increased. VITAL SIGNS: Temperature 98.4, pulse 63, respiratory rate 19, blood pressure 138/76, saturating 98% on room air. Intake yesterday was 1 liter. Dialysis yesterday removed 1 liter. Weight in the bed scale today is 44.9 kg. GENERAL: Patient is seen lying in bed, elderly female, frail, comfortable, no distress. Smiles and greets me when I come into the room. Alert, oriented and interactive. Tunneled hemodialysis catheter present in right chest wall with dressing. Neck veins are not distended. Lungs are clear to auscultation with no crackle or rale and symmetric air movement. Heart sounds are regular. There is no peripheral edema. Abdomen is soft. There are bowel sounds. There is no tenderness to palpation. NEUROLOGIC: She is at baseline mentation, interactive and conversational, cooperative with physical examination. SKIN: Normal turgor and temperature. LABORATORY DATA: Sodium 135, potassium 3.2, bicarbonate 28, magnesium 1.7. Hemoglobin 8.8. Blood cultures: No growth for 72 hours times two sets. INPATIENT MEDICATIONS: Reviewed by myself and no change from prior. PROBLEMS: 1. End-stage renal disease on hemodialysis on Friday, Friday, Friday schedule. Continue current prescription. Volume status and electrolytes are fairly acceptable. I do not think she would be able to tolerate more than 1.5 liters removed per treatment. We will attempt the same tomorrow. 2. Hypertension. Improved control since her Toprol XL was increased to 37.5 mg twice a day. Continue amlodipine and losartan. She has not been requiring further doses of the as needed hydralazine. 3. Recurrent severe anemia with known aplastic anemia. Unresponsive to erythropoietin-stimulating agents and at this point, has been transfusion dependent and receives 2 units every couple of weeks. She also receives Desferal in the outpatient setting for significant iron accumulation.
[2019-01-08 20:00] VITALS: BP 161/79
[2019-01-08] MEDS: amLODIPine 10 MG TAB PO SCH (20:15)
[2019-01-09] VITALS: BP 162/72
[2019-01-09 04:00] VITALS: BP 145/83
[2019-01-09] MEDS: hydrALAZINE INJ 20 MG/ML VIAL IV SCH ×2 (04:00→08:45)
[2019-01-09] MEDS: SLF 3 ML SYR IV SCH ×3 (04:29→21:00)
[2019-01-09 05:32] LABS: HEMOGLOBIN 8.8 g/dl (12.0-15.5); MEAN CORPUSCULAR HEMOGLOBIN 28.9 pg (27.0-33.0); MEAN CORPUSCULAR HGB CONC 33.8 g/dl (32.0-36.5); MEAN CORPUSCULAR VOLUME 85.5 fl (80.0-96.0); RED BLOOD COUNT 3.04 10^6/uL (4.00-5.40); WHITE BLOOD COUNT 7.2 10^3/uL (4.0-10.0)
[2019-01-09 05:42] LABS: PLATELET COUNT, AUTOMATED 95 10^3/uL (150-450)
[2019-01-09 06:03] LABS: CALCIUM LEVEL 8.5 MG/DL (8.8-10.2); CREATININE FOR GFR 3.29 MG/DL (0.55-1.30); GLOMERULAR FILTRATION RATE 14.4 (>39); MAGNESIUM LEVEL 1.9 MG/DL (1.8-2.4)
[2019-01-09 08:00] VITALS: BP 157/73
[2019-01-09] MEDS: ASPIRIN 81 MG ENTERIC TAB PO SCH (08:43)
[2019-01-09] MEDS: ATORVASTATIN 20 MG TAB PO SCH (08:43)
[2019-01-09] MEDS: LOSARTAN 50 MG TAB PO SCH (08:43)
[2019-01-09] MEDS: METOPROLOL SUCC (TopROL XL) 100MG *XL* TAB PO SCH (08:44)
--- NOTE | 2019-01-09 11:31 | IPNPDOC ---
Date Seen The patient was seen on 01/09/19. Progress Note SUBJECTIVE: Patient tolerating solid food without difficulty. She is excited about the thought of returning home but daughter told the staff via phone she would like LTC evaluation as patient is noncompliant at time. And as per staff, PT does not feel patient is safe to return home due easy distraction and need assistance. patient to be re-evaluated on Friday for placement. OBJECTIVE PHYSICAL EXAMINATION: VITAL SIGNS: Please see below. GENERAL APPEARANCE: Resting comfortably HEENT: Normocephalic, PERRLA, Mucous moist, CARDIOVASCULAR: S1,S2, pulse present, regularly, regular LUNGS: Equal air entry b/l ABDOMEN: Soft, BS present, no tenderness, no guarding EXTREMITIES: B/L no edema, capillary refill present SKIN: Warm, No fever NEUROLOGICAL: Cranial nerves grossly intact PSYCHIATRIC: Normal mood and affect for current situation LABORATORY DATA, IMAGING STUDIES, MICROBIOLOGY: Please see below. 78-year-old female with a pertinent past medical history of aplastic anemia, hypertension, AND end-stage renal disease on dialysis M/W/F who presented today to the ER with her daughter for nausea, nonbilious vomiting, dizziness and generalized weakness for last couple of days. The patient was not the best historian and majority of the story was provided by reading the report and nurs ing. It stated that the patient has been weak for the last 1 week and according to the family the patient has been noncompliant with her medication for a couple of days as well. They state that she's had nausea and nonbilious vomiting for the last couple days no exacerbating factors. The patient does admit to having epigastric discomfort after all the vomiting. She did not go to dialysis as scheduled this morning and presented to the ER for further evaluation. In the ER her heart rate was elevated at 120 irregular, blood pressure 165/76, pulse ox of 91% on room air and her hemoglobin was low at 6.3. VBG pH was acidotic at 7.31. Potassium was elevated at 5.6, lactic acid elevated at 8.3. Troponin 1 was slightly elevated at 1.63. EKG in the ER showed atrial fibrillation with rapid ventricular response with a ventricular rate of 105. There is no Q waves ST depressions or ST elevations noted. Possible steam was then called for admission Dr. Albarado was informed that the patient is going to be admitted and will be dialysis today. PROBLEMS: Acute blood loss anemia, improved -History of aplastic anemia and requires intermittent blood transfusions -Noncompliant with medication History of aplastic anemia -Stool occult in the ER was positive for trace -Colonoscopy and EGD done in 2016 negative for ulcers or polyps packed RBCs transfusion via iv and via HD per renal -monitor H&H's if patient allows. Gastroenteritis -Gastrointestinal panel pending -Afebrile does not appear septic even though lactic acid accumulated to end- stage renal disease as well as history of aplastic anemia -Can be viral versus bacterial -we'll continue to monitor leukocytosis Bilateral pulmonary edema -Oxygen prn -Unsure secondary to atrial fibrillation versus underlying valvular disease HD with renal -Does appear entirely fluid overloaded but her lungs did have crackles in the lower bases and CT was consistent with bilateral pulmonary edema New-onset atrial fibrillation paroxysmal, resolved -EKG in the ER showed -Echocardiogram:CONCLUSIONS:1. Study is of good technical quality. 2. Normal l eft ventricular (LV) size with moderate left ventricular hypertrophy (LVH) and preserved LV systolic function, grade 2 diastolic dysfunction. 3. Aortic sclerosis but no significant stenosis and mild insufficiency. 4. Mild mitral and tricuspid insufficiency. 5. High central venous pressure and moderately severe pulmonary hypertension. 6. Bilateral pleural effusions. -c/w home metoprolol succinate 25 mg Daily -per cardiology: No anticoagulation indicated at this time for the patient does have history of aplastic anemia; only asa -Monitor telemetry Elevated troponins likely secondary to ischemic demand versus pericarditis less likely [place] -EKG negative for acute [place] -echo as above -Likely secondary to ischemia demand as well as poor renal clearance secondary to end-stage renal disease -dr. Schaeffer on board: Recommends aspirin, titration of present warren with the goal resting heart rate of even with the challenge of her underlying anemia. -patient at times refused therapy, will encourage and explain risk and benefit. Recommends continuing of the amlodipine and losartan and may no longer need hydralazine. Anticoagulant with baby aspirin. -told she wants CPR but not sure if she understand non compliance will make CPR futile or not as beneficial if that time arrives. No family available at bedside. Anion gap Metabolic acidemia Anion Gap:16 (Normal 14) -VBG pH 7.31 -Likely secondary to lactic acidosis as well as uremia -Lactic acid elevated at 8.3 -Hemodialysis today and continue to trend Leukocytosis Reactive -Will monitor no antibiotics indicated at this time Thrombocytopenia -Splenic sequestration End-stage renal disease -Dialysis M/W/F -Nephrology consulted History of aplastic anemia Diet -cardiac renal diet DVT prophylaxis -Valentino's and sequential because of history of aplastic anemia DISPOSITION: [Daughter informed staff and requested LTC evaluation as patient is noncompliant and she is not comfortable taking patient home. And as per staff, PT does not feel patient is safe to return home due easy distraction and need assistance. Patient to be re-evaluated on Friday for placement.]. VS, I&O, 24H, Fishbone Vital Signs/I&O Vital Signs Date Time Temp Pulse Resp B/P (MAP) Pulse Ox O2 Delivery O2 Flow Rate FiO2 01/09/19 08:44 89 01/09/19 08:43 157/73 01/09/19 08:00 97.3 16 97 01/06/19 08:00 2.0 01/04/19 16:00 Nasal Cannula I&O- Last 24 Hours up to 6 AM 01/09/19 05:59 Intake Total 170 ml Output Total 1500 ml Balance -1330 ml Laboratory Data 24H LABS Laboratory Tests 2 01/09/19 05:05: Nucleated Red Blood Cells % (auto) 0.0, Immature Platelet Fraction 2.1, Anion Gap 6L, Glomerular Filtration Rate 14.4L, Blood Urea Nitrogen 27H, Creatinine 3.29H, Sodium Level 136, Potassium Level 4.0#, Chloride Level 102, Carbon Dioxide Level 28, Calcium Level 8.5L, Magnesium Level 1.9 CBC/BMP Laboratory Tests 01/09/19 05:05 Red Blood Count 3.04 L, Mean Corpuscular Volume 85.5, Mean Corpuscular Hemoglobin 28.9, Mean Corpuscular Hemoglobin Concent 33.8, Red Cell Distribution Width 13.9, Calcium Level 8.5 L Microbiology Microbiology 01/04/19 Blood Culture - Preliminary, Resulted No Growth after 72 hours. All specime... 01/04/19 Blood Culture - Preliminary, Resulted No Growth after 72 hours. All specime... MIKE STEPHEN MD Jan 09, 2019 11:31
[2019-01-09 12:00] VITALS: BP 127/69
[2019-01-09 16:00] VITALS: BP 146/90
[2019-01-09 20:00] VITALS: BP 152/73
[2019-01-09] MEDS: amLODIPine 10 MG TAB PO SCH (21:00)
[2019-01-10] VITALS (8 sets, daily range): BP systolic 142–170; BP diastolic 60–82
[2019-01-10] MEDS ORDERED: **hydrALAZINE** 10 MG TAB PO ONE (04:15)
[2019-01-10] MEDS: SLF 3 ML SYR IV SCH ×3 (05:20→19:58)
[2019-01-10 05:57] LABS: HEMATOCRIT 22.6 % (36.0-47.0); HEMOGLOBIN 7.6 g/dl (12.0-15.5); MEAN CORPUSCULAR HEMOGLOBIN 29.2 pg (27.0-33.0); MEAN CORPUSCULAR HGB CONC 33.6 g/dl (32.0-36.5); MEAN CORPUSCULAR VOLUME 86.9 fl (80.0-96.0)
[2019-01-10 05:58] LABS: PLATELET COUNT, AUTOMATED 74 10^3/uL (150-450)
[2019-01-10 06:24] LABS: CALCIUM LEVEL 7.8 MG/DL (8.8-10.2); CREATININE FOR GFR 4.6 MG/DL (0.55-1.30); GLOMERULAR FILTRATION RATE 9.8 (>39); MAGNESIUM LEVEL 1.7 MG/DL (1.8-2.4); POTASSIUM SERUM 4.2 MEQ/L (3.5-5.1)
[2019-01-10] MEDS: ATORVASTATIN 20 MG TAB PO SCH (08:34)
[2019-01-10] MEDS: ASPIRIN 81 MG ENTERIC TAB PO SCH (08:34)
[2019-01-10] MEDS: METOPROLOL SUCC (TopROL XL) 100MG *XL* TAB PO SCH (08:34)
[2019-01-10] MEDS: LOSARTAN 50 MG TAB PO SCH (08:34)
--- NOTE | 2019-01-10 11:49 | IPNPDOC ---
Date Seen The patient was seen on 01/10/19. Progress Note SUBJECTIVE: Patient without complaint this morning. Daughter at the bedside. No SOB, no weakness although she is not active (as per daughter patient has not been doing her PT exercise at home), no dizziness, and no acute signs of bleed. Her hemoglobin came down to 7.6 today. Patient has hx of aplastic anemia. Her mentioned that patient is needing more frequent transfusion. I approached the to pic of patient code status of full code and talk about the resident physician in radiology goal with patient and her daughter. They are open to having an on-going discussion. Patient's BP medicine by cardiology yesterday and her BP was slightly higher today. She is schedule for HD tomorrow, where she can also receive RBC transfusion if hemoglobin falls below 7. Daughter is willing take patient home when medically ready but will discuss with patient regarding rehab/fpc. Staff inform me that patient requested DNR. OBJECTIVE PHYSICAL EXAMINATION: VITAL SIGNS: Please see below. GENERAL APPEARANCE: Resting comfortably HEENT: Normocephalic, PERRLA, Mucous moist, CARDIOVASCULAR: S1,S2, pulse present, regularly, regular LUNGS: Equal air entry b/l ABDOMEN: Soft, BS present, no tenderness, no guarding EXTREMITIES: B/L no edema, capillary refill present SKIN: Warm, No fever NEUROLOGICAL: Cranial nerves grossly intact PSYCHIATRIC: Normal mood and affect for current situation LABORATORY DATA, IMAGING STUDIES, MICROBIOLOGY: Please see below. 78-year-old female with a pertinent past medical history of aplastic anemia, hypertension, AND end-stage renal disease on dialysis M/W/F who presented today to the ER with her daughter for nausea, nonbilious vomiting, dizziness and generalized weakness for last couple of days. The patient was not the best historian and majority of the story was provided by reading the report and nursing. It stated that the patient has been weak for the last 1 week and according to the family the patient has been noncompliant with her medication for a couple of days as well. They state that she's had nausea and nonbilious vomiting for the last couple days no exacerbating factors. The patient does admit to having epigastric discomfort after all the vomiting. She did not go to dialysis as scheduled this morning and presented to the ER for further evaluation. In the ER her heart rate was elevated at 120 irregular, blood pressure 165/76, pulse ox of 91% on room air and her hemoglobin was low at 6.3. VBG pH was acidotic at 7.31. Potassium was elevated at 5.6, lactic acid elevated at 8.3. Troponin 1 was slightly elevated at 1.63. EKG in the ER showed atrial fibrillation with rapid ventricular response with a ventricular rate of 105. There is no Q waves ST depressions or ST elevations noted. Possible steam was then called for admission Dr. Albarado was informed that the patient is going to be admitted and will be dialysis today. PROBLEMS: Acute/chronic blood loss anemia -History of aplastic anemia and requires intermittent blood transfusions -Noncompliant with medication -Stool occult in the ER was positive for trace -Colonoscopy and EGD done in 2016 negative for ulcers or polyps packed RBCs transfusion via iv and via HD per renal -monitor H&H's if patient allows. Gastroenteritis -Gastrointestinal panel non collected -Afebrile does not appear septic even though lactic acid accumulated to end- stage renal disease as well as history of aplastic anemia -Can be viral versus bacterial -we'll continue to monitor leukocytosis, nml Bilateral pulmonary edema, improved -Oxygen prn -Unsure secondary to atrial fibrillation versus underlying valvular disease HD with renal -CT was consistent with bilateral pulmonary edema New-onset atrial fibrillation paroxysmal, resolved -EKG in the ER showed -Echocardiogram:CONCLUSIONS:1. Study is of good technical quality. 2. Normal left ventricular (LV) size with moderate left ventricular hypertrophy (LVH) and preserved LV systolic function, grade 2 diastolic dysfunction. 3. Aortic sclerosis but no significant stenosis and mild insufficiency. 4. Mild mitral and tricuspid insufficiency. 5. High central venous pressure and moderately severe pulmonary hypertension. 6. Bilateral pleural effusions. -c/w home metoprolol succinate 25 mg Daily -per cardiology: No anticoagulation indicated at this time for the patient does have history of aplastic anemia; only asa -Monitor telemetry -BP medication adjusted by Cardio and renal consult Elevated troponins likely secondary to ischemic demand versus pericarditis less likely [place] -EKG negative for acute [place] -echo as above -Likely secondary to ischemia demand as well as poor renal clearance secondary to end-stage renal disease -dr. Schaeffer on board: Recommends aspirin, titration of present warren with the goal resting heart rate of even with the challenge of her underlying anemia. -patient at times refused therapy, will encourage and explain risk and benefit. Recommends continuing of the amlodipine and losartan. PRN hydralazine. Anticoagulant with baby aspirin. Anion gap Metabolic acidemia Anion Gap:16 (Normal 14) -VBG pH 7.31 -Likely secondary to lactic acidosis as well as uremia -Lactic acid elevated at 8.3 -Hemodialysis today and continue to trend Leukocytosis Reactive -Will monitor no antibiotics indicated at this time Thrombocytopenia -Splenic sequestration End-stage renal disease -Dialysis M/W/F -Nephrology consulted History of aplastic anemia Diet -cardiac renal diet DVT prophylaxis -Valentino's and sequential because of history of aplastic anemia Patient requested DNR DISPOSITION: [ I approached the topic of patient code status of full code and talk about the resident physician in radiology goal with patient and her daughter. They are open to having an on-going discussion. Daughter is willing take patient home when medically ready but will discuss with patient regarding rehab/fpc.]. VS, I&O, 24H, Fishbone Vital Signs/I&O Vital Signs Date Time Temp Pulse Resp B/P (MAP) Pulse Ox O2 Delivery O2 Flow Rate FiO2 01/10/19 08:34 83 156/78 01/10/19 07:53 97.5 16 98 01/06/19 08:00 2.0 01/04/19 16:00 Nasal Cannula I&O- Last 24 Hours up to 6 AM 01/10/19 05:59 Intake Total 1100 ml Output Total 200 ml Balance 900 ml Laboratory Data 24H LABS Laboratory Tests 2 01/10/19 05:31: Nucleated Red Blood Cells % (auto) 0.0, Immature Platelet Fraction 1.3, Anion Gap 6L, Glomerular Filtration Rate 9.8L, Blood Urea Nitrogen 44#H, Creatinine 4.60H, Sodium Level 134L, Potassium Level 4.2, Chloride Level 102, Carbon Dioxide Level 26, Calcium Level 7.8L, Magnesium Level 1.7L CBC/BMP Laboratory Tests 01/10/19 05:31 Red Blood Count 2.60 L, Mean Corpuscular Volume 86.9, Mean Corpuscular Hemoglobin 29.2, Mean Corpuscular Hemoglobin Concent 33.6, Red Cell Distribution Width 13.8, Calcium Level 7.8 L Microbiology Microbiology 01/04/19 Blood Culture - Final, Complete NO GROWTH AFTER 5 DAYS 01/04/19 Blood Culture - Final, Complete NO GROWTH AFTER 5 DAYS MIKE STEPHEN MD Jan 10, 2019 11:49
--- NOTE | 2019-01-10 11:54 | IPN ---
DATE: 01/08/2019 SUBJECTIVE: Patient is seen and examined this morning in the hemodialysis unit receiving her treatment with a goal of removal of 1.5 liters, which she is tolerating well. She denies any complaints today and inquires in regards to discharge planning. No shortness of breath. No chest pain. No palpitations or leg edema reported. VITAL SIGNS: Temperature 99.5, pulse 88, respiratory rate 20, blood pressure 146/76, saturating 99% on room air. Intake yesterday was 900 mL. Dialysis today is removing 1.5 liters. Weight on the bed scale today is 45 kg. General: Patient is seen in the hemodialysis unit receiving her maintenance treatment. She is comfortable. Awake, alert and oriented and interactive. Tunnel hemodialysis catheter in the right chest wall is presently in use. Neck veins are not elevated. Lungs are clear to auscultation with no crackle or rales. There is symmetric air movement. Heart sounds are regular. S1, S2. There is no peripheral edema. Abdomen is soft. There are bowel sounds. There is no tenderness to palpation. Neurologic: She is oriented times three, interactive and conversational. Cooperative with physical exam. Skin: Normal turgor and temperature. Musculoskeletal: Decrease in muscle mass. LABS: White count 6.8, hemoglobin 8.1, platelets 78. Sodium 134, potassium 2.1, magnesium 1.7. Blood cultures remain with no growth today times two sets. IMPATIENT MEDICATIONS: Reviewed by myself and no change from prior. PROBLEMS: 1. End-stage renal disease on hemodialysis on Friday, Friday, Fridays schedule. Continue current prescription. Goal fluid removal today is 1.5 liters, which she is tolerating from a hemodynamic point of view. Her electrolytes are fairly acceptable. She is being dialysis with a 4.0 mEq potassium bath today in view of the mild hypokalemia. 2. Hypertension: We will continue to increase the beta warren as needed. For how, I will wait to see what her blood pressures look like after dialysis. 1.5 liter being removed, which is the maximum she has tolerated. Continue amlodipine and losartan. 3. Recurrent severe anemia with known aplastic anemia unresponsive to erythropoietin stimulating agents and at this point has been transfusion dependent. Would transfuse her prior to discharge if hemoglobin drops to less than 8. She also receives this while in the patient setting for significant iron accumulation. [facility]
[2019-01-10] MEDS: amLODIPine 10 MG TAB PO SCH (19:37)
[2019-01-11] VITALS (7 sets, daily range): BP systolic 141–199; BP diastolic 76–90
[2019-01-11] MEDS: SLF 3 ML SYR IV SCH ×3 (04:51→21:01)
[2019-01-11 05:17] LABS: HEMOGLOBIN 7.4 g/dl (12.0-15.5); MEAN CORPUSCULAR HEMOGLOBIN 28.7 pg (27.0-33.0); MEAN CORPUSCULAR HGB CONC 33.6 g/dl (32.0-36.5); MEAN CORPUSCULAR VOLUME 85.3 fl (80.0-96.0); RED BLOOD COUNT 2.58 10^6/uL (4.00-5.40); WHITE BLOOD COUNT 6.1 10^3/uL (4.0-10.0)
[2019-01-11 05:18] LABS: PLATELET COUNT, AUTOMATED 72 10^3/uL (150-450)
[2019-01-11 05:42] LABS: CALCIUM LEVEL 7.9 MG/DL (8.8-10.2); CREATININE FOR GFR 5.98 MG/DL (0.55-1.30); GLOMERULAR FILTRATION RATE 7.2 (>39); MAGNESIUM LEVEL 1.9 MG/DL (1.8-2.4); POTASSIUM SERUM 4.5 MEQ/L (3.5-5.1)
[2019-01-11] MEDS: LOSARTAN 50 MG TAB PO SCH (05:58)
[2019-01-11] MEDS: ATORVASTATIN 20 MG TAB PO SCH (05:58)
[2019-01-11] MEDS: ASPIRIN 81 MG ENTERIC TAB PO SCH (13:03)
[2019-01-11] MEDS: METOPROLOL SUCC (TopROL XL) 100MG *XL* TAB PO SCH (13:03)
--- NOTE | 2019-01-11 13:04 | IPNPDOC ---
Date Seen The patient was seen on 01/11/19. Progress Note SUBJECTIVE: Patient resting comfortably in HD. She denied of pain or any complaint. No SOB or dizziness. She is getting blood via HD for her aplastic anemia. OBJECTIVE PHYSICAL EXAMINATION: VITAL SIGNS: Please see below. GENERAL APPEARANCE: Resting comfortably HEENT: Normocephalic, PERRLA, Mucous moist, CARDIOVASCULAR: S1,S2, pulse present, regularly, regular LUNGS: Equal air entry b/l ABDOMEN: Soft, BS present, no tenderness, no guarding EXTREMITIES: B/L no edema, capillary refill present SKIN: Warm, No fever NEUROLOGICAL: Cranial nerves grossly intact PSYCHIATRIC: Normal mood and affect for current situation LABORATORY DATA, IMAGING STUDIES, MICROBIOLOGY: Please see below. 78-year-old female with a pertinent past medical history of aplastic anemia, hypertension, AND end-stage renal disease on dialysis M/W/F who presented today to the ER with her daughter for nausea, nonbilious vomiting, dizziness and generalized weakness for last couple of days. The patient was not the best historian and majority of the story was provided by reading the report and nursing. It stated that the patient has been weak for the last 1 week and according to the family the patient has been noncompliant with her medication for a couple of days as well. They state that she's had nausea and nonbilious vomiting for the last couple days no exacerbating factors. The patient does admit to having epigastric discomfort after all the vomiting. She did not go to dialysis as scheduled this morning and presented to the ER for further evaluation. In the ER her heart rate was elevated at 120 irregular, blood pressure 165/76, pulse ox of 91% on room air and her hemoglobin was low at 6.3. VBG pH was acidotic at 7.31. Potassium was elevated at 5.6, lactic acid elevated at 8.3. Troponin 1 was slightly elevated at 1.63. EKG in the ER showed atrial fibrillation with rapid ventricular response with a ventricular rate of 105. There is no Q waves ST depressions or ST elevations noted. Hosp team was then called for admission Dr. Albarado was informed that the patient is going to be admitted and will be dialysis today. PROBLEMS: Acute/chronic blood loss anemia -History of aplastic anemia and requires intermittent blood transfusions -Noncompliant with medication -Stool occult in the ER was positive for trace -Colonoscopy and EGD done in 2016 negative for ulcers or polyps packed RBCs transfusion via iv and via HD per renal -monitor H&H's if patient allows. Gastroenteritis, tolerated solid meals without difficulty -Gastrointestinal panel non collected -Afebrile does not appear septic even though lactic acid accumulated to end- stage renal disease as well as history of aplastic anemia -Can be viral versus -we'll continue to monitor leukocytosis, nml Bilateral pulmonary edema, improved -Oxygen prn -Unsure secondary to atrial fibrillation versus underlying valvular disease HD with renal -CT was consistent with bilateral pulmonary edema New-onset atrial fibrillation paroxysmal, resolved -EKG in the ER showed -Echocardiogram:CONCLUSIONS:1. Study is of good technical quality. 2. Normal left ventricular (LV) size with moderate left ventricular hypertrophy (LVH) and preserved LV systolic function, grade 2 diastolic dysfunction. 3. Aortic sclerosis but no significant stenosis and mild insufficiency. 4. Mild mitral and tricuspid insufficiency. 5. High central venous pressure and moderately severe pulmonary hypertension. 6. Bilateral pleural effusions. -c/w home metoprolol succinate 25 mg Daily -per cardiology: No anticoagulation indicated at this time for the patient does have history of aplastic anemia; only asa -Monitor telemetry -BP medication adjusted by Cardio and renal consult Elevated troponins likely secondary to ischemic demand versus pericarditis less likely [place] -EKG negative for acute [place] -echo as above -Likely secondary to ischemia demand as well as poor renal clearance secondary to end-stage renal disease -dr. Schaeffer on board: Recommends aspirin, resting heart rate closer to 60 beats per minute, even though it might be challenging on account of her underlying anemia, renal also helping to adjust medication -patient at times refused therapy, will encourage and explain risk and benefit. Recommends continuing of the amlodipine and losartan. PRN hydralazine. Anticoagulant with baby aspirin. Anion gap Metabolic acidemia Anion Gap:16 (Normal 14) -VBG pH 7.31 -Likely secondary to lactic acidosis as well as uremia -Lactic acid elevated at 8.3 -Hemodialysis today and continue to trend Leukocytosis Reactive -Will monitor no antibiotics indicated at this time Thrombocytopenia -Splenic sequestration End-stage renal disease -Dialysis M/W/F -Nephrology consulted -BP medication adjustment as per renal History of aplastic anemia Diet -cardiac renal diet DVT prophylaxis -Valentino's and sequential because of history of aplastic anemia Patient requested DNR DISPOSITION: [ Daughter is willing take patient home but Pt and daughter open to rehab/NH if need. Anticipate D/c after HD within 24-48hr pending safe discharge recommendation ] VS, I&O, 24H, [place] Vital Signs/I&O Vital Signs Date Time Temp Pulse Resp B/P (MAP) Pulse Ox O2 Delivery O2 Flow Rate FiO2 01/11/19 11:55 98.6 83 20 199/76 (117) 99 01/06/19 08:00 2.0 I&O- Last 24 Hours up to 6 AM 01/11/19 06:00 Intake Total 270 ml Output Total 350 ml Balance -80 ml Laboratory Data 24H LABS Laboratory Tests 2 01/11/19 05:00: Nucleated Red Blood Cells % (auto) 0.0, Anion Gap 7L, Glomerular Filtration Rate 7.2L, Blood Urea Nitrogen 59H, Creatinine 5.98H, Sodium Level 133L, Potassium Level 4.5, Chloride Level 102, Carbon Dioxide Level 24, Calcium Level 7.9L, Magnesium Level 1.9 CBC/BMP Laboratory Tests 01/11/19 05:00 Red Blood Count 2.58 L, Mean Corpuscular Volume 85.3, Mean Corpuscular He moglobin 28.7, Mean Corpuscular Hemoglobin Concent 33.6, Red Cell Distribution Width 13.4, Calcium Level 7.9 L Microbiology Microbiology 01/04/19 Blood Culture - Final, Complete NO GROWTH AFTER 5 DAYS 01/04/19 Blood Culture - Final, Complete NO GROWTH AFTER 5 DAYS MIKE STEPHEN MD Jan 11, 2019 13:04
[2019-01-11] MEDS ORDERED: **hydrALAZINE** 10 MG TAB PO PRN (16:30)
--- NOTE | 2019-01-11 17:44 | IPN ---
DATE: 01/09/2019 SUBJECTIVE: The patient was seen and examined at the bedside today morning. She was sitting up and getting ready to eat her lunch when I saw her. She was dialyzed yesterday. She tolerated the hemodialysis procedure well. 1.5 liters of fluid was removed. Clinically the patient is feeling much better. OBJECTIVE: VITAL SIGNS: Temperature is 97.8 degrees Fahrenheit, blood pressure 152/73, pulse is 78, respiratory rate of 15, saturating 95% on room air. Intake and output: There is no urine output recorded. Ultrafiltration with hemodialysis was 1.5 liters yesterday. Weight in the bed scale is 43.6 kg. PHYSICAL EXAMINATION: GENERAL: The patient is awake, alert, oriented times three, sitting up in the bed, in no apparent distress. HEAD AND NECK EXAM: Extraocular muscles intact. Pupils equally round and reactive to light. Mucous membranes are moist. Neck is supple. She has a right IJ tunneled hemodialysis catheter. CARDIOVASCULAR: S1, S2, regular rate. No edema of the bilateral lower extremities. RESPIRATORY: Chest is clear to auscultation bilaterally. Bilateral equal air entry. No rales or rhonchi. ABDOMEN: Soft. Positive bowel sounds. Nontender. No organomegaly. MUSCULOSKELETAL: No clubbing or cyanosis. Pulses are 2+. HAND SPLITTER: No focal deficit. Power is 5/5 in all extremities. LABORATORY DATA: CBC showed a WBC 7.2, hemoglobin 8.8, platelets are 95. BMP showed sodium 136, potassium is 4, chloride 102, bicarbonate 28, BUN 27, creatinine is 3.2, calcium 8.5, magnesium is 1.9. CURRENT INPATIENT MEDICATIONS: The patient's medications were all reviewed by me. Her IV hydralazine has been stopped. IV metoprolol has been stopped. She has been started on metoprolol XL 100 mg by mouth daily. No other change in the medications today as compared with yesterday. ASSESSMENT/PLAN: 1. End-stage renal disease on hemodialysis. Patient's regular dialysis days are Friday, Friday, Friday. She was dialyzed yesterday, 1.5 liters of fluid was removed. Volume status is optimal. Next hemodialysis will be on next Friday. 2. Hypertension with end-stage renal disease. Blood pressure is significantly better controlled now. She is currently on metoprolol XL 100 mg daily, amlodipine 10 mg daily, and losartan 100 mg daily. Continue current regimen at this point. 3. Aplastic anemia. The patient is unresponsive to erythropoietin stimulating agents. She gets regular blood transfusions. Hemoglobin goal of above 8 for her chronic illness. Transfuse as needed. 4. Hemosiderosis. The patient gets her Desyrel injections at dialysis center.
[2019-01-11] MEDS: amLODIPine 10 MG TAB PO SCH (21:01)
[2019-01-11] MEDS: **hydrALAZINE** 10 MG TAB PO SCH (21:01)
[2019-01-11] MEDS: cloNIDine 0.1 MG TAB PO PRN (23:44)
[2019-01-12 04:00] VITALS: BP 140/71
[2019-01-12] MEDS: SLF 3 ML SYR IV SCH ×3 (05:15→20:48)
[2019-01-12] MEDS: **hydrALAZINE** 10 MG TAB PO SCH ×3 (05:15→20:48)
[2019-01-12 08:00] VITALS: BP 164/80
[2019-01-12] MEDS: LOSARTAN 50 MG TAB PO SCH (08:17)
[2019-01-12] MEDS: ASPIRIN 81 MG ENTERIC TAB PO SCH (08:17)
[2019-01-12] MEDS: METOPROLOL SUCC (TopROL XL) 100MG *XL* TAB PO SCH (08:17)
[2019-01-12] MEDS: ATORVASTATIN 20 MG TAB PO SCH (08:17)
--- NOTE | 2019-01-12 09:15 | IPN ---
DATE: 01/10/2019 SUBJECTIVE: The patient was seen and examined at the bedside today morning. She is afebrile, hemodynamically stable. She denies any active bleeding. Because of her aplastic anemia, her hemoglobin is dropping. It is down to 7.6 today. Her last dialysis was on Friday. She is due for hemodialysis tomorrow morning. OBJECTIVE VITAL SIGNS: Temperature is 97.7 degrees Fahrenheit, blood pressure 151/80, pulse is 76, respiratory rate of 15, saturating 99% on room air. PHYSICAL EXAMINATION: GENERAL: The patient is awake, alert, oriented times three, laying in bed, no apparent distress. HEAD AND NECK EXAM: Extraocular muscles intact. Pupils equally round and reactive to light. Mucous membranes are moist. Neck is supple. There is no jugular venous distention (JVD). CARDIOVASCULAR: S1, S2. Regular rate. No edema of the bilateral lower extremities. RESPIRATORY: Chest is clear to auscultation bilaterally. Bilateral equal air entry. No rales or rhonchi. ABDOMEN: Soft. Positive bowel sounds. Nontender. No organomegaly. MUSCULOSKELETAL: No clubbing or cyanosis. Pulses are 2+. CENTRAL NERVOUS SYSTEM (CREASING AND CUTTING PRESS FEEDER): No focal deficits. Power is 5/5 in all extremities. LABORATORY REVIEW: Complete blood count (CBC) showed a WBC of 6, hemoglobin 7.6, platelets of 74. Basic metabolic panel (BMP) showed sodium 134, potassium 4.2, chloride 102, bicarbonate 26, BUN 44, creatinine 4.6, calcium 7.8, magnesium is 1.7. CURRENT INPATIENT MEDICATIONS: Patient's medications were all reviewed by me. She was given a dose of hydralazine 10 mg by mouth times one dose. Otherwise there is no change in the medications today as compared with yesterday. ASSESSMENT AND PLAN: 1. End-stage renal disease on hemodialysis. Patient's regular dialysis days are Friday, Friday, Friday. She will be dialyzed tomorrow morning as per her regular schedule. 2. Hypertension with end-stage renal disease. Continue metoprolol XL, losartan and amlodipine. If systolic blood pressures stay above 160, then regular hydralazine dose will be added. I will wait for her hemodialysis and ultrafiltration tomorrow before medication dosage is changed. 3. Aplastic anemia. The patient requires frequent blood transfusions. She will get 2 units of blood transfusion tomorrow morning with hemodialysis.
--- NOTE | 2019-01-12 10:00 | IPNPDOC ---
Date Seen The patient was seen on 01/12/19. Progress Note SUBJECTIVE: s/p 4units rbc transfusion with repeat hgb pending. no c/o sob, chest pain, pressure, tightness. duet o multiple blood transfusions and concerns for iron overload, may need chelating agent. feels a little cold and requested an extra blanket. no fever or chills. OBJECTIVE PHYSICAL EXAMINATION: VITAL SIGNS: Please see below. GENERAL APPEARANCE: Resting comfortably HEENT: Normocephalic, PERRLA, Mucous moist, CARDIOVASCULAR: S1,S2, pulse present, regularly, regular LUNGS: Equal air entry b/l ABDOMEN: Soft, BS present, no tenderness, no guarding EXTREMITIES: B/L no edema, capillary refill present SKIN: Warm, No fever NEUROLOGICAL: Cranial nerves grossly intact PSYCHIATRIC: Normal mood and affect for current situation LABORATORY DATA, IMAGING STUDIES, MICROBIOLOGY: Please see below. 78-year-old female with a pertinent past medical history of aplastic anemia, hypertension, AND end-stage renal disease on dialysis M/W/F who presented today to the ER with her daughter for nausea, nonbilious vomiting, dizziness and generalized weakness for last couple of days. The patient was not the best historian and majority of the story was provided by reading the report and nursing. It stated that the patient has been weak for the last 1 week and according to the family the patient has been noncompliant with her medication for a couple of days as well. They state that she's had nausea and nonbilious vomiting for the last couple days no exacerbating factors. The patient does admit to having epigastric discomfort after all the vomiting. She did not go to dialysis as scheduled this morning and presented to the ER for further evaluation. In the ER her heart rate was elevated at 120 irregular, blood pressure 165/76, pulse ox of 91% on room air and her hemoglobin was low at 6.3. VBG pH was acidotic at 7.31. Potassium was elevated at 5.6, lactic acid elevated at 8.3. Troponin 1 was slightly elevated at 1.63. EKG in the ER showed atrial fibrillation with rapid ventricular response with a ventricular rate of 105. There is no Q waves ST depressions or ST elevations noted. Hosp team was then called for admission Dr. Albarado was informed that the patient is going to be admitted and will be dialysis today. PROBLEMS: Acute/chronic blood loss anemia due to APLASTIC ANEMIA - requires intermittent blood transfusions -Noncompliant with medication -Stool occult in the ER was positive for trace -Colonoscopy and EGD done in 2016 negative for ulcers or polyps packed RBCs transfusion via iv and via HD per renal -monitor H&H's if patient allows. -Per Dr. Diaz,[facility], will need to address iron overload with chelating agent- deferred to nephrology Gastroenteritis, tolerated solid meals without difficulty -Gastrointestinal panel non collected -Afebrile does not appear septic even though lactic acid accumulated to end- stage renal disease as well as history of aplastic anemia -Can be viral versus -we'll continue to monitor leukocytosis, nml Bilateral pulmonary edema, improved -Oxygen prn -Unsure secondary to atrial fibrillation versus underlying valvular disease HD with renal -CT was consistent with bilateral pulmonary edema New-onset atrial fibrillation paroxysmal, resolved -EKG in the ER showed -Echocardiogram:CONCLUSIONS:1. Study is of good technical quality. 2. Normal left ventricular (LV) size with moderate left ventricular hypertrophy (LVH) and preserved LV systolic function, grade 2 diastolic dysfunction. 3. Aortic sclerosis but no significant stenosis and mild insufficiency. 4. Mild mitral and tricuspid insufficiency. 5. High central venous pressure and moderately severe pulmonary hypertension. 6. Bilateral pleural effusions. -c/w home metoprolol succinate 25 mg Daily -per cardiology: No anticoagulation indicated at this time for the patient does have history of aplastic anemia; only asa -Monitor telemetry -BP medication adjusted by Cardio and renal consult Elevated troponins likely secondary to ischemic demand versus pericarditis less likely OR -EKG negative for acute OR -echo as above -Likely secondary to ischemia demand as well as poor renal clearance secondary to end-stage renal disease -dr. Schaeffer on board: Recommends aspirin, resting heart rate closer to 60 beats per minute, even though it might be challenging on account of her underlying anemia, renal also helping to adjust medication -patient at times refused therapy, will encourage and explain risk and benefit. Recommends continuing of the amlodipine and losartan. PRN hydralazine. Anticoagulant with baby aspirin. Anion gap Metabolic acidemia Anion Gap:16 (Normal 14) -VBG pH 7.31 -Likely secondary to lactic acidosis as well as uremia -Lactic acid elevated at 8.3 -Hemodialysis today and continue to trend Leukocytosis Reactive -Will monitor no antibiotics indicated at this time Thrombocytopenia -Splenic sequestration End-stage renal disease -Dialysis M/W/F -Nephrology consulted -BP medication adjustment as per renal History of aplastic anemia Diet -cardiac renal diet DVT prophylaxis -Valentino's and sequential because of history of aplastic anemia Patient requested DNR DISPOSITION: PT clearance. A-FIB/CHADSVASC A-FIB History Current/History of A-Fib/PAF?: No Current Oral Anticoagulant The: No VS, I&O, 24H, Fishbone Vital Signs/I&O Vital Signs Date Time Temp Pulse Resp B/P (MAP) Pulse Ox O2 Delivery O2 Flow Rate FiO2 01/12/19 08:17 68 140/71 01/12/19 08:00 97.0 18 91 01/06/19 08:00 2.0 I&O- Last 24 Hours up to 6 AM 01/12/19 06:00 Intake Total 100 ml Output Total 1550 ml Balance -1450 ml Laboratory Data Microbiology Microbiology 01/04/19 Blood Culture - Final, Complete NO GROWTH AFTER 5 DAYS 01/04/19 Blood Culture - Final, Complete NO GROWTH AFTER 5 DAYS LEONID VIRK MD Jan 12, 2019 10:00
[2019-01-12 10:12] LABS: HEMOGLOBIN 10.5 g/dl (12.0-15.5)
[2019-01-12 12:00] VITALS: BP 164/74
--- NOTE | 2019-01-12 13:44 | IPN ---
DATE: 01/11/2019 SUBJECTIVE: The patient was seen and examined the bedside today morning during hemodialysis. She is tolerating the hemodialysis procedure well. She is also getting a blood transfusion during dialysis. She denies any active complaints at this point. OBJECTIVE: Vital signs: Temperature is 97.8 degrees Fahrenheit, blood pressure 184/80, pulse is 90, respiratory rate of 18, saturating 100% on room air. Intake and output: Urine output recorded is 200 m. Weight in the bed scale is 44 kg. PHYSICAL EXAMINATION: GENERAL: The patient is awake, alert, oriented times three, lying in bed getting hemodialysis done. HEAD AND NECK: Extraocular muscles intact. Pupils equally round and reactive to light. Mucous membranes are moist. NECK: Supple. She has a right internal jugular (IJ) tunneled hemodialysis catheter, which is being used for dialysis. CARDIOVASCULAR: S1, S2, regular rate. No edema of the bilateral lower extremities. RESPIRATORY: Chest is clear to auscultation bilaterally. Bilateral equal air entry. No rales or rhonchi. ABDOMEN: Soft. Positive bowel sounds. Nontender. No organomegaly. MUSCULOSKELETAL: No clubbing or cyanosis. Pulses are 2+. CENTRAL NERVOUS SYSTEM: No focal deficit. Power is 5/5 in all extremities. LABORATORY REVIEW: Review of CBC showed WBC 6.1, hemoglobin is 7.4, platelets of 72. BMP showed sodium 133, potassium 4.5, chloride 102, bicarbonate 24, BUN 59, creatinine 5.9, calcium of 7.9, magnesium is 1.9. CURRENT INPATIENT MEDICATIONS: The patient's medications were all reviewed by me. There is no change in the medications today as compared with yesterday. ASSESSMENT AND PLAN: 1. End-stage renal disease, on hemodialysis. The patient is being dialyzed according to a regular schedule. Ultrafiltration goal will be 1.5 liters as tolerated by her blood pressure. 2. Aplastic anemia. The patient is going to get 2 units of blood transfusion during dialysis today. 3. Hypertension with hypertensive heart disease and end-stage renal disease. Continue current dose of metoprolol 100 mg daily, amlodipine 10 mg daily, and losartan 100 mg daily. She is also getting as-needed clonidine 0.1 mg p.o. twice a day as needed for high blood pressures.
[2019-01-12 16:00] VITALS: BP 164/88
--- NOTE | 2019-01-12 17:31 | IPN ---
DATE: 01/12/2019 SUBJECTIVE: The patient was seen and examined at the bedside today morning. She is afebrile and hemodynamically stable. She was dialyzed yesterday and 1.5 liters of fluid was removed. She tolerated the hemodialysis procedure well. She was also given two units of packed red blood cells (PRBC) transfusion as well. OBJECTIVE: VITAL SIGNS: Temperature is 97 degrees Fahrenheit, blood pressure 164/80, pulse is 65, respiratory rate of 18, saturating 91% on room air. INTAKE AND OUTPUT: There is no urine output recorded. Weight in the bed scale is 45 kg. Ultrafiltration with hemodialysis was 1.5 liters. PHYSICAL EXAMINATION: GENERAL: The patient is awake, alert, oriented times three, laying in bed, in no apparent distress. HEAD AND NECK: Extraocular muscles intact. Pupils equally round and reactive to light. Mucous membranes are moist. Neck is supple. There is no jugular venous distention (JVD) . CARDIOVASCULAR: S1, S2, regular rate. No edema of the bilateral lower extremities. RESPIRATORY: Chest is clear to auscultation bilaterally. Bilateral equal air entry. No rales or rhonchi. ABDOMEN: Soft. Positive bowel sounds. Nontender. No organomegaly. MUSCULOSKELETAL: No clubbing or cyanosis. Pulses are 2+. CENTRAL NERVOUS SYSTEM (CHILDCARE ATTENDANT): No focal deficit. Power is 5/5 in all extremities. LABORATORY REVIEW: Hemoglobin and hematocrit showed hemoglobin of 10.5, and a hematocrit of 30. There is no BMP available today. CURRENT INPATIENT MEDICATIONS: The patient's medications were all reviewed by me. He was started on hydralazine 10 mg by mouth three times a day. No other change in the medications today as compared with yesterday. ASSESSMENT AND PLAN: 1. End-stage renal disease, on hemodialysis. The patient was dialyzed yesterday according to her regular schedule. Next hemodialysis session will be tomorrow. 2. Hypertension with end-stage renal disease. Continue current dose of metoprolol, losartan and amlodipine. Hydralazine was started yesterday and blood pressures are better controlled. 3. Aplastic anemia. The patient has regular blood transfusions. Latest blood transfusion was two units yesterday. 4. Hemosiderosis. The patient to get her chelation medicine once she is discharged from the hospital.
[2019-01-12 20:00] VITALS: BP 174/91
[2019-01-12] MEDS: amLODIPine 10 MG TAB PO SCH (20:48)
[2019-01-13] VITALS (9 sets, daily range): BP systolic 119–173; BP diastolic 74–88
[2019-01-13] MEDS: cloNIDine 0.1 MG TAB PO PRN (00:07)
[2019-01-13] MEDS: **hydrALAZINE** 10 MG TAB PO SCH ×3 (05:34→22:00)
[2019-01-13] MEDS: SLF 3 ML SYR IV SCH ×3 (05:34→22:00)
[2019-01-13] MEDS: ATORVASTATIN 20 MG TAB PO SCH (05:39)
[2019-01-13] MEDS: LOSARTAN 50 MG TAB PO SCH (05:39)
[2019-01-13] MEDS: ASPIRIN 81 MG ENTERIC TAB PO SCH (05:39)
--- NOTE | 2019-01-13 07:51 | IPNPDOC ---
Date Seen The patient was seen on 01/13/19. Progress Note SUBJECTIVE: refused physical therapy. stable for dc home. s/p 4units rbc transfusion with repeat hgb 10. no c/o sob, chest pain, pressure, tightness. duet o multiple blood transfusions and concerns for iron overload, may need chelating agent to be arranged by nephrology after discharge. no c/o overnight. slept well. some constipation but refuses bowel regimen. OBJECTIVE PHYSICAL EXAMINATION: VITAL SIGNS: Please see below. GENERAL APPEARANCE: Resting comfortably HEENT: Normocephalic, PERRLA, Mucous moist, CARDIOVASCULAR: S1,S2, pulse present, regularly, regular LUNGS: Equal air entry b/l ABDOMEN: Soft, BS present, no tenderness, no guarding EXTREMITIES: B/L no edema, capillary refill present SKIN: Warm, No fever NEUROLOGICAL: Cranial nerves grossly intact PSYCHIATRIC: Normal mood and affect for current situation LABORATORY DATA, IMAGING STUDIES, MICROBIOLOGY: Please see below. 78-year-old female with a pertinent past medical history of aplastic anemia, hypertension, AND end-stage renal disease on dialysis M/W/F who presented today to the ER with her daughter for nausea, nonbilious vomiting, dizziness and generalized weakness for last couple of days. The patient was not the best historian and majority of the story was provided by reading the report and nursing. It stated that the patient has been weak for the last 1 week and according to the family the patient has been noncompliant with her medication for a couple of days as well. They state that she's had nausea and nonbilious vomiting for the last couple days no exacerbating factors. The patient does admit to having epigastric discomfort after all the vomiting. She did not go to dialysis as scheduled this morning and presented to the ER for further evaluation. In the ER her heart rate was elevated at 120 irregular, blood pressure 165/76, pulse ox of 91% on room air and her hemoglobin was low at 6.3. VBG pH was acidotic at 7.31. Potassium was elevated at 5.6, lactic acid elevated at 8.3. Troponin 1 was slightly elevated at 1.63. EKG in the ER showed atrial fibrillation with rapid ventricular response with a ventricular rate of 105. There is no Q waves ST depressions or ST elevations noted. Hosp team was then called for admission Dr. Albarado was informed that the patient is going to be admitted and will be dialysis today. PROBLEMS: Acute/chronic blood loss anemia due to APLASTIC ANEMIA - requires intermittent blood transfusions -Noncompliant with medication -Stool occult in the ER was positive for trace -Colonoscopy and EGD done in 2016 negative for ulcers or polyps packed RBCs transfusion via iv and via HD per renal -monitor H&H's if patient allows. -Per cedric Jim, will need to address iron overload with chelating agent- deferred to nephrology APLASTIC ANEMIA - requires intermittent blood transfusions -Noncompliant with medication -Stool occult in the ER was positive for trace -Colonoscopy and EGD done in 2016 negative for ulcers or polyps packed RBCs transfusion via iv and via HD per renal -monitor H&H's if patient allows. 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 -Per cedric Jim, will need to address iron overload with chelating agent-deferred to nephrology Gastroenteritis, tolerated solid meals without difficulty -Gastrointestinal panel non collected -Afebrile does not appear septic even though lactic acid accumulated to end- stage renal disease as well as history of aplastic anemia -Can be viral versus -we'll continue to monitor leukocytosis, nml Bilateral pulmonary edema, improved -Oxygen prn -Unsure secondary to atrial fibrillation versus underlying valvular disease HD with renal -CT was consistent with bilateral pulmonary edema New-onset atrial fibrillation paroxysmal, resolved -EKG in the ER showed -Echocardiogram:CONCLUSIONS:1. Study is of good technical quality. 2. Normal left ventricular (LV) size with moderate left ventricular hypertrophy (LVH) and preserved LV systolic function, grade 2 diastolic dysfunction. 3. Aortic sclerosis but no significant stenosis and mild insufficiency. 4. Mild mitral and tricuspid insufficiency. 5. High central venous pressure and moderately severe pulmonary hypertension. 6. Bilateral pleural effusions. -c/w home metoprolol succinate 25 mg Daily -per cardiology: No anticoagulation indicated at this time for the patient does have history of aplastic anemia; only asa -Monitor telemetry -BP medication adjusted by Cardio and renal consult Elevated troponins likely secondary to ischemic demand versus pericarditis less likely VA -EKG negative for acute VA -echo as above -Likely secondary to ischemia demand as well as poor renal clearance secondary to end-stage renal disease -dr. Schaeffer on board: Recommends aspirin, resting heart rate closer to 60 beats per minute, even though it might be challenging on account of her underlying anemia, renal also helping to adjust medication -patient at times refused therapy, will encourage and explain risk and benefit. Recommends continuing of the amlodipine and losartan. PRN hydralazine. Anticoagulant with baby aspirin. Anion gap Metabolic acidemia Anion Gap:16 (Normal 14) -VBG pH 7.31 -Likely secondary to lactic acidosis as well as uremia -Lactic acid elevated at 8.3 -Hemodialysis today and continue to trend Leukocytosis Reactive -Will monitor no antibiotics indicated at this time Thrombocytopenia -Splenic sequestration End-stage renal disease -Dialysis M/W/F -Nephrology consulted -BP medication adjustment as per renal History of aplastic anemia Diet -cardiac renal diet DVT prophylaxis -Valentino's and sequential because of history of aplastic anemia Patient requested DNR DISPOSITION: patient refuses to work with physical therapy. dc home after PT clearance. A-FIB/CHADSVASC A-FIB History Current/History of A-Fib/PAF?: No Current Oral Anticoagulant The: No VS, I&O, 24H, Fishbone Vital Signs/I&O Vital Signs Date Time Temp Pulse Resp B/P (MAP) Pulse Ox O2 Delivery O2 Flow Rate FiO2 01/13/19 05:39 119/80 01/13/19 04:00 98.6 71 18 93 I&O- Last 24 Hours up to 6 AM 01/13/19 06:00 Intake Total 440 ml Output Total 400 ml Balance 40 ml Laboratory Data CBC/BMP Laboratory Tests 01/12/19 10:03 Microbiology Microbiology 01/04/19 Blood Culture - Final, Complete NO GROWTH AFTER 5 DAYS 01/04/19 Blood Culture - Final, Complete NO GROWTH AFTER 5 DAYS LEONID VIRK MD January 13, 2019 07:51
[2019-01-13] MEDS ORDERED: HYDR10TAB PO (07:54)
[2019-01-13] MEDS ORDERED: ATOR1TAB21 PO (07:54)
[2019-01-13] MEDS ORDERED: ASPI81TAEC PO (07:54)
[2019-01-13] MEDS ORDERED: METO1TAB33 PO (07:54)
[2019-01-13] MEDS: METOPROLOL SUCC (TopROL XL) 100MG *XL* TAB PO SCH (08:08)
[2019-01-13 09:08] LABS: HEMATOCRIT 30.5 % (36.0-47.0); HEMOGLOBIN 10.4 g/dl (12.0-15.5); MEAN CORPUSCULAR HEMOGLOBIN 29.5 pg (27.0-33.0); MEAN CORPUSCULAR HGB CONC 34.1 g/dl (32.0-36.5); MEAN CORPUSCULAR VOLUME 86.4 fl (80.0-96.0); RED BLOOD COUNT 3.53 10^6/uL (4.00-5.40); WHITE BLOOD COUNT 5.5 10^3/uL (4.0-10.0)
[2019-01-13 09:10] LABS: PLATELET COUNT, AUTOMATED 58 10^3/uL (150-450)
[2019-01-13 09:37] LABS: CALCIUM LEVEL 8.3 MG/DL (8.8-10.2); CREATININE FOR GFR 4.82 MG/DL (0.55-1.30); GLOMERULAR FILTRATION RATE 9.3 (>39); POTASSIUM SERUM 4.6 MEQ/L (3.5-5.1)
[2019-01-13] MEDS ORDERED: HEPARIN 1,000 UNITS/ML 10ML VIAL (FOR RADIOLOGY& DIALYSIS ONLY) XX ONE (11:15)
--- NOTE | 2019-01-13 16:04 | IPN ---
DATE: 01/13/2019 SUBJECTIVE: The patient was seen and examined at the bedside today morning during hemodialysis. She is tolerating the hemodialysis procedure well. She denies any active complaints. OBJECTIVE: VITAL SIGNS: Temperature is 97.3 degrees Fahrenheit, blood pressure 154/74, pulse is 65, respiratory of 18, saturating 98% on room air. INTAKE AND OUTPUT: Urine output recorded is 400 mL. Weight in the bed scale is 45 kg. PHYSICAL EXAMINATION: GENERAL: The patient is awake, alert, oriented times three, laying in bed, getting hemodialysis done. HEAD AND NECK: Extraocular muscles intact. Pupils equally round and reactive to light. Mucous membranes are moist. Neck is supple. There is no jugular venous distention (JVD). CARDIOVASCULAR: S1, S2, regular rate. No edema of the bilateral lower extremities. RESPIRATORY: Chest is clear to auscultation bilaterally. Bilateral equal air entry. No rales or rhonchi. ABDOMEN: Soft. Positive bowel sounds. Nontender. No organomegaly. MUSCULOSKELETAL: No clubbing or cyanosis. Pulses are 2+. CENTRAL NERVOUS SYSTEM (SAFETY CONSULTANT): No focal deficit. Power is 5/5 in all extremities. LABORATORY REVIEW: CBC showed a WBC 5.5, hemoglobin 10.4, platelets are 58. BMP showed sodium 134, potassium 4.6, chloride 100, bicarbonate 26, BUN 50, creatinine 4.8, calcium is 8.3. CURRENT INPATIENT MEDICATIONS: The patient medications were all reviewed by me. There is no change in the medications today as compared with yesterday. ASSESSMENT AND PLAN: 1. End-stage renal disease, on hemodialysis. The patient is being dialyzed according to her regular schedule today. She is tolerating the hemodialysis procedure well. 2. Hypertension with end-stage renal disease. Continue current dose of metoprolol, losartan, amlodipine and hydralazine. Hydralazine was not given today morning because of holding parameters. 3. Aplastic anemia. The patient regularly gets blood transfusions. She got four units of packed red blood cells (PRBC) during this hospitalization. Hemoglobin level is acceptable. 4. Thrombocytopenia. The patient gets eltrombopag as outpatient which she is not receiving right now. Medicine needs to be restarted when she leaves the hospital.
[2019-01-13] MEDS: amLODIPine 10 MG TAB PO SCH (20:39)
[2019-01-14] MEDS: cloNIDine 0.1 MG TAB PO PRN ×2 (00:28→17:36)
[2019-01-14 04:00] VITALS: BP 138/65
[2019-01-14] MEDS: **hydrALAZINE** 10 MG TAB PO SCH ×3 (06:00→23:14)
[2019-01-14] MEDS: SLF 3 ML SYR IV SCH ×3 (06:00→23:15)
[2019-01-14 08:00] VITALS: BP 120/60
[2019-01-14] MEDS: ATORVASTATIN 20 MG TAB PO SCH (09:23)
[2019-01-14] MEDS: LOSARTAN 50 MG TAB PO SCH (09:23)
[2019-01-14] MEDS: METOPROLOL SUCC (TopROL XL) 100MG *XL* TAB PO SCH (09:23)
[2019-01-14] MEDS: ASPIRIN 81 MG ENTERIC TAB PO SCH (09:23)
--- NOTE | 2019-01-14 11:14 | IPNPDOC ---
Date Seen The patient was seen on 01/14/19. Progress Note UBJECTIVE: Awaiting rehab bed. kept on medsurg floor until accepted by Rehab facility s/p 4units rbc transfusion with repeat hgb 10. no c/o sob, chest pain, pressure, tightness. duet o multiple blood transfusions and concerns for iron overload, may need chelating agent to be arranged by nephrology after discharge. no c/o overnight. slept well. some constipation but refuses bowel regimen. OBJECTIVE PHYSICAL EXAMINATION: VITAL SIGNS: Please see below. GENERAL APPEARANCE: Resting comfortably HEENT: Normocephalic, PERRLA, Mucous moist, CARDIOVASCULAR: S1,S2, pulse present, regularly, regular LUNGS: Equal air entry b/l ABDOMEN: Soft, BS present, no tenderness, no guarding EXTREMITIES: B/L no edema, capillary refill present SKIN: Warm, No fever NEUROLOGICAL: Cranial nerves grossly intact PSYCHIATRIC: Normal mood and affect for current situation LABORATORY DATA, IMAGING STUDIES, MICROBIOLOGY: Please see below. 78-year-old female with a pertinent past medical history of aplastic anemia, hypertension, AND end-stage renal disease on dialysis M/W/F who presented today to the ER with her daughter for nausea, nonbilious vomiting, dizziness and generalized weakness for last couple of days. The patient was not the best historian and majority of the story was provided by reading the report and nursing. It stated that the patient has been weak for the last 1 week and according to the family the patient has been noncompliant with her medication for a couple of days as well. They state that she's had nausea and nonbilious vomiting for the last couple days no exacerbating factors. The patient does admit to having epigastric discomfort after all the vomiting. She did not go to dialysis as scheduled this morning and presented to the ER for further evaluation. In the ER her heart rate was elevated at 120 irregular, blood pressure 165/76, pulse ox of 91% on room air and her hemoglobin was low at 6.3. VBG pH was acidotic at 7.31. Potassium was elevated at 5.6, lactic acid elevated at 8.3. Troponin 1 was slightly elevated at 1.63. EKG in the ER showed atrial fibrillation with rapid ventricular response with a ventricular rate of 105. There is no Q waves ST depressions or ST elevations noted. Hosp team was then called for admission Dr. Albarado was informed that the patient is going to be admitted and will be dialysis today. PROBLEMS: Acute/chronic blood loss anemia due to APLASTIC ANEMIA - requires intermittent blood transfusions -Noncompliant with medication -Stool occult in the ER was positive for trace -Colonoscopy and EGD done in 2016 negative for ulcers or polyps packed RBCs transfusion via iv and via HD per renal -monitor H&H's if patient allows. -Per cedric Jim, will need to address iron overload with chelating agent- deferred to nephrology APLASTIC ANEMIA - requires intermittent blood transfusions -Noncompliant with medication -Stool occult in the ER was positive for trace -Colonoscopy and EGD done in 2016 negative for ulcers or polyps packed RBCs transfusion via iv and via HD per renal -monitor H&H's if patient allows. 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 -Per cedric Jim, will need to address iron overload with chelating agent- deferred to nephrology Gastroenteritis, tolerated solid meals without difficulty -Gastrointestinal panel non collected -Afebrile does not appear septic even though lactic acid accumulated to end- stage renal disease as well as history of aplastic anemia -Can be viral versus -we'll continue to monitor leukocytosis, nml Bilateral pulmonary edema, improved -Oxygen prn -Unsure secondary to atrial fibrillation versus underlying valvular disease HD with renal -CT was consistent with bilateral pulmonary edema New-onset atrial fibrillation paroxysmal, resolved -EKG in the ER showed -Echocardiogram:CONCLUSIONS:1. Study is of good technical quality. 2. Normal left ventricular (LV) size with moderate left ventricular hypertrophy (LVH) and preserved LV systolic function, grade 2 diastolic dysfunction. 3. Aortic sclerosis but no significant stenosis and mild insufficiency. 4. Mild mitral and tricuspid insufficiency. 5. High central venous pressure and moderately severe pulmonary hypertension. 6. Bilateral pleural effusions. -c/w home metoprolol succinate 25 mg Daily -per cardiology: No anticoagulation indicated at this time for the patient does have history of aplastic anemia; only asa -Monitor telemetry -BP medication adjusted by Cardio and renal consult Elevated troponins likely secondary to ischemic demand versus pericarditis less likely NV -EKG negative for acute NV -echo as above -Likely secondary to ischemia demand as well as poor renal clearance secondary to end-stage renal disease -dr. Schaeffer on board: Recommends aspirin, resting heart rate closer to 60 beats per minute, even though it might be challenging on account of her underlying anemia, renal also helping to adjust medication -patient at times refused therapy, will encourage and explain risk and benefit. Recommends continuing of the amlodipine and losartan. PRN hydralazine. Anticoagulant with baby aspirin. Anion gap Metabolic acidemia Anion Gap:16 (Normal 14) -VBG pH 7.31 -Likely secondary to lactic acidosis as well as uremia -Lactic acid elevated at 8.3 -Hemodialysis today and continue to trend Leukocytosis Reactive -Will monitor no antibiotics indicated at this time Thrombocytopenia -Splenic sequestration -resume home meds End-stage renal disease -Dialysis M/W/F -Nephrology consulted -BP medication adjustment as per renal History of aplastic anemia Diet -cardiac renal diet DVT prophylaxis -Valentino's and sequential because of history of aplastic anemia Patient requested DNR DISPOSITION: awaiting rehab unit A-FIB/[facility]SVASC A-FIB History Current/History of A-Fib/PAF?: No Current Oral Anticoagulant The: No VS, I&O, 24H, Fishbone Vital Signs/I&O Vital Signs Date Time Temp Pulse Resp B/P (MAP) Pulse Ox O2 Delivery O2 Flow Rate FiO2 01/14/19 10:00 98.9 01/14/19 09:23 68 120/60 01/14/19 08:00 18 96 I&O- Last 24 Hours up to 6 AM 01/14/19 06:00 Intake Total 360 ml Output Total 2000 ml Balance -1640 ml Laboratory Data Microbiology Microbiology 01/04/19 Blood Culture - Final, Complete NO GROWTH AFTER 5 DAYS 01/04/19 Blood Culture - Final, Complete NO GROWTH AFTER 5 DAYS LEONID VIRK MD January 14, 2019 11:14
--- NOTE | 2019-01-14 12:53 | IPN ---
DATE: 01/14/2019 SUBJECTIVE: Patient was seen and examined at the bedside today morning. She is afebrile, hemodynamically stable. She was dialyzed yesterday; 2 liters of fluid was removed. Patient is pending placement at a rehabilitation center. Otherwise, she denies any active issues. OBJECTIVE: VITAL SIGNS: Temperature is 98.9 degrees Fahrenheit, blood pressure 120/60, pulse is 68, respiratory rate of 18, saturating 96% on room air. INTAKE AND OUTPUT: Urine output recorded is 300 mL. Ultrafiltration with hemodialysis was 2 liters. Weight in the bed scale is 43.4 kg. PHYSICAL EXAMINATION: GENERAL: The patient is awake, alert, oriented times three, laying in bed in no apparent distress. HEAD AND NECK EXAM: Extraocular muscles intact. Pupils equally round and reactive to light. Mucous membranes are moist. Neck is supple. There is no jugular venous distention (JVD). She has a tunneled hemodialysis catheter. CARDIOVASCULAR: S1, S2. Regular rate. No edema of the bilateral lower extremities. RESPIRATORY: Chest is clear to auscultation bilaterally. Bilateral equal air entry. No rales or rhonchi. ABDOMEN: Soft. Positive bowel sounds. Nontender. No organomegaly. MUSCULOSKELETAL: No clubbing or cyanosis. Pulses are 2+. CENTRAL NERVOUS SYSTEM (PUBLIC SERVICE OFFICER): No focal deficit. Power is 5/5 in all extremities. LABORATORY REVIEW: Complete blood count (CBC) showed a WBC of 5.5, hemoglobin 10.4, platelets are 58 from yesterday. Basic metabolic panel (BMP) is from yesterday as well. CURRENT INPATIENT MEDICATIONS: Patient's medications were all reviewed by me. There is no change in the medications today as compared with yesterday. ASSESSMENT AND PLAN: 1. End-stage renal disease on hemodialysis. Patient was dialyzed according to her regular schedule yesterday. Next hemodialysis session will be tomorrow morning. 2. Hypertension with end-stage renal disease. Continue current dose of metoprolol, losartan, amlodipine and hydralazine. Blood pressures are acceptable. 3. Aplastic anemia. The patient gets regular blood transfusions. Latest hemoglobin level is 10.4, which is acceptable. 5. Thrombocytopenia. Patient gets eltrombopag as outpatient. She will resume the medicine when she is discharged from the hospital.
[2019-01-14 14:07] VITALS: BP 136/78
[2019-01-14 16:00] VITALS: BP 168/78
[2019-01-14 17:24] VITALS: BP 166/72
[2019-01-14 19:55] VITALS: BP 141/72
[2019-01-14] MEDS: amLODIPine 10 MG TAB PO SCH (20:23)
[2019-01-15] VITALS (7 sets, daily range): BP systolic 152–170; BP diastolic 70–90
[2019-01-15 04:19] LABS: HEMATOCRIT 29.1 % (36.0-47.0); HEMOGLOBIN 9.6 g/dl (12.0-15.5); MEAN CORPUSCULAR HEMOGLOBIN 28.8 pg (27.0-33.0); MEAN CORPUSCULAR VOLUME 87.4 fl (80.0-96.0); RED BLOOD COUNT 3.33 10^6/uL (4.00-5.40); WHITE BLOOD COUNT 5.9 10^3/uL (4.0-10.0)
[2019-01-15 04:23] LABS: PLATELET COUNT, AUTOMATED 52 10^3/uL (150-450)
[2019-01-15 04:38] LABS: CALCIUM LEVEL 8.1 MG/DL (8.8-10.2); CREATININE FOR GFR 5.18 MG/DL (0.55-1.30); GLOMERULAR FILTRATION RATE 8.6 (>39); POTASSIUM SERUM 4.8 MEQ/L (3.5-5.1)
[2019-01-15] MEDS: **hydrALAZINE** 10 MG TAB PO SCH ×3 (05:17→21:24)
[2019-01-15] MEDS: SLF 3 ML SYR IV SCH ×3 (05:19→21:24)
[2019-01-15] MEDS: LOSARTAN 50 MG TAB PO SCH (08:02)
[2019-01-15] MEDS: ATORVASTATIN 20 MG TAB PO SCH (08:03)
[2019-01-15] MEDS: ASPIRIN 81 MG ENTERIC TAB PO SCH (08:03)
[2019-01-15] MEDS: METOPROLOL SUCC (TopROL XL) 100MG *XL* TAB PO SCH (08:03)
[2019-01-15] MEDS ORDERED: HEPARIN 1,000 UNITS/ML 10ML VIAL (FOR RADIOLOGY& DIALYSIS ONLY) XX ONE (11:15)
--- NOTE | 2019-01-15 19:02 | IPNPDOC ---
Date Seen The patient was seen on 01/15/19. Progress Note SUBJECTIVE: Pt has no new complaints. Still waiting for rehab bed, hopefully by Friday or Friday. NO issues per RN overnight. OBJECTIVE PHYSICAL EXAMINATION: VITAL SIGNS: Please see below. GENERAL APPEARANCE: Resting comfortably HEENT: Normocephalic, PERRLA, Mucous moist, CARDIOVASCULAR: S1,S2, pulse present, regularly, regular LUNGS: Equal air entry b/l ABDOMEN: Soft, BS present, no tenderness, no guarding EXTREMITIES: B/L no edema, capillary refill present SKIN: Warm, No fever NEUROLOGICAL: Cranial nerves grossly intact PSYCHIATRIC: Normal mood and affect for current situation LABORATORY DATA, IMAGING STUDIES, MICROBIOLOGY: Please see below. 78-year-old female with a pertinent past medical history of aplastic anemia, hypertension, AND end-stage renal disease on dialysis M/W/F who presented today to the ER with her daughter for nausea, nonbilious vomiting, dizziness and gener alized weakness for last couple of days. The patient was not the best historian and majority of the story was provided by reading the report and nursing. It stated that the patient has been weak for the last 1 week and according to the family the patient has been noncompliant with her medication for a couple of days as well. They state that she's had nausea and nonbilious vomiting for the last couple days no exacerbating factors. The patient does admit to having epigastric discomfort after all the vomiting. She did not go to dialysis as scheduled this morning and presented to the ER for further evaluation. In the ER her heart rate was elevated at 120 irregular, blood pressure 165/76, pulse ox of 91% on room air and her hemoglobin was low at 6.3. VBG pH was acidotic at 7.31. Potassium was elevated at 5.6, lactic acid elevated at 8.3. Troponin 1 was slightly elevated at 1.63. EKG in the ER showed atrial fibrillation with rapid ventricular response with a ventricular rate of 105. There is no Q waves ST depressions or ST elevations noted. Hosp team was then called for admission Dr. Albarado was informed that the patient is going to be admitted and will be dialysis today. PROBLEMS: Acute/chronic blood loss anemia due to APLASTIC ANEMIA - requires intermittent blood transfusions -Noncompliant with medication -Stool occult in the ER was positive for trace -Colonoscopy and EGD done in 2015 negative for ulcers or polyps packed RBCs transfusion via iv and via HD per renal -monitor H&H's if patient allows. [facility], will need to address iron overload with chelating agent- deferred to nephrology APLASTIC ANEMIA - requires intermittent blood transfusions -Noncompliant with medication -Stool occult in the ER was positive for trace -Colonoscopy and EGD done in 2016 negative for ulcers or polyps packed RBCs transfusion via iv and via HD per renal -monitor H&H's if patient allows. -Per Dr. 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 -Per jeannine Jim, will need to address iron overload with chelating agent- deferred to nephrology Gastroenteritis, tolerated solid meals without difficulty -Gastrointestinal panel non collected -Afebrile does not appear septic even though lactic acid accumulated to end- stage renal disease as well as history of aplastic anemia -Can be viral versus -we'll continue to monitor leukocytosis, nml Bilateral pulmonary edema, improved -Oxygen prn -Unsure secondary to atrial fibrillation versus underlying valvular disease HD with renal -CT was consistent with bilateral pulmonary edema New-onset atrial fibrillation paroxysmal, resolved -EKG in the ER showed -Echocardiogram:CONCLUSIONS:1. Study is of good technical quality. 2. Normal left ventricular (LV) size with moderate left ventricular hypertrophy (LVH) and preserved LV systolic function, grade 2 diastolic dysfunction. 3. Aortic sclerosis but no significant stenosis and mild insufficiency. 4. Mild mitral and tricuspid insufficiency. 5. High central venous pressure and moderately severe pulmonary hypertension. 6. Bilateral pleural effusions. -c/w home metoprolol succinate 25 mg Daily -per cardiology: No anticoagulation indicated at this time for the patient does have history of aplastic anemia; only asa -Monitor telemetry -BP medication adjusted by Cardio and renal consult Elevated troponins likely secondary to ischemic demand versus pericarditis less likely PR -EKG negative for acute PR -echo as above -Likely secondary to ischemia demand as well as poor renal clearance secondary to end-stage renal disease -dr. Schaeffer on board: Recommends aspirin, resting heart rate closer to 60 beats per minute, even though it might be challenging on account of her underlying anemia, renal also helping to adjust medication -patient at times refused therapy, will encourage and explain risk and benefit. Recommends continuing of the amlodipine and losartan. PRN hydralazine. Anticoagulant with baby aspirin. Anion gap Metabolic acidemia Anion Gap:16 (Normal 14) -VBG pH 7.31 -Likely secondary to lactic acidosis as well as uremia -Lactic acid elevated at 8.3 -Hemodialysis today and continue to trend Leukocytosis Reactive -Will monitor no antibiotics indicated at this time Thrombocytopenia -Splenic sequestration -resume home meds End-stage renal disease -Dialysis M/W/F -Nephrology consulted -BP medication adjustment as per renal History of aplastic anemia Diet -cardiac renal diet DVT prophylaxis -Valentino's and sequential because of history of aplastic anemia Patient requested DNR DISPOSITION: awaiting rehab unit A-FIB/[facility] A-FIB History Current/History of A-Fib/PAF?: No Current Oral Anticoagulant The: No VS, I&O, 24H, Fishbone Vital Signs/I&O Vital Signs Date Time Temp Pulse Resp B/P (MAP) Pulse Ox O2 Delivery O2 Flow Rate FiO2 01/15/19 17:03 154/84 01/15/19 16:50 97.9 69 20 98 I&O- Last 24 Hours up to 6 AM 01/15/19 06:00 Intake Total 540 ml Output Total 300 ml Balance 240 ml Laboratory Data 24H LABS Laboratory Tests 2 01/15/19 03:57: Nucleated Red Blood Cells % (auto) 0.0, Immature Platelet Fraction 1.7, Anion Gap 7L, Glomerular Filtration Rate 8.6L, Blood Urea Nitrogen 54H, Creatinine 5.18H, Sodium Level 137, Potassium Level 4.8, Chloride Level 103, Carbon Dioxide Level 27, Calcium Level 8.1L CBC/BMP Laboratory Tests 01/15/19 03:57 Red Blood Count 3.33 L, Mean Corpuscular Volume 87.4, Mean Corpuscular Hemoglobin 28.8, Mean Corpuscular Hemoglobin Concent 33.0, Red Cell Distribution Width 13.8, Calcium Level 8.1 L LEONID VIRK MD January 15, 2019 19:02
--- NOTE | 2019-01-15 20:28 | IPN ---
DATE: 01/15/2019 SUBJECTIVE: The patient was seen and examined at the bedside today morning. She is afebrile, hemodynamically stable. She denies any active complaints. Today is the patient's regular day of dialysis. OBJECTIVE: Vital signs: Temperature is 98.1 degrees Fahrenheit, blood pressure 157/74, pulse is 67, respiratory rate of 20, saturating 97% on room air. Intake and output: Urine output is not recorded. Yesterday, she made 300 mL of urine. Weight on the bed scale was 43.4 kg yesterday. PHYSICAL EXAMINATION: General: The patient is awake, alert, oriented times three, laying in bed, in no apparent distress. Head and neck exam: Extraocular muscles intact. Pupils equally round and reactive to light. Mucous membranes are moist. Neck is supple. She has a right internal jugular (IJ) tunneled hemodialysis catheter. Cardiovascular: S1, S2, regular rate. No edema of the bilateral lower extremities. Respiratory: Chest is clear to auscultation bilaterally. Bilateral equal air entry. No rales or rhonchi. Abdomen: Soft. Positive bowel sounds. Nontender. No organomegaly. Musculoskeletal: No clubbing or cyanosis. Pulses are 2+. NURSES' REGISTRY DIRECTOR: No focal deficit. Power is 5/5 in all extremities. LAB REVIEW: CBC showed a WBC of 5.9, hemoglobin 9.6, platelets are 52. BMP showed sodium 137, potassium 4.8, chloride 103, bicarbonate 27, BUN 54, creatinine is 5.1. CURRENT INPATIENT MEDICATIONS: The patient's medications were all reviewed by me. There is no change in the medications today as compared with yesterday. ASSESSMENT/PLAN: 1. End-stage renal disease, on hemodialysis. The patient will be dialyzed today according to her regular schedule. Ultrafiltration goal will be 1.5 liters as tolerated by blood pressure. 2. Hypertension with end-stage renal disease. Continue current dose of metoprolol, losartan and amlodipine along with hydralazine. Volume status is optimized. 3. Aplastic anemia. The patient gets regular blood transfusions. She got 4 units of packed red blood cell (PRBC) transfusion so far during this hospitalization. Transfuse as needed for hemoglobin 8 or below. 4. Thrombocytopenia. Restart eltrombopag when she is discharged from the hospital.
[2019-01-15] MEDS: amLODIPine 10 MG TAB PO SCH (21:24)
[2019-01-16] MEDS: cloNIDine 0.1 MG TAB PO PRN (00:01)
[2019-01-16 01:33] VITALS: BP 140/70
[2019-01-16] MEDS: SLF 3 ML SYR IV SCH ×3 (06:00→22:00)
[2019-01-16 06:05] VITALS: BP 150/70
[2019-01-16] MEDS: **hydrALAZINE** 10 MG TAB PO SCH ×3 (06:11→22:44)
[2019-01-16 08:00] VITALS: BP 132/60
[2019-01-16] MEDS: LOSARTAN 50 MG TAB PO SCH (08:35)
[2019-01-16] MEDS: ATORVASTATIN 20 MG TAB PO SCH (08:35)
[2019-01-16] MEDS: ASPIRIN 81 MG ENTERIC TAB PO SCH (08:35)
[2019-01-16] MEDS: METOPROLOL SUCC (TopROL XL) 100MG *XL* TAB PO SCH (08:36)
--- NOTE | 2019-01-16 09:14 | IPNPDOC ---
Date Seen The patient was seen on 01/16/19. Progress Note SUBJECTIVE: REFUSED blood work this morning. pt is frustrated about staying in the hospital and waiting for a rehab bed. no other issues per RN overnight. Blood pressure slightly high overnight. no c/o chest pain,pressure, tightness, lightheadedness, or dizziness. no headache, changes in vision. OBJECTIVE PHYSICAL EXAMINATION: VITAL SIGNS: Please see below. GENERAL APPEARANCE: Resting comfortably HEENT: Normocephalic, PERRLA, Mucous moist, CARDIOVASCULAR: S1,S2, pulse present, regularly, regular LUNGS: Equal air entry b/l ABDOMEN: Soft, BS present, no tenderness, no guarding EXTREMITIES: B/L no edema, capillary refill present SKIN: Warm, No fever NEUROLOGICAL: Cranial nerves grossly intact PSYCHIATRIC: Normal mood and affect for current situation LABORATORY DATA, IMAGING STUDIES, MICROBIOLOGY: Please see below. 78-year-old female with a pertinent past medical history of aplastic anemia, hypertension, AND end-stage renal disease on dialysis M/W/F who presented today to the ER with her daughter for nausea, nonbilious vomiting, dizziness and generalized weakness for last couple of days. The patient was not the best historian and majority of the story was provided by reading the report and nursing. It stated that the patient has been weak for the last 1 week and according to the family the patient has been noncompliant with her medication for a couple of days as well. They state that she's had nausea and nonbilious vomiting for the last couple days no exacerbating factors. The patient does admit to having epigastric discomfort after all the vomiting. She did not go to dialysis as scheduled this morning and presented to the ER for further evaluation. In the ER her heart rate was elevated at 120 irregular, blood pressure 165/76, pulse ox of 91% on room air and her hemoglobin was low at 6.3. VBG pH was acidotic at 7.31. Potassium was elevated at 5.6, lactic acid elevated at 8.3. Troponin 1 was slightly elevated at 1.63. EKG in the ER showed atrial fibrillation with rapid ventricular response with a ventricular rate of 105. There is no Q waves ST depressions or ST elevations noted. Hosp team was then called for admission Dr. Albarado was informed that the patient is going to be admitted and will be dialysis today. PROBLEMS: Acute/chronic blood loss anemia due to APLASTIC ANEMIA - requires intermittent blood transfusions -Noncompliant with medication -Stool occult in the ER was positive for trace -Colonoscopy and EGD done in 2016 negative for ulcers or polyps packed RBCs transfusion via iv and via HD per renal -monitor H&H's if patient allows. -[facility], will need to address iron overload with chelating agent- deferred to nephrology APLASTIC ANEMIA - requires intermittent blood transfusions -Noncompliant with medication -Stool occult in the ER was positive for trace -Colonoscopy and EGD done in 2016 negative for ulcers or polyps packed RBCs transfusion via iv and via HD per renal -monitor H&H's if patient allows. 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 -Per jeannine Jim, will need to address iron overload with chelating agent-deferred to nephrology Gastroenteritis, tolerated solid meals without difficulty -Gastrointestinal panel non collected -Afebrile does not appear septic even though lactic acid accumulated to end- stage renal disease as well as history of aplastic anemia -Can be viral versus -we'll continue to monitor leukocytosis, nml Bilateral pulmonary edema, improved -Oxygen prn -Unsure secondary to atrial fibrillation versus underlying valvular disease HD with renal -CT was consistent with bilateral pulmonary edema New-onset atrial fibrillation paroxysmal, resolved -EKG in the ER showed -Echocardiogram:CONCLUSIONS:1. Study is of good technical quality. 2. Normal left ventricular (LV) size with moderate left ventricular hypertrophy (LVH) and preserved LV systolic function, grade 2 diastolic dysfunction. 3. Aortic sclerosis but no significant stenosis and mild insufficiency. 4. Mild mitral and tricuspid insufficiency. 5. High central venous pressure and moderately severe pulmonary hypertension. 6. Bilateral pleural effusions. -c/w home metoprolol succinate 25 mg Daily -per cardiology: No anticoagulation indicated at this time for the patient does have history of aplastic anemia; only asa -Monitor telemetry -BP medication adjusted by Cardio and renal consult Elevated troponins likely secondary to ischemic demand versus pericarditis less likely PR -EKG negative for acute PR -echo as above -Likely secondary to ischemia demand as well as poor renal clearance secondary to end-stage renal disease -dr. Schaeffer on board: Recommends aspirin, resting heart rate closer to 60 beats per minute, even though it might be challenging on account of her underlying anemia, renal also helping to adjust medication -patient at times refused therapy, will encourage and explain risk and benefit. Recommends continuing of the amlodipine and losartan. PRN hydralazine. Anticoagulant with baby aspirin. Anion gap Metabolic acidemia Anion Gap:16 (Normal 14) -VBG pH 7.31 -Likely secondary to lactic acidosis as well as uremia -Lactic acid elevated at 8.3 -Hemodialysis today and continue to trend Leukocytosis Reactive -Will monitor no antibiotics indicated at this time Thrombocytopenia -Splenic sequestration -resume home meds End-stage renal disease -Dialysis M/W/F -Nephrology consulted -BP medication adjustment as per renal History of aplastic anemia Diet -cardiac renal diet DVT prophylaxis -Valentino's and sequential because of history of aplastic anemia Patient requested DNR DISPOSITION: awaiting rehab unit A-FIB/[facility]SV[facility] A-FIB History Current/History of A-Fib/PAF?: No Current Oral Anticoagulant The: No VS, I&O, 24H, Fishbone Vital Signs/I&O Vital Signs Date Time Temp Pulse Resp B/P (MAP) Pulse Ox O2 Delivery O2 Flow Rate FiO2 01/16/19 01:33 140/70 (93) 01/15/19 23:55 97.2 69 18 98 I&O- Last 24 Hours up to 6 AM 01/16/19 06:00 Intake Total 620 ml Output Total 1500 ml Balance -880 ml LEONID VIRK MD January 16, 2019 06:02
[2019-01-16 12:00] VITALS: BP 132/77
[2019-01-16 16:00] VITALS: BP 132/63
[2019-01-16] MEDS ORDERED: DEFEROXAMINE IV ONE (18:30)
[2019-01-16 20:00] VITALS: BP 150/72
[2019-01-16] MEDS: amLODIPine 10 MG TAB PO SCH (22:44)
[2019-01-17 04:00] VITALS: BP 140/85
[2019-01-17 05:24] LABS: HEMOGLOBIN 9.3 g/dl (12.0-15.5); MEAN CORPUSCULAR HEMOGLOBIN 28.6 pg (27.0-33.0); MEAN CORPUSCULAR HGB CONC 33.2 g/dl (32.0-36.5); MEAN CORPUSCULAR VOLUME 86.2 fl (80.0-96.0); RED BLOOD COUNT 3.25 10^6/uL (4.00-5.40); WHITE BLOOD COUNT 6.4 10^3/uL (4.0-10.0)
[2019-01-17 05:28] LABS: PLATELET COUNT, AUTOMATED 50 10^3/uL (150-450)
[2019-01-17 05:46] LABS: CALCIUM LEVEL 8.3 MG/DL (8.8-10.2); CREATININE FOR GFR 4.97 MG/DL (0.55-1.30); POTASSIUM SERUM 4.2 MEQ/L (3.5-5.1)
[2019-01-17] MEDS: SLF 3 ML SYR IV SCH ×2 (06:00→14:00)
[2019-01-17] MEDS: **hydrALAZINE** 10 MG TAB PO SCH ×3 (06:00→22:56)
[2019-01-17 06:07] VITALS: BP 130/80
[2019-01-17 08:00] VITALS: BP 145/67
[2019-01-17] MEDS: ATORVASTATIN 20 MG TAB PO SCH (08:35)
[2019-01-17] MEDS: LOSARTAN 50 MG TAB PO SCH (08:36)
[2019-01-17] MEDS: METOPROLOL SUCC (TopROL XL) 100MG *XL* TAB PO SCH (08:36)
[2019-01-17] MEDS: ASPIRIN 81 MG ENTERIC TAB PO SCH (08:37)
--- NOTE | 2019-01-17 11:28 | IPNPDOC ---
Date Seen The patient was seen on 01/17/19. Progress Note SUBJECTIVE: Pt is a medsurg patient, but has remained in pcu since there are no floor beds. no other acute issues. pt has refused blood work, still waiting for rehab placement. no c/o chest pain,pressure, tightness, lightheadedness, or dizziness. no headache, changes in vision. OBJECTIVE PHYSICAL EXAMINATION: VITAL SIGNS: Please see below. GENERAL APPEARANCE: Resting comfortably HEENT: Normocephalic, PERRLA, Mucous moist, CARDIOVASCULAR: S1,S2, pulse present, regularly, regular LUNGS: Equal air entry b/l ABDOMEN: Soft, BS present, no tenderness, no guarding EXTREMITIES: B/L no edema, capillary refill present SKIN: Warm, No fever NEUROLOGICAL: Cranial nerves grossly intact PSYCHIATRIC: Normal mood and affect for current situation LABORATORY DATA, IMAGING STUDIES, MICROBIOLOGY: Please see below. 78-year-old female with a pertinent past medical history of aplastic anemia, hypertension, AND end-stage renal disease on dialysis M/W/F who presented today to the ER with her daughter for nausea, nonbilious vomiting, dizziness and generalized weakness for last couple of days. The patient was not the best historian and majority of the story was provided by reading the report and nurs ing. It stated that the patient has been weak for the last 1 week and according to the family the patient has been noncompliant with her medication for a couple of days as well. They state that she's had nausea and nonbilious vomiting for the last couple days no exacerbating factors. The patient does admit to having epigastric discomfort after all the vomiting. She did not go to dialysis as scheduled this morning and presented to the ER for further evaluation. In the ER her heart rate was elevated at 120 irregular, blood pressure 165/76, pulse ox of 91% on room air and her hemoglobin was low at 6.3. VBG pH was acidotic at 7.31. Potassium was elevated at 5.6, lactic acid elevated at 8.3. Troponin 1 was slightly elevated at 1.63. EKG in the ER showed atrial fibrillation with rapid ventricular response with a ventricular rate of 105. There is no Q waves ST depressions or ST elevations noted. Hosp team was then called for admission Dr. Albarado was informed that the patient is going to be admitted and will be dialysis today. PROBLEMS: Acute/chronic blood loss anemia due to APLASTIC ANEMIA - requires intermittent blood transfusions -Noncompliant with medication -Stool occult in the ER was positive for trace -Colonoscopy and EGD done in 2016 negative for ulcers or polyps packed RBCs transfusion via iv and via HD per renal -monitor H&H's if patient allows. [facility] will need to address iron overload with chelating agent- deferred to nephrology APLASTIC ANEMIA - requires intermittent blood transfusions -Noncompliant with medication -Stool occult in the ER was positive for trace -Colonoscopy and EGD done in 2016 negative for ulcers or polyps packed RBCs transfusion via iv and via HD per renal -monitor H&H's if patient allows. 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 will need to address iron overload with chelating agent- deferred to nephrology Gastroenteritis, tolerated solid meals without difficulty -Gastrointestinal panel non collected -Afebrile does not appear septic even though lactic acid accumulated to end- stage renal disease as well as history of aplastic anemia -Can be viral versus -we'll continue to monitor leukocytosis, nml Bilateral pulmonary edema, improved -Oxygen prn -Unsure secondary to atrial fibrillation versus underlying valvular disease HD with renal -CT was consistent with bilateral pulmonary edema New-onset atrial fibrillation paroxysmal, resolved -EKG in the ER showed -Echocardiogram:CONCLUSIONS:1. Study is of good technical quality. 2. Normal left ventricular (LV) size with moderate left ventricular hypertrophy (LVH) and preserved LV systolic function, grade 2 diastolic dysfunction. 3. Aortic sclerosis but no significant stenosis and mild insufficiency. 4. Mild mitral and tricuspid insufficiency. 5. High central venous pressure and moderately severe pulmonary hypertension. 6. Bilateral pleural effusions. -c/w home metoprolol succinate 25 mg Daily -per cardiology: No anticoagulation indicated at this time for the patient does have history of aplastic anemia; only asa -Monitor telemetry -BP medication adjusted by Cardio and renal consult Elevated troponins likely secondary to ischemic demand versus pericarditis less likely VA -EKG negative for acute VA -echo as above -Likely secondary to ischemia demand as well as poor renal clearance secondary to end-stage renal disease -dr. Schaeffer on board: Recommends aspirin, resting heart rate closer to 60 beats per minute, even though it might be challenging on account of her underlying anemia, renal also helping to adjust medication -patient at times refused therapy, will encourage and explain risk and benefit. Recommends continuing of the amlodipine and losartan. PRN hydralazine. Anticoagulant with baby aspirin. Anion gap Metabolic acidemia Anion Gap:16 (Normal 14) -VBG pH 7.31 -Likely secondary to lactic acidosis as well as uremia -Lactic acid elevated at 8.3 -Hemodialysis today and continue to trend Leukocytosis Reactive -Will monitor no antibiotics indicated at this time Thrombocytopenia -Splenic sequestration -resume home meds End-stage renal disease -Dialysis M/W/F -Nephrology consulted -BP medication adjustment as per renal History of aplastic anemia Diet -cardiac renal diet DVT prophylaxis -Valentino's and sequential because of history of aplastic anemia Patient requested DNR DISPOSITION: awaiting rehab unit A-FIB/CHADSVASC A-FIB History Current/History of A-Fib/PAF?: No Current Oral Anticoagulant The: No VS, I&O, 24H, Fishbone Vital Signs/I&O Vital Signs Date Time Temp Pulse Resp B/P (MAP) Pulse Ox O2 Delivery O2 Flow Rate FiO2 01/17/19 06:07 130/80 (97) 01/17/19 04:00 98.2 73 18 97 I&O- Last 24 Hours up to 6 AM 01/17/19 06:00 Intake Total 220 ml Balance 220 ml Laboratory Data 24H LABS Laboratory Tests 2 01/17/19 04:51: Nucleated Red Blood Cells % (auto) 0.0, Immature Platelet Fraction 1.7 01/17/19 04:52: Anion Gap 4L, Glomerular Filtration Rate 9.0L, Blood Urea Nitrogen 49H, Creatinine 4.97H, Sodium Level 134L, Potassium Level 4.2, Chloride Level 101, Carbon Dioxide Level 29, Calcium Level 8.3L CBC/BMP Laboratory Tests 01/17/19 04:51 Red Blood Count 3.25 L, Mean Corpuscular Volume 86.2, Mean Corpuscular Hemoglobin 28.6, Mean Corpuscular Hemoglobin Concent 33.2, Red Cell Distribution Width 13.8 01/17/19 04:52 Calcium Level 8.3 L LEONID VIRK MD January 17, 2019 07:06
[2019-01-17 12:00] VITALS: BP 144/77
--- NOTE | 2019-01-17 14:46 | IPN ---
DATE: 01/16/2019 SUBJECTIVE: The patient was seen and examined at the bedside today morning. She is afebrile, hemodynamically stable. She was dialyzed yesterday and tolerated the hemodialysis procedure well, 1.5 liters of fluid was removed. The patient is still pending placement. OBJECTIVE: VITAL SIGNS: Temperature is 98.2 degrees Fahrenheit, blood pressure 132/63, pulse is 67, respiratory rate of 80, saturating 99% on room air. Intake and output: Ultrafiltration with hemodialysis was 1.5 liters yesterday. Weight in the bed scale is not available. PHYSICAL EXAMINATION: GENERAL: The patient is awake, alert, oriented times three, laying in bed in no apparent distress. HEAD AND NECK EXAM: Extraocular muscles intact. Pupils equally round and reactive to light. Mucous membranes are moist. Neck is supple. She has a right IJ tunneled hemodialysis catheter. CARDIOVASCULAR: S1, S2, regular rate. No edema of the bilateral lower extremities. RESPIRATORY: Chest is clear to auscultation bilaterally. Bilateral equal air entry. No rales or rhonchi. ABDOMEN: Soft. Positive bowel sounds. Nontender. No organomegaly. MUSCULOSKELETAL: No clubbing or cyanosis. Pulses are 2+. RESOURCE ANALYST: No focal deficit. Power is 5/5 in all extremities. LABORATORY REVIEW: CBC is from yesterday and hemoglobin was 9.6 and BMP is also from yesterday. CURRENT INPATIENT MEDICATIONS: The patient's medications were reviewed by me. There is no change in the medications today as compared with yesterday. ASSESSMENT/PLAN: 1. End-stage renal disease on hemodialysis. The patient was dialyzed yesterday according to her regular schedule. Next hemodialysis will be on Friday. 2. Hypertension with end-stage renal disease. Blood pressure is acceptable. Continue current dose of losartan, metoprolol, amlodipine and hydralazine. 3. Aplastic anemia. She gets PRBC transfusions as needed for hemoglobin below 8. 4. Hemosiderosis. The patient was given a dose of Desferal last month. I am going to give her another dose of Desferal and check the iron levels with next lab draw. MTDD
[2019-01-17 15:00] VITALS: BP 154/67
[2019-01-17 20:00] VITALS: BP 167/81
[2019-01-17] MEDS: amLODIPine 10 MG TAB PO SCH (21:03)
--- NOTE | 2019-01-18 05:50 | IPN ---
DATE OF SERVICE: 01/17/2019 SUBJECTIVE: The patient is seen and examined this morning at the bedside. She denies any overnight complaints or events. She is awaiting rehab placement. She denies any chest pain or shortness of breath. No issues with her dialysis treatments. PHYSICAL EXAMINATION: VITAL SIGNS: Temperature 97.4, pulse 65, respiratory rate 18, blood pressure 144/77, saturating 95-98% on room air. Intake yesterday was not recorded. GENERAL: The patient is seen lying in bed. Elderly female, thin, in no apparent distress. HEENT: Extraocular muscles intact. Tongue is moist. NECK: Supple. There is a tunneled hemodialysis catheter present in the right chest wall. CARDIAC: S1, S2, regular rate. There is edema in the bilateral lower extremities. LUNGS: Clear to auscultation bilaterally, equal air entry, no rales or rhonchi. ABDOMEN: Soft, there are bowel sounds, there is no tenderness to palpation. MUSCULOSKELETAL: No clubbing, cyanosis or edema. NEUROLOGIC: No focal deficits. She is oriented times three and conversational. LABORATORY DATA: Sodium 134, potassium 4.2, glucose 99, hemoglobin 9.3, platelets 50. INPATIENT MEDICATIONS: Reviewed by myself and no change from prior. PROBLEMS: 1. End-stage renal disease on hemodialysis on Friday, Friday, Friday schedule. Ultrafiltration removal is usually 1-1.5 liters as tolerated by blood pressure. Electrolytes and volume status are acceptable and no change is being made to the current dialysis prescription. 2. Hypertension with end-stage renal disease. Continue current dose of losartan, metoprolol and amlodipine and hydralazine. Blood pressures are well controlled and at goal. 3. Aplastic anemia. She is transfusion dependent. Transfuse as needed for hemoglobin of less than 8. 4. Thrombocytopenia. She receives eltrombopag in the outpatient setting and she is on heparin free dialysis.
[2019-01-18 06:00] VITALS: BP 154/72
[2019-01-18] MEDS: **hydrALAZINE** 10 MG TAB PO SCH ×3 (06:06→21:00)
[2019-01-18] MEDS: LOSARTAN 50 MG TAB PO SCH (06:58)
[2019-01-18] MEDS: ASPIRIN 81 MG ENTERIC TAB PO SCH (06:58)
[2019-01-18] MEDS: ATORVASTATIN 20 MG TAB PO SCH (06:58)
[2019-01-18 07:18] LABS: HEMATOCRIT 28.9 % (36.0-47.0); HEMOGLOBIN 9.7 g/dl (12.0-15.5); MEAN CORPUSCULAR HGB CONC 33.6 g/dl (32.0-36.5); MEAN CORPUSCULAR VOLUME 86.5 fl (80.0-96.0); PLATELET COUNT, AUTOMATED 58 10^3/uL (150-450); RED BLOOD COUNT 3.34 10^6/uL (4.00-5.40); WHITE BLOOD COUNT 9.6 10^3/uL (4.0-10.0)
[2019-01-18 07:34] LABS: CALCIUM LEVEL 8.2 MG/DL (8.8-10.2); CREATININE FOR GFR 6.5 MG/DL (0.55-1.30); GLOMERULAR FILTRATION RATE 6.6 (>39); POTASSIUM SERUM 4.9 MEQ/L (3.5-5.1)
[2019-01-18] MEDS: METOPROLOL SUCC (TopROL XL) 100MG *XL* TAB PO SCH (09:34)
--- NOTE | 2019-01-18 10:20 | IPNPDOC ---
Date Seen The patient was seen on 01/18/19. Progress Note SUBJECTIVE: Dialysis day today. still waiting for rehab placement. no c/o chest pain,pressure, tightness, lightheadedness, or dizziness. no headache, changes in vision. OBJECTIVE PHYSICAL EXAMINATION: VITAL SIGNS: Please see below. GENERAL APPEARANCE: Resting comfortably HEENT: Normocephalic, PERRLA, Mucous moist, CARDIOVASCULAR: S1,S2, pulse present, regularly, regular LUNGS: Equal air entry b/l ABDOMEN: Soft, BS present, no tenderness, no guarding EXTREMITIES: B/L no edema, capillary refill present SKIN: Warm, No fever NEUROLOGICAL: Cranial nerves grossly intact PSYCHIATRIC: Normal mood and affect for current situation LABORATORY DATA, IMAGING STUDIES, MICROBIOLOGY: Please see below. 78-year-old female with a pertinent past medical history of aplastic anemia, hypertension, AND end-stage renal disease on dialysis M/W/F who presented today to the ER with her daughter for nausea, nonbilious vomiting, dizziness and generalized weakness for last couple of days. The patient was not the best historian and majority of the story was provided by reading the report and nursing. It stated that the patient has been weak for the last 1 week and according to the family the patient has been noncompliant with her medication for a couple of days as well. They state that she's had nausea and nonbilious vomiting for the last couple days no exacerbating factors. The patient does admit to having epigastric discomfort after all the vomiting. She did not go to dialysis as scheduled this morning and presented to the ER for further evaluation. In the ER her heart rate was elevated at 120 irregular, blood pressure 165/76, pulse ox of 91% on room air and her hemoglobin was low at 6.3. VBG pH was acidotic at 7.31. Potassium was elevated at 5.6, lactic acid elevated at 8.3. Troponin 1 was slightly elevated at 1.63. EKG in the ER showed atrial fibrillation with rapid ventricular response with a ventricular rate of 105. There is no Q waves ST depressions or ST elevations noted. Hosp team was then called for admission Dr. Albarado was informed that the patient is going to be admitted and will be dialysis today. PROBLEMS: Acute/chronic blood loss anemia due to APLASTIC ANEMIA - requires intermittent blood transfusions -Noncompliant with medication -Stool occult in the ER was positive for trace -Colonoscopy and EGD done in 2016 negative for ulcers or polyps packed RBCs transfusion via iv and via HD per renal -monitor H&H's if patient allows. [facility], will need to address iron overload with chelating agent- deferred to nephrology APLASTIC ANEMIA - requires intermittent blood transfusions -Noncompliant with medication -Stool occult in the ER was positive for trace -Colonoscopy and EGD done in 2016 negative for ulcers or polyps packed RBCs transfusion via iv and via HD per renal -monitor H&H's if patient allows. 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 -Per cedric Jim, will need to address iron overload with chelating agent-deferred to nephrology Gastroenteritis, tolerated solid meals without difficulty -Gastrointestinal panel non collected -Afebrile does not appear septic even though lactic acid accumulated to end- stage renal disease as well as history of aplastic anemia -Can be viral versus -we'll continue to monitor leukocytosis, nml Bilateral pulmonary edema, improved -Oxygen prn -Unsure secondary to atrial fibrillation versus underlying valvular disease HD with renal -CT was consistent with bilateral pulmonary edema New-onset atrial fibrillation paroxysmal, resolved -EKG in the ER showed -Echocardiogram:CONCLUSIONS:1. Study is of good technical quality. 2. Normal left ventricular (LV) size with moderate left ventricular hypertrophy (LVH) and preserved LV systolic function, grade 2 diastolic dysfunction. 3. Aortic sclerosis but no significant stenosis and mild insufficiency. 4. Mild mitral and tricuspid insufficiency. 5. High central venous pressure and moderately severe pulmonary hypertension. 6. Bilateral pleural effusions. -c/w home metoprolol succinate 25 mg Daily -per cardiology: No anticoagulation indicated at this time for the patient does have history of aplastic anemia; only asa -Monitor telemetry -BP medication adjusted by Cardio and renal consult Elevated troponins likely secondary to ischemic demand versus pericarditis less likely FL -EKG negative for acute FL -echo as above -Likely secondary to ischemia demand as well as poor renal clearance secondary to end-stage renal disease -dr. Schaeffer on board: Recommends aspirin, resting heart rate closer to 60 beats per minute, even though it might be challenging on account of her underlying anemia, renal also helping to adjust medication -patient at times refused therapy, will encourage and explain risk and benefit. Recommends continuing of the amlodipine and losartan. PRN hydralazine. Anticoagulant with baby aspirin. Anion gap Metabolic acidemia Anion Gap:16 (Normal 14) -VBG pH 7.31 -Likely secondary to lactic acidosis as well as uremia -Lactic acid elevated at 8.3 -Hemodialysis today and continue to trend Leukocytosis Reactive -Will monitor no antibiotics indicated at this time Thrombocytopenia -Splenic sequestration -resume home meds End-stage renal disease -Dialysis M/W/F -Nephrology consulted -BP medication adjustment as per renal History of aplastic anemia Diet -cardiac renal diet DVT prophylaxis -Valentino's and sequential because of history of aplastic anemia Patient requested DNR DISPOSITION: awaiting rehab unit A-FIB/CHADSVASC A-FIB History Current/History of A-Fib/PAF?: No Current Oral Anticoagulant The: No VS, I&O, 24H, Fishbone Vital Signs/I&O Vital Signs Date Time Temp Pulse Resp B/P (MAP) Pulse Ox O2 Delivery O2 Flow Rate FiO2 01/18/19 09:34 72 154/72 01/18/19 06:00 99.4 18 97 I&O- Last 24 Hours up to 6 AM 01/18/19 06:00 Intake Total 590 ml Output Total 0 ml Balance 590 ml Laboratory Data 24H LABS Laboratory Tests 2 01/18/19 06:58: Nucleated Red Blood Cells % (auto) 0.0, Immature Platelet Fraction 1.0, Anion Gap 8, Glomerular Filtration Rate 6.6L, Blood Urea Nitrogen 69H, Creatinine 6.50H, Sodium Level 131L, Potassium Level 4.9, Chloride Level 99, Carbon Dioxide Level 24, Calcium Level 8.2L CBC/BMP Laboratory Tests 01/18/19 06:58 Red Blood Count 3.34 L, Mean Corpuscular Volume 86.5, Mean Corpuscular Hemoglobin 29.0, Mean Corpuscular Hemoglobin Concent 33.6, Red Cell Distribution Width 13.6, Calcium Level 8.2 L LEONID VIRK MD January 18, 2019 10:20
[2019-01-18] MEDS ORDERED: HEPARIN 1,000 UNITS/ML 10ML VIAL (FOR RADIOLOGY& DIALYSIS ONLY) XX ONE (10:30)
--- NOTE | 2019-01-18 12:14 | IPN ---
DATE OF SERVICE: 01/18/2019 SUBJECTIVE: The patient is seen and examined this morning at the bedside sitting out of bed to the chair. The family is visiting. She denies any overnight events or complaints. No shortness of breath or chest pain. She is due for dialysis later this afternoon. VITAL SIGNS: Temperature 99.4, pulse 72, respiratory rate 18, blood pressure 154/72, saturating 97% on room air. Intake yesterday was 600. Goal dialysis removal today will be 1500 mL. GENERAL: The patient is seen sitting out of bed to the chair. Awake, alert, elderly, and frail female in no acute distress. Tongue is moist. Neck is supple. Tunneled hemodialysis catheter present right chest wall. CARDIAC: S1 and S2. Regular rate and rhythm. No edema in the peripheries. LUNGS: Show symmetric air entry bilaterally. No crackle, rale or wheeze. ABDOMEN: Soft. Nontender. The skin shows normal temperature and turgor. NEUROLOGIC: No focal deficit. Oriented and interactive. LABS: White count 9.6, hemoglobin 9.7, platelets 58. Sodium 131, potassium 4.9, bicarbonate 24. INPATIENT MEDICATIONS: Reviewed by myself and no change from prior. PROBLEMS: 1. End stage renal disease on hemodialysis on a Friday, Friday and Friday schedule. The patient is due for dialysis today. Goal fluid removal is 1500 mL as tolerated by blood pressure. Her electrolytes and volume status are acceptable. No change is being made to the current dialysis prescription. 2. Hypertension with end stage renal disease. Blood pressures are acceptable. Continue current dose of losartan, metoprolol, amlodipine and hydralazine. She is tolerating ultrafiltration on dialysis without significant hypotension of hemodialysis. 3. Aplastic anemia. Transfusion dependent. Also receives Desferal for her iron overload. No need for transfusion at present. She did receive Desferal over this admission. 4. Thrombocytopenia. She receives eltrombopag in the outpatient setting and she is on heparin free dialysis. Her platelets are stable, but low. 5. Hyponatremia. It is mild and it is secondary to chronic renal failure and it will improve with hemodialysis and fluid removal.
[2019-01-18 16:56] VITALS: BP 140/78
[2019-01-18] MEDS: amLODIPine 10 MG TAB PO SCH (20:58)
[2019-01-18 22:00] VITALS: BP 178/82
[2019-01-19] MEDS: **hydrALAZINE** 10 MG TAB PO SCH ×3 (05:30→21:54)
[2019-01-19 05:59] LABS: HEMATOCRIT 27.8 % (36.0-47.0); HEMOGLOBIN 9.2 g/dl (12.0-15.5); MEAN CORPUSCULAR HEMOGLOBIN 28.8 pg (27.0-33.0); MEAN CORPUSCULAR HGB CONC 33.1 g/dl (32.0-36.5); MEAN CORPUSCULAR VOLUME 87.1 fl (80.0-96.0); RED BLOOD COUNT 3.19 10^6/uL (4.00-5.40); WHITE BLOOD COUNT 6.4 10^3/uL (4.0-10.0)
[2019-01-19 06:00] VITALS: BP 142/86
[2019-01-19 06:01] LABS: PLATELET COUNT, AUTOMATED 55 10^3/uL (150-450)
[2019-01-19 06:20] LABS: CALCIUM LEVEL 8.3 MG/DL (8.8-10.2); CREATININE FOR GFR 3.77 MG/DL (0.55-1.30); GLOMERULAR FILTRATION RATE 12.3 (>39); POTASSIUM SERUM 4.3 MEQ/L (3.5-5.1)
[2019-01-19] MEDS: ASPIRIN 81 MG ENTERIC TAB PO SCH (08:43)
[2019-01-19] MEDS: METOPROLOL SUCC (TopROL XL) 100MG *XL* TAB PO SCH (08:43)
[2019-01-19] MEDS: LOSARTAN 50 MG TAB PO SCH (08:44)
[2019-01-19] MEDS: ATORVASTATIN 20 MG TAB PO SCH (08:44)
--- NOTE | 2019-01-19 12:54 | IPNPDOC ---
Text Note Date of Service The patient was seen on 01/19/19. NOTE Subjective: Patient is a 78-year-old female with a PMHx of Aplasic anemia, HTN, ESRD on HD (WMF), who presented to the ER with abdominal pain and nausea / vomiting. In the ER, patient's heart rate was 120 and her hemoglobin was found to be 6.3. Patient was found to be in A. fib with RVR. Dr. Albarado was consulted and she received urgent dialysis and transfusion. Patient was seen and examined at the bedside. Patient reports that she has been working with physical therapy. She denies chest pain, shortness of breath or palpitations. Denies nausea, vomiting, abdominal pain, constipation or diarrhea. Objective: Vitals (See below) General: Lying in bed, no acute distress, comfortable, Awake / Alert HEENT: NC, AT CVS: RRR, +S1S2 Lungs: Fair air entry b/l, -w/r/r Abdomen: Soft, ND, NT Extremities: - Edema, - Calf tenderness Assessment and plan: Acute on Chronic blood loss - likely 22/ aplastic anemia - Has required intermittent transfusions in the past; has been noncompliant with therapy - Stool occult positive in ER - Colonoscopy/EGD in 2016; negative for ulcers or polyps - s/p 4 units PRBC Hemosiderosis - likely 2/2 iron overload - 2/2 frequent transfusions - Patient's oncologist / early morning babysitter; Dr. Diaz - advised to start chelating agent - Nephrology has provided Deferoxamine x 1 dose on 01/16/19 Gastroenteritis - Has had resolution of diarrhea - s/p Leukocytosis - No GI panel collected; diarrhea resolved - Tolerating PO diet s/p Pulmonary Edema - Has been off supplemental oxygen - CXR 01/04: Mild cardiomegaly. There appears to be vascular congestion with diffuse interstitial and alveolar infiltrates and bilateral pleural effusions most consistent with congestive heart failure and pulmonary edema. - c/w HD for volume optimization New onset paroxysmal atrial fibrillation - Has no chest pain, SOB - Remain in sinus rhythm - ECHO 01/05: Preserved LV systolic function, G2DD, Aortic sclerosis but no significant stenosis, mild AI, Mild HI and TI, High CVP and moderately-severe pulmonary HTN, b/l pleural effusions - c/w rate control with Metoprolol succinate - Cardiology on consult; No anticoagulation indicated at this time for the patient does have history of aplastic anemia; will only continue with ASA Elevated troponin - likely 2/2 demand ischemia - EKG noted; no evidence of ischemic change - ECHO noted above - Cardiology on consultation; Recommends ASA, Metoprolol HTN - BP moderately controlled - c/w Amlodipine, Metoprolol, Clonidine, Losartan and Hydralazine (PRN) s/p AG Metabolic acidemia - likely 2/2 lactic acidosis / uremia s/p Leukocytosis Thrombocytopenia - possibly 2/2 splenic sequestration - No evidence of bleeding ESRD on HD (MWF) - c/w HD as scheduled - Nephrology on consultation DVT prophylaxis - c/w TEDs/Sequentials Disposition: - Awaiting improvement with PT / OT - Will likely need subacute rehab VS,Flex, I+O VS, Flex I+O Laboratory Tests 01/19/19 05:26 Red Blood Count 3.19 L, Mean Corpuscular Volume 87.1, Mean Corpuscular Hemoglobin 28.8, Mean Corpuscular Hemoglobin Concent 33.1, Red Cell Distribution Width 13.4, Calcium Level 8.3 L Vital Signs Date Time Temp Pulse Resp B/P (MAP) Pulse Ox O2 Delivery O2 Flow Rate FiO2 01/19/19 08:44 136/60 01/19/19 08:43 71 01/19/19 06:00 98.3 20 99 I&O- Last 24 Hours up to 6 AM 01/19/19 06:00 Intake Total 0 ml Output Total 1000 ml Balance -1000 ml SANTINO CLAY MD January 19, 2019 12:54
[2019-01-19 14:00] VITALS: BP 159/76
[2019-01-19 14:32] VITALS: BP 132/64
--- NOTE | 2019-01-19 16:04 | IPN ---
DATE OF SERVICE: 01/19/2019 SUBJECTIVE: The patient is seen and examined this morning at the bedside. She denies any overnight events or complaints. Her dialysis treatment yesterday was complicated by nausea and her goal fluid removal with dialysis was subsequently decreased to 500 mL. She denies any recurrent issues with the nausea. Reports she ate breakfast without any problems. VITAL SIGNS: Temperature 98.3, pulse 72, respiratory rate 20, blood pressure 136/60, saturating 99% on room air. Intake yesterday was not fully recorded. Dialysis yesterday removed 500 mL. Weight in the bed scale today is not recorded. GENERAL: The patient is seen lying in bed, elderly female, awake, alert, comfortable, in acute distress. Extraocular muscles are intact. The tongue is moist. Jugular veins are not elevated. There is a tunneled hemodialysis catheter present in the right chest wall. CARDIAC: Regular rate and rhythm. S1/S2. LUNGS: Symmetric air entry bilaterally. No crackle, rale, rhonchi, or wheeze. ABDOMEN: Soft. Nontender. There are bowel sounds. EXTREMITIES: Negative for any edema. SKIN: Normal turgor and temperature. NEUROLOGIC: She is oriented and at baseline mentation and interactive and conversational. LABS: White count 6.4, hemoglobin 9.2, platelets 55, sodium 137, potassium 4.3, glucose 100. INPATIENT MEDICATIONS: Reviewed by myself and no change from prior. PROBLEMS: 1. End-stage renal disease on hemodialysis on a Friday, Friday and Friday schedule. Her treatment yesterday was complicated by some nausea during dialysis subsequently the goal fluid removal was decreased to 500 mL with resolution of symptoms and she completed her remainder of the dialysis treatment. She is fairly euvolemic on exam and her electrolytes are accetable. No changes being made to the chronic prescription. 2. Hypertension. Blood pressures are well controlled. Continue present regimen of amlodipine, metoprolol, losartan and hydralazine. 3. Aplastic anemia. Transfusion dependent. No need for further transfusion at present. She has been requiring blood on a regular basis as an outpatient as well and she receives Desferal for iron chelation. 4. Thrombocytopenia. Patient receives heparin free dialysis, her platelets are low, but stable. There is no evidence of bleeding.
[2019-01-19] MEDS: amLODIPine 10 MG TAB PO SCH (20:29)
[2019-01-19 22:00] VITALS: BP_SYST 150; BP_SYST 152; BP_DIAS 78; BP_DIAS 82
[2019-01-20 06:00] VITALS: BP 160/70
[2019-01-20] MEDS: ATORVASTATIN 20 MG TAB PO SCH (06:12)
[2019-01-20] MEDS: **hydrALAZINE** 10 MG TAB PO SCH ×3 (06:13→21:17)
[2019-01-20] MEDS: METOPROLOL SUCC (TopROL XL) 100MG *XL* TAB PO SCH (06:13)
[2019-01-20] MEDS: LOSARTAN 50 MG TAB PO SCH (06:14)
[2019-01-20] MEDS: ASPIRIN 81 MG ENTERIC TAB PO SCH (06:14)
[2019-01-20 06:52] LABS: HEMATOCRIT 26.5 % (36.0-47.0); HEMOGLOBIN 8.9 g/dl (12.0-15.5); MEAN CORPUSCULAR HEMOGLOBIN 29.1 pg (27.0-33.0); MEAN CORPUSCULAR HGB CONC 33.6 g/dl (32.0-36.5); MEAN CORPUSCULAR VOLUME 86.6 fl (80.0-96.0); RED BLOOD COUNT 3.06 10^6/uL (4.00-5.40); WHITE BLOOD COUNT 8.1 10^3/uL (4.0-10.0)
[2019-01-20 06:54] LABS: PLATELET COUNT, AUTOMATED 56 10^3/uL (150-450)
[2019-01-20 07:26] LABS: CALCIUM LEVEL 8.4 MG/DL (8.8-10.2); CREATININE FOR GFR 5.37 MG/DL (0.55-1.30); GLOMERULAR FILTRATION RATE 8.2 (>39); POTASSIUM SERUM 4.7 MEQ/L (3.5-5.1)
[2019-01-20] MEDS ORDERED: HEPARIN 1,000 UNITS/ML 10ML VIAL (FOR RADIOLOGY& DIALYSIS ONLY) XX ONE (11:30)
--- NOTE | 2019-01-20 12:21 | IPNPDOC ---
Text Note Date of Service The patient was seen on 01/20/19. NOTE Subjective: Patient is a 78-year-old female with a PMHx of Aplasic anemia, HTN, ESRD on HD (WMF), who presented to the ER with abdominal pain and nausea / vomiting. In the ER, patient's heart rate was 120 and her hemoglobin was found to be 6.3. Patient was found to be in A. fib with RVR. Dr. Albarado was consulted and she received urgent dialysis and transfusion. Patient was seen and examined at the bedside. Patient continues to work with physical therapy. She is not yet safe for discharge. . She denies chest pain, shortness of breath or palpitations. Has not expense any dizziness. Has had regular bowel movements. Objective: Vitals (See below) General: Lying in bed, no acute distress, comfortable, Awake / Alert HEENT: NC, AT CVS: RRR, +S1S2 Lungs: Fair air entry b/l, auscultations without rhonchi, rales or wheezing Abdomen: Soft, nondistended, without tenderness Extremities: No evidence of lower extremity edema, - Calf tenderness Assessment and plan: Acute on Chronic blood loss - likely 22/ aplastic anemia - Has required intermittent transfusions in the past; has been noncompliant with therapy - Stool occult positive in ER - Hemoglobin remained stable - Colonoscopy/EGD in 2015; Negative for ulcers or polyps - s/p 4 units PRBC 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 There appears to be vascular congestion with diffuse interstitial and alveolar infiltrates and bilateral pleural effusions most consistent with congestive heart failure and pulmonary edema. - c/w HD for volume optimization New onset paroxysmal atrial fibrillation - Has no chest pain, SOB - Remain in sinus rhythm - ECHO 01/05: Preserved LV systolic function, G2DD, Aortic sclerosis but no significant stenosis, mild AI, Mild [place] and TI, High CVP and moderately-severe pulmonary HTN, b/l pleural effusions - c/w rate control with Metoprolol succinate - Cardiology on consult; No anticoagulation indicated at this time for the patient does have history of aplastic anemia; will only continue with ASA 81 Elevated troponin - likely 2/2 demand ischemia - EKG noted; no evidence of ischemic change - ECHO noted above - Cardiology on consultation; Recommends ASA, Metoprolol HTN - BP moderately controlled - c/w Amlodipine, Metoprolol, Clonidine, Losartan and Hydralazine (PRN) s/p AG Metabolic acidemia - likely 2/2 lactic acidosis / uremia s/p Leukocytosis Thrombocytopenia - possibly 2/2 splenic sequestration - No evidence of bleeding ESRD on HD (MW) - c/w HD as scheduled - Nephrology on consultation DVT prophylaxis - c/w TEDs/Sequentials Disposition: - Awaiting improvement with PT / OT - Will likely need subacute rehab VS,[place], I+O VS, Fishbone, I+O Laboratory Tests 01/20/19 05:59 Red Blood Count 3.06 L, Mean Corpuscular Volume 86.6, Mean Corpuscular Hemoglobin 29.1, Mean Corpuscular Hemoglobin Concent 33.6, Red Cell Distribution Width 13.5, Calcium Level 8.4 L Vital Signs Date Time Temp Pulse Resp B/P (MAP) Pulse Ox O2 Delivery O2 Flow Rate FiO2 01/20/19 06:14 160/70 01/20/19 06:13 80 01/20/19 06:00 98.2 18 99 I&O- Last 24 Hours up to 6 AM 01/20/19 06:00 Intake Total 660 ml Output Total 0 ml Balance 660 ml SANTINO CLAY MD January 20, 2019 12:21
[2019-01-20 17:30] VITALS: BP 136/62
[2019-01-20] MEDS: amLODIPine 10 MG TAB PO SCH (21:17)
[2019-01-20 22:00] VITALS: BP 148/76
[2019-01-21 06:00] VITALS: BP 152/77
[2019-01-21 06:09] LABS: HEMATOCRIT 25.8 % (36.0-47.0); HEMOGLOBIN 8.4 g/dl (12.0-15.5); MEAN CORPUSCULAR HEMOGLOBIN 29.1 pg (27.0-33.0); MEAN CORPUSCULAR HGB CONC 32.6 g/dl (32.0-36.5); MEAN CORPUSCULAR VOLUME 89.3 fl (80.0-96.0); RED BLOOD COUNT 2.89 10^6/uL (4.00-5.40); WHITE BLOOD COUNT 4.9 10^3/uL (4.0-10.0)
[2019-01-21 06:22] LABS: PLATELET COUNT, AUTOMATED 65 10^3/uL (150-450)
[2019-01-21 06:34] LABS: CALCIUM LEVEL 8.2 MG/DL (8.8-10.2); CREATININE FOR GFR 3.65 MG/DL (0.55-1.30); GLOMERULAR FILTRATION RATE 12.8 (>39); POTASSIUM SERUM 4.2 MEQ/L (3.5-5.1)
[2019-01-21] MEDS: **hydrALAZINE** 10 MG TAB PO SCH (06:52)
--- NOTE | 2019-01-21 07:53 | IPN ---
DATE OF SERVICE: 01/20/2019 SUBJECTIVE: The patient is seen and examined at the bedside. She continues to work with physical therapy and is scheduled for hemodialysis later this afternoon with a goal fluid removal of one liter as tolerated by hemodynamics. She denies any chest pain, shortness of breath, or leg swelling. Vital Signs: Temperature 98.2, pulse 76, respiratory rate 18, blood pressure 160/70, saturating 99% on room air. Intake yesterday was 660 mL. Goal fluid removal today with dialysis will be 1 liter. General: Patient is seen lying in bed in no acute distress. Comfortable. Awake, alert. Extraocular muscles intact. Tongue is moist. Tunneled hemodialysis catheter is present in the right chest wall. Cardiac: S1 and S2. Regular rate and rhythm. No edema in the peripheries. Lungs: Symmetric air entry bilaterally. No crackle, rhonchi or rale. Abdomen is soft and nontender. The lower extremities are negative for edema or cyanosis. Skin: Normal turgor and temperature. Neurologic: She is oriented and at baseline mentation. LABS: White count 8.1, hemoglobin 8.9, platelets 56. Sodium 135, potassium 4.7. INPATIENT MEDICATIONS: Reviewed by myself and no change from prior. PROBLEMS: 1. End stage renal disease on hemodialysis on Friday, Friday, Friday schedule. She is for 1 liter fluid removal with dialysis today. Her electrolytes and her volume status are both compensated. No changes are being made to her chronic prescription. She does not have a great deal of oral intake and does not tolerate large hemodialysis fluid removal goals. 2. Hypertension. Blood pressures were somewhat high this morning pre dialysis and are expected to improve with dialysis and fluid removal. Continue current regimen of amlodipine, metoprolol, losartan and hydralazine. 3. Aplastic anemia. Transfusion dependent. We will transfuse for hemoglobin less than 8. She has been requiring blood products on a regular basis as an outpatient as well and she receives Desferal for iron colation. 4. Thrombocytopenia, chronic. The patient is on eltrombopag as an outpatient. She receives heparin free dialysis. Her platelets are low, but stable. There is no evidence of bleeding.
[2019-01-21 08:29] VITALS: BP 148/76
[2019-01-21] MEDS: METOPROLOL SUCC (TopROL XL) 100MG *XL* TAB PO SCH (08:29)
[2019-01-21] MEDS: ASPIRIN 81 MG ENTERIC TAB PO SCH (08:29)
[2019-01-21] MEDS: ATORVASTATIN 20 MG TAB PO SCH (08:29)
[2019-01-21] MEDS: LOSARTAN 50 MG TAB PO SCH (08:30)
--- NOTE | 2019-01-21 12:24 | DS.PDOC ---
Discharge Summary General Date of Admission Jan 04, 2019 at 15:41 Date of Discharge 01/21/2019 Discharge Summary PROCEDURES PERFORMED DURING STAY: [None]. 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 In the ER, patient's heart rate was 120 and her hemoglobin was found to be 6.3. Patient was found to be in A. fib with RVR. Dr. Albarado was consulted and she received urgent dialysis and transfusion. 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 There appears to be vascular congestion with diffuse interstitial and alveolar infiltrates and bilateral pleural effusions most consistent with congestive heart failure and pulmonary edema. - c/w HD for volume optimization New onset paroxysmal atrial fibrillation - Has no chest pain, SOB - Remain in sinus rhythm - ECHO 01/05: Preserved LV systolic function, G2DD, Aortic sclerosis but no significant stenosis, mild AI, Mild [place] and TI, High CVP and moderately-severe pulmonary HTN, b/l pleural effusions - c/w rate control with Metoprolol succinate - Cardiology on consult; No anticoagulation indicated at this time for the patient does have history of aplastic anemia; will only continue with ASA 81 Elevated troponin - likely 2/2 demand ischemia - EKG noted; no evidence of ischemic change - ECHO noted above - Cardiology on consultation; Recommends ASA, Metoprolol HTN - BP moderately controlled - c/w Amlodipine, Metoprolol, Clonidine, Losartan and Hydralazine (PRN) s/p AG Metabolic acidemia - likely 2/2 lactic acidosis / uremia s/p Leukocytosis Thrombocytopenia - possibly 2/2 splenic sequestration - No evidence of bleeding ESRD on HD (MWF) - c/w HD as scheduled - Nephrology on consultation DVT prophylaxis - c/w TEDs/Sequentials DISCHARGE MEDICATIONS: Please see below. ALLERGIES: Please see below. PHYSICAL EXAMINATION ON DISCHARGE: Vitals (See below) General: Lying in bed, no acute distress, comfortable, Awake / Alert HEENT: NC, AT CVS: RRR, +S1S2 Lungs: Air entry is fair bilaterally without evidence of rhonchi, rales or wheezing Abdomen: Soft, without any distention / tenderness Extremities: No evidence of blood from edema, - Calf tenderness LABORATORY DATA: Please see below. ACTIVITY: [As tolerated]. DISCHARGE PLAN: Follow up with Megan Anderson, Dr. Diaz and Dr. Albarado within 7 days Remain compliant with treatment plan and medications Return to the ER if you experience any plans DISPOSITION: [facility]. DISCHARGE CONDITION: [Stable]. TIME SPENT ON DISCHARGE: Greater than [35] minutes. Vital Signs/I&Os Vital Signs Date Time Temp Pulse Resp B/P (MAP) Pulse Ox O2 Delivery O2 Flow Rate FiO2 01/21/19 08:29 80 148/76 01/21/19 06:00 98.2 18 98 I&O- Last 24 Hours up to 6 AM 01/21/19 06:00 Intake Total 690 ml Output Total 1000 ml Balance -310 ml Laboratory Data Labs 24H Laboratory Tests 2 01/21/19 05:36: Nucleated Red Blood Cells % (auto) 0.0, Anion Gap 6L, Glomerular Filtration Rate 12.8L, Blood Urea Nitrogen 28H, Creatinine 3.65H, Sodium Level 140, Potassium Level 4.2, Chloride Level 103, Carbon Dioxide Level 31, Calcium Level 8.2L CBC/BMP Laboratory Tests 01/21/19 05:36 Red Blood Count 2.89 L, Mean Corpuscular Volume 89.3, Mean Corpuscular Hemoglobin 29.1, Mean Corpuscular Hemoglobin Concent 32.6, Red Cell Distribution Width 13.6, Calcium Level 8.2 L Discharge Medications Scheduled Amlodipine Besylate (Amlodipine Besylate) 10 Mg Tablet, 10 MG PO QHS, (Reported) Aspirin (Aspirin EC) 81 Mg Tablet.dr, 81 MG PO DAILY Atorvastatin Calcium (Atorvastatin Calcium) 20 Mg Tablet, 40 MG PO DAILY Eltrombopag Olamine (Promacta) 50 Mg Tablet, 50 MG PO DAILY, (Reported) Hydralazine HCl (Hydralazine HCl) 10 Mg Tablet, 10 MG PO Q8H Losartan Potassium (Losartan Potassium) 100 Mg Tablet, 100 MG PO DAILY, (Repor azra) Metoprolol Succinate (Metoprolol Succinate) 100 Mg Tab.er.24h, 100 MG PO DAILY Multivitamin (Daily Jose Juan) 1 Tab Tab, 1 TAB PO QHS, (Reported) Allergies Coded Allergies: No Known Allergies (Unverified , 02/23/18) SANTINO CLAY MD January 21, 2019 12:24
== END 2019-01-21 11:04 | DRG 808 ==
LOC: M ED 12:00 → M ED INP 15:41 → M ICU 19:50 → M PCU 01-05 13:50 → M MS4PR 01-17 14:55 → M MSPAV 01-18 16:52
PROVIDERS: ADMIT Family Medicine; ATTEND Internal Medicine
PROC: 5A1D70Z Performance of Urinary Filtration, Intermittent, Less than 6 Hours Per Day (ICD-10-PCS; principal; 2019-01-04)
PROC: 30233N1 Transfusion of Nonautologous Red Blood Cells into Peripheral Vein, Percutaneous Approach (ICD-10-PCS; 2019-01-04)
DX: D61.9 Aplastic anemia, unspecified (principal); N18.6 End stage renal disease; I24.8 Other forms of acute ischemic heart disease; I31.9 Disease of pericardium, unspecified; E87.2 Acidosis; I12.0 Hypertensive chronic kidney disease with stage 5 chronic kidney disease or end stage renal disease; J81.1 Chronic pulmonary edema; E87.1 Hypo-osmolality and hyponatremia; T80.89XA Other complications following infusion, transfusion and therapeutic injection, initial encounter; Z66 Do not resuscitate; E87.5 Hyperkalemia; D62 Acute posthemorrhagic anemia; A08.4 Viral intestinal infection, unspecified; K59.00 Constipation, unspecified; I48.0 Paroxysmal atrial fibrillation; D69.6 Thrombocytopenia, unspecified; Z91.14 Patient's other noncompliance with medication regimen; Z99.2 Dependence on renal dialysis; Z79.899 Other long term (current) drug therapy; Y84.8 Other medical procedures as the cause of abnormal reaction of the patient, or of later complication, without mention of misadventure at the time of the procedure

== ENCOUNTER → 2019-01-26 | Outpatient (REF) | payer MEDICARE ==
[~2019-01-26] MED LIST changes: +ASPI81TAEC PO; +ATOR1TAB21 PO; +LOSA100T50 PO; +METO1TAB33 PO; -METOPROLOL SUCC *XL* 25MG TAB (TopROL *XL*) PO SCH
[2019-01-26 09:29] LABS: HEMATOCRIT 21.1 % (36.0-47.0); MEAN CORPUSCULAR HEMOGLOBIN 28.8 pg (27.0-33.0); MEAN CORPUSCULAR HGB CONC 33.2 g/dl (32.0-36.5); MEAN CORPUSCULAR VOLUME 86.8 fl (80.0-96.0); RED BLOOD COUNT 2.43 10^6/uL (4.00-5.40); WHITE BLOOD COUNT 5.5 10^3/uL (4.0-10.0)
[2019-01-26 09:30] LABS: PLATELET COUNT, AUTOMATED 73 10^3/uL (150-450)
== END ==
PROVIDERS: ATTEND Internal Medicine
DX: N18.6 End stage renal disease (principal)

== ENCOUNTER 2019-01-27 09:48 | Outpatient (CLI) | payer MEDICARE ==
[~2019-01-27] VITALS: Ht 152.4 cm; Wt 46.5 kg
[2019-01-27] MEDS ORDERED: ACETAMINOPHEN TAB 650MG DOSE (2X325MG) PO ONE (10:15)
[2019-01-27] MEDS ORDERED: diphenhydrAMINE 25 MG CAP PO ONE (10:15)
[2019-01-27 10:20] VITALS: BP 147/66
[2019-02-23] MEDS ORDERED: GUAI100L31 PO (12:37)
[2019-02-23] MEDS ORDERED: BISA10SU20 PR (12:37)
== END 2019-01-27 16:00 | disposition home or self-care (01) ==
LOC: M INFU 09:48
PROVIDERS: ATTEND Physician Assistant
DX: D61.9 Aplastic anemia, unspecified (principal)

== ENCOUNTER → 2019-01-28 | Outpatient (REF) | payer MEDICARE ==
[~2019-01-28] MED LIST changes: +ACET-907 PO; +ACET1TAB55 PO; +ALB2.5NEB INH; +ALBU83IN INH; +ALL10TAB28 PO; +ASPI81TA26 PO; +ATOR40TA75 PO; +BISA10SU20 PR; +BISA10SU4 PR; +ECOT81TA5 PO; +ENEMENE PR; +GUAI100L31 PO; +MULTCAP PO; +NEPR1LIQ2 PO; +VALA500T5 PO; +VALT500T PO; +VITA1CAP25 PO
[2019-01-28 11:14] LABS: HEMATOCRIT 32.3 % (36.0-47.0); HEMOGLOBIN 10.5 g/dl (12.0-15.5); MEAN CORPUSCULAR HEMOGLOBIN 29.2 pg (27.0-33.0); MEAN CORPUSCULAR HGB CONC 32.5 g/dl (32.0-36.5); RED BLOOD COUNT 3.59 10^6/uL (4.00-5.40); WHITE BLOOD COUNT 3.3 10^3/uL (4.0-10.0)
[2019-01-28 11:15] LABS: PLATELET COUNT, AUTOMATED 71 10^3/uL (150-450)
== END ==
PROVIDERS: ATTEND Internal Medicine
DX: D61.9 Aplastic anemia, unspecified (principal)

== ENCOUNTER → 2019-02-02 | Outpatient (REF) | payer MEDICARE ==
[~2019-02-02] MED LIST changes: -ACET-907 PO; -ACET1TAB55 PO; -ALB2.5NEB INH; -ALBU83IN INH; -ALL10TAB28 PO; -ASPI81TA26 PO; -ATOR40TA75 PO; -BISA10SU20 PR; -BISA10SU4 PR; -ECOT81TA5 PO; -ENEMENE PR; -GUAI100L31 PO; -MULTCAP PO; -NEPR1LIQ2 PO; -VALA500T5 PO; -VALT500T PO; -VITA1CAP25 PO
[2019-02-02 08:48] LABS: HEMATOCRIT 28.5 % (36.0-47.0); HEMOGLOBIN 9.3 g/dl (12.0-15.5); MEAN CORPUSCULAR HEMOGLOBIN 29.3 pg (27.0-33.0); MEAN CORPUSCULAR HGB CONC 32.6 g/dl (32.0-36.5); MEAN CORPUSCULAR VOLUME 89.9 fl (80.0-96.0); PLATELET COUNT, AUTOMATED 106 10^3/uL (150-450); RED BLOOD COUNT 3.17 10^6/uL (4.00-5.40); WHITE BLOOD COUNT 6.8 10^3/uL (4.0-10.0)
== END ==
PROVIDERS: ATTEND Internal Medicine
DX: N18.6 End stage renal disease (principal)

== ENCOUNTER → 2019-02-09 | Outpatient (REF) | payer MEDICARE ==
[~2019-02-09] MED LIST changes: +ACET-907 PO; +ACET1TAB55 PO; +ALB2.5NEB INH; +ALBU83IN INH; +ALL10TAB28 PO; +ASPI81TA26 PO; +ATOR40TA75 PO; +BISA10SU20 PR; +BISA10SU4 PR; +ECOT81TA5 PO; +ENEMENE PR; +GUAI100L31 PO; +MULTCAP PO; +NEPR1LIQ2 PO; +VALA500T5 PO; +VALT500T PO; +VITA1CAP25 PO
[2019-02-09 07:53] LABS: HEMATOCRIT 21.5 % (36.0-47.0); HEMOGLOBIN 7.1 g/dl (12.0-15.5); MEAN CORPUSCULAR VOLUME 87.8 fl (80.0-96.0); RED BLOOD COUNT 2.45 10^6/uL (4.00-5.40)
[2019-02-09 07:59] LABS: PLATELET COUNT, AUTOMATED 64 10^3/uL (150-450)
[2019-02-09 08:25] LABS: CALCIUM LEVEL 8.4 MG/DL (8.8-10.2); CREATININE FOR GFR 2.88 MG/DL (0.55-1.30); GLOMERULAR FILTRATION RATE 16.8 (>39); POTASSIUM SERUM 4.1 MEQ/L (3.5-5.1)
== END ==
PROVIDERS: ATTEND Internal Medicine
DX: N19 Unspecified kidney failure (principal)

== ENCOUNTER 2019-02-10 07:59 | Outpatient (CLI) | payer MEDICARE ==
[2019-02-10] VITALS (7 sets, daily range): BP systolic 158–190; BP diastolic 76–95
[~2019-02-10] VITALS: Ht 152.4 cm; Wt 46.5 kg
[~2019-02-10 07:59] MED LIST changes: +diphenhydrAMINE 25 MG CAP PO SCH
[2019-02-10] MEDS: ACETAMINOPHEN TAB 650MG DOSE (2X325MG) PO SCH ×2 (08:23→08:26)
[2019-02-23] MEDS ORDERED: GUAI100L31 PO (12:37)
[2019-02-23] MEDS ORDERED: BISA10SU20 PR (12:37)
== END 2019-02-10 14:10 | disposition home or self-care (01) ==
LOC: M INFU 07:59
PROVIDERS: ATTEND Physician Assistant
DX: D61.9 Aplastic anemia, unspecified (principal)

== ENCOUNTER → 2019-02-10 | Outpatient (REF) | payer MEDICARE ==
[~2019-02-10] MED LIST changes: -ACET-907 PO; -ACET1TAB55 PO; -ALB2.5NEB INH; -ALBU83IN INH; -ALL10TAB28 PO; -ASPI81TA26 PO; -ATOR40TA75 PO; -BISA10SU20 PR; -BISA10SU4 PR; -ECOT81TA5 PO; -ENEMENE PR; -GUAI100L31 PO; -MULTCAP PO; -NEPR1LIQ2 PO; -VALA500T5 PO; -VALT500T PO; -VITA1CAP25 PO
== END ==
PROVIDERS: ATTEND Physician Assistant
DX: D61.9 Aplastic anemia, unspecified (principal)

== ENCOUNTER → 2019-02-11 | Outpatient (REF) | payer MEDICARE ==
[~2019-02-11] MED LIST changes: +ACET-907 PO; +ACET1TAB55 PO; +ALB2.5NEB INH; +ALBU83IN INH; +ALL10TAB28 PO; +ASPI81TA26 PO; +ATOR40TA75 PO; +BISA10SU20 PR; +BISA10SU4 PR; +ECOT81TA5 PO; +ENEMENE PR; +GUAI100L31 PO; +MULTCAP PO; +NEPR1LIQ2 PO; +VALA500T5 PO; +VALT500T PO; +VITA1CAP25 PO; -diphenhydrAMINE 25 MG CAP PO SCH
[2019-02-11 10:24] LABS: HEMATOCRIT 30.5 % (36.0-47.0); HEMOGLOBIN 9.9 g/dl (12.0-15.5); MEAN CORPUSCULAR HEMOGLOBIN 28.9 pg (27.0-33.0); MEAN CORPUSCULAR HGB CONC 32.5 g/dl (32.0-36.5); MEAN CORPUSCULAR VOLUME 88.9 fl (80.0-96.0); RED BLOOD COUNT 3.43 10^6/uL (4.00-5.40); WHITE BLOOD COUNT 6.9 10^3/uL (4.0-10.0)
[2019-02-11 10:28] LABS: PLATELET COUNT, AUTOMATED 61 10^3/uL (150-450)
== END ==
PROVIDERS: ATTEND Internal Medicine
DX: D61.9 Aplastic anemia, unspecified (principal)

== ENCOUNTER → 2019-02-16 | Outpatient (REF) | payer MEDICARE ==
[~2019-02-16] MED LIST changes: -ACET-907 PO; -ACET1TAB55 PO; -ALB2.5NEB INH; -ALBU83IN INH; -ALL10TAB28 PO; -ASPI81TA26 PO; -ATOR40TA75 PO; -BISA10SU20 PR; -BISA10SU4 PR; -ECOT81TA5 PO; -ENEMENE PR; -GUAI100L31 PO; -MULTCAP PO; -NEPR1LIQ2 PO; -VALA500T5 PO; -VALT500T PO; -VITA1CAP25 PO
[2019-02-16 09:27] LABS: HEMATOCRIT 21.9 % (36.0-47.0); HEMOGLOBIN 7.9 g/dl (12.0-15.5); MEAN CORPUSCULAR HEMOGLOBIN 33.3 pg (27.0-33.0); MEAN CORPUSCULAR HGB CONC 36.1 g/dl (32.0-36.5); MEAN CORPUSCULAR VOLUME 92.4 fl (80.0-96.0); RED BLOOD COUNT 2.37 10^6/uL (4.00-5.40); WHITE BLOOD COUNT 6.2 10^3/uL (4.0-10.0)
[2019-02-16 10:00] LABS: PLATELET COUNT, AUTOMATED 37 10^3/uL (150-450)
[2019-02-16 19:14] LABS: PLTBLUE- EDTA FREE CALC 46 K/mm3 (172-450)
[2019-02-16 19:52] LABS: PLTBLUE- EDTA FREE MACHINE 42 10^3/uL (172-450)
== END ==
PROVIDERS: ATTEND Internal Medicine
DX: N18.6 End stage renal disease (principal)

== ENCOUNTER → 2019-02-18 | Outpatient (REF) | payer MEDICARE ==
[2019-02-18 07:04] LABS: HEMATOCRIT 29.2 % (36.0-47.0); HEMOGLOBIN 10.1 g/dl (12.0-15.5); MEAN CORPUSCULAR HEMOGLOBIN 30.6 pg (27.0-33.0); MEAN CORPUSCULAR VOLUME 88.5 fl (80.0-96.0); WHITE BLOOD COUNT 5.8 10^3/uL (4.0-10.0)
[2019-02-18 07:05] LABS: PLATELET COUNT, AUTOMATED 41 10^3/uL (150-450)
[2019-02-18 07:07] LABS: MEAN CORPUSCULAR HGB CONC 34.6 g/dl (32.0-36.5)
== END ==
PROVIDERS: ATTEND Internal Medicine
DX: D61.9 Aplastic anemia, unspecified (principal)

== ENCOUNTER → 2019-02-19 | Outpatient (REF) | payer MEDICARE ==
[2019-02-19 10:53] LABS: HEMATOCRIT 28.5 % (36.0-47.0); HEMOGLOBIN 10.3 g/dl (12.0-15.5); MEAN CORPUSCULAR HEMOGLOBIN 32.6 pg (27.0-33.0); MEAN CORPUSCULAR HGB CONC 36.1 g/dl (32.0-36.5); MEAN CORPUSCULAR VOLUME 90.2 fl (80.0-96.0); RED BLOOD COUNT 3.16 10^6/uL (4.00-5.40); WHITE BLOOD COUNT 7.7 10^3/uL (4.0-10.0)
[2019-02-19 10:57] LABS: PLATELET COUNT, AUTOMATED 55 10^3/uL (150-450)
[2019-02-19 11:11] LABS: CALCIUM LEVEL 8.1 MG/DL (8.8-10.2); CREATININE FOR GFR 4.65 MG/DL (0.55-1.30); GLOMERULAR FILTRATION RATE 9.7 (>39); POTASSIUM SERUM 4.7 MEQ/L (3.5-5.1)
--- NOTE | 2019-02-19 11:46 | REP ---
Chest two views HISTORY: Hypoxia Comparison: 01/04/2019 Patchy density is present in the lower lobes consistent with bibasilar infiltrates. Small bilateral pleural effusions are present greater on the right than on the left. The cardiac silhouette is enlarged. The pulmonary vasculature is normal in appearance. The bony structure is intact. A catheter is present in the superior vena cava. IMPRESSION: 1. Bibasilar atelectasis or infiltrates. 2. Small bilateral pleural effusions greater on the right than on the left. Electronically Signed by Ranjeet Hodges MD 02/19/2019 11:38 A
== END ==
PROVIDERS: ATTEND Internal Medicine
DX: R09.02 Hypoxemia (principal)

== ENCOUNTER 2019-02-23 11:56 | Emergency (ER) | payer MEDICARE ==
[~2019-02-23] VITALS: Ht 154.9 cm; Wt 46.7 kg
[~2019-02-23 11:56] MED LIST changes: -ACET-907 PO; -ALB2.5NEB INH; -ALL10TAB28 PO; -ATOR40TA75 PO; -BISA10SU2 PR; -ECOT81TA5 PO; -ENEMENE PR; -NEPR1LIQ2 PO; -VALA500T5 PO; -VALT500T PO; -[UNRECOGNIZED DRUG - CODE] PO
[2019-02-23] MEDS ORDERED: NEPR1LIQ2 PO (12:37)
[2019-02-23] MEDS ORDERED: ALL10TAB28 PO (12:37)
[2019-02-23] MEDS ORDERED: VITMTA PO (12:37)
[2019-02-23] MEDS ORDERED: [UNRECOGNIZED DRUG - CODE] PO (12:37)
[2019-02-23] MEDS ORDERED: ALB2.5NEB INH (12:37)
[2019-02-23] MEDS ORDERED: PROM50TA28 PO (12:37)
[2019-02-23] MEDS ORDERED: ACET-907 PO (12:37)
[2019-02-23] MEDS ORDERED: METO1TAB33 PO (12:37)
[2019-02-23] MEDS ORDERED: ATOR40TA75 PO (12:37)
[2019-02-23] MEDS ORDERED: BISA10SU2 PR (12:37)
[2019-02-23] MEDS ORDERED: HYDR10TAB PO (12:37)
[2019-02-23] MEDS ORDERED: AMLO10TA5 PO (12:37)
[2019-02-23] MEDS ORDERED: ECOT81TA5 PO (12:37)
[2019-02-23] MEDS ORDERED: ENEMENE PR (12:37)
[2019-02-23] MEDS ORDERED: LOSA100T50 PO (12:37)
[2019-02-23] MEDS ORDERED: VALT500T PO (12:42)
[2019-02-23] MEDS ORDERED: valACYclovir HCL 500 MG TAB PO ONE (12:45)
[2019-02-23 13:58] VITALS: BP 178/88
[2019-02-24] MEDS ORDERED: VALA500T5 PO (14:32)
== END 2019-02-23 14:11 | disposition home or self-care (01) ==
LOC: EDBD 11:56 → M ED 11:56
DX: B02.9 Zoster without complications (principal); R51 Headache; Z86.73 Personal history of transient ischemic attack (TIA), and cerebral infarction without residual deficits; I12.9 Hypertensive chronic kidney disease with stage 1 through stage 4 chronic kidney disease, or unspecified chronic kidney disease; E78.00 Pure hypercholesterolemia, unspecified; K21.9 Gastro-esophageal reflux disease without esophagitis; Z99.2 Dependence on renal dialysis; N18.9 Chronic kidney disease, unspecified; Z79.899 Other long term (current) drug therapy; Z79.82 Long term (current) use of aspirin; D61.9 Aplastic anemia, unspecified

== ENCOUNTER → 2019-02-23 | Outpatient (REF) | payer MEDICARE ==
[~2019-02-23] MED LIST changes: +ACET-907 PO; +ALB2.5NEB INH; +ALL10TAB28 PO; +ATOR40TA75 PO; +BISA10SU2 PR; +ECOT81TA5 PO; +ENEMENE PR; +NEPR1LIQ2 PO; +VALA500T5 PO; +VALT500T PO; +[UNRECOGNIZED DRUG - CODE] PO
[2019-02-23 10:19] LABS: HEMOGLOBIN 9.2 g/dl (12.0-15.5); MEAN CORPUSCULAR HEMOGLOBIN 29.7 pg (27.0-33.0); MEAN CORPUSCULAR HGB CONC 34.1 g/dl (32.0-36.5); MEAN CORPUSCULAR VOLUME 87.1 fl (80.0-96.0); WHITE BLOOD COUNT 7.6 10^3/uL (4.0-10.0)
[2019-02-23 10:21] LABS: PLATELET COUNT, AUTOMATED 60 10^3/uL (150-450)
== END ==
PROVIDERS: ATTEND Internal Medicine
DX: D61.9 Aplastic anemia, unspecified (principal)

== ENCOUNTER 2019-02-24 13:56 | Inpatient (IN) | payer MEDICARE, MEDICAID ==
[~2019-02-24] VITALS: Ht 157.5 cm; Wt 41.1 kg
[~2019-02-24 13:56] MED LIST changes: -BISA10SU2 PR; +BISA10SU20 PR; +GUAI100L31 PO; -VALA500T5 PO; -[UNRECOGNIZED DRUG - CODE] PO
--- NOTE | 2019-02-24 14:29 | REP ---
CT Head without contrast HISTORY: Altered mental status COMPARISON: 08/10/2018 Areas of decreased attenuation are present in the periventricular and subcortical white matter. This represents small-vessel ischemic disease. There is no intraparenchymal hemorrhage, acute infarct, mass or midline shift. The ventricular system and cortical sulci are dilated consistent with moderate volume loss. There is no extra cerebral collection. There is no fracture. The visualized sinuses are clear. IMPRESSION: 1. Small vessel ischemic disease. 2. Moderate volume loss. Electronically Signed by Ranjeet Hodges MD 02/24/2019 02:20 P
[2019-02-24] MEDS ORDERED: VALA500T5 PO (14:32)
--- NOTE | 2019-02-24 14:41 | REP ---
CHEST, SINGLE VIEW: Single view of the chest is performed. Comparison made with prior exam of the same day. There is persistent moderate cardiomegaly with vascular congestion and diffuse interstitial edema. Right central venous catheter is again noted. IMPRESSION: Stable exam. Electronically Signed by Germain Sevilla MD 02/25/2019 04:16 P
[2019-02-24] MEDS ORDERED: LIDOCAINE 2% 5ML JELLY UROJET TOP ONE (14:45)
[2019-02-24 14:48] LABS: BASO % 0.1 % (0.0-1.0); EOS % 0.5 % (0.0-3.0); HEMATOCRIT 24.6 % (36.0-47.0); HEMOGLOBIN 8.9 g/dl (12.0-15.5); LYMPH # 0.6 10^3/uL (1.5-4.5); LYMPH % 6.9 % (24.0-44.0); MEAN CORPUSCULAR HEMOGLOBIN 32.1 pg (27.0-33.0); MEAN CORPUSCULAR HGB CONC 36.2 g/dl (32.0-36.5); MEAN CORPUSCULAR VOLUME 88.8 fl (80.0-96.0); MONO # 0.6 10^3/uL (0.0-0.8); MONO % 6.5 % (0.0-5.0); NEUTROPHILS # 7.1 10^3/uL (1.8-7.7); RED BLOOD COUNT 2.77 10^6/uL (4.00-5.40); WHITE BLOOD COUNT 8.4 10^3/uL (4.0-10.0)
[2019-02-24] MEDS ORDERED: LABETALOL HCL 100 MG/20 ML VIAL IV STA (14:53)
[2019-02-24 15:04] LABS: PLATELET COUNT, AUTOMATED 52 10^3/uL (150-450)
[2019-02-24 15:23] LABS: OSMOLALITY SERUM 313 MOSM/KG (280-301)
[2019-02-24 15:25] LABS: ALBUMIN 3.5 GM/DL (3.2-5.2); ALT/SGPT 53 U/L (12-78); BILIRUBIN,DIRECT 0.3 MG/DL (0.0-0.2); BILIRUBIN,TOTAL 1.3 MG/DL (0.2-1.0); BLOOD UREA NITROGEN 54 MG/DL (7-18); CALCIUM LEVEL 8.8 MG/DL (8.8-10.2); CARBON DIOXIDE LEVEL 27 MEQ/L (21-32); CHLORIDE LEVEL 101 MEQ/L (98-107); CK-MB VALUE MASS < 1.0 NG/ML (<3.6); CPK CREATINE PHOSPHOKINASE 38 U/L (26-192); CREATININE FOR GFR 5.48 MG/DL (0.55-1.30); GLUCOSE, FASTING 164 MG/DL (70-100); MB/CK RELATIVE INDEX 2.63 (< OR =4); POTASSIUM SERUM 4.6 MEQ/L (3.5-5.1); SODIUM LEVEL 137 MEQ/L (136-145); TOTAL PROTEIN 8.4 GM/DL (6.4-8.2); TROPONIN I 0.02 NG/ML (< 0.10)
[2019-02-24] MEDS ORDERED: CIPROFLOXACIN 200 MG in APPROPRIATE DILUENT 1 EA IV ONE (15:45)
--- NOTE | 2019-02-24 16:25 | ECGEPIP ---
[facility] - ED Test Date: 2019-02-24 Pat Name: NISREEN GA Department: Room: - Gender: Female [employer]: JJohn : 1940 Requested By: Meme Palomares Order Number: [id number] Reading MD: Meme Palomares Measurements Intervals [place] Rate: 95 P: MN: 156 QRS: 91 QRSD: 89 T: 82 QT: 382 QTc: 480 Interpretive Statements SINUS RHYTHM BORDERLINE RIGHT AXIS DEVIATION NSTTW abnormalities Electronically Signed on 02-24-2019 16:25:13 EDT by Meme Palomares
[2019-02-24] MEDS ORDERED: ALBUTEROL SULFATE 2.5 MG/0.5 ML INH NEB SOLN INH PRN (18:15)
[2019-02-24] MEDS: hydrALAZINE INJ 20 MG/ML VIAL IV SCH ×2 (18:36→22:31)
--- NOTE | 2019-02-24 19:37 | HPEPDOC ---
General Date of Admission Feb 24, 2019 at 18:05 Date of Service: Feb 24, 2019 Chief Complaint The patient is a 78-year-old female admitted with a reason for visit of Herpes Zoster. History of Present Illness 78-year-old female with a PMHx of Aplasic anemia, HTN, ESRD on HD (WMF) was sent to the ER from [facility] prior to dialysis today due to increased fatigue, and lethargy. Of note, the patient was recently started on valacyclovir for shingles on the left side of the face diagnosed in the ER yesterday. The patient's history was limited due to her clinical condition. However, the patient denied any complaints of pain and noted that her left eye had become increasingly swollen shut with increased drainage since yesterday. She denied any visual disturbances. The patient also denied any fevers, chills, chest pain, palpitations, abdominal pain, or any nausea/vomiting/diarrhea. In the ER, the patient's left eyelid was noted to be increasingly inflamed with surrounding vesicular lesions on the left side of her face. The patient was also noted to have purulent discharge from the eye. However, there was no corneal involvement noted on exam. Ophthalmology was consulted and evaluated the patient in the ER and recommends continued antiviral therapy and empiric antibiotic coverage. The patient will be admitted to the hospitalist service for further evaluation and management of the same. Nephrology has been consulted for management of dialysis. Home Medications Scheduled Amlodipine Besylate (Amlodipine Besylate) 10 Mg Tablet, 10 MG PO QHS, (Reported) Aspirin (Ecotrin) 81 Mg Tablet.dr, 81 MG PO DAILY, (Reported) Atorvastatin Calcium (Atorvastatin Calcium) 40 Mg Tablet, 40 MG PO QHS, (Reported) Cetirizine HCl (Cetirizine HCl) 10 Mg Tablet, 10 MG PO QHS, (Reported) Eltrombopag Olamine (Promacta) 50 Mg Tablet, 50 MG PO QPM, (Reported) Hydralazine HCl (Hydralazine HCl) 10 Mg Tablet, 10 MG PO Q8H, (Reported) Losartan Potassium (Losartan Potassium) 100 Mg Tablet, 100 MG PO DAILY, (Reported) Metoprolol Succinate (Metoprolol Succinate) 100 Mg Tab.er.24h, 100 MG PO DAILY, (Reported) Multivitamins (Thera M Plus Tablet) 1 Each Tablet, 1 TAB PO DAILY, (Reported) Nut.tx.imp.renal Fxn,Lac-Reduc (Nepro Carb Steady) 237 Ml Liquid, 120 ML PO BID, (Reported) Valacyclovir HCl (Valacyclovir) 500 Mg Tablet, 500 MG PO QHS, (Reported) STARTED 02/23 X 7 DAYS guaiFENesin (Cough Syrup) 100 Mg/5 Ml Liquid, 20 ML PO TID, (Reported) GIVE FOR 5 DAYS STARTING 02/20/19 Scheduled PRN Acetaminophen (Tylenol) 325 Mg Tablet, 650 MG PO Q4H PRN for PAIN / FEVER, (Reported) Albuterol Sulfate (Albuterol Sulfate) 2.5 Mg/0.5 Ml Vial.neb, 2.5 MG INH Q2H PRN for SHORTNESS OF BREATH, (Reported) Bisacodyl (Bisacodyl) 10 Mg Supp.rect, 10 MG ID DAILY PRN for CONSTIPATION, (Reported) Sodium Phosphate,[place]-Dibasic (Enema) 133 Ml Enema, 1 INNA ID DAILY PRN for CONSTIPATION, (Reported) Allergies Coded Allergies: No Known Allergies (Unverified , 02/23/18) Past Medical History Medical History As noted in HPI. Social History * Smoker: Denies Alcohol: Denies Drugs: denies Review of Systems Other systems 10 point review of systems negative unless otherwise specified in HPI. Physical Examination General Exam: Positive: Alert, Cooperative, No Acute Distress Eye Exam: Positive: Other Eye Symptoms (Left eyelid noted to be erythematous with purulant drainage noted. No corneal involvement noted) Neck Exam: Negative: JVD Chest Exam: Positive: Clear to auscultation, Normal air movement Heart Exam: Positive: Rate Normal, Normal S1, Normal S2 Abdomen Exam: Positive: Soft Extremity Exam: Negative: Tenderness, Swelling Skin Exam: Positive: Other skin issue (vesicular lesions noted across the left side of the forehead and down around the left eye in a dermatomal pattern. No cross over to the right side.) Vital Signs Vital Signs Date Time Temp Pulse Resp B/P (MAP) Pulse Ox O2 Delivery O2 Flow Rate FiO2 02/24/19 19:00 97 184/89 (120) 97 02/24/19 14:09 99.6 17 Room Air Laboratory Data Labs 24H Laboratory Tests 2 02/24/19 14:39: Immature Granulocyte % (Auto) 1.0, White Blood Count 8.4, Red Blood Count 2.77L, Hemoglobin 8.9L, Hematocrit 24.6L, Mean Corpuscular Volume 88.8, Mean Corpuscular Hemoglobin 32.1, Mean Corpuscular Hemoglobin Concent 36.2, Red Cell Distribution Width 13.9, Platelet Count 52L, Neutrophils (%) (Auto) 85.0H, Lymphocytes (%) (Auto) 6.9L, Monocytes (%) (Auto) 6.5H, Eosinophils (%) (Auto) 0.5, Basophils (%) (Auto) 0.1, Neutrophils # (Auto) 7.1, Lymphocytes # (Auto) 0.6L, Monocytes # (Auto) 0.6, Eosinophils # (Auto) 0.0, Basophils # (Auto) 0.0, Nucleated Red Blood Cells % (auto) 0.0, Immature Platelet Fraction 1.9, Anion Gap 9, Glomerular Filtration Rate 8.0L, Osmolality 313H, Calcium Level 8.8, Aspartate Amino Transf (AST/SGOT) 38H, Alanine Aminotransferase (ALT/SGPT) 53, Alkaline Phosphatase 94, Total Bilirubin 1.3H, Direct Bilirubin 0.3H, Ammonia 19, Total Creatine Kinase 38, Creatine Kinase MB < 1.0, Creatine Kinase MB Relative Index 2.63, Troponin I 0.02, Total Protein 8.4H, Albumin 3.5, Albumin/Globulin Ratio 0.71L, Thyroid Stimulating Hormone (TSH) 9.770H 02/24/19 14:44: Bedside Glucose (Misc Panel) 160H 02/24/19 15:01: Urine Color YELLOW, Urine Appearance TURBIDH, Urine pH 8.0, Urine Specific [place] 1.009, Urine Protein 3+H, Urine Glucose (UA) NEGATIVE, Urine Ketones NEGATIVE, Urine Blood 1+H, Urine Nitrite NEGATIVE, Urine Bilirubin NEGATIVE, Urine Urobilinogen 0.2, Urine Leukocyte Esterase 3+H, Urine WBC (Auto) TNTCH, Urine RBC (Auto) 41H, Urine Hyaline Casts (Auto) 0, Urine Bacteria (Auto) 3+H, Urine Squamous Epithelial Cells 0, Urine Sperm (Auto) CBC/BMP Laboratory Tests 02/24/19 14:39 Red Blood Count 2.77 L, Mean Corpuscular Volume 88.8, Mean Corpuscular Hemoglobin 32.1, Mean Corpuscular Hemoglobin Concent 36.2, Red Cell Distribution Width 13.9, Neutrophils (%) (Auto) 85.0 H, Lymphocytes (%) (Auto) 6.9 L, Monocytes (%) (Auto) 6.5 H, Eosinophils (%) (Auto) 0.5, Basophils (%) (Auto) 0.1, Neutrophils # (Auto) 7.1, Lymphocytes # (Auto) 0.6 L, Monocytes # (Auto) 0.6, Eosinophils # (Auto) 0.0, Basophils # (Auto) 0.0 Microbiology Microbiology 02/24/19 Blood Culture, Received Pending 02/24/19 Blood Culture, Received Pending 02/24/19 Urine Culture, Received Pending 02/24/19 Viral Culture, Received Pending 02/24/19 Eye/Ear/Nose/Throat Culture, Received Pending Plan / VTE VTE Prophylaxis Ordered?: Yes Plan Plan Herpes Zoster with Left Sided Soft Tissue/Eyelid Involvement Optho has been consulted and evaluated the patient in the ER, input appreciated Cultures obtained Cont valacyclovir, and empiric Abx coverage We will cont to monitor the patient We will consult ID when on service tomorrow. ESRD on HD Nephrology consulted Accelerated HTN Antihypertensive ordered History of aplastic anemia, thrombocytopenia No indication for transfusion at this time Follow-up with oncology as an outpatient DVT prophylaxis SCDs/TEDs ordered Code Status: TOMAS MILNER MD Feb 24, 2019 19:37
[2019-02-24] MEDS: MUPIROCIN 2% OINT 22 GM TUBE TOP SCH (21:00)
[2019-02-24] MEDS ORDERED: valACYclovir HCL 500 MG TAB PO SCH (21:00)
[2019-02-24 21:30] VITALS: BP 180/92
[2019-02-24] MEDS ORDERED: VANCOMYCIN HCL 1,000 MG, VIAL MATE ADAPTER 1 EACH in D5W 250 ML IV ONE (22:00)
[2019-02-24] MEDS: CETIRIZINE (ZyrTEC) 10 MG TAB PO SCH (22:10)
[2019-02-24] MEDS: amLODIPine 10 MG TAB PO SCH (22:10)
[2019-02-24] MEDS: ATORVASTATIN 20 MG TAB PO SCH (22:10)
[2019-02-24] MEDS: PIPERACILLIN/TAZOBACTAM SOD 2.25 GM in D5W MINI-BAG PLUS 50 ML IV SCH (22:30)
[2019-02-24 22:54] LABS: C REACTIVE PROTEIN QUANTITATIV 1.21 MG/DL (0.00-0.30)
[2019-02-25] VITALS (9 sets, daily range): BP systolic 117–182; BP diastolic 60–86
[2019-02-25] MEDS: hydrALAZINE INJ 20 MG/ML VIAL IV SCH ×6 (02:14→20:54)
[2019-02-25 06:12] LABS: C REACTIVE PROTEIN QUANTITATIV 1.07 MG/DL (0.00-0.30)
[2019-02-25 07:39] LABS: CALCIUM LEVEL 8.2 MG/DL (8.8-10.2); CREATININE FOR GFR 6.34 MG/DL (0.55-1.30); GLOMERULAR FILTRATION RATE 6.8 (>39); POTASSIUM SERUM 4.7 MEQ/L (3.5-5.1)
[2019-02-25 07:45] LABS: HEMATOCRIT 21.7 % (36.0-47.0); MEAN CORPUSCULAR HEMOGLOBIN 33.9 pg (27.0-33.0); MEAN CORPUSCULAR VOLUME 91.9 fl (80.0-96.0); RED BLOOD COUNT 2.36 10^6/uL (4.00-5.40); WHITE BLOOD COUNT 10.1 10^3/uL (4.0-10.0)
[2019-02-25 07:46] LABS: PLATELET COUNT, AUTOMATED 79 10^3/uL (150-450)
[2019-02-25 07:47] LABS: MEAN CORPUSCULAR HGB CONC 36.9 g/dl (32.0-36.5)
[2019-02-25] MEDS: MUPIROCIN 2% OINT 22 GM TUBE TOP SCH ×2 (09:00→20:51)
[2019-02-25] MEDS ORDERED: HEPARIN 1,000 UNITS/ML 10ML VIAL (FOR RADIOLOGY& DIALYSIS ONLY) XX ONE (10:00)
[2019-02-25 11:43] LABS: VANCOMYCIN RANDOM 19.3 UG/ML
[2019-02-25] MEDS: MULTIVITAMINS/MINERALS THERAP 1 TAB PO SCH (13:00)
[2019-02-25] MEDS: LACTOBACILLUS ACIDOPHILUS CAP (BACID) PO SCH ×2 (13:00→18:00)
--- NOTE | 2019-02-25 13:14 | CR ---
DATE OF CONSULTATION: 02/25/2019 REQUESTING PHYSICIAN: Lj Millan MD REASON FOR CONSULTATION: To assist in the management of end-stage renal disease. HISTORY OF PRESENT ILLNESS: Mrs. Espitia is a 78-year-old female with multiple chronic medical problems including history of aplastic anemia, hypertension, end-stage renal disease requiring maintenance hemodialysis three times a week. 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 Her kidney function did not improve with treatment and she has been on maintenance hemodialysis three times a week. She missed her dialysis treatment yesterday and present for to the emergency room with weakness and rash on her left side of face. She was found to have herpes zoster on left face including her left eye and forehead, in addition to cheek and scalp area. She was very weak and nauseated. She has been admitted and needs dialysis due to which nephrology consultation was requested. The patient is seen this morning. PAST MEDICAL AND SURGICAL HISTORY: Significant for: 1. History of hypertension. 2. History of hyperlipidemia. 3. 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 4. History of aplastic anemia. 5. History of secondary hyperparathyroidism. MEDICATIONS: Her current medications include: - amlodipine 10 mg daily - aspirin 81 mg daily - atorvastatin 40 mg daily - cetirizine 10 mg at bedtime - Promacta 50 mg at bedtime - hydralazine 10 mg every 8 hours - losartan 100 mg daily - metoprolol ER 100 mg 1 tablet daily - multivitamin 1 tablet daily - valacyclovir 500 mg at bedtime - cough syrup t.i.d. as needed She also uses Tylenol, albuterol, bisacodyl and Fleet's enema as needed. ALLERGIES: She has no known drug allergies. PERSONAL AND SOCIAL HISTORY: The patient lives with her daughter. She does not smoke or drink. She has no history of drug use. FAMILY HISTORY: Negative for end-stage renal disease. REVIEW OF SYSTEMS: She is very weak and confused at this morning. She has persistently nauseated and is trying to get out of bed. She is not able to provide much information. She is very confused and trying to get out of bed. She has no dyspnea or chest pain. She is nauseated but no vomiting or diarrhea reported. She developed rash on left side of her face and has been diagnosed with herpes zoster. No other relevant information is available at present. PHYSICAL EXAMINATION: Elderly frail lady laying in the bed, quite confused and disoriented. She has a patch on her left eye. Temperature is 98.7 degrees Fahrenheit, heart rate 104 per minute and respiratory rate 18 per minute. Blood pressure 117/86 mmHg and oxygen saturation 93%. Rash on left side of face is noted in involving her scalp, forehead, eyelids and cheek and temporal area. Oral mucosa is dry. She has no thrush or ulcers. Neck is supple and without JVD or thyroid enlargement. Heart sounds are tachycardiac and lungs clear to auscultation. Abdomen is soft and bowel sounds are normal. Extremities have no cyanosis or clubbing. Neurologically she is confused and disoriented. LABORATORY DATA: Today's labs show WBC count 10.1, hemoglobin 8.0 and hematocrit 21.7. Platelets 79,000. Sodium 136, potassium 4.7, CO2 25, BUN 64 and creatinine 6.34. His C-reactive protein is 1.07. Random vancomycin level this morning is 19.3. Urinalysis showed too numerous to count WBCs and 41 RBCs along with 3+ bacteria. PROBLEMS: 1. End-stage renal disease. The patient missed her dialysis yesterday. She is being dialyzed this morning. She is quite confused and disoriented and is trying to get out of bed during dialysis. 2. Herpes zoster and urinary tract infection (UTI). She has been on antiviral with dose adjusted for her renal function. She is currently on valacyclovir 500 mg at bedtime. I would suggest to give her 500 mg dose after each dialysis. 3. Hypertension. She has history of difficult to control hypertension. Her chronic antihypertensive meds should be continued. 4. UTI and infection prophylaxis. She has been placed on Zosyn and vancomycin. This will cover her UTI and her skin infection. She does not seem to have any active infection on the skin; however, there is risk. 5. Aplastic anemia. She has history of aplastic anemia and requires transfusions frequently. Her hematocrit is only 21.7 and I would suggest to consider transfusing her either today or tomorrow. Thank you for involving me in the care of Mrs. Espitia. I will follow her along with you.
[2019-02-25] MEDS ORDERED: ONDANSETRON 4MG/2ML VIAL (J2405) As Ordered ONE (13:16)
[2019-02-25] MEDS: ONDANSETRON 4MG/2ML VIAL (J2405) IV PRN (13:26)
[2019-02-25] MEDS: PIPERACILLIN/TAZOBACTAM SOD 2.25 GM in D5W MINI-BAG PLUS 50 ML IV SCH ×2 (13:26→20:50)
[2019-02-25] MEDS: ASPIRIN 81 MG ENTERIC TAB PO SCH ×3 (13:27→17:34)
[2019-02-25] MEDS: METOPROLOL SUCC (TopROL XL) 100MG *XL* TAB PO SCH ×3 (13:28→17:33)
[2019-02-25] MEDS: LOSARTAN 50 MG TAB PO SCH ×2 (13:33→17:34)
[2019-02-25] MEDS ORDERED: VANCOMYCIN HCL 500 MG in D5W MINI-BAG PLUS 100 ML IV SCH (14:30)
--- NOTE | 2019-02-25 14:39 | PHACANCOPD ---
PHARMACY VANCOMYCIN DOSING Pt Demographics Demographics Patient Age:78 , Weight:42.300 , Gender: female Adjusted Body Weight Date: 02/25/19, Adjusted Body Weight: Kg Events Past 24 Hours Events Past 24 Hours: NO: Dialysis, Diuretic Therapy, Change in CrCl, Fever, Elevation in WBC, Pending Diagnostics, Pending Procedures, Other Vancomycin Vancomycin indication: SSTI Vancomycin Target Ranges: 15-20 mcg/ml Vancomycin Load Y/N: Yes Load Dose Date Time Vancomycin Load Dose: 1000MG Date: 02/24 Time: 2200 Vancomycin Dose Date: 02/25/19. Current Vancomycin Dose: [VANCO 500MG AFTER HD] Intermittent Dosing?: No Labs Labs Vital Signs Label Value Date Time Patient Temperature 98.7 degrees F 02/25/19 0800 Temperature Source Temporal 02/25/19 0800 Patient Temperature 98.1 degrees F 02/25/19 1311 Temperature Source Temporal 02/25/19 1311 Blood Pressure Assessment 142/78 (99) 02/25/19 1414 Item Value Date Time White Blood Count 8.4 10^3/uL 02/24/19 1439 White Blood Count 10.1 10^3/uL H 02/25/19 0528 C-Reactive Protein, Quantitative 1.21 MG/DL H 02/24/19 1439 C-Reactive Protein, Quantitative 1.07 MG/DL H 02/25/19 0530 Creatinine 5.48 MG/DL H 02/24/19 1439 Creatinine 6.34 MG/DL H 02/25/19 0530 Micro Microbiology 02/24/19 Blood Culture, Received Pending 02/24/19 Blood Culture, Received Pending 02/24/19 Urine Culture, Received Pending 02/24/19 Viral Culture, Received Pending 02/24/19 Eye/Ear/Nose/Throat Culture, Received Pending Creatinine Clearance Date:02/25/19. Creatinine Clearance: . Assessment and Plan Maintaining Current Dose?: Yes Reason for dose change: No Dose Change Pharmacist Note Pharmacist Note Date: 02/25/19. Pharmacist note: Patient was admitted yesterday with increased lethargy. She is currently being treated for shingles on the left side of her face. Upon review in the Emergency Department it was noted that the infection has moved towards the eye and has purulent drainage. She was empirically started on Vancomycin and Zosyn. Patient usually receives dialysis Friday, Friday, and Friday but missed her dialysis session due to not feeling well. She is currently afebrile, and her WBC is 10.1. She was loaded with Vancomycin 1000mg yesterday and her random this morning resulted at 19.3. Her vancomycin dose was adjusted to Vancomycin 500mg after HD due to her only having 500ml removed during dialysis today. It is unsure at this time when her next dialysis session is. We will continue to follow and make adjustments as needed. SHELLIE VALERA PHARMACY Feb 25, 2019 14:39
[2019-02-25] MEDS: valACYclovir HCL 500 MG TAB PO SCH ×2 (16:00→17:33)
[2019-02-25] MEDS ORDERED: VANCOMYCIN HCL 1,000 MG, VIAL MATE ADAPTER 1 EACH in D5W 250 ML IV SCH (16:00)
[2019-02-25] MEDS ORDERED: VANCOMYCIN HCL 750 MG, VIAL MATE ADAPTER 1 EACH in D5W 250 ML IV SCH (16:00)
[2019-02-25] MEDS ORDERED: **VANCO AFTER HD** MISC XX SCH (16:00)
--- NOTE | 2019-02-25 17:09 | IPNPDOC ---
Subjective Date Seen The patient was seen on 02/25/19. Subjective Chief Complaint/HPI Patient seen and examined at bedside. She does answer appropriately when prompted. However, is still fatigued and below her baseline mentation. Objective Physical Examination General Exam: Positive: Cooperative, No Acute Distress Eye Exam: Positive: Other Eye Symptoms (Left eyelid noted to be erythematous with no purulant drainage at this time. No corneal involvement noted) Neck Exam: Negative: JVD Chest Exam: Positive: Clear to auscultation, Normal air movement Heart Exam: Positive: Rate Normal, Normal S1, Normal S2 Abdomen Exam: Positive: Soft Extremity Exam: Negative: Tenderness, Swelling Skin Exam: Positive: Other skin issue (vesicular lesions noted across the left side of the forehead and down around the left eye in a dermatomal pattern. No cross over to the right side.) Assessment /Plan Plan/VTE VTE Prophylaxis Ordered?: Yes Plan Herpes Zoster with Left Sided Soft Tissue/Eyelid Involvement Optho has been consulted and evaluated the patient in the ER, input appreciated Cultures pending Cont valacyclovir, and empiric Abx coverage with Zosyn We will cont to monitor the patient Infectious disease on board, input appreciated Increased Lethargy, 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 Will consider Lumbar Tap tomorrow to delineate duration of treatment ESRD on HD Nephrology consulted Accelerated HTN Antihypertensives ordered History of aplastic anemia, thrombocytopenia No indication for transfusion at this time Follow-up with oncology as an outpatient History of Erica's Granulomatosis Follow up as outpatient DVT prophylaxis SCDs/TEDs ordered Code Status: DNR VS, I&O, 24H, Fishbone Vital Signs/I&O Vital Signs Date Time Temp Pulse Resp B/P (MAP) Pulse Ox O2 Delivery O2 Flow Rate FiO2 02/25/19 16:00 98.0 95 18 162/68 (99) 100 02/24/19 14:09 Room Air I&O- Last 24 Hours up to 6 AM 02/25/19 06:00 Intake Total 0 ml Output Total 300 ml Balance -300 ml Laboratory Data 24H LABS Laboratory Tests 2 02/25/19 05:28: Nucleated Red Blood Cells % (auto) 0.0 02/25/19 05:30: Anion Gap 8, Glomerular Filtration Rate 6.8L, Blood Urea Nitrogen 64H, Creatinine 6.34H, Sodium Level 136, Potassium Level 4.7, Chloride Level 103, Carbon Dioxide Level 25, Calcium Level 8.2L, C-Reactive Protein, Quantitative 1.07H, Random Vancomycin Level 19.3 CBC/BMP Laboratory Tests 02/25/19 05:28 Red Blood Count 2.36 L, Mean Corpuscular Volume 91.9, Mean Corpuscular Hemoglobin 33.9 H, Mean Corpuscular Hemoglobin Concent 36.9 H, Red Cell Distribution Width 14.4 02/25/19 05:30 Calcium Level 8.2 L Microbiology Microbiology 02/24/19 Blood Culture, Received Pending 02/24/19 Blood Culture, Received Pending 02/24/19 Urine Culture, Received Pending 02/24/19 Viral Culture, Received Pending 02/24/19 Eye/Ear/Nose/Throat Culture, Received Pending TOMAS VALLE MD Feb 25, 2019 17:09
[2019-02-25 17:20] LABS: ABG BASE EXCESS 5.3 (-2.0-2.0); ABG HCO3 29.1 MEQ/L (22.0-26.0); ABG O2 SATURATION 92.1 % (95.0-99.0); ABG PARTIAL PRESSURE CO2 39.2 mmHg (35.0-45.0); ABG PARTIAL PRESSURE O2 60.5 mmHg (75.0-100.0); ABG STANDARD HCO3 29.2 MEQ/L (22.0-26.0); ABG TOTAL CO2 30.3 MEQ/L (23.0-31.0); ABG pH (ARTERIAL) 7.488 UNITS (7.350-7.450)
[2019-02-25] MEDS: ATORVASTATIN 20 MG TAB PO SCH (20:51)
[2019-02-25] MEDS: amLODIPine 10 MG TAB PO SCH (20:51)
[2019-02-25] MEDS: CETIRIZINE (ZyrTEC) 10 MG TAB PO SCH (21:00)
[2019-02-26] VITALS (12 sets, daily range): BP systolic 149–184; BP diastolic 65–86
[2019-02-26] MEDS: hydrALAZINE INJ 20 MG/ML VIAL IV SCH ×6 (02:18→22:00)
[2019-02-26 05:26] LABS: HEMATOCRIT 20.1 % (36.0-47.0); MEAN CORPUSCULAR HEMOGLOBIN 31.3 pg (27.0-33.0); MEAN CORPUSCULAR HGB CONC 34.8 g/dl (32.0-36.5); MEAN CORPUSCULAR VOLUME 89.7 fl (80.0-96.0); RED BLOOD COUNT 2.24 10^6/uL (4.00-5.40); WHITE BLOOD COUNT 8.3 10^3/uL (4.0-10.0)
[2019-02-26 05:29] LABS: PLATELET COUNT, AUTOMATED 93 10^3/uL (150-450)
[2019-02-26 05:47] LABS: C REACTIVE PROTEIN QUANTITATIV 0.77 MG/DL (0.00-0.30); CALCIUM LEVEL 7.9 MG/DL (8.8-10.2); CREATININE FOR GFR 3.68 MG/DL (0.55-1.30); GLOMERULAR FILTRATION RATE 12.7 (>39); POTASSIUM SERUM 3.8 MEQ/L (3.5-5.1)
[2019-02-26] MEDS: LACTOBACILLUS ACIDOPHILUS CAP (BACID) PO SCH (08:00)
--- NOTE | 2019-02-26 08:57 | CR ---
DATE OF CONSULTATION: 02/25/2019 I was asked to consult by Dr. Millan for evaluation of herpes zoster in trigeminal distribution. HISTORY OF PRESENT ILLNESS: This is a 78-year-old female who is a half-way resident from [place]. The patient has had increasing fatigue and lethargy and shingles on the left face in a trigeminal distribution V1. The patient was noted to have decrease in mentation and lethargy with increasing eye redness of the conjunctiva. When I saw her in the room, there was no family present. The patient is not verbal. She denies any chills, chest pain, palpitation, abdominal pain, nausea, vomiting, diarrhea. She was seen in consultation with Dr. Eddy of ophthalmology in the ER who recommended broad-spectrum antibiotic for possible superimposed bacterial infection. There was purulent discharge from the eye. Wound cultures and blood cultures were sent and are pending. PAST MEDICAL HISTORY: Significant for end-stage renal disease on hemodialysis, hypertension, aplastic anemia, hypercholesteremia, allergies, thrombocytopenia. MEDICATIONS: - amlodipine 10 mg by mouth at bedtime - aspirin 81 mg daily - atorvastatin 40 mg at bedtime - cetirizine 10 mg by mouth at bedtime - eltrombopag olamine (Promacta ) 50 mg by mouth daily - hydralazine 10 mg every 8 hours - losartan 100 mg daily - metoprolol 100 mg daily - multivitamin one daily - Valtrex 500 mg by mouth at bedtime was on 02/23/2019 and now the patient is on IV acyclovir and guaifenesin as needed - vancomycin 500 mg with dialysis - Zosyn 2.25 grams IV daily - mupirocin twice a day around the eye - Probiotics one tablet by mouth twice a day ALLERGIES: No known drug allergies. SOCIAL HISTORY: She denies alcohol, drug use or smoking. She is a [place] resident. PHYSICAL EXAMINATION: She is a lethargic elderly female. Difficult to have a conversation with her due to some confusion and some language barrier. On physical exam, the left is swollen, conjunctiva is erythematous. There is some drainage vesicular lesions on the forehead with some scabs on the top of the scalp. Mostly these lesions are in a V1 distribution. Heart: Normal S1 and S2. No murmurs, rubs or gallops. Lungs are clear. No wheezes, rales or rhonchi. Abdomen soft, nontender. Extremities: No clubbing, cyanosis or edema. Very thick onychomycotic nails times 10. Neurologic Exam: Moves all extremities. She is somewhat lethargic, but is alert. LABORATORY DATA: White count 10.1, hemoglobin 8, hematocrit 21.7, platelets 71. Sodium 136, potassium 4.7, chloride 103, bicarb 25, BUN 64, creatinine 6.34, glucose 153, calcium 8.2, CRP 1.07. Random vancomycin level was 19.3. MRSA PCR was ordered and is pending. Urinalysis had many white cells, 41 red cells. Blood cultures, urine culture, viral cultures, eye culture from around the lesions are all pending. IMPRESSION: This is a 78-year-old female who was admitted with herpes zoster in a trigeminal distribution with increasing lethargy. The patient has a history of end stage renal disease and aplastic anemia. She has been afebrile. She has had a low grade fever with T-max of 99.6 and mild leukocytosis. There was concern about a urinary tract infection versus superimposed bacterial infection of the left face. Therefore, the patient was started on broad spectrum antibiotics. She has continued on Valtrex 500 mg daily. PLAN: If blood cultures and wound cultures are negative, please discontinue IV antibiotics. The lethargy is most likely related to medications, zoster and possibly zoster encephalitis. The concern about getting a lumbar puncture to rule zoster encephalitis is that she has thrombocytopenia, but her platelets are 70. She may get a platelet transfusion and get a lumbar puncture if she is more lethargic. For the time being, continue current antibiotic and antiviral therapy until results of cultures are available.
[2019-02-26] MEDS: MULTIVITAMINS/MINERALS THERAP 1 TAB PO SCH ×2 (09:00→10:35)
[2019-02-26] MEDS: ASPIRIN 81 MG ENTERIC TAB PO SCH ×2 (09:00→10:35)
[2019-02-26] MEDS: LOSARTAN 50 MG TAB PO SCH ×2 (09:00→10:37)
[2019-02-26] MEDS: METOPROLOL SUCC (TopROL XL) 100MG *XL* TAB PO SCH ×2 (09:00→10:36)
[2019-02-26] MEDS: PIPERACILLIN/TAZOBACTAM SOD 2.25 GM in D5W MINI-BAG PLUS 50 ML IV SCH (10:35)
[2019-02-26] MEDS: MUPIROCIN 2% OINT 22 GM TUBE TOP SCH ×2 (10:37→22:09)
[2019-02-26] MEDS: ONDANSETRON 4MG/2ML VIAL (J2405) IV PRN (10:53)
--- NOTE | 2019-02-26 11:57 | IPNPDOC ---
Subjective Date Seen The patient was seen on 02/26/19. Subjective Chief Complaint/HPI Patient seen and examined at the bedside. She is much more awake, alert, and conversant this morning. According to the house staff, the patient has been refusing her by mouth medications. She denies any acute complaints of pain. Objective Physical Examination General Exam: Positive: Alert, Cooperative, No Acute Distress Eye Exam: Positive: Other Eye Symptoms (Left eyelid noted to be erythematous with no purulant drainage at this time. No corneal involvement noted) Neck Exam: Negative: JVD Chest Exam: Positive: Clear to auscultation, Normal air movement Heart Exam: Positive: Rate Normal, Normal S1, Normal S2 Abdomen Exam: Positive: Soft Extremity Exam: Negative: Tenderness, Swelling Skin Exam: Positive: Other skin issue (vesicular lesions noted across the left side of the forehead and down around the left eye in a dermatomal pattern. No cross over to the right side.) Assessment /Plan Plan/VTE VTE Prophylaxis Ordered?: Yes Plan Herpes Zoster with Left Sided Soft Tissue/Eyelid Involvement Optho has been consulted and evaluated the patient in the ER, input appreciated Cultures unrevealing thus far-->Will D/C Zosyn if remains negative over next 24 hrs Valacyclovir changed to IV due to patient refusing PO Meds We will cont to monitor the patient Infectious disease on board, input appreciated Increased Lethargy, 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, improving Patient's mentation has improved today compared to yesterday, she has been declining all meds Discussed case with the patient's daughter--states that her mother has been tired of being in and out of the hospital and likely would not want a lumbar puncture Given improvement of her mentation, and the patient declining therapeutic/diagnostic measures, will defer LP for now History of aplastic anemia, thrombocytopenia Hgb noted to be downtrending, no overt bleeding source noted We will transfuse the patient 1 Unit Cont to monitor H&H ESRD on HD Nephrology consulted Accelerated HTN Antihypertensives ordered History of Erica's Granulomatosis Follow up as outpatient DVT prophylaxis SCDs/TEDs ordered Code Status: DNR VS, I&O, 24H, Fishbone Vital Signs/I&O Vital Signs Date Time Temp Pulse Resp B/P (MAP) Pulse Ox O2 Delivery O2 Flow Rate FiO2 6/14/19 10:37 150/74 02/26/19 10:36 89 02/26/19 08:00 98.8 18 97 02/24/19 14:09 Room Air I&O- Last 24 Hours up to 6 AM 02/26/19 06:00 Intake Total 50 ml Output Total 500 ml Balance -450 ml Laboratory Data 24H LABS Laboratory Tests 2 02/25/19 17:10: Blood Gas Bicarbonate Standard 29.2H, Arterial Blood pH 7.488H, Arterial Blood Partial Pressure CO2 39.2, Arterial Blood Partial Pressure O2 60.5L, Arterial Blood Total CO2 30.3, Arterial Blood HCO3 29.1H, Arterial Blood Base Excess 5.3H, Arterial Blood Oxygen Saturation 92.1L 02/26/19 05:08: Nucleated Red Blood Cells % (auto) 0.0, Immature Platelet Fraction 1.3, Anion Gap 6L, Glomerular Filtration Rate 12.7L, Blood Urea Nitrogen 36H, Creatinine 3.68H, Sodium Level 138, Potassium Level 3.8, Chloride Level 102, Carbon Dioxide Level 30, Calcium Level 7.9L, C-Reactive Protein, Quantitative 0.77H CBC/BMP Laboratory Tests 02/26/19 05:08 Red Blood Count 2.24 L, Mean Corpuscular Volume 89.7, Mean Corpuscular Hemoglobin 31.3, Mean Corpuscular Hemoglobin Concent 34.8, Red Cell Distribution Width 14.2, Calcium Level 7.9 L Microbiology Microbiology 02/24/19 Blood Culture - Preliminary, Resulted No growth after 24 hours . All specim... 02/24/19 Blood Culture - Preliminary, Resulted No growth after 24 hours . All specim... 02/25/19 MRSA Screen, Received Pending 02/24/19 Urine Culture - Final, Complete 02/24/19 Viral Culture, Received Pending 02/24/19 Eye/Ear/Nose/Throat Culture - Final, Complete TOMAS VALLE MD Feb 26, 2019 11:57
[2019-02-26] MEDS ORDERED: D5W IV ONE (14:00)
[2019-02-26] MEDS ORDERED: ACYCLOVIR IV ONE (14:00)
--- NOTE | 2019-02-26 16:30 | IPN ---
DATE: 02/26/2019 INFECTIOUS DISEASE PROGRESS NOTE: SUBJECTIVE: Patient was seen at bedside. Appears to be more interactive than the prior day. Was able to verbalize simple answers in Divehi and follows commands slowly. She is fully alert and oriented this morning and able to take her medications today. She is on day 2 of Zosyn as well as Valtrex which she refused yesterday. No fevers, chills. White count is normal and CRP is trending down. PHYSICAL EXAMINATION: VITAL SIGNS: Temperature 98.8, pulse 92, respirations 18, blood pressure 162/74, map of 103, pulse ox 97% on room air. GENERAL: Resting comfortably in bed. No acute distress. Alert and oriented times three but lethargic at times throughout the exam. She is able to answer simple questions in Divehi and able to understand questions and follow commands. HEENT: Normocephalic. There are vesicular lesions of varying stages on the left forehead and eye. Mostly in the V1 distribution. No other appreciable lesions. HEART: Normal S1, S2 regular rate and rhythm. No appreciate murmurs. LUNGS: Clear without any abnormal sounds. ABDOMEN: Soft and nontender and nondistended. EXTREMITIES: 2+ peripheral pulses without any edema or calf tenderness. NEURO: Able to follow commands and movement intact. LABS: WBC 8.3, hemoglobin and hematocrit 7 and 20.1, platelets 93, sodium 138, potassium 3.8, BUN and creatinine 36 and 3.68, CRP 0.77. Urine culture was negative. Conjunctival culture was negative. Cheek culture was pending. Blood culture was negative for 24 hours. MRSA screen pending. ASSESSMENT AND PLAN: 78-year-old female with herpes zoster and the V1 distribution as well as what appears to be lethargy above her baseline. She is afebrile and CRP is trending down. This is unlikely to be bacterial and thus we will discontinue her antibiotics and continue on antiviral. There is concern that she may not tolerate by mouth intake due to varying levels of lethargy. We will transition her from by mouth Valtrex to IV acyclovir. Her lethargy may be from Zoster encephalitis for which we recommend an LP. If this is indeed Zoster encephalitis, she should continue for a total of 14 days on antiviral therapy. Otherwise, may be transitioned to by mouth antiviral for a total 7 days course. End-stage renal disease. Patient is dialysis dependant, being followed by nephro. Acyclovir has been renally dosed. My faculty preceptor for this patient encounter was physically present during the encounter and was fully available. All aspects of the patient interview, examination, medical decision making process, and medical care plan development were reviewed and approved by the faculty preceptor. The faculty preceptor is aware and concurs with the plan as stated in the body of this note and will attest to such by his/her co-signature. RAULITO
--- NOTE | 2019-02-26 17:54 | IPN ---
DATE: 02/26/2019 Mrs. Espitia is seen this morning on her bedside. She remains confused and disoriented. She could not tell me where she was initially and then she thought that she was at her home. She could not recognize me. She is not oriented to time at all. She was dialyzed yesterday with some difficulty due to her restlessness and disorientation. Rash on her face is essentially unchanged. Nursing staff reports that she has been refusing all her medications and has not been eating at all. PHYSICAL EXAMINATION: Temperature 98.8 degrees Fahrenheit, heart rate 92 per minute and respiratory rate 18 per minute. Blood pressure 150/78 mmHg and oxygen saturation 97% on room air. Rash on her left side of face and scalp is unchanged. Neck veins are not abnormally distended. Heart sounds are regular and lungs sound clear to auscultation. Abdomen: Soft and nontender. Extremities: Have no cyanosis or clubbing. Neurologically she remains confused and disoriented. Today's labs show WBC count 8.3, hemoglobin 7.0 and hematocrit 20.1. Sodium 138, potassium 3.8, CO2 of 30, BUN 36 and creatinine 3.68. PROBLEMS: 1. End-stage renal disease. The patient was dialyzed yesterday, and we will plan to dialyze her again tomorrow. Her volume status is well compensated and electrolytes are within normal range. 2. Herpes zoster. The patient remains on valacyclovir; however, she has been refusing her medications. I discussed with Dr. Hurley who feels that the patient should be treated with intravenous medication because of possible encephalitis and refusal of oral medications. 3. Anemia. The patient has history of aplastic anemia and has required transfusions in the past. I would suggest to transfuse her at least 1 unit of packed red blood cells (RBCs). Her CBC will be checked again tomorrow morning, and we can consider further action for transfusion during dialysis. 4. Altered mentation. Most likely related to herpes zoster infection and not medication side effect as she has not been taking her valacyclovir.
[2019-02-26] MEDS: CETIRIZINE (ZyrTEC) 10 MG TAB PO SCH (22:10)
[2019-02-26] MEDS: ATORVASTATIN 20 MG TAB PO SCH (22:10)
[2019-02-26] MEDS: amLODIPine 10 MG TAB PO SCH (22:13)
[2019-02-27] VITALS (8 sets, daily range): BP systolic 153–202; BP diastolic 68–90
[2019-02-27] MEDS: hydrALAZINE INJ 20 MG/ML VIAL IV SCH ×6 (02:11→20:51)
[2019-02-27 05:28] LABS: HEMATOCRIT 20.3 % (36.0-47.0); HEMOGLOBIN 7.2 g/dl (12.0-15.5); MEAN CORPUSCULAR HEMOGLOBIN 32.4 pg (27.0-33.0); MEAN CORPUSCULAR HGB CONC 35.5 g/dl (32.0-36.5); MEAN CORPUSCULAR VOLUME 91.4 fl (80.0-96.0); PLATELET COUNT, AUTOMATED 102 10^3/uL (150-450); RED BLOOD COUNT 2.22 10^6/uL (4.00-5.40); WHITE BLOOD COUNT 10.5 10^3/uL (4.0-10.0)
[2019-02-27 05:51] LABS: CREATININE FOR GFR 5.55 MG/DL (0.55-1.30); GLOMERULAR FILTRATION RATE 7.9 (>39); POTASSIUM SERUM 3.7 MEQ/L (3.5-5.1)
[2019-02-27 05:52] LABS: C REACTIVE PROTEIN QUANTITATIV 1.29 MG/DL (0.00-0.30); CALCIUM LEVEL 7.7 MG/DL (8.8-10.2)
[2019-02-27] MEDS: ASPIRIN 81 MG ENTERIC TAB PO SCH (06:31)
[2019-02-27] MEDS: LOSARTAN 50 MG TAB PO SCH ×2 (09:00→09:54)
[2019-02-27] MEDS: METOPROLOL SUCC (TopROL XL) 100MG *XL* TAB PO SCH ×2 (09:00→09:54)
[2019-02-27] MEDS: MULTIVITAMINS/MINERALS THERAP 1 TAB PO SCH ×2 (09:00→09:54)
[2019-02-27] MEDS ORDERED: DEFEROXAMINE IV ONE (09:45)
--- NOTE | 2019-02-27 09:48 | IPNPDOC ---
Subjective Date Seen The patient was seen on 02/27/19. Subjective Chief Complaint/HPI Patient seen and examined at the bedside. Remains even more alert, awake, and conversant compared to yesterday. She is asking about when she will be able to go home. Denies any acute complaints of pain, and notes that she is able to better see out of her left eye due to decreased swelling. Objective Physical Examination General Exam: Positive: Alert, Cooperative, No Acute Distress Eye Exam: Positive: Other Eye Symptoms (Left eyelid noted to be erythematous with no purulant drainage at this time. No corneal involvement noted. Less edema/erythema of the left eyelid noted. Patient able to open the eye lid more due to decreased swelling.) Neck Exam: Negative: JVD Chest Exam: Positive: Clear to auscultation, Normal air movement Heart Exam: Positive: Rate Normal, Normal S1, Normal S2 Abdomen Exam: Positive: Soft Extremity Exam: Negative: Tenderness, Swelling Skin Exam: Positive: Other skin issue (vesicular lesions noted across the left side of the forehead and down around the left eye in a dermatomal pattern. 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, improving Patient's mentation has improving, she has been declining all meds Discussed case with the patient's daughter--states that her mother has been tired of being in and out of the hospital and likely would not want a lumbar puncture Given improvement of her mentation, and the patient declining therapeutic/diagnostic measures, will defer LP for now History of aplastic anemia, thrombocytopenia Hgb noted to be downtrending, no overt bleeding source noted We will transfuse the patient 1 Unit today during dialysis Cont to monitor H&H ESRD on HD Nephrology on board Accelerated HTN Antihypertensives ordered History of Erica's Granulomatosis Follow up as outpatient DVT prophylaxis SCDs/TEDs ordered Code Status: DNR VS, I&O, 24H, Fishbone Vital Signs/I&O Vital Signs Date Time Temp Pulse Resp B/P (MAP) Pulse Ox O2 Delivery O2 Flow Rate FiO2 02/27/19 08:00 97.3 94 22 156/72 (100) 94 02/24/19 14:09 Room Air I&O- Last 24 Hours up to 6 AM 02/27/19 06:00 Intake Total 280 ml Output Total 0 ml Balance 280 ml Laboratory Data 24H LABS Laboratory Tests 2 02/27/19 05:09: Nucleated Red Blood Cells % (auto) 0.0, Anion Gap 7L, Glomerular Filtration Rate 7.9L, Blood Urea Nitrogen 57#H, Creatinine 5.55#H, Sodium Level 138, Potassium Level 3.7, Chloride Level 103, Carbon Dioxide Level 28, Calcium Level 7.7L, C- Reactive Protein, Quantitative 1.29H CBC/BMP Laboratory Tests 02/27/19 05:09 Red Blood Count 2.22 L, Mean Corpuscular Volume 91.4, Mean Corpuscular Hemoglobin 32.4, Mean Corpuscular Hemoglobin Concent 35.5, Red Cell Distribution Width 14.4, Calcium Level 7.7 L Microbiology Microbiology 02/24/19 Blood Culture - Preliminary, Resulted No Growth after 48 hours. All Specime... 02/24/19 Blood Culture - Preliminary, Resulted No Growth after 48 hours. All Specime... 02/25/19 MRSA Screen - Final, Complete 02/24/19 Urine Culture - Final, Complete 02/24/19 Viral Culture, Received Pending 02/24/19 Eye/Ear/Nose/Throat Culture - Final, Complete TOMAS VALLE MD Feb 27, 2019 09:48
[2019-02-27] MEDS: MUPIROCIN 2% OINT 22 GM TUBE TOP SCH ×2 (09:55→20:52)
[2019-02-27 11:09] LABS: PERCENT SATURATION 118.9 % (13.2-45.0)
[2019-02-27] MEDS ORDERED: DEFEROXAMINE MESYLATE IV ONE (12:00)
[2019-02-27] MEDS ORDERED: NS IV ONE (12:00)
[2019-02-27] MEDS: D5W IV SCH (17:14)
[2019-02-27] MEDS: ACYCLOVIR IV SCH (17:14)
[2019-02-27] MEDS: amLODIPine 10 MG TAB PO SCH (20:51)
[2019-02-27] MEDS: CETIRIZINE (ZyrTEC) 10 MG TAB PO SCH (20:51)
[2019-02-27] MEDS: ATORVASTATIN 20 MG TAB PO SCH (20:51)
[2019-02-27] MEDS ORDERED: cloNIDine 0.2 MG TAB PO ONE (22:30)
[2019-02-28] MEDS: hydrALAZINE INJ 20 MG/ML VIAL IV SCH ×6 (02:58→22:47)
[2019-02-28 04:00] VITALS: BP 168/70
[2019-02-28 05:17] LABS: HEMATOCRIT 28.8 % (36.0-47.0); MEAN CORPUSCULAR HEMOGLOBIN 32.2 pg (27.0-33.0); MEAN CORPUSCULAR HGB CONC 36.1 g/dl (32.0-36.5); MEAN CORPUSCULAR VOLUME 89.2 fl (80.0-96.0); RED BLOOD COUNT 3.23 10^6/uL (4.00-5.40); WHITE BLOOD COUNT 12.6 10^3/uL (4.0-10.0)
[2019-02-28 05:21] LABS: PLATELET COUNT, AUTOMATED 84 10^3/uL (150-450)
[2019-02-28 05:22] LABS: HEMOGLOBIN 10.4 g/dl (12.0-15.5)
[2019-02-28 05:47] LABS: C REACTIVE PROTEIN QUANTITATIV 11.1 MG/DL (0.00-0.30); CALCIUM LEVEL 8.2 MG/DL (8.8-10.2); CREATININE FOR GFR 3.55 MG/DL (0.55-1.30); GLOMERULAR FILTRATION RATE 13.2 (>39); POTASSIUM SERUM 3.7 MEQ/L (3.5-5.1)
[2019-02-28] MEDS: ACETAMINOPHEN TAB 650MG DOSE (2X325MG) PO PRN ×2 (06:35→18:25)
[2019-02-28 08:00] VITALS: BP 155/72
[2019-02-28] MEDS: MULTIVITAMINS/MINERALS THERAP 1 TAB PO SCH (09:34)
[2019-02-28] MEDS: METOPROLOL SUCC (TopROL XL) 100MG *XL* TAB PO SCH (09:34)
[2019-02-28] MEDS: ASPIRIN 81 MG ENTERIC TAB PO SCH (09:34)
[2019-02-28] MEDS: LOSARTAN 50 MG TAB PO SCH (09:35)
[2019-02-28 10:02] LABS: URIC ACID 3.1 MG/DL (2.6-6.0)
[2019-02-28] MEDS ORDERED: SLF 3 ML SYR IV PRN (10:30)
[2019-02-28] MEDS: MUPIROCIN 2% OINT 22 GM TUBE TOP SCH ×2 (10:40→20:56)
[2019-02-28 12:00] VITALS: BP 174/76
--- NOTE | 2019-02-28 13:06 | REP ---
CT RIGHT WRIST: Axial CT right wrist performed with sagittal and coronal reconstruction images. No acute fracture or dislocation is seen. There is narrowing of the radiocarpal joint. There is moderate narrowing with spurring at the joint between the trapezium and base of first metacarpal. There is diffuse intercarpal joint space narrowing of the distal carpal row with areas of subchondral sclerosis and cystic change. Surrounding soft tissue structures are unremarkable. IMPRESSION: Degenerative changes without evidence of acute fracture or dislocation. Electronically Signed by Germain Sevilla MD 02/28/2019 04:36 P
[2019-02-28] MEDS: SLF 3 ML SYR IV SCH ×2 (14:29→20:56)
--- NOTE | 2019-02-28 14:57 | IPNPDOC ---
Subjective Date Seen The patient was seen on 02/28/19. Subjective Chief Complaint/HPI Patient seen and examined at the bedside. She reports having right wrist swelling, pain when awakening this morning. Denies any trauma to the wrist. No acute overnight events noted as per house staff. Objective Physical Examination General Exam: Positive: Alert, Cooperative, No Acute Distress Eye Exam: Positive: Other Eye Symptoms (Left eyelid noted to be erythematous with no purulant drainage at this time. No corneal involvement noted. Less edema/erythema of the left eyelid noted. Patient able to open the eye lid more due to decreased swelling.) Neck Exam: Negative: JVD Chest Exam: Positive: Clear to auscultation, Normal air movement Heart Exam: Positive: Rate Normal, Normal S1, Normal S2 Abdomen Exam: Positive: Soft Extremity Exam: Positive: Other (right wrist noted to be mildly swollen. No surrounding erythema or open lesions noted. Pulses palpable, range of motion intact, and handgrip intact.) Skin Exam: Positive: Other skin issue (vesicular lesions noted across the left side of the forehead and down around the left eye in a dermatomal pattern. No cross over to the right side.) Assessment /Plan Plan/VTE VTE Prophylaxis Ordered?: Yes Plan Herpes Zoster with Left Sided Soft Tissue/Eyelid Involvement Optho has been consulted and evaluated the patient in the ER, input appreciated Cultures unrevealing thus far-->Zosyn d/c'd Cont IV Acyclovir due to patient refusing PO Meds We will cont to monitor the patient Infectious disease on board, input appreciated Right Wrist Swelling likely 2/2 Arthritis/Gout Flare Distal Radial and Ulnar Pulses intact Hand para professional, ROM intact CT of the Wrist ordered We will cont to monitor Increased Lethargy, 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, improving Patient's mentation back to baseline History of aplastic anemia, thrombocytopenia s/p 2 units of PRBC transfused during Dialysis on 02/27/19 Cont to monitor H&H ESRD on HD Nephrology on board Accelerated HTN Antihypertensives ordered History of Erica's Granulomatosis Follow up as outpatient DVT prophylaxis SCDs/TEDs ordered Code Status: DNR VS, I&O, 24H, Fishbone Vital Signs/I&O Vital Signs Date Time Temp Pulse Resp B/P (MAP) Pulse Ox O2 Delivery O2 Flow Rate FiO2 02/28/19 09:36 155/70 02/28/19 09:34 80 02/28/19 08:00 99.1 20 96 1.0 02/28/19 08:00 100 02/24/19 14:09 Room Air I&O- Last 24 Hours up to 6 AM 02/28/19 06:00 Intake Total 620 ml Output Total 1500 ml Balance -880 ml Laboratory Data 24H LABS Laboratory Tests 2 02/28/19 05:06: Nucleated Red Blood Cells % (auto) 0.0, Immature Platelet Fraction 1.4, Anion Gap 7L, Glomerular Filtration Rate 13.2L, Uric Acid 3.1, Blood Urea Nitrogen 33H, Creatinine 3.55H, Sodium Level 137, Potassium Level 3.7, Chloride Level 103, Carbon Dioxide Level 27, Calcium Level 8.2L, C-Reactive Protein, Quantitative 11.10H CBC/BMP Laboratory Tests 02/28/19 05:06 Red Blood Count 3.23 L, Mean Corpuscular Volume 89.2, Mean Corpuscular Hemoglobin 32.2, Mean Corpuscular Hemoglobin Concent 36.1, Red Cell Distribution Width 14.7 H, Calcium Level 8.2 L Microbiology Microbiology 02/24/19 Blood Culture - Preliminary, Resulted No Growth after 72 hours. All specime... 02/24/19 Blood Culture - Preliminary, Resulted No Growth after 72 hours. All specime... 02/25/19 MRSA Screen - Final, Complete 02/24/19 Urine Culture - Final, Complete 02/24/19 Viral Culture, Received Pending 02/24/19 Eye/Ear/Nose/Throat Culture - Final, Complete TOMAS VALLE MD Feb 28, 2019 14:57
[2019-02-28 16:00] VITALS: BP 156/75
[2019-02-28] MEDS: PERCOCET 5MG/325MG TAB PO PRN (17:55)
[2019-02-28] MEDS: D5W IV SCH (18:24)
[2019-02-28] MEDS: ACYCLOVIR IV SCH (18:24)
[2019-02-28 20:00] VITALS: BP 130/68
[2019-02-28] MEDS: ATORVASTATIN 20 MG TAB PO SCH (20:55)
[2019-02-28] MEDS: amLODIPine 10 MG TAB PO SCH (20:55)
[2019-02-28] MEDS: CETIRIZINE (ZyrTEC) 10 MG TAB PO SCH (20:55)
[2019-02-28 22:48] VITALS: BP 170/80
[2019-03-01] VITALS: BP 151/73
[2019-03-01] MEDS: hydrALAZINE INJ 20 MG/ML VIAL IV SCH ×6 (02:10→22:06)
[2019-03-01 04:00] VITALS: BP 168/72
[2019-03-01] MEDS: SLF 3 ML SYR IV SCH ×3 (06:00→22:06)
--- NOTE | 2019-03-01 06:57 | IPN ---
DATE OF SERVICE: 02/27/2019 SUBJECTIVE: Patient was seen and examined at the bedside today morning. Patient could not get hemodialysis done yesterday because of scheduling issues. She will be dialyzed today. She is also going to get the blood transfusion today with dialysis. Still reports pain in the left-sided shingles rash on the face. No other active complaints at this point. OBJECTIVE: VITAL SIGNS: Temperature is 98.6 degrees Fahrenheit, blood pressure 174/81, pulse is 94, respiratory rate of 20, saturating 98% on 1 liter nasal cannula. INTAKE AND OUTPUT: There is no urine output recorded. Weight on the bed scale is 44 kg. PHYSICAL EXAMINATION: GENERAL: The patient is awake, alert, oriented times three, sitting up in the bed in no apparent distress. HEAD AND NECK EXAM: The patient has a single rash on the left side of her forehead, left eye and over the left zygomatic arch. Mucous membranes are moist. Neck is supple. There is no JVD. CARDIOVASCULAR: Sinus S1, S2 regular rate. No edema of the bilateral lower extremities. RESPIRATORY: Chest is clear to auscultation bilaterally. Bilateral equal air entry. No rales or rhonchi. ABDOMEN: Soft. Positive bowel sounds. Nontender. No organomegaly. MUSCULOSKELETAL: No clubbing or cyanosis. Pulses are 2+. MEDICAL RECORDS COORDINATOR: No focal deficit. Power is 5/5 in bilateral upper extremities. LAB REVIEW: CBC showed WBC 10.5, hemoglobin is 7.2, platelets 102. BMP showed sodium 138, potassium 3.7, chloride 103, bicarb 28, iron is 151, transferrin saturation is 118, ferritin is 6215, C-reactive protein is 1.2. Microbiology: Blood cultures preliminary negative. CURRENT INPATIENT MEDICATIONS: The patient's medications were all reviewed by me. She is currently on acyclovir 200 mg IV q. 24 hourly. I gave her a dose of deferoxamine 500 mg IV times one dose IV. She was given a dose of clonidine 0.2 mg p.o. times one dose. No other change in the medications today as compared with yesterday. ASSESSMENT/PLAN: 1. End-stage renal disease on hemodialysis. The patient will be dialyzed today. I will try to remove at least 1.5 liters of fluid as tolerated by her blood pressure. 2. Herpes zoster rash in the left sided trigeminal nerve. The patient is currently getting IV acyclovir by infectious disease. 3. Aplastic anemia. The patient is going to get 2 units of packed red blood cells (PRBC) transfusion with dialysis today. 4. Iron overload. I have ordered one dose of deferoxamine 500 mg IV to be given before dialysis today. 5. Hypertension with end-stage renal disease. Continue current dose of amlodipine 10 mg p.o. daily, clonidine 0.2 mg p.o. times one dose was given for high blood pressures. She is also on hydralazine 10 mg IV q. 4 hourly and losartan 100 mg p.o. daily. Home dose of metoprolol can be restarted as well.
[2019-03-01 08:00] VITALS: BP 167/71
[2019-03-01] MEDS: ASPIRIN 81 MG ENTERIC TAB PO SCH (08:04)
[2019-03-01] MEDS: MULTIVITAMINS/MINERALS THERAP 1 TAB PO SCH (08:04)
[2019-03-01] MEDS: METOPROLOL SUCC (TopROL XL) 100MG *XL* TAB PO SCH (08:04)
[2019-03-01] MEDS: LOSARTAN 50 MG TAB PO SCH (08:05)
[2019-03-01] MEDS: MUPIROCIN 2% OINT 22 GM TUBE TOP SCH ×2 (08:05→22:06)
[2019-03-01 08:30] LABS: HEMATOCRIT 28.8 % (36.0-47.0); HEMOGLOBIN 9.9 g/dl (12.0-15.5); MEAN CORPUSCULAR HEMOGLOBIN 30.4 pg (27.0-33.0); MEAN CORPUSCULAR HGB CONC 34.4 g/dl (32.0-36.5); MEAN CORPUSCULAR VOLUME 88.3 fl (80.0-96.0); PLATELET COUNT, AUTOMATED 101 10^3/uL (150-450); RED BLOOD COUNT 3.26 10^6/uL (4.00-5.40); WHITE BLOOD COUNT 11.4 10^3/uL (4.0-10.0)
[2019-03-01] MEDS: ACETAMINOPHEN TAB 650MG DOSE (2X325MG) PO PRN (08:45)
[2019-03-01 09:14] LABS: C REACTIVE PROTEIN QUANTITATIV 16.2 MG/DL (0.00-0.30); CALCIUM LEVEL 8.3 MG/DL (8.8-10.2); CREATININE FOR GFR 5.44 MG/DL (0.55-1.30); GLOMERULAR FILTRATION RATE 8.1 (>39); POTASSIUM SERUM 3.7 MEQ/L (3.5-5.1)
--- NOTE | 2019-03-01 10:42 | REP ---
RIGHT WRIST SERIES: Four views. HISTORY: Pain and swelling. Comparison is made with the CT study done the previous day. FINDINGS: There is diffuse osteopenia. There is moderate osteoarthritis at the navicular multangular and first carpometacarpal articulations. 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 Subcortical cyst formation is seen in the proximal pole of the capitate. There is some vascular calcification. No acute fracture is seen. IMPRESSION: No acute fracture noted. Degenerative changes and osteoarthritis. Electronically Signed by Smith Polanco MD 03/01/2019 01:37 P
[2019-03-01 11:13] LABS: ERYTHROCYTE SEDIMENTATION RATE 70 mm/hr (0-30)
--- NOTE | 2019-03-01 11:31 | IPNPDOC ---
Subjective Date Seen The patient was seen on 03/01/19. Subjective Chief Complaint/HPI Patient seen and examined at the bedside today. Reports continued right wrist swelling/pain. Patient did keep it elevated/iced intermittently overnight. Objective Physical Examination General Exam: Positive: Alert, Cooperative, No Acute Distress Eye Exam: Positive: Other Eye Symptoms (Left eyelid noted to be erythematous with no purulant drainage at this time. No corneal involvement noted. Less edema/erythema of the left eyelid noted. Patient able to open the eye lid more due to decreased swelling.) Neck Exam: Negative: JVD Chest Exam: Positive: Clear to auscultation, Normal air movement Heart Exam: Positive: Rate Normal, Normal S1, Normal S2 Abdomen Exam: Positive: Soft Extremity Exam: Positive: Other (right wrist noted to be swollen. Mild surrounding erythema. No open lesions noted. Pulses palpable. Range of motion and handgrip slightly limited 2/2 swelling/pain in the joint. Good capillary refill distally.) Skin Exam: Positive: Other skin issue (vesicular lesions noted across the left side of the forehead and down around the left eye in a dermatomal pattern. No cross over to the right side.) Assessment /Plan Plan/VTE VTE Prophylaxis Ordered?: Yes Plan Herpes Zoster with Left Sided Soft Tissue/Eyelid Involvement Optho has been consulted and evaluated the patient in the ER, input appreciated Cultures unrevealing thus far-->Zosyn d/c'd Cont IV Acyclovir due to patient refusing PO Meds We will cont to monitor the patient Infectious disease on board, input appreciated Right Wrist Swelling possibly 2/2 Arthritis/Gout Flare, r/o septic joint Distal Radial and Ulnar Pulses intact, good capillary refill present Patient with decreased Hand machine filler, and ROM today in the joint XR and CT of the Wrist with no acute findings Possibly 2/2 inflammation from underlying 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 Lee of Orthopedic Surgery who did a bedside aspiration of the joint this afternoon. Unfortunately there was purulent drainage noted from the joint upon aspiration and concerns for a septic joint. The patient will need to be taken to the OR urgently for a wash out procedure. We will start IV Abx thereafter. Given the urgent nature of this situation, the patient will need to go to the OR. At this time, no further invasive work up is necessary to optimize the patient for clearance. VS, I&O, 24H, Fishbone Vital Signs/I&O Vital Signs Date Time Temp Pulse Resp B/P (MAP) Pulse Ox O2 Delivery O2 Flow Rate FiO2 03/01/19 11:16 161/77 03/01/19 08:04 89 03/01/19 08:00 100.2 20 98 1.0 02/28/19 12:00 100 02/24/19 14:09 Room Air I&O- Last 24 Hours up to 6 AM 03/01/19 06:00 Intake Total 700 ml Output Total 0 ml Balance 700 ml Laboratory Data 24H LABS Laboratory Tests 2 03/01/19 08:05: Nucleated Red Blood Cells % (auto) 0.0, Erythrocyte Sedimentation Rate 70H, Anion Gap 8, Glomerular Filtration Rate 8.1L, Blood Urea Nitrogen 58#H, Creatinine 5.44#H, Sodium Level 134L, Potassium Level 3.7, Chloride Level 101, Carbon Dioxide Level 25, Calcium Level 8.3L, C-Reactive Protein, Quantitative 16.20H CBC/BMP Laboratory Tests 03/01/19 08:05 Red Blood Count 3.26 L, Mean Corpuscular Volume 88.3, Mean Corpuscular Hemoglobin 30.4, Mean Corpuscular Hemoglobin Concent 34.4, Red Cell Distribution Width 14.6 H, Calcium Level 8.3 L Microbiology Microbiology 02/24/19 Blood Culture - Preliminary, Resulted No Growth after 72 hours. All specime... 02/24/19 Blood Culture - Preliminary, Resulted No Growth after 72 hours. All specime... 02/25/19 MRSA Screen - Final, Complete 02/24/19 Urine Culture - Final, Complete 02/24/19 Viral Culture, Received Pending 02/24/19 Eye/Ear/Nose/Throat Culture - Final, Complete TOMAS VALLE MD Mar 01, 2019 11:31
--- NOTE | 2019-03-01 11:31 | IPN ---
DATE OF SERVICE: 02/28/2019 SUBJECTIVE: The patient was seen and examined at the bedside today morning. She was eating her food when I saw her. She still reports persistent pain in the left-sided shingles rash. She was dialyzed yesterday. She tolerated the hemodialysis procedure well, 1.5 liters of fluid was removed. OBJECTIVE: Vital Signs: Temperature is 99 degrees Fahrenheit, blood pressure 130/68, pulse is 78, respiratory rate of 10, saturating 97% on 1 liter by nasal cannula. Intake and Output: There is no urine output recorded. Ultrafiltration with hemodialysis was 1.5 liters yesterday. Weight in the bed scale is 41.3 kg. PHYSICAL EXAMINATION: General: The patient is awake, alert, oriented times three, sitting up in the bed, in no apparent distress. Head and Neck Exam: The patient has shingles rash on left side of the face. Mucous membranes are moist. Neck is supple. There is no jugular venous distention (JVD). Cardiovascular: S1 and S2, regular rate. No edema of the bilateral lower extremities. Respiratory: Chest is clear to auscultation bilaterally. Bilateral equal air entry. No rales or rhonchi. Abdomen: Soft, obese, positive bowel sounds, nontender. No organomegaly. Musculoskeletal: No clubbing or cyanosis. Pulses are 2+. COAT OPERATOR: No focal deficit. Power is 5/5 in bilateral extremities. LAB REVIEW: CBC showed a WBC of 12.6, hemoglobin 10.4 and platelets are 84. BMP showed sodium 137, potassium 3.7, chloride 103, bicarb 27, BUN 37, and creatinine is 3.5. IMAGING: The patient had a CAT scan of the right wrist which showed degenerative changes without evidence of acute fracture. CURRENT INPATIENT MEDICATIONS: The patient's medications were all reviewed by me. She continues to be on IV acyclovir. There is no other change in the medications today as compared with yesterday. ASSESSMENT/PLAN: 1. End-stage renal disease on hemodialysis. The patient was dialyzed yesterday according to her regular schedule. Next hemodialysis will be on Friday next week. 2. Shingles on left side of face. The patient is currently on IV acyclovir. Dose and duration of medication is as per infectious disease recommendations. 3. Aplastic anemia. The patient got 2 units of packed red blood cell (PRBC) transfusion. Hemoglobin is nicely improved at 10.4. The patient does not need daily labs. She has end-stage renal disease and she requires frequent blood transfusions because of aplastic anemia. I have changed the lab draws to every 48 hours. 4. Hypertension with end-stage renal disease. Continue current dose of amlodipine 10 mg daily, hydralazine 10 mg IV every 4 hours as needed, losartan 10 mg by mouth daily, metoprolol 100 mg by mouth daily.
[2019-03-01 12:00] VITALS: BP 147/69
[2019-03-01 16:00] VITALS: BP 160/72
[2019-03-01 16:53] LABS: SOURCE, BODY FLUID RT WRIST; SYNOVIAL FLUID COLOR YELLOW (YELLOW)
[2019-03-01 17:12] LABS: CRYSTALS, BODY FLUID CA PYROPHOSPHATE (NONE SEEN); SOURCE, BODY FLUID CRYSTALS RT WRIST
--- NOTE | 2019-03-01 17:37 | CR ---
DATE OF CONSULTATION: 03/01/2019 REASON FOR CONSULTATION: Right wrist swelling and pain. HISTORY OF PRESENT ILLNESS: Mila is a 78-year-old female admitted to the hospital with shingles and end-stage renal disease on dialysis. The patient has been on IV acyclovir but has been complaining of increasing wrist pain over the past 24-36 hours. Her C-reactive protein started to increase over the last 48 hours. Her wrist did not have a toxic appearance but there was swelling dorsally and she had pain with motion. A CT scan was obtained which revealed extensive degenerative changes in the wrist. No obvious effusion. No sign of osteomyelitis. I spoke to the patient at the bedside. She is reporting pain over the dorsal aspect of the wrist rather than a diffuse nature. She is primarily Brazilian-speaking but was able to fully understand me and answer all questions appropriately. For the patient's full past medical history, past surgical history, medications, allergies, social history and review of systems, please see the admitting history and physical which I reviewed. PHYSICAL EXAMINATION: Reveals an elderly female in no distress. Alert and oriented times three. NEUROLOGIC: Appropriate mood and affect. CARDIOVASCULAR: 2+ radial pulse. MUSCULOSKELETAL: The right wrist has fairly localized swelling in the area of Malik's tubercle. The swelling is of a more diffuse nature and there are no areas of fluctuance or induration or any clinical appearance of an abscess. There is mild warmth in the wrist. No significant erythema. The patient has minimal tenderness to palpation along the palmar aspect of the hand and wrist. All of her tenderness is dorsal. She has about a 20-degree range of motion arc with flexion and extension of the wrist, beyond which she has severe pain. A CT scan of the wrist again showed extensive degenerative changes throughout the wrist joint. C-reactive protein (CRP) was over 11. ASSESSMENT AND PLAN: Ms. Espitia is a 78-year-old female with multiple medical problems who has right wrist swelling and laboratory work concerning for infection. I discussed the case with Dr. Hurley, our infectious disease specialist. We both agreed a wrist aspiration would be the most appropriate. The risks and benefits of a right wrist aspiration were discussed and written informed consent was obtained. PROCEDURE NOTE: The right wrist was marked. The wrist was sterilely prepped with Betadine. An 18-gauge needle was then introduced into the wrist joint via dorsal approach just distal to Malik's tubercle. About 1-1/2 mL of grossly purulent fluid was aspirated. This was thick, cloudy yellow. This was then sent off for stat gram stain and cell count as well as culture, sensitivity, and crystals. A sterile dressing was applied. I spoke to the hospitalist and the patient's daughter. At this time, the results of the aspiration are pending but I am preliminarily recommending surgical management with an incision and drainage. We will followup on the aspiration results first. The patient is nothing by mouth with a plan to proceed with surgery later tonight when she has been a full eight hours nothing by mouth. We will get consent from the daughter for surgery after aspiration results. Antibiotics will be held so that I can obtain more culture specimens and then she will receive vancomycin and Rocephin per Dr. Hurley's recommendations. She will remain under the hospitalist care. RAULITO
--- NOTE | 2019-03-01 18:16 | IPN ---
DATE: 03/01/2019 INFECTIOUS DISEASE PROGRESS NOTE SUBJECTIVE: The patient is examined at bedside. The patient is more alert and interactive than prior visits. Her shingles rash on the face appears to be improving and she is able to open her left eye more today than prior days. She is complaining of right wrist pain, for which primary has consulted orthopedics. Of note, she continues to have low grade temperatures, most recently 100.2 as of this morning. White count is mildly elevated, as well as a rising C-reactive protein at 16 this morning. No coughing, wheezing, shortness of breath, abdominal pain or diarrhea. PHYSICAL EXAMINATION: VITAL SIGNS: Temperature 100.2, pulse 89, respirations 20, blood pressure 167/71, MAP of 103, pulse oximetry 98% on 1 liter nasal cannula. GENERAL: Resting comfortably in bed. No acute distress. Alert and oriented times three. Remains awake throughout the examination and answers appropriately. HEENT: Normocephalic with vesicular lesions of varying stages on the left forehead and eye. No ocular lesions appreciated. Rash is in a V1 distribution, mostly crusted over at this point. HEART: Normal S1, S2. Regular rate and rhythm. LUNGS: Clear without any adventitious sounds. ABDOMEN: Soft, nontender, nondistended. Hypoactive bowel sounds. EXTREMITIES: 2+ peripheral pulses in all limbs. No edema or calf tenderness. Right wrist is swollen and tender to palpation. Decreased range of motion in all directions. Peripheral digits are well perfused. NEUROLOGIC: Able to follow commands. Motor and sensation intact. LABORATORIES: WBC 11.4, hemoglobin and hematocrit 9.9 and 28.8, platelets 101, ESR 70. Sodium and potassium 134 and 3.7. BUN and creatinine 58 and 5.44. C-reactive protein 16.2 today, rising from 11.1 yesterday and 1.29 the day prior. Methicillin resistant Staphylococcus aureus (MRSA) screen is negative. Blood culture is negative. IMAGIN02/28/2019 CT of the right wrist shows degenerative changes without evidence of acute fracture or dislocation and right wrist x-ray on 03/01/2019 shows no acute fracture noted. 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 IMPRESSION/PLAN: 78-year-old female with herpes zoster in the V1 distribution. She is much more interactive today and we will switch her over from IV Acyclovir to oral Valtrex. She should receive this for a total of 14 days given that a lumbar puncture was not done over the weekend and we cannot rule out her initial lethargy upon presentation to the hospital may have been zoster encephalitis. She has received 3 days of her antiviral regimen thus far, which was started on 02/26/2019, thus making her end date 03/11/2019. Right wrist pain and swelling in the setting of persistent leukocytosis, rising C-reactive protein and elevated sed rate and low grade temperatures. It is likely that her source of current abnormal laboratories is from her joint, which may be from gout versus pseudogout versus septic wrist. Orthopedics aspirated the wrist earlier today and reported roland pus, which we will send out for culture. Meanwhile, this is more concerning for indeed a septic joint. While we await the results, recommend starting renally dosed IV vancomycin and ceftriaxone at 2 grams IV per day. The patient may ultimately require going to the operating room, being managed by orthopedics. RAULITO
[2019-03-01 20:00] VITALS: BP 138/82
[2019-03-01] MEDS: CETIRIZINE (ZyrTEC) 10 MG TAB PO SCH (22:04)
[2019-03-01] MEDS: amLODIPine 10 MG TAB PO SCH (22:04)
[2019-03-01] MEDS: ATORVASTATIN 20 MG TAB PO SCH (22:05)
[2019-03-01] MEDS ORDERED: predniSONE 20 MG TAB PO ONE (22:30)
[2019-03-01] MEDS: valACYclovir HCL 500 MG TAB PO SCH (22:50)
[2019-03-02] VITALS: BP 140/68
[2019-03-02] MEDS: hydrALAZINE INJ 20 MG/ML VIAL IV SCH ×6 (02:00→22:56)
[2019-03-02 04:00] VITALS: BP 150/71
[2019-03-02] MEDS: SLF 3 ML SYR IV SCH ×3 (05:55→20:33)
[2019-03-02 07:55] LABS: HEMATOCRIT 28.3 % (36.0-47.0); MEAN CORPUSCULAR HEMOGLOBIN 31.6 pg (27.0-33.0); MEAN CORPUSCULAR HGB CONC 35.3 g/dl (32.0-36.5); MEAN CORPUSCULAR VOLUME 89.6 fl (80.0-96.0); PLATELET COUNT, AUTOMATED 108 10^3/uL (150-450); RED BLOOD COUNT 3.16 10^6/uL (4.00-5.40); WHITE BLOOD COUNT 10.7 10^3/uL (4.0-10.0)
[2019-03-02 08:00] VITALS: BP 140/58
--- NOTE | 2019-03-02 08:43 | IPN ---
DATE OF SERVICE: 03/02/2019 HISTORY: The patient's aspiration results came back with positive calcium pyrophosphate crystals and a negative gram stain. Unfortunately, the laboratory claims the sample is too turbid to calculate a cell count, which I have never heard of, but regardless, we do not have the cell count. I spoke to Dr. Hurley about the results of the aspiration, and we came to the conclusion that the overall clinical picture was low for septic arthritis, and this patient has significant medical comorbidities. With positive crystals and negative gram stain, it was worth a trial of treatment for pseudogout prior to any surgical management. The patient was given one dose of prednisone 20 mg. The patient did state this morning that her wrist felt better from the pain standpoint than the previous day. She had improved range of motion in terms of flexion, extension of the wrist. Overall, moderate swelling is unchanged. The plan at this point will be to followup on the cultures, which are no growth to date. We will hold off on any surgery unless the cultures come back positive. She will remain under the care of the hospitalist. RAULITO
[2019-03-02] MEDS: LOSARTAN 50 MG TAB PO SCH (08:58)
[2019-03-02] MEDS: ASPIRIN 81 MG ENTERIC TAB PO SCH (08:58)
[2019-03-02] MEDS: MUPIROCIN 2% OINT 22 GM TUBE TOP SCH ×2 (08:59→20:32)
[2019-03-02] MEDS: MULTIVITAMINS/MINERALS THERAP 1 TAB PO SCH (08:59)
[2019-03-02 09:07] LABS: C REACTIVE PROTEIN QUANTITATIV 14.1 MG/DL (0.00-0.30); CALCIUM LEVEL 8.4 MG/DL (8.8-10.2); CREATININE FOR GFR 6.68 MG/DL (0.55-1.30); GLOMERULAR FILTRATION RATE 6.4 (>39); POTASSIUM SERUM 4.7 MEQ/L (3.5-5.1)
[2019-03-02 12:50] VITALS: BP 152/70
[2019-03-02] MEDS: METOPROLOL SUCC (TopROL XL) 100MG *XL* TAB PO SCH (13:52)
[2019-03-02 16:00] VITALS: BP 148/67
[2019-03-02] MEDS ORDERED: predniSONE 20 MG TAB PO ONE (17:45)
--- NOTE | 2019-03-02 18:00 | IPN ---
DATE: 03/02/2019 The patient is doing very well. She states her wrist pain has improved. She has had no fever or chills. No nausea, vomiting or diarrhea. No abdominal pain. She has minimal pain around her eye where she had postherpetic neuralgia. She has better range of motion of the wrist. LABORATORY DATA: White count is 10.7, hemoglobin 10, hematocrit 28.3, platelets 108. ESR 70. Sodium 132, potassium 4.7, chloride 100, bicarbonate 22, BUN 73, creatinine 6.68, glucose 162, calcium 8.4, CRP 14.1 down from 16.2. Fluid had calcium pyrophosphate from the right wrist, turbid. A cell count could not be done because it was so turbid. Aerobic and anaerobic cultures from the right wrist are pending. Gram stain final had many white cells, no organisms seen. PHYSICAL EXAMINATION: Temperature is 97.9, pulse 77, respirations 18, blood pressure 148/67, oxygen saturation 96% on room air. HEART: Normal S1, S2. No murmurs. LUNGS: Clear. No wheezes, rales or rhonchi. ABDOMEN: Soft, nontender. No hepatosplenomegaly. She has a hemodialysis catheter, right chest. EXTREMITIES: No edema. Facial herpes zoster trigeminal distribution V1. Scabs all healed. Right wrist swollen but improved range of motion. She is able to flex 20 degrees and extend 10 degrees. IMPRESSION: 1. 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 The patient will receive a second dose of prednisone today. 2. Herpes zoster trigeminal distribution, on Valtrex 500 mg by mouth at bedtime to finish 10-day course. PLAN: Hold off on incision and drainage of the right wrist. I suspect this is pseudogout and not infectious in origin. Case has been discussed with Dr. Lee.
--- NOTE | 2019-03-02 19:28 | IPNPDOC ---
Text Note Date of Service The patient was seen on 03/02/19. NOTE Subjective: This is a 78-year-old female who unfortunately has shingles. She has a history of underlying end-stage renal disease. She also developed some swelling to her right wrist joint, raising concern for septic joint. Objective: The patient is afebrile. Systolic blood pressures range from 140-152. O2 sats are 95-96% on room air. HENT: Neck is supple, she does not have any adenopathy or thyromegaly, she has herpetic lesions with crusting distributed above and around her left eye, She has dialysis catheter tunneled to right IJ Cardiovascular: Shows regular rate and rhythm with a normal S1 and S2 and no appreciable murmur or bruit. Respiratory: She is clear to auscultation with no rhonchi, rales, wheezes or cough. Abdomen: Soft, nondistended, nontender, bowel tones are present. Extremities: She does not exhibit distal edema or lesions to her feet, she has notable edema to the fingers, wrist and forearm of her right upper extremity with tenderness and warmth. Neuro exam: She does not exhibit any focal neuromotor or sensory deficit Assessment/plan: 1. Shingles-patient continues on appropriate therapy in the form of valacyclovir. The lesions appear to be improving. 2. Right wrist joint inflammation-concern is raised for infection versus joint disease. Patient did undergo aspiration of the joint; the joint fluid culture is negative to date. There have been plans for joint washout, but this is being held for now pending culture results. 3. End-stage renal disease-this is hemodialysis requiring. Patient remains on her usual hemodialysis schedule. VS,Fishbone, I+O VS, Fishbone, I+O Laboratory Tests 03/02/19 07:32 Red Blood Count 3.16 L, Mean Corpuscular Volume 89.6, Mean Corpuscular Hemoglobin 31.6, Mean Corpuscular Hemoglobin Concent 35.3, Red Cell Distribution Width 14.6 H, Calcium Level 8.4 L Vital Signs Date Time Temp Pulse Resp B/P (MAP) Pulse Ox O2 Delivery O2 Flow Rate FiO2 03/02/19 18:12 160/64 03/02/19 16:00 97.9 77 18 96 03/01/19 08:00 1.0 02/28/19 12:00 100 6/12/19 14:09 Room Air I&O- Last 24 Hours up to 6 AM 03/02/19 06:00 Intake Total 270 ml Output Total 0 ml Balance 270 ml JOSE CLIFTON MD Mar 02, 2019 19:28
[2019-03-02 20:00] VITALS: BP 132/63
[2019-03-02] MEDS: CETIRIZINE (ZyrTEC) 10 MG TAB PO SCH (20:31)
[2019-03-02] MEDS: valACYclovir HCL 500 MG TAB PO SCH (20:31)
[2019-03-02] MEDS: ATORVASTATIN 20 MG TAB PO SCH (20:31)
[2019-03-02] MEDS: amLODIPine 10 MG TAB PO SCH (20:32)
[2019-03-03] VITALS (8 sets, daily range): BP systolic 145–170; BP diastolic 65–84
--- NOTE | 2019-03-03 03:20 | IPN ---
DATE: 03/02/2019 SUBJECTIVE: The patient was seen and examined at the bedside today morning during hemodialysis procedure. She is tolerating the hemodialysis procedure well. She denies any active complaints. Her rash is also improving. OBJECTIVE: Vital signs: Temperature is 97.9 degrees Fahrenheit, blood pressure 148/67, pulse is 77, respiratory rate of 18, saturating 96% on room air. Intake and output: Urine output recorded is zero. Weight in the bed scale is 41.5 kg. PHYSICAL EXAMINATION: GENERAL: The patient is awake, alert, oriented x3, laying in bed getting hemodialysis done. HEAD AND NECK EXAM: Mucous membranes are moist, left-sided shingles rash on the face is improving. Neck is supple. There is no jugular venous distention (JVD). CARDIOVASCULAR: S1, S2 regular rate. No edema of the bilateral lower extremities. RESPIRATORY: Chest is clear to auscultation bilaterally. Bilateral equal air entry. No rales or rhonchi. ABDOMEN: Soft. Positive bowel sounds. Nontender. No organomegaly. MUSCULOSKELETAL: No clubbing or cyanosis. Pulses are 2+. CENTRAL NERVOUS SYSTEM (HOSTLER HELPER): No focal deficit. Power is 5/5 in bilateral upper extremities. LABORATORY REVIEW: Complete blood count (CBC) showed a white blood cell (WBC) 10.7, hemoglobin 10.0, platelets of 108. Basic metabolic panel (BMP) showed sodium 132, potassium 4.7, chloride 100, bicarbonate 22, BUN 73, creatinine is 6.4. CURRENT INPATIENT MEDICATIONS: The patient's medications were all reviewed by me. - Valcyte - she has been started on Valcyte 500 mg by mouth at bedtime - prednisone - she was started on prednisone 20 mg by mouth daily. One dose was given yesterday and one dose today. No other change in medications today as compared with yesterday. ASSESSMENT/PLAN: 1. End-stage renal disease on hemodialysis. The patient is being dialyzed today according to her regular schedule. I will try to remove about 1 liter of fluid as tolerated by blood pressure. 2. Shingles on left side of face. The patient was initially on Acyclovir. She is currently on Valcyte as per infectious disease recommendations. 3. Aplastic anemia. Hemoglobin is optimal at 10. The patient usually gets her blood transfusion about every two-weeks. 4. Hypertension with end-stage renal disease. Continue current dose of amlodipine, hydralazine, losartan and metoprolol. Blood pressure is optimized with optimization of fluid status.
[2019-03-03] MEDS: hydrALAZINE INJ 20 MG/ML VIAL IV SCH ×6 (04:33→22:15)
[2019-03-03] MEDS: SLF 3 ML SYR IV SCH ×3 (05:11→20:02)
[2019-03-03] MEDS: ASPIRIN 81 MG ENTERIC TAB PO SCH (09:38)
[2019-03-03] MEDS: LOSARTAN 50 MG TAB PO SCH (09:42)
[2019-03-03] MEDS: MULTIVITAMINS/MINERALS THERAP 1 TAB PO SCH (09:43)
[2019-03-03] MEDS: METOPROLOL SUCC (TopROL XL) 100MG *XL* TAB PO SCH (09:43)
[2019-03-03] MEDS: MUPIROCIN 2% OINT 22 GM TUBE TOP SCH ×2 (09:46→20:02)
--- NOTE | 2019-03-03 19:19 | IPNPDOC ---
Text Note Date of Service The patient was seen on 03/03/19. NOTE SUBJECTIVE: Ms. Espitia is doing well today. She does not have any distinct complaints. The patient has end-stage renal disease, essential hypertension and concern for joint infection to her right wrist. Additionally, she has shingles. OBJECTIVE: The patient had had systolic blood pressures this morning ranging from 165-170. They appear to have improved over the course of the day. ENT: Neck is supple, she does not have any adenopathy or thyromegaly, she has herpetic lesions with crusting distributed above and around her left eye, She has dialysis catheter tunneled to right IJ Cardiovascular: Shows regular rate and rhythm with a normal S1 and S2 and no appreciable murmur or bruit. Respiratory: She is clear to auscultation with no rhonchi, rales, wheezes or cou gh. Abdomen: Soft, nondistended, nontender, bowel tones are present. Extremities: She does not exhibit distal edema or lesions to her feet, edema, tenderness and warmth to the fingers, wrist and forearm of her right upper extremity have decreased significantly Neuro exam: She does not exhibit any focal neuromotor or sensory deficit Assessment/plan: 1. Shingles-these are to ophthalmic branch of trigeminal nerve. Patient continues on appropriate therapy in the form of valacyclovir. The lesions appear to be improving. 2. Right wrist joint inflammation-concern is raised for infection versus joint disease. Patient did undergo aspiration of the joint; the joint fluid culture is negative to date. There have been plans for joint washout, but this is being held for now pending culture results. She has shown significant clinical improvement 3. End-stage renal disease-this is hemodialysis requiring. The patient's usual hemodialysis schedule is Friday, and Friday. VS,Fishbone, I+O VS, Fishbone, I+O Vital Signs Date Time Temp Pulse Resp B/P (MAP) Pulse Ox O2 Delivery O2 Flow Rate FiO2 03/03/19 18:00 146/70 03/03/19 16:00 97.6 69 18 96 03/01/19 08:00 1.0 02/28/19 12:00 100 I&O- Last 24 Hours up to 6 AM 03/03/19 06:00 Intake Total 240 ml Output Total 1000 ml Balance -760 ml JOSE CLIFTON MD Mar 03, 2019 19:19
[2019-03-03] MEDS: ATORVASTATIN 20 MG TAB PO SCH (20:01)
[2019-03-03] MEDS: CETIRIZINE (ZyrTEC) 10 MG TAB PO SCH (20:01)
[2019-03-03] MEDS: valACYclovir HCL 500 MG TAB PO SCH (20:02)
[2019-03-03] MEDS: amLODIPine 10 MG TAB PO SCH (20:02)
[2019-03-04] VITALS (7 sets, daily range): BP systolic 122–174; BP diastolic 70–84
[2019-03-04] MEDS: hydrALAZINE INJ 20 MG/ML VIAL IV SCH ×6 (02:00→21:28)
[2019-03-04 05:48] LABS: HEMATOCRIT 27.5 % (36.0-47.0); HEMOGLOBIN 9.4 g/dl (12.0-15.5); MEAN CORPUSCULAR HEMOGLOBIN 29.9 pg (27.0-33.0); MEAN CORPUSCULAR HGB CONC 34.2 g/dl (32.0-36.5); MEAN CORPUSCULAR VOLUME 87.6 fl (80.0-96.0); PLATELET COUNT, AUTOMATED 112 10^3/uL (150-450); RED BLOOD COUNT 3.14 10^6/uL (4.00-5.40); WHITE BLOOD COUNT 7.2 10^3/uL (4.0-10.0)
[2019-03-04 06:09] LABS: CALCIUM LEVEL 8.2 MG/DL (8.8-10.2); CREATININE FOR GFR 5.18 MG/DL (0.55-1.30); GLOMERULAR FILTRATION RATE 8.6 (>39); POTASSIUM SERUM 4.6 MEQ/L (3.5-5.1)
[2019-03-04] MEDS: SLF 3 ML SYR IV SCH ×3 (06:24→21:29)
[2019-03-04] MEDS: MUPIROCIN 2% OINT 22 GM TUBE TOP SCH ×2 (10:07→20:06)
[2019-03-04] MEDS ORDERED: HEPARIN 1,000 UNITS/ML 10ML VIAL (FOR RADIOLOGY& DIALYSIS ONLY) XX ONE (14:15)
--- NOTE | 2019-03-04 15:06 | IPNPDOC ---
Text Note Date of Service The patient was seen on 03/04/19. NOTE SUBJECTIVE: Ms. Espitia is a 78-year-old female who was admitted for management of shingles. They are to her ophthalmic branch of her trigeminal nerve. She's not had remarkable pain, but she has had drainage. The patient has underlying chronic kidney disease that is hemodialysis requiring which she has been receiving during her hospital stay. Lastly, the patient developed acute swelling to her right wrist concerning for joint infection. OBJECTIVE: ENT: Neck is supple, she does not have any adenopathy or thyromegaly, she has herpetic lesions with crusting distributed above and around her left eye/eyelid, This is overall improving. She has dialysis catheter tunneled to right IJ Cardiovascular: Shows regular rate and rhythm with a normal S1 and S2 and no appreciable murmur or bruit. Respiratory: She is clear to auscultation with no rhonchi, rales, wheezes or cough. Abdomen: Soft, nondistended, nontender, bowel tones are present. Extremities: She does not exhibit distal edema or lesions to her feet, edema, tenderness and warmth to the fingers, wrist and forearm of her right upper extremity have essentially resolved. She states she has mild tenderness to the j oint otherwise. Neuro exam: She does not exhibit any focal neuromotor or sensory deficit Assessment/plan: 1. Shingles-these are to ophthalmic branch of trigeminal nerve. Patient continues on appropriate therapy in the form of valacyclovir, which she should continue for 10 days total. The lesions appear to be improving. 2. Right wrist joint inflammation-concern is raised for infection versus joint disease. Patient did undergo aspiration of the joint; the joint fluid culture is negative to date. However, there are findings of calcium pyrophosphate crystals consistent with pseudogout. Patient has been responsive to low-dose steroid therapy. 3. End-stage renal disease-this is hemodialysis requiring. The patient's usual hemodialysis schedule is Friday, Friday and Friday. While in the hospital he has been dialyzing on a Friday, and Friday schedule. She dialyzed today and we anticipate we should be able to discharge her home tomorrow. VS,Fishbone, I+O VS, Fishbone, I+O Laboratory Tests 03/04/19 05:23 Red Blood Count 3.14 L, Mean Corpuscular Volume 87.6, Mean Corpuscular Hemoglobin 29.9, Mean Corpuscular Hemoglobin Concent 34.2, Red Cell Distribution Width 14.2, Calcium Level 8.2 L Vital Signs Date Time Temp Pulse Resp B/P (MAP) Pulse Ox O2 Delivery O2 Flow Rate FiO2 03/04/19 12:00 97.6 68 17 126/74 (91) 96 03/01/19 08:00 1.0 02/28/19 12:00 100 I&O- Last 24 Hours up to 6 AM 03/04/19 06:00 Intake Total 840 ml Output Total 0 ml Balance 840 ml JOSE CLIFTON MD Mar 04, 2019 15:06
[2019-03-04] MEDS: METOPROLOL SUCC (TopROL XL) 100MG *XL* TAB PO SCH (17:39)
[2019-03-04] MEDS: LOSARTAN 50 MG TAB PO SCH (17:40)
[2019-03-04] MEDS: PERCOCET 5MG/325MG TAB PO PRN (17:41)
[2019-03-04] MEDS: ASPIRIN 81 MG ENTERIC TAB PO SCH (17:42)
[2019-03-04] MEDS: MULTIVITAMINS/MINERALS THERAP 1 TAB PO SCH (17:42)
--- NOTE | 2019-03-04 17:49 | IPN ---
DATE: 03/03/2019 SUBJECTIVE: The patient was seen and examined at the bedside today morning. She is afebrile, hemodynamically stable. She was dialyzed yesterday. She tolerated the hemodialysis procedure well. One liter of fluid was removed. She denies any active complaints. Her shingles rash is getting significantly better. OBJECTIVE: VITAL SIGNS: Temperature is 97.9 degrees Fahrenheit, blood pressure 154/72, pulse is 69, respiratory rate of 80, saturating 98% on room air. INTAKE AND OUTPUT: Ultrafiltration with hemodialysis was one liter yesterday. Weight in the bed scale is 41.5 kg. PHYSICAL EXAMINATION: GENERAL: The patient is awake, alert, oriented times, three laying in bed, in no apparent distress. HEAD AND NECK: Left forehead and left-sided facial shingles rash is significantly better. The lesions are crusting over now. Neck is supple. She has a right internal jugular (IJ) tunneled hemodialysis catheter. CARDIOVASCULAR: S1, S2, regular rate. No edema of the bilateral lower extremities. RESPIRATORY: Chest is clear to auscultation bilaterally. No active rales or rhonchi. ABDOMEN: Soft. Positive bowel sounds. Nontender. MUSCULOSKELETAL: No clubbing or cyanosis. Pulses are 2+. CENTRAL NERVOUS SYSTEM (HOSTESS): No focal deficit. Power is 5/5 in bilateral upper extremities. LABORATORY REVIEW: CBC showed a WBC of 10.7, hemoglobin 10 and that was from yesterday and BMP is also from yesterday. CURRENT INPATIENT MEDICATIONS: The patient's medications were all reviewed by me. There is no change in the medications today as compared with yesterday. ASSESSMENT AND PLAN: 1. End-stage renal disease on hemodialysis. The patient's regular dialysis day was yesterday. Next hemodialysis will be done tomorrow. Volume status is optimal. 2. Shingles of left side of the face. The patient is currently on Valcyte. Rash is improving. 3. Aplastic anemia. The patient requires frequent blood transfusions. Latest hemoglobin was 10 which is optimal. She does not respond to erythropoiesis stimulating agent (CORTES). 4. Hypertension with end-stage renal disease. Continue current dose of hydralazine, amlodipine, losartan and metoprolol. 5. Hyponatremia. The patient has hypervolemic hyponatremia which gets better with hemodialysis and fluid removal.
[2019-03-04] MEDS: amLODIPine 10 MG TAB PO SCH (20:05)
[2019-03-04] MEDS: valACYclovir HCL 500 MG TAB PO SCH (20:05)
[2019-03-04] MEDS: CETIRIZINE (ZyrTEC) 10 MG TAB PO SCH (20:05)
[2019-03-04] MEDS: ATORVASTATIN 20 MG TAB PO SCH (20:05)
--- NOTE | 2019-03-04 21:21 | IPN ---
DATE: 03/04/2019 Mrs. Espitia is doing better. However, her pain has improved. She does not have significant postherpetic neuralgia. She has had no fever or chills. Heart: Normal S1, S2 with no murmurs. Lungs are clear. No wheezes, rales or rhonchi. Abdomen is soft, nontender. No hepatosplenomegaly. Extremities: No edema. Right wrist is slightly swollen, improving range of motion. LABORATORY DATA White count is 7.2, hemoglobin 9.4, hematocrit 27.5, platelets 112. Sodium 135, potassium 4.6, chloride 99, bicarb 28, BUN 70, creatinine 5.18, glucose 118, calcium 8.2. Microaerobic and anaerobic culture were final negative. IMPRESSION: 1. Shingkes in the trigeminal nerve, improving. Currently with only scabs currently. The patient on Valtrex 500 mg by mouth daily. She is on day #6 of antivirals out of 10. 2. Pseudogout of the right wrist, doing much better with by mouth prednisone. Continue to manage conservatively. There is no evidence of infection in that wrist. PLAN Infectious disease signing off. MTDD
[2019-03-05] MEDS: hydrALAZINE INJ 20 MG/ML VIAL IV SCH ×3 (02:04→10:00)
[2019-03-05 04:00] VITALS: BP 140/64
[2019-03-05] MEDS: SLF 3 ML SYR IV SCH (05:40)
--- NOTE | 2019-03-05 08:17 | IPN ---
DATE: 03/04/2019 SUBJECTIVE The patient was seen and examined at the bedside today morning. She is afebrile, hemodynamically stable. She denies any active complaints. Today is patient's regular day of dialysis. Her rash on the left side of the face continues to improve. OBJECTIVE Vital signs: Temperature is 97.6 degrees Fahrenheit. Blood pressure 126/74, pulse is 68, respiratory rate of 70, saturating 96% on room air. Intake and output: There is no urine output. Recorded weight in the bed scale is 40.5 kg. PHYSICAL EXAMINATION General: The patient is awake, alert, oriented times three, laying in bed, no apparent distress. Head and neck examination: The patient has left-sided shingles rash which is clearing. Mucous membranes are moist. Neck is supple. She has a right IJ tunneled hemodialysis catheter. Cardiovascular: S1, S2, regular rate. No edema of the bilateral lower extremities. Respiratory: Chest is clear to auscultation bilaterally. Bilateral equal air entry. No rales or rhonchi. Abdomen: Soft. Positive bowel sounds. Nontender. No organomegaly. Musculoskeletal: No clubbing or cyanosis. Pulses are 2+. DELPHI PROGRAMMER: No focal deficit. Power is 5/5 in all extremities. She has shingles rash in the left trigeminal nerve area. LAB REVIEW: CBC showed WBC 7.2, hemoglobin 9.4, platelets of 112. BMP showed sodium 135, potassium 4.6, chloride 99, bicarb 28, BUN 70, creatinine is 5.98. CURRENT INPATIENT MEDICATIONS: The patient's medications were all reviewed by me. There is no change in the medications today as compared with yesterday. ASSESSMENT/PLAN 1. End-stage renal disease on hemodialysis. The patient will be dialyzed today according to regular schedule. I will try to remove at least 1 liter of fluid as tolerated by blood pressure. 2. Aplastic anemia, hemoglobin is optimal. She gets blood transfusions as needed for hemoglobin below 8. 3. Shingles left side of the face. It is significantly getting better. Continue the Valcyte. 4. Hypertension with end-stage renal disease. Continue current dose of hydralazine, amlodipine, losartan and metoprolol. Fluid status will be optimized with dialysis today.
[2019-03-05] MEDS: MULTIVITAMINS/MINERALS THERAP 1 TAB PO SCH (08:24)
[2019-03-05] MEDS: MUPIROCIN 2% OINT 22 GM TUBE TOP SCH (08:25)
[2019-03-05] MEDS: LOSARTAN 50 MG TAB PO SCH (08:25)
[2019-03-05] MEDS: ASPIRIN 81 MG ENTERIC TAB PO SCH (08:25)
[2019-03-05] MEDS: METOPROLOL SUCC (TopROL XL) 100MG *XL* TAB PO SCH (08:25)
[2019-03-05] MEDS ORDERED: PRED10TA2 PO (09:57)
[2019-03-05] MEDS ORDERED: PRED20TA PO (09:57)
[2019-03-05 10:00] VITALS: BP_SYST 144; BP_DIAS 62; BP_DIAS 67
[2019-03-05] MEDS ORDERED: VALA500T5 PO (10:01)
--- NOTE | 2019-03-05 15:08 | DS.PDOC ---
Discharge Summary General Date of Admission Feb 24, 2019 at 18:05 Date of Discharge 03/05/2019 Primary Care Physician: TERRI SEPULVEDA DO Specialist/Consultants Involve Dr. Albarado of the nephrology service, Dr. Lee of the orthopedic service Discharge Summary PROCEDURES PERFORMED DURING STAY: Hemodialysis, aspiration of right wrist joint. ADMITTING DIAGNOSES: 1. Herpes zoster to the face. DISCHARGE DIAGNOSES: 1. 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 COMPLICATIONS/CHIEF COMPLAINT: Herpes Zoster. HISTORY OF PRESENT ILLNESS: Ms. Espitia is a 78-year-old female with a history of end-stage renal disease that is hemodialysis requiring. The patient resides in an extended care facility. She developed shingles to her face. She was 03/05/2019 being treated with valacyclovir. She was brought to the emergency room with increasing swelling and distress from this.. HOSPITAL COURSE: The patient was admitted to the medical floor. She was noted to have vesicular rash and drainage to the ophthalmic branch of the left trigeminal nerve, consistent with herpes zoster. She was continued on her valacyclovir. She also received empiric antibiotics out of concern for possible secondary infect ion. Patient developed remarkable pain and swelling to her right wrist. Concern was initially raised for joint infection. She was seen by orthopedic service and underwent aspiration of the joint. Her empiric antibiotics provided coverage for possible joint infection as well. Interestingly, the joint fluid showed presence of calcium pyrophosphate crystals consistent with pseudogout. The patient was effectively treated with oral steroids; her right wrist swelling and pain resolved. The patient was continued on a hemodialysis schedule for underlying end-stage renal disease. She did not have any exacerbation of her other underlying chronic medical conditions. Her herpes zoster lesions to her face crusted and her drainage and swelling resolved. She did not have involvement of her cornea.. DISCHARGE MEDICATIONS: Please see below. ALLERGIES: Please see below. PHYSICAL EXAMINATION ON DISCHARGE: VITAL SIGNS: Please see below. GENERAL: Awake, alert, conversant HEENT: No adenopathy or thyromegaly, herpetic lesions around her left eye are receding NECK: Supple CARDIOVASCULAR EXAMINATION: Regular rate and rhythm, no murmur RESPIRATORY EXAMINATION: Clear to auscultation ABDOMINAL EXAMINATION: Benign to exam. Bowel tones present EXTREMITIES: No peripheral edema or lesions. Right wrist joint swelling, warmth and erythema are resolved. NEUROLOGICAL EXAMINATION: No focal neuromotor or sensory deficit LABORATORY DATA: Please see below ACTIVITY: As tolerated. DIET: Renal DISCHARGE PLAN: The patient is stable for discharge to home back at [facility]. She'll continue with her usual hemodialysis schedule. She has an additional 4 days of valacyclovir therapy. She is also on a short taper of prednisone. She will follow-up with her primary care provider, Dr. Terri Sepulveda within 1 week. She may need to consider shingles vaccine to prevent recurrence. DISPOSITION: [facility]. DISCHARGE CONDITION: Stable. TIME SPENT ON DISCHARGE: Greater than 40 minutes. Vital Signs/I&Os Vital Signs Date Time Temp Pulse Resp B/P (MAP) Pulse Ox O2 Delivery O2 Flow Rate FiO2 03/05/19 10:00 98.3 81 20 144/67 (92) 96 03/01/19 08:00 1.0 02/28/19 12:00 100 I&O- Last 24 Hours up to 6 AM 03/05/19 06:00 Intake Total 1120 ml Output Total 1500 ml Balance -380 ml Microbiology Microbiology 02/24/19 Blood Culture - Final, Complete NO GROWTH AFTER 5 DAYS 02/24/19 Blood Culture - Final, Complete NO GROWTH AFTER 5 DAYS 03/01/19 Gram Stain - Final, Complete 03/01/19 Body Fluid Culture - Final, Complete 02/25/19 MRSA Screen - Final, Complete 02/24/19 Urine Culture - Final, Complete 03/01/19 Anaerobic Culture - Final, Complete 02/24/19 Viral Culture, Received Pending 02/24/19 Eye/Ear/Nose/Throat Culture - Final, Complete Discharge Medications Scheduled Amlodipine Besylate (Amlodipine Besylate) 10 Mg Tablet, 10 MG PO QHS, (Reported) Aspirin (Ecotrin) 81 Mg Tablet.dr, 81 MG PO DAILY, (Reported) Atorvastatin Calcium (Atorvastatin Calcium) 40 Mg Tablet, 40 MG PO QHS, (Reported) Cetirizine HCl (Cetirizine HCl) 10 Mg Tablet, 10 MG PO QHS, (Reported) Eltrombopag Olamine (Promacta) 50 Mg Tablet, 50 MG PO QPM, (Reported) Hydralazine HCl (Hydralazine HCl) 10 Mg Tablet, 10 MG PO Q8H, (Reported) Losartan Potassium (Losartan Potassium) 100 Mg Tablet, 100 MG PO DAILY, (Reported) Metoprolol Succinate (Metoprolol Succinate) 100 Mg Tab.er.24h, 100 MG PO DAILY, (Reported) Multivitamins (Thera M Plus Tablet) 1 Each Tablet, 1 TAB PO DAILY, (Reported) Nut.tx.imp.renal Fxn,Lac-Reduc (Nepro Carb Steady) 237 Ml Liquid, 120 ML PO BID, (Reported) Prednisone (Prednisone) 10 Mg Tablet, 1 TAB PO DAILY AFTER 20 MG DAILY IS FINISHED Prednisone (Prednisone) 20 Mg Tablet, 1 TAB PO DAILY Valacyclovir HCl (Valacyclovir) 500 Mg Tablet, 500 MG PO QHS FOR ADDITIONAL 4 DAYS guaiFENesin (Cough Syrup) 100 Mg/5 Ml Liquid, 20 ML PO TID, (Reported) GIVE FOR 5 DAYS STARTING 02/20/19 Scheduled PRN Acetaminophen (Tylenol) 325 Mg Tablet, 650 MG PO Q4H PRN for PAIN / FEVER, (Reported) Albuterol Sulfate (Albuterol Sulfate) 2.5 Mg/0.5 Ml Vial.neb, 2.5 MG INH Q2H PRN for SHORTNESS OF BREATH, (Reported) Bisacodyl (Bisacodyl) 10 Mg Supp.rect, 10 MG NM DAILY PRN for CONSTIPATION, (Reported) Sodium Phosphate,[place]-Dibasic (Enema) 133 Ml Enema, 1 INNA NM DAILY PRN for CONSTIPATION, (Reported) Allergies Coded Allergies: No Known Allergies (Unverified , 02/23/18) JOSE CLIFTON MD Mar 05, 2019 15:08
--- NOTE | 2019-03-08 15:07 | IPN ---
DATE: 03/05/2019 SUBJECTIVE The patient was seen and examined at the bedside today morning. She is afebrile, hemodynamically stable. She was dialyzed yesterday. 1.5 liters of fluid was removed. She denies any active complaints. OBJECTIVE Vital signs: Temperature is 98.3 degrees Fahrenheit, blood pressure 144/62, pulse is 81, respiratory rate of 20, saturating 96% on room air. Intake and output: Ultrafiltration with hemodialysis was 1.5 liters yesterday. Weight in the bed scale is 41.1 mL. PHYSICAL EXAMINATION General: The patient is awake, alert, oriented times three, laying in bed in no apparent distress. Head and neck examination: Left-sided shingles rash is significantly better. Mucous membranes are moist. Neck is supple. She has a right IJ tunneled hemodialysis catheter. Cardiovascular: S1, S2, regular rate. No edema of the bilateral lower extremities. Respiratory: Chest is clear to auscultation bilaterally. Bilateral equal air entry. No rales or rhonchi. Abdomen: Soft. Positive bowel sounds. Nontender. Musculoskeletal: No clubbing or cyanosis. Pulses are 2+. SHIRT IRONER: No focal deficit. Power is 5/5 in all extremities. LAB REVIEW: CBC and BMP is from yesterday. There are no new labs available. CURRENT INPATIENT MEDICATIONS The patient's medications were all reviewed by me. No change in the medications today as compared with yesterday. ASSESSMENT/PLAN 1. End-stage renal disease on hemodialysis. The patient was dialyzed yesterday. Next hemodialysis session will be as outpatient. Volume status is optimal. 2. Aplastic anemia. The patient gets frequent blood transfusions, hemoglobin is optimal. Transfuse as needed for hemoglobin below 8. 3. Shingles left side of the face and trigeminal nerve. Patient is getting better. She is supposed to finish a total of 10 days of Valcyte as outpatient. 4. Disposition. It is okay to discharge the patient from nephrology standpoint.
== END 2019-03-05 12:35 | DRG 73 ==
LOC: EDBD 13:56 → M ED 13:56 → M ED INP 18:05 → M PCU 21:28
PROVIDERS: ADMIT Internal Medicine; ATTEND Internal Medicine
PROC: 30233N1 Transfusion of Nonautologous Red Blood Cells into Peripheral Vein, Percutaneous Approach (ICD-10-PCS; 2019-02-26)
PROC: 5A1D70Z Performance of Urinary Filtration, Intermittent, Less than 6 Hours Per Day (ICD-10-PCS; principal; 2019-02-27)
PROC: 0R9N3ZZ Drainage of Right Wrist Joint, Percutaneous Approach (ICD-10-PCS; 2019-03-01)
DX: B02.22 Postherpetic trigeminal neuralgia (principal); N18.6 End stage renal disease; D61.9 Aplastic anemia, unspecified; M31.30 Wegener's granulomatosis without renal involvement; N25.81 Secondary hyperparathyroidism of renal origin; N39.0 Urinary tract infection, site not specified; E87.1 Hypo-osmolality and hyponatremia; I12.0 Hypertensive chronic kidney disease with stage 5 chronic kidney disease or end stage renal disease; B02.8 Zoster with other complications; B02.0 Zoster encephalitis; E78.5 Hyperlipidemia, unspecified; E78.00 Pure hypercholesterolemia, unspecified; M1A.0310 Idiopathic chronic gout, right wrist, without tophus (tophi); I51.7 Cardiomegaly; K21.9 Gastro-esophageal reflux disease without esophagitis; R09.89 Other specified symptoms and signs involving the circulatory and respiratory systems; Z66 Do not resuscitate; R51 Headache; Z86.73 Personal history of transient ischemic attack (TIA), and cerebral infarction without residual deficits; Z95.9 Presence of cardiac and vascular implant and graft, unspecified; Z99.2 Dependence on renal dialysis; Z79.899 Other long term (current) drug therapy; Z79.82 Long term (current) use of aspirin

== ENCOUNTER → 2019-02-24 | Outpatient (REF) | payer MEDICARE ==
[~2019-02-24] MED LIST changes: +ACET-907 PO; +ALB2.5NEB INH; +ALL10TAB28 PO; +ATOR40TA75 PO; +BISA10SU2 PR; +ECOT81TA5 PO; +ENEMENE PR; +NEPR1LIQ2 PO; +VALA500T5 PO; +VALT500T PO; +[UNRECOGNIZED DRUG - CODE] PO
--- NOTE | 2019-02-24 12:45 | REP ---
CHEST, SINGLE VIEW: Single view of the chest is performed and compared to prior studies, most recent of which 02/19/2019. There is mild to moderate cardiomegaly. There appears to be vascular congestion. Diffuse increased interstitial markings is compatible with interstitial edema. Mild patchy atelectasis or infiltrate is seen in the right lung base. Mediastinal silhouette is unchanged. There is a right central venous catheter with the tip in the right atrium. Electronically Signed by Germain Sevilla MD 02/24/2019 04:58 P
== END ==
PROVIDERS: ATTEND Internal Medicine
DX: I51.7 Cardiomegaly (principal); R09.89 Other specified symptoms and signs involving the circulatory and respiratory systems; Z95.9 Presence of cardiac and vascular implant and graft, unspecified

== ENCOUNTER → 2019-03-09 | Outpatient (REF) | payer MEDICARE ==
[~2019-03-09] MED LIST changes: +BISA10SU2 PR; -BISA10SU20 PR; -GUAI100L31 PO; +VALA500T5 PO; +[UNRECOGNIZED DRUG - CODE] PO
[2019-03-09 10:05] LABS: HEMATOCRIT 22.6 % (36.0-47.0); HEMOGLOBIN 7.8 g/dl (12.0-15.5); MEAN CORPUSCULAR HEMOGLOBIN 31.8 pg (27.0-33.0); MEAN CORPUSCULAR HGB CONC 34.5 g/dl (32.0-36.5); MEAN CORPUSCULAR VOLUME 92.2 fl (80.0-96.0); PLATELET COUNT, AUTOMATED 102 10^3/uL (150-450); RED BLOOD COUNT 2.45 10^6/uL (4.00-5.40); WHITE BLOOD COUNT 7.2 10^3/uL (4.0-10.0)
== END ==
PROVIDERS: ATTEND Internal Medicine
DX: D61.9 Aplastic anemia, unspecified (principal)

== ENCOUNTER 2019-03-17 13:01 | Inpatient (IN) | payer MEDICARE ==
[~2019-03-17] VITALS: Ht 157.5 cm; Wt 41.5 kg
[~2019-03-17 13:01] MED LIST changes: -ACET1TAB55 PO; -ALBU83IN INH; -ASPI81TA26 PO; -BISA10SU4 PR; -MULTCAP PO; -VITA1CAP25 PO
[2019-03-17 14:03] LABS: EOS % 0.4 % (0.0-3.0); HEMATOCRIT 15.4 % (36.0-47.0); LYMPH # 1.2 10^3/uL (1.5-4.5); MEAN CORPUSCULAR HEMOGLOBIN 30.4 pg (27.0-33.0); MEAN CORPUSCULAR HGB CONC 33.8 g/dl (32.0-36.5); MEAN CORPUSCULAR VOLUME 90.1 fl (80.0-96.0); MONO # 0.9 10^3/uL (0.0-0.8); MONO % 10.7 % (0.0-5.0); NEUTROPHILS % 73.7 % (36.0-66.0); RED BLOOD COUNT 1.71 10^6/uL (4.00-5.40); WHITE BLOOD COUNT 8.1 10^3/uL (4.0-10.0)
[2019-03-17 14:08] LABS: HEMOGLOBIN 5.2 g/dl (12.0-15.5); PLATELET COUNT, AUTOMATED 84 10^3/uL (150-450)
[2019-03-17 14:10] LABS: INR 1.2; PROTHROMBIN TIME 14.9 SECONDS (11.8-14.0)
[2019-03-17 14:11] LABS: PARTIAL THROMBOPLASTIN TIME 40.9 SECONDS (25.0-38.4)
[2019-03-17] MEDS ORDERED: HYDR10TAB PO (14:24)
[2019-03-17] MEDS ORDERED: MULTCAP PO (14:24)
[2019-03-17] MEDS ORDERED: AMLO10TA5 PO (14:24)
[2019-03-17] MEDS ORDERED: ATOR1TAB21 PO (14:24)
[2019-03-17] MEDS ORDERED: METO1TAB33 PO (14:24)
[2019-03-17] MEDS ORDERED: LOSA100T50 PO (14:24)
[2019-03-17] MEDS ORDERED: VITA1CAP25 PO (14:24)
[2019-03-17 14:26] LABS: CALCIUM LEVEL 8.5 MG/DL (8.8-10.2); CREATININE FOR GFR 4.55 MG/DL (0.55-1.30); GLOMERULAR FILTRATION RATE 9.9 (>39); POTASSIUM SERUM 5.2 MEQ/L (3.5-5.1)
[2019-03-17 14:38] LABS: ALBUMIN 2.9 GM/DL (3.2-5.2); BILIRUBIN,DIRECT 0.2 MG/DL (0.0-0.2); BILIRUBIN,TOTAL 0.7 MG/DL (0.2-1.0); TOTAL PROTEIN 7.1 GM/DL (6.4-8.2)
--- NOTE | 2019-03-17 14:57 | REP ---
Clinical: Shortness of breath. Technique: PA and lateral. Comparison: 02/24/2019. Findings: Cardiac silhouette is stable. Lung doe demonstrate pulmonary vascular congestion and interstitial edema as well as bibasilar atelectasis. Small effusions cannot be excluded. Skeletal structures demonstrate stable degenerative changes. Double-lumen dialysis catheter with tip in the SVC/right atrium. Impression: Findings compatible with pulmonary edema as well as basilar atelectasis and possible small effusions. Electronically Signed by Ariel Gray MD 03/17/2019 02:47 P
[2019-03-17] MEDS: METOPROLOL SUCC (TopROL XL) 100MG *XL* TAB PO SCH (16:52)
[2019-03-17] MEDS ORDERED: MIRA3350 PO (16:56)
[2019-03-17] MEDS ORDERED: ACET1TAB55 PO (16:56)
[2019-03-17] MEDS ORDERED: ALBU83IN INH (16:56)
[2019-03-17] MEDS ORDERED: ATOR40TA75 PO (16:56)
[2019-03-17] MEDS ORDERED: NEPR1LIQ2 PO (16:56)
[2019-03-17] MEDS ORDERED: ENEMENE PR (16:56)
[2019-03-17] MEDS ORDERED: BISA10SU4 PR (16:56)
[2019-03-17] MEDS ORDERED: VITMTA PO (16:56)
[2019-03-17] MEDS ORDERED: ALL10TAB28 PO (16:56)
[2019-03-17] MEDS ORDERED: PROM50TA28 PO (16:56)
[2019-03-17] MEDS ORDERED: ASPI81TA26 PO (16:56)
--- NOTE | 2019-03-17 17:16 | HPEPDOC ---
General Date of Admission 03/17/19 Date of Service: Mar 17, 2019 Chief Complaint The patient is a 78-year-old female admitted with a reason for visit of Sent By . 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 She had a change of heart over the week end and yesterday decided that she did not want to be VACCINE MANAGER she wanted to continue HD and transfusions as needed but wanted to be DNR and DNI. She filled out MOLST at [facility] on 03/16/19 to this effect. Today she went to HD and blood was tested she was found to have a hb of 5.3. They tried to arrange transfusion through infusion unit but due to Holiday week end they were unable to accommodate her till Friday so she was sent to ED for blood transfusion. She did not have HD today. In the ED she was found to be severely anemic, fluid overloaded with CX showing pulmonary edema and small bilateral pleural effusions She was also hypoxic to 88% in RA so was put on 2 liters Oxygen. Today she complained of some weakness and dizziness. Says she does not walk uses wheel chair. She is being admitted for severe anemia, CHF exacerbation and hypoxia. Home Medications Scheduled Amlodipine Besylate (Amlodipine Besylate) 10 Mg Tablet, 10 MG PO QHS, (Reported) Aspirin (Aspirin EC) 81 Mg Tablet.dr, 81 MG PO DAILY, (Reported) Atorvastatin Calcium (Atorvastatin Calcium) 40 Mg Tablet, 40 MG PO QHS, (Reported) Cetirizine HCl (Cetirizine HCl) 10 Mg Tablet, 10 MG PO QHS, (Reported) Cholecalciferol (Vitamin D3) (Vitamin D3) 50,000 Unit Capsule, 50,000 UNIT PO QWEEK, (Reported) Eltrombopag Olamine (Promacta) 50 Mg Tablet, 50 MG PO QPM, (Reported) Hydralazine HCl (Hydralazine HCl) 10 Mg Tablet, 10 MG PO Q8H, (Reported) 0600/1400/2200 Losartan Potassium (Losartan Potassium) 100 Mg Tablet, 100 MG PO DAILY, (Reported) Metoprolol Succinate (Metoprolol Succinate) 100 Mg Tab.er.24h, 100 MG PO DAILY, (Reported) Multivitamins (Thera M Plus Tablet) 1 Each Tablet, 1 TAB PO DAILY, (Reported) Nut.tx.imp.renal Fxn,Lac-Reduc (Nepro Carb Steady) 237 Ml Liquid, 120 ML PO BID, (Reported) Polyethylene Glycol 3350 (Miralax) 119 Gm Powder, 17 GM PO QPM, (Reported) dilute in 8 ounces of water or juice Scheduled PRN Acetaminophen (Acetaminophen) 325 Mg Tablet, 650 MG PO Q4H PRN for PAIN, (Reported) Albuterol Sulf (Albuterol Sulfate) 2.5 Mg/3 Ml Vial.neb, 2.5 MG INH Q2H PRN for SHORTNESS OF BREATH, (Reported) Bisacodyl (Bisacodyl) 10 Mg Supp.rect, 10 MG HI DAILY PRN for CONSTIPATION, (Reported) Sodium Phosphate,[place]-Dibasic (Enema) 133 Ml Enema, 1 INNA HI DAILY PRN for CONSTIPATION, (Reported) Allergies Coded Allergies: No Known Allergies (Unverified , 02/23/18) Past Medical History Medical History Aplastic anemia, HTN, 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 Endoscopy/colonoscopy 2016. Family History Negative for diabetes, ischemic heart disease or kidney disease Social History * Smoker: Denies Alcohol: Denies Drugs: denies A-FIB/CHADSVASC A-FIB History Current/History of A-Fib/PAF?: Yes Current PO Anticoag Therapy: No Review of Systems Constitutional: Denies: Chills, Fever, Night Sweats Eyes: Denies: Pain, Vision change ENT: Denies: Head Aches, Ear Pain, Dysphagia Skin: Denies: Rash, Lesions, Breakdown Pulmonary: Denies: Dyspnea, Cough Cardiovascular: Reports: Lt Headedness Gastrointestinal: Denies: Nausea, Vomiting, Abdominal Pain, Diarrhea Genitourinary: Denies: Dysuria, Frequency, Incontinence, Retention Hematologic: Denies: Bruising, Bleeding Excessively Musculoskeletal: Denies: Neck Pain, Back Pain, Joint Pain, Muscle Pain, Spasms Neurological: Denies: Weakness, Numbness, Change in speech, Confusion Physical Examination General Exam: Positive: Alert, Cooperative, No Acute Distress Eye Exam: Positive: PERRLA, Conjunctiva & lids normal, EOMI; Negative: Sclera icteric ENT Exam: Positive: Atraumatic, Pharynx Normal, Tongue Midline Neck Exam: Positive: Supple; Negative: JVD, thyromegaly Chest Exam: Positive: Clear to auscultation, Diminished (at the bases) Heart Exam: Positive: Rate Normal, Regular Rhythm, Normal S1, Normal S2; Negative: Murmurs, Rubs Abdomen Exam: Positive: Normal bowel sounds, Soft; Negative: Tenderness, Hepatospenomegaly Extremity Exam: Negative: Clubbing, Cyanosis, Edema Psych Exam: Positive: Mental status NL, Memory Intact, Oriented x 3 Vital Signs Vital Signs Date Time Temp Pulse Resp B/P (MAP) Pulse Ox O2 Delivery O2 Flow Rate FiO2 03/17/19 15:00 75 18 171/82 (111) 96 Room Air 03/17/19 13:52 99.8 Laboratory Data Labs 24H Laboratory Tests 2 03/17/19 13:35: Immature Granulocyte % (Auto) 0.2, White Blood Count 8.1, Red Blood Count 1.71L, Hemoglobin 5.2*L, Hematocrit 15.4L, Mean Corpuscular Volume 90.1, Mean Corpuscular Hemoglobin 30.4, Mean Corpuscular Hemoglobin Concent 33.8, Red Cell Distribution Width 14.0, Platelet Count 84L, Neutrophils (%) (Auto) 73.7H, Lymphocytes (%) (Auto) 15.0L, Monocytes (%) (Auto) 10.7H, Eosinophils (%) (Auto) 0.4, Basophils (%) (Auto) 0.0, Neutrophils # (Auto) 6.0, Lymphocytes # (Auto) 1.2L, Monocytes # (Auto) 0.9H, Eosinophils # (Auto) 0.0, Basophils # (Auto) 0.0, Nucleated Red Blood Cells % (auto) 0.0, Prothrombin Time 14.9H, Prothromb Time International Ratio 1.20, Activated Partial Thromboplast Time 40.9H, Anion Gap 6L, Glomerular Filtration Rate 9.9L, Blood Urea Nitrogen 47H, Creatinine 4.55H, Sodium Level 135L, Potassium Level 5.2H, Chloride Level 101, Carbon Dioxide Level 28, Calcium Level 8.5L, Aspartate Amino Transf (AST/SGOT) 57H, Alanine Aminotransferase (ALT/SGPT) 78, Alkaline Phosphatase 65, Total Bilirubin 0.7, Direct Bilirubin 0.2, Total Protein 7.1, Albumin 2.9L, Albumin/Globulin Ratio 0.69L 03/17/19 13:37: POC Glucose (Misc Panel) 131H, POC Sodium (Misc Panel) 134L, POC Potassium (Misc Panel) 5.3H, POC Chloride (Misc Panel) 98, POC Total CO2 (Misc Panel) 25.0, POC Blood Urea Nitrogen (Misc Panel 45H, POC Ionized Calcium (Misc Panel) 4.5, POC Creatinine (Misc Panel) 5.0H, POC Hematocrit (Misc Panel) < 15.0L CBC/BMP Laboratory Tests 03/17/19 13:35 Red Blood Count 1.71 L, Mean Corpuscular Volume 90.1, Mean Corpuscular Hemoglobin 30.4, Mean Corpuscular Hemoglobin Concent 33.8, Red Cell Distribution Width 14.0, Neutrophils (%) (Auto) 73.7 H, Lymphocytes (%) (Auto) 15.0 L, Monocytes (%) (Auto) 10.7 H, Eosinophils (%) (Auto) 0.4, Basophils (%) (Auto) 0.0, Neutrophils # (Auto) 6.0, Lymphocytes # (Auto) 1.2 L, Monocytes # (Auto) 0.9 H, Eosinophils # (Auto) 0.0, Basophils # (Auto) 0.0, Calcium Level 8.5 L Assessment/Plan 78-year-old female a resident of [facility] with a PMHx of Aplastic anemia, HTN, 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 She had a change of heart over the week end and yesterday decided that she did not want to be VACCINE MANAGER she wanted to continue HD and transfusions as needed but wanted to be DNR and DNI. She filled out MOLST at [facility] on 03/16/19 to this effect. Today she went to HD and blood was tested she was found to have a hb of 5.3. They tried to arrange transfusion through infusion unit but due to Holiday week end they were unable to accommodate her till Friday so she was sent to ED for blood transfusion. She did not have HD today. In the ED she was found to be severely anemic, fluid overloaded with CX showing pulmonary edema and small bilateral pleural effusions She was also hypoxic to 88% in RA so was put on 2 liters Oxygen. Today she complained of some weakness and dizziness. Says she does not walk uses wheel chair. She is being admitted for severe anemia, CHF exacerbation and hypoxia. APLASTIC ANEMIA and thrombocytopenia Severe anemia requiring frequent transfusions every about 2 weeks. Now again with very low Hb will transfuse 2 units. Hypoxia due to sever anemia and fluid overload and diastolic CHF exacerbation. CXR Bilateral pulmonary edema, b/l pleural effusion Fluid management by HD. Nephrology consulted. 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 Aortic sclerosis but no significant stenosis and mild insufficiency.Mild mitral and tricuspid insufficiency. High central venous pressure and moderately severe pulmonary hypertension. Bilateral pleural effusions. c/w home metoprolol succinate DVT prophylaxis Valentino's and sequential because of history of aplastic anemia MILAN ROBERTS MD Mar 17, 2019 15:52
[2019-03-17] MEDS ORDERED: FUROSEMIDE 100 MG/10 ML VIAL (J1940) IV ONE (19:30)
[2019-03-17] MEDS: **hydrALAZINE** 10 MG TAB PO SCH (21:13)
[2019-03-17 23:14] VITALS: BP 129/74
[2019-03-18] VITALS (10 sets, daily range): BP systolic 149–190; BP diastolic 68–92; O2SAT 90
[2019-03-18] MEDS ORDERED: IPRATROPIUM 0.5MG/ALBUTEROL 2.5MG INH SOL UD 3ML (DUONEB)(J7620) NEB PRN (01:15)
[2019-03-18] MEDS ORDERED: FUROSEMIDE 100 MG/10 ML VIAL (J1940) IV ONE (01:30)
--- NOTE | 2019-03-18 02:04 | REPVR ---
EXAM: XR Chest, 1 View EXAM DATE/TIME: 03/18/2019 1:33 AM CLINICAL HISTORY: 78 years old, female; Shortness of breath; Additional info: Chest pain TECHNIQUE: Imaging protocol: XR of the chest, 1 view. COMPARISON: CR Chest, 2 view PA, Lat 03/17/2019 2:20 PM FINDINGS: Tubes, catheters and devices: Right-sided dialysis catheter is terminating in the right atrium. Lungs: Interval progression of bilateral ground glass densities with consolidation of the left lower lung zone likely representing progression of edema/atelectasis versus pneumonia. Pleural space: Small right and moderate left pleural effusion. Heart/Mediastinum: Unremarkable. No cardiomegaly. Bones/joints: S-shaped scoliosis of the thoracolumbar spine with degenerative changes. IMPRESSION: Interval progression of bilateral ground glass densities with consolidation of the left lower lung zone likely representing progression of edema/atelectasis versus pneumonia. Small right and moderate left pleural effusion. Electronically signed by: Aline Rivera On 03/18/2019 02:04:01 AM
[2019-03-18] MEDS ORDERED: BISACODYL 10 MG SUPP PR PRN (02:30)
[2019-03-18] MEDS ORDERED: ACETAMINOPHEN TAB 650MG DOSE (2X325MG) PO PRN (02:30)
[2019-03-18] MEDS ORDERED: ALBUTEROL SULFATE 2.5 MG/0.5 ML INH NEB SOLN INH PRN (02:30)
--- NOTE | 2019-03-18 02:32 | IPNPDOC ---
Text Note Date of Service The patient was seen on 03/18/19. NOTE S: Called to floor due to worsening SOB, hypoxia on 5 liter and CHF Patient required NRB at 10 liter with improved saturation 95% but continued work of breathing. ABG reviewed O: Vitals as below General: sitting in bed, accessory muscle in use for breathing HRRR with murmur LCTA with scattered course rales CXR images reviewed and consistent with worsening CHF A/P: CHF with ESRD on dialysis Given IV Lasix 80mg Repeat CBC (?high output failure with anemia) and BMP Patient to receive dialysis this AM. Transfer patient to ICU for worsening hypoxia, CHF. VS,Fishbone, I+O VS, Fishbone, I+O Laboratory Tests 03/17/19 13:35 Red Blood Count 1.71 L, Mean Corpuscular Volume 90.1, Mean Corpuscular Hemoglobin 30.4, Mean Corpuscular Hemoglobin Concent 33.8, Red Cell Distribution Width 14.0, Neutrophils (%) (Auto) 73.7 H, Lymphocytes (%) (Auto) 15.0 L, Monocytes (%) (Auto) 10.7 H, Eosinophils (%) (Auto) 0.4, Basophils (%) (Auto) 0.0, Neutrophils # (Auto) 6.0, Lymphocytes # (Auto) 1.2 L, Monocytes # (Auto) 0.9 H, Eosinophils # (Auto) 0.0, Basophils # (Auto) 0.0, Calcium Level 8.5 L Vital Signs Date Time Temp Pulse Resp B/P (MAP) Pulse Ox O2 Delivery O2 Flow Rate FiO2 03/18/19 01:00 10.0 03/17/19 23:14 99.3 77 18 129/74 (92) 87 03/17/19 22:42 Nasal Cannula I&O- Last 24 Hours up to 6 AM 03/18/19 06:00 Intake Total 0 ml Balance 0 ml Item Value Date Time Arterial Blood pH 7.406 UNITS 03/18/19 0248 Arterial Blood Partial Pressure CO2 45.2 mmHg H 03/18/19 0248 Arterial Blood Partial Pressure O2 94.9 mmHg 03/18/19 0248 Arterial Blood HCO3 27.8 MEQ/L H 03/18/19 0248 Arterial Blood Total CO2 29.1 MEQ/L 03/18/19 0248 Arterial Blood Oxygen Saturation 97.0 % 03/18/19 0248 ELDER WAGONER DO Mar 18, 2019 02:32
[2019-03-18 03:02] LABS: BASO % 0.1 % (0.0-1.0); EOS % 0.3 % (0.0-3.0); LYMPH # 0.7 10^3/uL (1.5-4.5); LYMPH % 5.4 % (24.0-44.0); MEAN CORPUSCULAR HEMOGLOBIN 30.5 pg (27.0-33.0); MEAN CORPUSCULAR HGB CONC 34.1 g/dl (32.0-36.5); MEAN CORPUSCULAR VOLUME 89.4 fl (80.0-96.0); MONO # 1.1 10^3/uL (0.0-0.8); MONO % 8.1 % (0.0-5.0); NEUTROPHILS # 11.3 10^3/uL (1.8-7.7); NEUTROPHILS % 85.6 % (36.0-66.0); RED BLOOD COUNT 2.46 10^6/uL (4.00-5.40); WHITE BLOOD COUNT 13.2 10^3/uL (4.0-10.0)
[2019-03-18 03:04] LABS: PLATELET COUNT, AUTOMATED 98 10^3/uL (150-450)
[2019-03-18 03:08] LABS: ABG BASE EXCESS 2.9 (-2.0-2.0); ABG HCO3 27.8 MEQ/L (22.0-26.0); ABG PARTIAL PRESSURE CO2 45.2 mmHg (35.0-45.0); ABG PARTIAL PRESSURE O2 94.9 mmHg (75.0-100.0); ABG STANDARD HCO3 27.1 MEQ/L (22.0-26.0); ABG TOTAL CO2 29.1 MEQ/L (23.0-31.0); ABG pH (ARTERIAL) 7.406 UNITS (7.350-7.450)
[2019-03-18 03:13] LABS: HEMOGLOBIN 7.5 g/dl (12.0-15.5)
[2019-03-18 03:20] LABS: CALCIUM LEVEL 8.5 MG/DL (8.8-10.2); CREATININE FOR GFR 5.25 MG/DL (0.55-1.30); GLOMERULAR FILTRATION RATE 8.4 (>39); POTASSIUM SERUM 5.3 MEQ/L (3.5-5.1)
[2019-03-18] MEDS ORDERED: LABETALOL HCL 100 MG/20 ML VIAL IV STA (03:30)
[2019-03-18] MEDS: ATORVASTATIN 20 MG TAB PO SCH ×4 (04:18→21:29)
[2019-03-18] MEDS: MIRALAX *UNIT DOSE* 17GM PACKET PO SCH ×2 (04:18→17:36)
[2019-03-18] MEDS: CETIRIZINE (ZyrTEC) 10 MG TAB PO SCH ×3 (04:19→21:30)
--- NOTE | 2019-03-18 07:55 | IPNPDOC ---
Subjective Date Seen The patient was seen on 03/18/19. Subjective Chief Complaint/HPI After getting PRBC yesterday evening she became hypertensive with SOB and had increasing oxygen requirements and had to be put on nonrebreather to maintain oxygen saturations so was moved from the floor to ICU for acute hypoxic failure. This moring pateint getting bedside HD in [facility] ICU and her breathing has already improved she is down to 2 liters of oxygen. Though her Bp still remains high. Patient does not offer any complaints. Objective Physical Examination General Exam: Positive: Alert, Cooperative, No Acute Distress Eye Exam: Positive: PERRLA, Conjunctiva & lids normal, EOMI; Negative: Sclera icteric ENT Exam: Positive: Atraumatic, Mucous membr. moist/pink, Pharynx Normal Neck Exam: Positive: Supple, JVD Chest Exam: Positive: Rales (few ) Heart Exam: Positive: Rate Normal, Regular Rhythm, Normal S1, Normal S2; Negative: Murmurs, Rubs Telemetry: Positive: No significant arrhythmia Abdomen Exam: Positive: Normal bowel sounds, Soft; Negative: Tenderness, Hepatospenomegaly Extremity Exam: Positive: Normal pulses; Negative: Clubbing, Cyanosis, Edema Skin Exam: Positive: Nl turgor and temperature; Negative: Rash, Breakdown Assessment /Plan Assessment 78-year-old female a resident of [facility] with a PMHx of Aplastic anemia, HTN, 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 She filled out MOLST at [facility] on 03/16/19 to this effect. Today she went to HD and blood was tested she was found to have a hb of 5.3. They tried to arrange transfusion through infusion unit but due to Holiday week end they were unable to accommodate her till Friday so she was sent to ED for blood transfusion. She did not have HD today. In the ED she was found to be severely anemic, fluid overloaded with CX showing pulmonary edema and small bilateral pleural effusions She was also hypoxic to 88% in RA so was put on 2 liters Oxygen. Today she complained of some weakness and dizziness. Says she does not walk uses wheel chair. She was admitted for severe anemia, CHF exacerbation and hypoxia. Acute respiratory failure with hypoxia due to severe anemia and high output failure ,fluid overload and diastolic CHF exacerbation. CXR Bilateral pulmonary edema, b/l pleural effusion Received high dose of lasix ithout much response. Now getting HD. Fluid management by HD. APLASTIC ANEMIA and thrombocytopenia Severe anemia requiring frequent transfusions every about 2 weeks. 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 THis is often seen after she gets a Blood transfusion. continue home meds losartan, amlodipine and metoprolol HD with fluid removal will also help Hyperlipidemia continue statin Atrial fibrillation paroxysmal Now in sinus rhythm Last Echocardiogram 2019: Normal left ventricular (LV) size with moderate left ventricular hypertrophy(LVH) and preserved LV systolic function, grade 2 diastolic dysfunction. Aortic sclerosis but no significant stenosis and mild insufficiency.Mild mitral and tricuspid insufficiency. High central venous pressure and moderately severe pulmonary hypertension. Bilateral pleural effusions. c/w home metoprolol succinate DVT prophylaxis Valentino's and sequential because of history of aplastic anemia Plan/VTE VTE Prophylaxis Ordered?: Yes VS, I&O, 24H, Fishbone Vital Signs/I&O Vital Signs Date Time Temp Pulse Resp B/P (MAP) Pulse Ox O2 Delivery O2 Flow Rate FiO2 03/18/19 06:00 73 20 189/84 (119) 98 2.0 03/18/19 04:00 99.0 03/18/19 03:13 Nasal Cannula I&O- Last 24 Hours up to 6 AM 03/18/19 06:00 Intake Total 0 ml Balance 0 ml Laboratory Data 24H LABS Laboratory Tests 2 03/17/19 13:35: Immature Granulocyte % (Auto) 0.2, White Blood Count 8.1, Red Blood Count 1.71L, Hemoglobin 5.2*L, Hematocrit 15.4L, Mean Corpuscular Volume 90.1, Mean Corpuscular Hemoglobin 30.4, Mean Corpuscular Hemoglobin Concent 33.8, Red Cell Distribution Width 14.0, Platelet Count 84L, Neutrophils (%) (Auto) 73.7H, Lymphocytes (%) (Auto) 15.0L, Monocytes (%) (Auto) 10.7H, Eosinophils (%) (Auto) 0.4, Basophils (%) (Auto) 0.0, Neutrophils # (Auto) 6.0, Lymphocytes # (Auto) 1.2L, Monocytes # (Auto) 0.9H, Eosinophils # (Auto) 0.0, Basophils # (Auto) 0.0, Nucleated Red Blood Cells % (auto) 0.0, Prothrombin Time 14.9H, Prothromb Time International Ratio 1.20, Activated Partial Thromboplast Time 40.9H, Anion Gap 6L, Glomerular Filtration Rate 9.9L, Blood Urea Nitrogen 47H, Creatinine 4.55H, Sodium Level 135L, Potassium Level 5.2H, Chloride Level 101, Carbon Dioxide Level 28, Calcium Level 8.5L, Aspartate Amino Transf (AST/SGOT) 57H, Alanine Aminotransferase (ALT/SGPT) 78, Alkaline Phosphatase 65, Total Bilirubin 0.7, Direct Bilirubin 0.2, Total Protein 7.1, Albumin 2.9L, Albumin/Globulin Ratio 0.69L 03/17/19 13:37: POC Glucose (Misc Panel) 131H, POC Sodium (Misc Panel) 134L, POC Potassium (Misc Panel) 5.3H, POC Chloride (Misc Panel) 98, POC Total CO2 (Misc Panel) 25.0, POC Blood Urea Nitrogen (Misc Panel 45H, POC Ionized Calcium (Misc Panel) 4.5, POC Creatinine (Misc Panel) 5.0H, POC Hematocrit (Misc Panel) < 15.0L 03/18/19 01:18: Troponin I < 0.02 03/18/19 02:48: Blood Gas Bicarbonate Standard 27.1H, Arterial Blood pH 7.406, Arterial Blood Partial Pressure CO2 45.2H, Arterial Blood Partial Pressure O2 94.9, Arterial Blood Total CO2 29.1, Arterial Blood HCO3 27.8H, Arterial Blood Base Excess 2.9H, Arterial Blood Oxygen Saturation 97.0 7/4/19 02:51: Immature Granulocyte % (Auto) 0.5, White Blood Count 13.2H, Red Blood Count 2.46L, Hemoglobin 7.5#L, Hematocrit 22.0L, Mean Corpuscular Volume 89.4, Mean Corpuscular Hemoglobin 30.5, Mean Corpuscular Hemoglobin Concent 34.1, Red Cell Distribution Width 13.9, Platelet Count 98L, Neutrophils (%) (Auto) 85.6H, Lymphocytes (%) (Auto) 5.4L, Monocytes (%) (Auto) 8.1H, Eosinophils (%) (Auto) 0.3, Basophils (%) (Auto) 0.1, Neutrophils # (Auto) 11.3H, Lymphocytes # (Auto) 0.7L, Monocytes # (Auto) 1.1H, Eosinophils # (Auto) 0.0, Basophils # (Auto) 0.0, Nucleated Red Blood Cells % (auto) 0.0, Anion Gap 9, Glomerular Filtration Rate 8.4L, Blood Urea Nitrogen 56H, Creatinine 5.25H, Sodium Level 136, Potassium Level 5.3H, Chloride Level 101, Carbon Dioxide Level 26, Calcium Level 8.5L CBC/BMP Laboratory Tests 03/17/19 13:35 Red Blood Count 1.71 L, Mean Corpuscular Volume 90.1, Mean Corpuscular Hemoglobin 30.4, Mean Corpuscular Hemoglobin Concent 33.8, Red Cell Distribution Width 14.0, Neutrophils (%) (Auto) 73.7 H, Lymphocytes (%) (Auto) 15.0 L, Monocytes (%) (Auto) 10.7 H, Eosinophils (%) (Auto) 0.4, Basophils (%) (Auto) 0.0, Neutrophils # (Auto) 6.0, Lymphocytes # (Auto) 1.2 L, Monocytes # (Auto) 0.9 H, Eosinophils # (Auto) 0.0, Basophils # (Auto) 0.0, Calcium Level 8.5 L 03/18/19 02:51 Red Blood Count 2.46 L, Mean Corpuscular Volume 89.4, Mean Corpuscular Hemoglobin 30.5, Mean Corpuscular Hemoglobin Concent 34.1, Red Cell Distribution Width 13.9, Neutrophils (%) (Auto) 85.6 H, Lymphocytes (%) (Auto) 5.4 L, Monocytes (%) (Auto) 8.1 H, Eosinophils (%) (Auto) 0.3, Basophils (%) (Auto) 0.1, Neutrophils # (Auto) 11.3 H, Lymphocytes # (Auto) 0.7 L, Monocytes # (Auto) 1.1 H, Eosinophils # (Auto) 0.0, Basophils # (Auto) 0.0, Calcium Level 8.5 L MILAN ROBERTS MD Mar 18, 2019 07:55
--- NOTE | 2019-03-18 09:59 | ER ---
DATE OF CONSULTATION: 03/17/2019 REQUESTING PHYSICIAN: Dr. Radha Dumont CONSULTING PHYSICIAN: Rick Luuqe MD REASON FOR CONSULTATION: Management of end-stage renal disease, hemodialysis, and anemia. CHIEF COMPLAINT: The patient was sent to the emergency room by nephrology for symptomatic anemia. HISTORY OF PRESENT ILLNESS: Mila Espitia is a 78-year-old female with past medical history of aplastic anemia requiring frequent blood transfusions almost every other week, history of end-stage renal disease on hemodialysis every Friday, Friday, Friday, hypertension. Recently treated for shingles of her left side of the face. Multiple other comorbidities, as mentioned below. She recently refused to have blood transfusion done, and she was thinking about making her comfort measures only. However, over the weekend, she changed her mind, and she wanted to do dialysis and have blood transfusion, as well. The patient got her hemoglobin checked as outpatient recently, and she was found to have a hemoglobin of 5.2. So, she was sent by nephrology service to the emergency room for blood transfusion. She was seen by emergency room (ER), blood transfusion was arranged, and she was admitted under the hospitalist service for further management. Nephrology service was called for further help in the management of end-stage renal disease and arrangement of hemodialysis. Today is the patient's regular day of dialysis. Her last dialysis was 2 days ago on Friday, and 1 liter of fluid was removed on that day. I saw and evaluated the patient today evening at the bedside in the ER. She was getting her blood transfusion. She denies any active complaints. She is wearing nasal cannula, and she reports that she wears a nasal cannula at baseline. PAST MEDICAL HISTORY: Past medical history of aplastic anemia, end-stage renal disease on hemodialysis every Friday, Friday, Friday secondary to necrotizing granulomatosis, hypertension, recent herpes zoster of the face, hyperlipidemia, secondary hyperparathyroidism in renal failure, diagnosed granulomatosis, diastolic congestive heart failure, severe pulmonary hypertension, hemosiderosis secondary to multiple blood transfusions, and paroxysmal atrial fibrillation (AFib). PAST SURGICAL HISTORY: Status post PermCath placement, history of bone marrow biopsy in 2017 and 2018, history of renal biopsy in the past, history of cataract surgery, history of endoscopies in the past. ALLERGIES: No known drug allergies. FAMILY HISTORY: No significant family history of end-stage renal disease on hemodialysis. SOCIAL HISTORY: She denies any smoking, drug abuse, or alcohol abuse. REVIEW OF SYSTEMS: Constitutional: She denies any fevers or chills. She does report feeling weak and tired. Eyes: She denies any double vision and blurry vision. Ears, nose, and throat (ENT): She denies any dysphagia or odynophagia. Cardiovascular: She denies any chest pain or palpitation. Respiratory: She reports mild shortness of breath. Gastrointestinal (GI): She denies any nausea, vomiting. Genitourinary: She denies any dysuria, hematuria. Musculoskeletal: She denies any muscle aches and pains. Central nervous system (EXECUTIVE DIRECTOR GLOBAL BRAND MARKETING): She denies any strokes or seizures. Skin: She denies any rashes or ulcers. Endocrine: She denies any history of diabetes. She does he does report secondary hyperparathyroidism. Hematological/oncological: She reports aplastic anemia. She denies any easy bleeding or bruising. All other review of systems is negative. PHYSICAL EXAMINATION: General: The patient is awake, alert, oriented times three, lying in bed, getting blood transfusion. Vital signs: Temperature is 98.4 degrees Fahrenheit, blood pressure 169/86, pulse is 74, respiratory rate of 18, saturating 94% on nasal cannula at 2 liters. Head and neck examination: Extraocular muscles intact. Pupils equally round and reactive to light. Mucous membranes are moist. Neck is supple. There is no jugular venous distention (JVD). She has a right internal jugular (vein) (IJ) tunneled hemodialysis catheter. Cardiovascular: S1, S2, regular rate. No edema of the bilateral lower extremities. Respiratory: Mildly decreased breath sounds at the bases. Otherwise, no active rales or rhonchi. Abdomen: Soft. Positive bowel sounds. Nontender. No organomegaly. Musculoskeletal: No clubbing or cyanosis. Pulses are 2+. Central nervous system (EXECUTIVE DIRECTOR GLOBAL BRAND MARKETING): No focal deficit. Power is 5/5 in all extremities. LABORATORY REVIEW: Complete blood count (CBC) showed a WBC 8.1, hemoglobin is 5.2, platelets are 84. Basic metabolic profile (BMP) showed sodium 135, potassium 5.2, chloride 101, bicarbonate 28, BUN 47, creatinine is 4.5. IMAGING: A chest x-ray was done today morning. It showed pulmonary vascular congestion. CURRENT INPATIENT MEDICATIONS: The patient's medications include amlodipine 10 mg daily, hydralazine 10 mg by mouth twice a day, metoprolol XL 100 mg by mouth daily. ASSESSMENT: A 78-year-old female with a history of aplastic anemia, end-stage renal disease on hemodialysis admitted this time with symptomatic anemia. PLAN: 1. End-stage renal disease on hemodialysis. Today is the patient's regular day of dialysis. The patient will get 1 unit of packed red blood cells (PRBC) transfusion now. 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 Volume status is optimal. She will be given one dose of Lasix after PRBC transfusion today in the evening. Lasix 60 mg intravenous (IV) times one dose was discussed with the patient's registered nurse (RN). 2. Aplastic anemia and thrombocytopenia. The patient gets eltrombopag as outpatient. She gets frequent blood transfusions. She is getting blood transfusion at this point. Next transfusion will be given tomorrow morning. She does not respond to erythropoiesis-stimulating agent (CORTES). 3. Hypertension. Continue home dose of amlodipine and metoprolol. 4. Hemosiderosis. The patient will be given a dose of tomorrow. 5. Hyperkalemia. Potassium level is optimal. She will be dialyzed with a 2K bath tomorrow morning. Thank you for involving me in the care of this patient. I shall be happy to follow the patient along with you tomorrow morning. Plan of care is discussed with the hospitalist team, Dr. Radha Dumont and with the patient's RN today evening in the emergency room.
--- NOTE | 2019-03-18 10:31 | ECGEPIP ---
[facility] - ED Test Date: 2019-03-17 Pat Name: NISREEN GA Department: Room: - Gender: Female Group Tester: PHIL : [id number] Requested By: JUSTIN Alonso Order Number: [id number] Reading MD: Meme Palomares Measurements Intervals [place] Rate: 79 P: 97 CO: 112 QRS: 74 QRSD: 85 T: 79 QT: 393 QTc: 453 Interpretive Statements SINUS RHYTHM WITH SHORT CO INTERVAL MINIMAL ST DEPRESSION DECREASED RATE 02/24/19 Electronically Signed on 03-18-2019 10:31:43 EDT by Meme Palomares
[2019-03-18] MEDS: ASPIRIN 81 MG ENTERIC TAB PO SCH (10:56)
[2019-03-18] MEDS: MULTIVITAMINS/MINERALS THERAP 1 TAB PO SCH (10:57)
[2019-03-18] MEDS: amLODIPine 10 MG TAB PO SCH (10:57)
[2019-03-18] MEDS: METOPROLOL SUCC (TopROL XL) 100MG *XL* TAB PO SCH (10:57)
[2019-03-18] MEDS: **hydrALAZINE** 10 MG TAB PO SCH ×3 (10:57→21:30)
[2019-03-18] MEDS: LOSARTAN 50 MG TAB PO SCH (10:59)
--- NOTE | 2019-03-18 13:30 | ECGEPIP ---
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
--- NOTE | 2019-03-18 16:03 | IPN ---
DATE OF SERVICE: 03/18/2019 SUBJECTIVE: The patient was seen and examined at the bedside today morning in the intensive care unit (ICU). Last 24-hour events were noted. The patient became short of breath after 1 unit of packed red blood cells (PRBC) transfusion despite intravenous (IV) dose of Lasix. She did not make much urine because of hypoxemia. She was placed on a nonrebreather and transferred to ICU. I saw and evaluated the patient during hemodialysis. Urgent hemodialysis had already been arranged, and the patient was getting dialysis when I saw her. Her breathing is better now. She was lying comfortably flat and getting dialysis done. OBJECTIVE: Vital signs: Temperature is 98.5 degrees Fahrenheit, blood pressure 178/84, pulse is 84, respiratory rate of 20, saturating 96% on 3 liters via nasal cannula. Intake and output: There is no urine output recorded. Weight in the bed scale is 48.1 kg. PHYSICAL EXAMINATION: General: The patient is awake, alert, oriented times three, lying in bed. No apparent distress wearing nasal cannula. Head and neck examination: Extraocular muscles intact. Pupils equally round and reactive to light. Mucous membranes are moist. Neck is supple. She has a right internal jugular (vein) (IJ) tunneled hemodialysis catheter. Cardiovascular: S1, S2, regular rate. No edema of the bilateral lower extremities. Respiratory: Decreased breath sounds at the bases with mild inspiratory crackles bilaterally at the bases. Abdomen: Soft. Positive bowel sounds. Nontender. No organomegaly. Musculoskeletal: No clubbing or cyanosis. Pulses are 2+. Central nervous system (SUPERVISOR LONG GOODS): No focal deficit. Power is 5/5 in all extremities. LABORATORY REVIEW: Complete blood count (CBC) showed WBC of 13.2, hemoglobin 7.5, platelets are 98. Arterial blood gas (ABG) done today morning showed pH of 7.4, pCO2 of 45, pO2 of 94, bicarbonate 27, oxygen (O2) saturation 97%. Basic metabolic profile (BMP) done today morning showed sodium 136, potassium 5.3, chloride 101, bicarbonate 26, BUN 56, creatinine is 5.2, calcium is 8.5. IMAGING: A chest x-ray done overnight showed progression of bilateral ground-glass densities with consolidation of the left lower lung zone likely representing progression of the edema. CURRENT INPATIENT MEDICATIONS: The patient's medications were all reviewed by me. She was given a dose of Lasix 80 mg IV last night. There is no other change in the medications today as compared with yesterday. ASSESSMENT AND PLAN: 1. End-stage renal disease, on hemodialysis. The patient missed dialysis yesterday. She is being dialyzed today at the bedside. At least 2 kg of fluid will be removed tomorrow as the patient's regular day of dialysis. If needed, the patient would get another session of dialysis tomorrow morning, as well. 2. Aplastic anemia and thrombocytopenia. The patient was given 1 unit of PRBC transfusion yesterday. She got one more unit with dialysis today. The patient does not respond to erythropoiesis-stimulating agent (CORTES). 3. Shortness of breath and pulmonary edema. It is secondary to blood transfusion and missing dialysis. Fluid is being removed. The patient's breathing and symptoms are getting better. 4. Hemosiderosis. The patient will receive a dose of . 5. Hyperkalemia. She is being dialyzed with a 2K bath. Potassium is expected to improve.
[2019-03-19 06:00] VITALS: BP 152/77
[2019-03-19 06:10] LABS: EOS % 0.7 % (0.0-3.0); HEMATOCRIT 21.3 % (36.0-47.0); HEMOGLOBIN 7.3 g/dl (12.0-15.5); LYMPH # 0.9 10^3/uL (1.5-4.5); LYMPH % 14.2 % (24.0-44.0); MEAN CORPUSCULAR HEMOGLOBIN 30.5 pg (27.0-33.0); MEAN CORPUSCULAR HGB CONC 34.3 g/dl (32.0-36.5); MEAN CORPUSCULAR VOLUME 89.1 fl (80.0-96.0); MONO # 0.7 10^3/uL (0.0-0.8); MONO % 12.3 % (0.0-5.0); NEUTROPHILS # 4.3 10^3/uL (1.8-7.7); NEUTROPHILS % 72.3 % (36.0-66.0); RED BLOOD COUNT 2.39 10^6/uL (4.00-5.40)
[2019-03-19 06:14] LABS: PLATELET COUNT, AUTOMATED 78 10^3/uL (150-450)
[2019-03-19 06:32] LABS: CREATININE FOR GFR 3.28 MG/DL (0.55-1.30); GLOMERULAR FILTRATION RATE 14.5 (>39); POTASSIUM SERUM 3.9 MEQ/L (3.5-5.1)
[2019-03-19] MEDS: LOSARTAN 50 MG TAB PO SCH (08:31)
[2019-03-19] MEDS: ATORVASTATIN 20 MG TAB PO SCH ×2 (08:31→20:36)
[2019-03-19] MEDS: ASPIRIN 81 MG ENTERIC TAB PO SCH (08:31)
[2019-03-19] MEDS: MULTIVITAMINS/MINERALS THERAP 1 TAB PO SCH (08:32)
[2019-03-19] MEDS: amLODIPine 10 MG TAB PO SCH (08:32)
[2019-03-19] MEDS: METOPROLOL SUCC (TopROL XL) 100MG *XL* TAB PO SCH (08:32)
[2019-03-19] MEDS: **hydrALAZINE** 10 MG TAB PO SCH ×2 (08:32→20:36)
[2019-03-19] MEDS ORDERED: HEPARIN 1,000 UNITS/ML 10ML VIAL (FOR RADIOLOGY& DIALYSIS ONLY) XX ONE (09:45)
[2019-03-19] MEDS ORDERED: NS IV ONE (14:00)
[2019-03-19] MEDS ORDERED: DEFEROXAMINE MESYLATE IV ONE (14:00)
--- NOTE | 2019-03-19 15:20 | IPN ---
DATE: 03/19/2019 SUBJECTIVE: The patient was seen and examined at the bedside this morning. She is afebrile, hemodynamically stable. Today is the patient's regular day of dialysis. Her hemoglobin is down to 7.3. She denies any active complaints. She was dialyzed yesterday. She tolerated the hemodialysis procedure well and her shortness of breath improved after fluid removal. OBJECTIVE: Vital signs: Temperature is 99.6 degrees Fahrenheit, blood pressure 152/77, pulse is 80, respiratory rate of 18, saturating 95% on 2 liters via nasal cannula. Intake and output: Urine output is not recorded. Ultrafiltration with hemodialysis was 2 liters yesterday. Weight on the bed scale is not available. PHYSICAL EXAMINATION: General: The patient is awake, alert, oriented times three, laying in bed in no apparent distress. Head and neck exam: Extraocular muscles intact. Pupils equally round and reactive to light. Mucous membranes are moist. Neck is supple. She has a right IJ tunneled hemodialysis catheter. Cardiovascular: S1, S2. Regular rate. No edema of the bilateral lower extremities. Respiratory: Chest is clear to auscultation bilaterally. Bilateral equal air entry. No rales or rhonchi. Abdomen: Soft. Positive bowel sounds. Nontender. No organomegaly. Musculoskeletal: No clubbing or cyanosis. Pulses are 2+. CENTRAL NERVOUS SYSTEM (COVER MAKING MACHINE OPERATOR):No focal deficit. Power is 5/5 in all extremities. LABORATORY REVIEW: CBC showed a WBC of 6, hemoglobin 7.3, platelets are 78. BMP showed sodium 137, potassium 3.9, chloride 102, bicarbonate 27, BUN 33, creatinine is 3.2. MEDICATIONS: The patient's medications were all reviewed by me. I have ordered a dose of Desferal to be given to the patient today. No other change in the medications today as compared with yesterday. ASSESSMENT/PLAN: 1. End-stage renal disease on hemodialysis. Today is the patient's regular day of dialysis. She will be dialyzed again, and I will try to remove at least 1.5 to 2 kg of fluid. 2. Aplastic anemia. The patient got 2 units of packed red blood cell transfusion during this admission; however, hemoglobin level is still low. She will get another unit of blood with dialysis today. 3. Shortness of breath. Pulmonary edema and shortness of breath improved after dialysis yesterday. The patient is on room air. 4. Hemosiderosis. I have ordered a dose of Desferal 500 mg IV times one dose today.
[2019-03-19 17:00] VITALS: BP 131/77
[2019-03-19] MEDS: MIRALAX *UNIT DOSE* 17GM PACKET PO SCH (17:35)
[2019-03-19] MEDS: CETIRIZINE (ZyrTEC) 10 MG TAB PO SCH (20:36)
[2019-03-19 22:00] VITALS: BP 164/78
--- NOTE | 2019-03-19 22:13 | IPNPDOC ---
Subjective Date Seen The patient was seen on 03/19/19. Subjective Chief Complaint/HPI confused this am . does know that she is in the hospital. She did not offer any complaints, Had HD today. Objective Physical Examination General Exam: Positive: Alert, Cooperative, No Acute Distress Eye Exam: Positive: PERRLA, Conjunctiva & lids normal, EOMI; Negative: Sclera icteric ENT Exam: Positive: Atraumatic, Pharynx Normal, Tongue Midline Neck Exam: Positive: Supple; Negative: JVD, thyromegaly Chest Exam: Positive: Clear to auscultation, Diminished (at the bases) Heart Exam: Positive: Rate Normal, Regular Rhythm, Normal S1, Normal S2; Negative: Murmurs, Rubs Telemetry: Positive: No significant arrhythmia Abdomen Exam: Positive: Normal bowel sounds, Soft; Negative: Tenderness, Hepatospenomegaly Extremity Exam: Negative: Clubbing, Cyanosis, Edema Skin Exam: Positive: Nl turgor and temperature; Negative: Rash, Breakdown Psych Exam: Positive: Mental status NL, Memory Intact, Oriented x 3 Assessment /Plan Assessment 78-year-old female a resident of 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 She had a change of heart over the week end and yesterday decided that she did not want to be CHIEF COOK she wanted to continue HD and transfusions as needed but wanted to be DNR and DNI. She filled out MOLST at [facility] on 03/16/19 to this effect. Today she went to HD and blood was tested she was found to have a hb of 5.3. They tried to arrange transfusion through infusion unit but due to Holiday week end they were unable to accommodate her till Friday so she was sent to ED for blood transfusion. She did not have HD today. In the ED she was found to be severely anemic, fluid overloaded with CX showing pulmonary edema and small bilateral pleural effusions She was also hypoxic to 88% in RA so was put on 2 liters Oxygen. Today she complained of some weakness and dizziness. Says she does not walk uses wheel chair. She was admitted for severe anemia, CHF exacerbation and hypoxia. Acute respiratory failure with hypoxia due to severe anemia and high output failure ,fluid overload and diastolic CHF exacerbation. CXR Bilateral pulmonary edema, b/l pleural effusion Fluid management by HD. Acute delirium could be due to hospitalization. APLASTIC ANEMIA and thrombocytopenia Severe anemia requiring frequent transfusions every about 2 weeks. 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 THis is often seen after she gets a Blood transfusion. continue home meds losartan, amlodipine and metoprolol HD with fluid removal will also help Hyperlipidemia continue statin Atrial fibrillation paroxysmal Now in sinus rhythm Last Echocardiogram 2019: Normal left ventricular (LV) size with moderate left ventricular hypertrophy(LVH) and preserved LV systolic function, grade 2 diastolic dysfunction. Aortic sclerosis but no significant stenosis and mild insufficiency.Mild mitral and tricuspid insufficiency. High central venous pressure and moderately severe pulmonary hypertension. Bilateral pleural effusions. c/w home metoprolol succinate DVT prophylaxis Valentino's and sequential because of history of aplastic anemia Plan/VTE VTE Prophylaxis Ordered?: Yes VS, I&O, 24H, Fishbone Vital Signs/I&O Vital Signs Date Time Temp Pulse Resp B/P (MAP) Pulse Ox O2 Delivery O2 Flow Rate FiO2 03/19/19 20:36 168/74 03/19/19 17:00 97.0 80 18 93 03/19/19 06:00 2.0 03/18/19 03:13 Nasal Cannula I&O- Last 24 Hours up to 6 AM 03/19/19 06:00 Intake Total 490 ml Output Total 2000 ml Balance -1510 ml Laboratory Data 24H LABS Laboratory Tests 2 03/19/19 05:51: Immature Granulocyte % (Auto) 0.5, White Blood Count 6.0, Red Blood Count 2.39L, Hemoglobin 7.3L, Hematocrit 21.3L, Mean Corpuscular Volume 89.1, Mean Corpuscular Hemoglobin 30.5, Mean Corpuscular Hemoglobin Concent 34.3, Red Cell Distribution Width 13.9, Platelet Count 78L, Neutrophils (%) (Auto) 72.3H, Lymphocytes (%) (Auto) 14.2L, Monocytes (%) (Auto) 12.3H, Eosinophils (%) (Auto) 0.7, Basophils (%) (Auto) 0.0, Neutrophils # (Auto) 4.3, Lymphocytes # (Auto) 0.9L, Monocytes # (Auto) 0.7, Eosinophils # (Auto) 0.0, Basophils # (Auto) 0.0, Nucleated Red Blood Cells % (auto) 0.0, Immature Platelet Fraction 1.1, Anion Gap 8, Glomerular Filtration Rate 14.5L, Blood Urea Nitrogen 33H, Creatinine 3.28H, Sodium Level 137, Potassium Level 3.9#, Chloride Level 102, Carbon Dioxide Level 27, Calcium Level 8.0L CBC/BMP Laboratory Tests 03/19/19 05:51 Red Blood Count 2.39 L, Mean Corpuscular Volume 89.1, Mean Corpuscular Hemoglobin 30.5, Mean Corpuscular Hemoglobin Concent 34.3, Red Cell Distribution Width 13.9, Neutrophils (%) (Auto) 72.3 H, Lymphocytes (%) (Auto) 14.2 L, Monocytes (%) (Auto) 12.3 H, Eosinophils (%) (Auto) 0.7, Basophils (%) (Auto) 0.0, Neutrophils # (Auto) 4.3, Lymphocytes # (Auto) 0.9 L, Monocytes # (Auto) 0.7, Eosinophils # (Auto) 0.0, Basophils # (Auto) 0.0, Calcium Level 8.0 L MILAN ROBERTS MD Mar 19, 2019 22:13
[2019-03-20 06:00] VITALS: BP 184/82
[2019-03-20 06:12] LABS: BASO % 0.2 % (0.0-1.0); EOS # 0.1 10^3/uL (0.0-0.50); EOS % 1.3 % (0.0-3.0); HEMATOCRIT 26.5 % (36.0-47.0); HEMOGLOBIN 9.1 g/dl (12.0-15.5); LYMPH # 0.8 10^3/uL (1.5-4.5); LYMPH % 14.3 % (24.0-44.0); MEAN CORPUSCULAR HEMOGLOBIN 30.4 pg (27.0-33.0); MEAN CORPUSCULAR HGB CONC 34.3 g/dl (32.0-36.5); MEAN CORPUSCULAR VOLUME 88.6 fl (80.0-96.0); MONO # 0.7 10^3/uL (0.0-0.8); MONO % 11.8 % (0.0-5.0); RED BLOOD COUNT 2.99 10^6/uL (4.00-5.40); WHITE BLOOD COUNT 5.5 10^3/uL (4.0-10.0)
[2019-03-20 06:15] LABS: PLATELET COUNT, AUTOMATED 90 10^3/uL (150-450)
[2019-03-20 06:34] LABS: CALCIUM LEVEL 8.1 MG/DL (8.8-10.2); CREATININE FOR GFR 2.51 MG/DL (0.55-1.30); GLOMERULAR FILTRATION RATE 19.7 (>39)
[2019-03-20] MEDS: METOPROLOL SUCC (TopROL XL) 100MG *XL* TAB PO SCH (09:05)
[2019-03-20] MEDS: **hydrALAZINE** 10 MG TAB PO SCH ×3 (09:05→20:16)
[2019-03-20] MEDS: amLODIPine 10 MG TAB PO SCH (09:05)
[2019-03-20] MEDS: MULTIVITAMINS/MINERALS THERAP 1 TAB PO SCH (09:05)
[2019-03-20] MEDS: ATORVASTATIN 20 MG TAB PO SCH ×2 (09:05→20:15)
[2019-03-20] MEDS: ASPIRIN 81 MG ENTERIC TAB PO SCH (09:05)
[2019-03-20] MEDS: LOSARTAN 50 MG TAB PO SCH (09:06)
--- NOTE | 2019-03-20 12:18 | IPNPDOC ---
Subjective Date Seen The patient was seen on 03/20/19. Subjective Chief Complaint/HPI No complaints this am . Denies any sob , cough or chest pain. Cannot be discharged to the NH over the week end. Objective Physical Examination General Exam: Positive: Alert, Cooperative, No Acute Distress Eye Exam: Positive: PERRLA, Conjunctiva & lids normal, EOMI; Negative: Sclera icteric ENT Exam: Positive: Atraumatic, Pharynx Normal, Tongue Midline Neck Exam: Positive: Supple; Negative: JVD, thyromegaly Chest Exam: Positive: Clear to auscultation, Diminished (at the bases) Heart Exam: Positive: Rate Normal, Regular Rhythm, Normal S1, Normal S2; Negative: Murmurs, Rubs Telemetry: Positive: No significant arrhythmia Abdomen Exam: Positive: Normal bowel sounds, Soft; Negative: Tenderness, Hepatospenomegaly Extremity Exam: Negative: Clubbing, Cyanosis, Edema Skin Exam: Positive: Nl turgor and temperature; Negative: Rash, Breakdown Psych Exam: Positive: Mental status NL, Memory Intact, Oriented x 3 Assessment /Plan Assessment 78-year-old female a resident of [facility] with a PMHx of Aplastic anemia, HTN, 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 She had a change of heart over the week end and yesterday decided that she did not want to be LUMBER INSPECTOR she wanted to continue HD and transfusions as needed but wanted to be DNR and DNI. She filled out MOLST at [facility] on 03/16/19 to this effect. Today she went to HD and blood was tested she was found to have a hb of 5.3. They tried to arrange transfusion through infusion unit but due to Holiday week end they were unable to accommodate her till Friday so she was sent to ED for blood transfusion. She did not have HD today. In the ED she was found to be severely anemic, fluid overloaded with CX showing pulmonary edema and small bilateral pleural effusions She was also hypoxic to 88% in RA so was put on 2 liters Oxygen. Today she complained of some weakness and dizziness. Says she does not walk uses wheel chair. She was admitted for severe anemia, CHF exacerbation and hypoxia. Acute respiratory failure with hypoxia resolved due to severe anemia and high output failure ,fluid overload and diastolic CHF exacerbation. CXR Bilateral pulmonary edema, b/l pleural effusion Fluid management by HD. Acute delirium could be due to hospitalization. APLASTIC ANEMIA and thrombocytopenia Severe anemia requiring frequent transfusions every about 2 weeks. 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 THis is often seen after she gets a Blood transfusion. continue home meds losartan, amlodipine and metoprolol will increase hydralazine dosage will add clonidine if needed. Hyperlipidemia continue statin Atrial fibrillation paroxysmal Now in sinus rhythm Last Echocardiogram 2019: Normal left ventricular (LV) size with moderate left ventricular hypertrophy(LVH) and preserved LV systolic function, grade 2 diastolic dysfunction. Aortic sclerosis but no significant stenosis and mild insufficiency.Mild mitral and tricuspid insufficiency. High central venous pressure and moderately severe pulmonary hypertension. Bilateral pleural effusions. c/w home metoprolol succinate Severe protein calorie malnutrition. BMI 16.7, albumin 2.9 DVT prophylaxis Valentino's and sequential because of history of aplastic anemia Plan/VTE VTE Prophylaxis Ordered?: Yes VS, I&O, 24H, Fishbone Vital Signs/I&O Vital Signs Date Time Temp Pulse Resp B/P (MAP) Pulse Ox O2 Delivery O2 Flow Rate FiO2 03/20/19 09:05 84 184/82 03/20/19 06:00 98.4 18 97 2.0 03/18/19 03:13 Nasal Cannula I&O- Last 24 Hours up to 6 AM0 03/20/19 06:00 Intake Total 760 ml Output Total 1500 ml Balance -740 ml Laboratory Data 24H LABS Laboratory Tests 2 03/20/19 05:41: Immature Granulocyte % (Auto) 0.4, White Blood Count 5.5, Red Blood Count 2.99L, Hemoglobin 9.1L, Hematocrit 26.5L, Mean Corpuscular Volume 88.6, Mean Corpuscular Hemoglobin 30.4, Mean Corpuscular Hemoglobin Concent 34.3, Red Cell Distribution Width 13.9, Platelet Count 90L, Neutrophils (%) (Auto) 72.0H, Lymphocytes (%) (Auto) 14.3L, Monocytes (%) (Auto) 11.8H, Eosinophils (%) (Auto) 1.3, Basophils (%) (Auto) 0.2, Neutrophils # (Auto) 4.0, Lymphocytes # (Auto) 0.8L, Monocytes # (Auto) 0.7, Eosinophils # (Auto) 0.1, Basophils # (Auto) 0.0, Nucleated Red Blood Cells % (auto) 0.0, Anion Gap 6L, Glomerular Filtration Rate 19.7L, Blood Urea Nitrogen 29H, Creatinine 2.51H, Sodium Level 138, Potassium Level 4.0, Chloride Level 104, Carbon Dioxide Level 28, Calcium Level 8.1L CBC/BMP Laboratory Tests 03/20/19 05:41 Red Blood Count 2.99 L, Mean Corpuscular Volume 88.6, Mean Corpuscular Hemoglobin 30.4, Mean Corpuscular Hemoglobin Concent 34.3, Red Cell Distribution Width 13.9, Neutrophils (%) (Auto) 72.0 H, Lymphocytes (%) (Auto) 14.3 L, Monocytes (%) (Auto) 11.8 H, Eosinophils (%) (Auto) 1.3, Basophils (%) (Auto) 0.2, Neutrophils # (Auto) 4.0, Lymphocytes # (Auto) 0.8 L, Monocytes # (Auto) 0.7, Eosinophils # (Auto) 0.1, Basophils # (Auto) 0.0, Calcium Level 8.1 L MILAN ROBERTS MD Mar 20, 2019 12:18
[2019-03-20 14:00] VITALS: BP 154/66
[2019-03-20] MEDS: MIRALAX *UNIT DOSE* 17GM PACKET PO SCH (16:28)
[2019-03-20 18:00] VITALS: BP 150/72
[2019-03-20 20:00] VITALS: BP 157/72
[2019-03-20] MEDS: CETIRIZINE (ZyrTEC) 10 MG TAB PO SCH (20:15)
--- NOTE | 2019-03-20 20:23 | IPN ---
DATE: 03/20/2019 Mrs. Espitia is seen this morning on her bedside. She is eating her lunch at the time of my visit. She is feeling better after transfusion of 3 units of packed red blood cells. She was admitted with severe anemia and has known history of end-stage renal disease. Prior to this admission, patient had decided for stopping dialysis and go on comfort measures only. 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 The patient was dialyzed on the 03/18/2019 and 03/19/2019 and has been transfused 2 units of packed red blood cells. She was found to have bilateral pleural effusions, small on the right and larger on the left side. The patient had 2 liters fluid removed on 03/18/2019 and 1500 on 03/19/2019 with dialysis. At this point, she denies any dyspnea or chest pain. She has no nausea or vomiting, though her appetite is poor. PHYSICAL EXAMINATION: She is awake and alert and without any acute distress. Temperature 98.3 degrees Fahrenheit, heart rate 76 per minute and respiratory rate 16 per minute. Blood pressure 154/66 mmHg and oxygen saturation 95%. Head is atraumatic. Neck is supple and jugular venous distention (JVD) is not abnormally elevated. There is no oral thrush or ulcers. Heart sounds are regular. Lungs with diminished breath sounds at bases bilaterally. Abdomen soft and nontender and bowel sounds are normal. Extremities have no cyanosis or clubbing. Neurologically, she is at her baseline mentation without a focal deficit. Today's labs show sodium 138, potassium 4.0, CO2 28, BUN 29 and creatinine 2.51. Glucose 117 and calcium 8.1. WBC count is 5.5, hemoglobin 9.1 and hematocrit 26.5. Platelets are 90,000. PROBLEMS: 1. End-stage renal disease. The patient was dialyzed on 03/18/2019 and 03/19/2019. She did not have dialysis today and at this point, there is no emergent indication for dialysis. We will schedule her next hemodialysis next week. 2. Aplastic anemia. Patient has been transfusion dependent and has received 3 units of packed red blood cells. Her symptoms have improved. No further transfusion is needed at this point. 3. Hypertension. Blood pressure is very well controlled on current antihypertensive medications.
[2019-03-21 05:47] LABS: BASO % 0.2 % (0.0-1.0); EOS # 0.1 10^3/uL (0.0-0.50); EOS % 1.2 % (0.0-3.0); HEMATOCRIT 26.2 % (36.0-47.0); HEMOGLOBIN 8.8 g/dl (12.0-15.5); LYMPH # 0.9 10^3/uL (1.5-4.5); LYMPH % 16.2 % (24.0-44.0); MEAN CORPUSCULAR HEMOGLOBIN 29.5 pg (27.0-33.0); MEAN CORPUSCULAR HGB CONC 33.6 g/dl (32.0-36.5); MEAN CORPUSCULAR VOLUME 87.9 fl (80.0-96.0); MONO # 0.5 10^3/uL (0.0-0.8); NEUTROPHILS # 4.2 10^3/uL (1.8-7.7); NEUTROPHILS % 72.9 % (36.0-66.0); RED BLOOD COUNT 2.98 10^6/uL (4.00-5.40); WHITE BLOOD COUNT 5.8 10^3/uL (4.0-10.0)
[2019-03-21 05:52] LABS: PLATELET COUNT, AUTOMATED 97 10^3/uL (150-450)
[2019-03-21 06:13] LABS: CALCIUM LEVEL 7.8 MG/DL (8.8-10.2); CREATININE FOR GFR 3.84 MG/DL (0.55-1.30); GLOMERULAR FILTRATION RATE 12.1 (>39); POTASSIUM SERUM 4.3 MEQ/L (3.5-5.1)
[2019-03-21] MEDS: ATORVASTATIN 20 MG TAB PO SCH ×2 (08:16→21:23)
[2019-03-21] MEDS: ASPIRIN 81 MG ENTERIC TAB PO SCH (08:16)
[2019-03-21] MEDS: amLODIPine 10 MG TAB PO SCH (08:16)
[2019-03-21] MEDS: MULTIVITAMINS/MINERALS THERAP 1 TAB PO SCH (08:17)
[2019-03-21] MEDS: METOPROLOL SUCC (TopROL XL) 100MG *XL* TAB PO SCH (08:17)
[2019-03-21] MEDS: **hydrALAZINE** 10 MG TAB PO SCH ×3 (08:17→21:00)
[2019-03-21] MEDS: LOSARTAN 50 MG TAB PO SCH (08:17)
--- NOTE | 2019-03-21 11:15 | IPNPDOC ---
Subjective Date Seen The patient was seen on 03/21/19. Subjective Chief Complaint/HPI No complaints this morning. Denies any sob or chest pain or cough, denies any dizziness or light headedness. Feeling much better after 3 units of PRBC transfusion, No confusion this am , SHe is not needing any oxygen supplementation. Objective Physical Examination General Exam: Positive: Alert, Cooperative, No Acute Distress Eye Exam: Positive: PERRLA, Conjunctiva & lids normal, EOMI; Negative: Sclera icteric ENT Exam: Positive: Atraumatic, Pharynx Normal, Tongue Midline Neck Exam: Positive: Supple; Negative: JVD, thyromegaly Chest Exam: Positive: Clear to auscultation, Diminished (at the bases) Heart Exam: Positive: Rate Normal, Regular Rhythm, Normal S1, Normal S2; Negative: Murmurs, Rubs Telemetry: Positive: No significant arrhythmia Abdomen Exam: Positive: Normal bowel sounds, Soft; Negative: Tenderness, Hepatospenomegaly Extremity Exam: Negative: Clubbing, Cyanosis, Edema Skin Exam: Positive: Nl turgor and temperature; Negative: Rash, Breakdown Psych Exam: Positive: Mental status NL, Memory Intact, Oriented x 3 Assessment /Plan Assessment 78-year-old female a resident of [facility] with a PMHx of Aplastic anemia, HTN, 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 She had a change of heart over the week end and yesterday decided that she did not want to be DAIRY FROZEN MANAGER she wanted to continue HD and transfusions as needed but wanted to be DNR and DNI. She filled out MOLST at [facility] on 03/16/19 to this effect. Today she went to HD and blood was tested she was found to have a hb of 5.3. They tried to arrange transfusion through infusion unit but due to Holiday week end they were unable to accommodate her till Friday so she was sent to ED for blood transfusion. She did not have HD today. In the ED she was found to be severely anemic, fluid overloaded with CX showing pulmonary edema and small bilateral pleural effusions She was also hypoxic to 88% in RA so was put on 2 liters Oxygen. Today she complained of some weakness and dizziness. Says she does not walk uses wheel chair. She was admitted for severe anemia, CHF exacerbation and hypoxia. Acute respiratory failure with hypoxia resolved due to severe anemia and high output failure ,fluid overload and diastolic CHF exacerbation. CXR Bilateral pulmonary edema, b/l pleural effusion Fluid management by HD. Acute delirium could be due to hospitalization. better today. APLASTIC ANEMIA and thrombocytopenia Severe anemia requiring frequent transfusions every about 2 weeks. 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 THis is often seen after she gets a Blood transfusion. continue home meds losartan, amlodipine and metoprolol will increase hydralazine dosage will add clonidine if needed. Hyperlipidemia continue statin Atrial fibrillation paroxysmal Now in sinus rhythm Last Echocardiogram 2019: Normal left ventricular (LV) size with moderate left ventricular hypertrophy(LVH) and preserved LV systolic function, grade 2 diastolic dysfunction. Aortic sclerosis but no significant stenosis and mild insufficiency.Mild mitral and tricuspid insufficiency. High central venous pressure and moderately severe pulmonary hypertension. Bilateral pleural effusions. c/w home metoprolol succinate Severe protein calorie malnutrition. BMI 16.7, albumin 2.9 DVT prophylaxis Valentino's and sequential because of history of aplastic anemia Disposition: Back to [place] in next 24 hours Plan/VTE VTE Prophylaxis Ordered?: Yes VS, I&O, 24H, Fishbone Vital Signs/I&O Vital Signs Date Time Temp Pulse Resp B/P (MAP) Pulse Ox O2 Delivery O2 Flow Rate FiO2 03/21/19 08:16 77 157/72 03/20/19 20:00 98.9 18 97 03/20/19 18:00 2.0 03/18/19 03:13 Nasal Cannula I&O- Last 24 Hours up to 6 AM 03/21/19 06:00 Intake Total 420 ml Output Total 700 ml Balance -280 ml Laboratory Data 24H LABS Laboratory Tests 2 03/21/19 05:30: Immature Granulocyte % (Auto) 0.5, White Blood Count 5.8, Red Blood Count 2.98L, Hemoglobin 8.8L, Hematocrit 26.2L, Mean Corpuscular Volume 87.9, Mean Corpuscular Hemoglobin 29.5, Mean Corpuscular Hemoglobin Concent 33.6, Red Cell Distribution Width 13.7, Platelet Count 97L, Neutrophils (%) (Auto) 72.9H, Lymphocytes (%) (Auto) 16.2L, Monocytes (%) (Auto) 9.0H, Eosinophils (%) (Auto) 1.2, Basophils (%) (Auto) 0.2, Neutrophils # (Auto) 4.2, Lymphocytes # (Auto) 0.9L, Monocytes # (Auto) 0.5, Eosinophils # (Auto) 0.1, Basophils # (Auto) 0.0, Nucleated Red Blood Cells % (auto) 0.0, Immature Platelet Fraction 1.4, Anion Gap 6L, Glomerular Filtration Rate 12.1L, Blood Urea Nitrogen 50#H, Creatinine 3.84#H, Sodium Level 136, Potassium Level 4.3, Chloride Level 103, Carbon Dioxide Level 27, Calcium Level 7.8L CBC/BMP Laboratory Tests 03/21/19 05:30 Red Blood Count 2.98 L, Mean Corpuscular Volume 87.9, Mean Corpuscular Hemoglobin 29.5, Mean Corpuscular Hemoglobin Concent 33.6, Red Cell Distribution Width 13.7, Neutrophils (%) (Auto) 72.9 H, Lymphocytes (%) (Auto) 16.2 L, Monocytes (%) (Auto) 9.0 H, Eosinophils (%) (Auto) 1.2, Basophils (%) (Auto) 0.2, Neutrophils # (Auto) 4.2, Lymphocytes # (Auto) 0.9 L, Monocytes # (Auto) 0.5, Eosinophils # (Auto) 0.1, Basophils # (Auto) 0.0, Calcium Level 7.8 L MILAN ROBERTS MD Mar 21, 2019 09:48
[2019-03-21 14:00] VITALS: BP 166/83
[2019-03-21] MEDS: MIRALAX *UNIT DOSE* 17GM PACKET PO SCH (14:35)
--- NOTE | 2019-03-21 15:22 | IPN ---
DATE: 03/21/2019 Mrs. Espitia is seen this morning on her bedside. She is laying in her bed without any acute distress. She is awake and able to answer questions, however, she is not fully oriented. She denies any nausea, vomiting, dyspnea or chest pain. She remains weak and mostly in the bed. She was last dialyzed on Friday. The patient feels that she is going home today. She did not know what day of the week it was. PHYSICAL EXAMINATION: Temperature 98 degrees Fahrenheit, heart rate 78 per minute and respiratory rate 18 per minute. Blood pressure 157/72 mmHg and oxygen saturation 97%. Head is atraumatic. She has no oral thrush or ulcers. Neck is supple and without jugular venous distention (JVD) or thyroid enlargement. Heart sounds are regular. Lungs with diminished breath sounds at lower one-third on the left side and base on the right. Abdomen soft and nontender. Bowel sounds are normal. Extremities have no cyanosis or clubbing. Neurologically she is awake, but not fully oriented. Today's labs show WBC count 5.8, hemoglobin 8.8 and hematocrit 26.2. Sodium 136, potassium 4.3, CO2 27, BUN 50 and creatinine 3.84. PROBLEMS: 1. End-stage renal disease. The patient was last dialyzed on Friday and will be scheduled for next dialysis tomorrow. 2. Bilateral pleural effusions. She did have bilateral pleural effusions on her chest x-ray and we have been trying to remove fluid as aggressively as she can tolerate. We will try to remove about 1.5-2 liters of fluid with next hemodialysis, depending upon how her blood pressure goes. 3. Aplastic anemia. Patient has long history of aplastic anemia and has been transfusion dependent. She has been transfused 3 units of packed red blood cells during this admission. Her CBC will be checked again tomorrow morning. At this point there is no indication for further transfusion. 4. Hypertension. Blood pressure is well-controlled and no changes are being made today.
[2019-03-21] MEDS: CETIRIZINE (ZyrTEC) 10 MG TAB PO SCH (21:23)
[2019-03-21 22:00] VITALS: BP 142/75
[2019-03-22 06:00] VITALS: BP 140/66
[2019-03-22 06:11] LABS: BASO % 0.2 % (0.0-1.0); EOS # 0.1 10^3/uL (0.0-0.50); HEMATOCRIT 27.6 % (36.0-47.0); HEMOGLOBIN 9.3 g/dl (12.0-15.5); LYMPH # 0.7 10^3/uL (1.5-4.5); LYMPH % 12.9 % (24.0-44.0); MEAN CORPUSCULAR HEMOGLOBIN 30.7 pg (27.0-33.0); MEAN CORPUSCULAR HGB CONC 33.7 g/dl (32.0-36.5); MEAN CORPUSCULAR VOLUME 91.1 fl (80.0-96.0); MONO # 0.5 10^3/uL (0.0-0.8); MONO % 9.2 % (0.0-5.0); NEUTROPHILS # 4.4 10^3/uL (1.8-7.7); NEUTROPHILS % 76.2 % (36.0-66.0); RED BLOOD COUNT 3.03 10^6/uL (4.00-5.40); WHITE BLOOD COUNT 5.8 10^3/uL (4.0-10.0)
[2019-03-22 06:13] LABS: PLATELET COUNT, AUTOMATED 93 10^3/uL (150-450)
[2019-03-22 06:35] LABS: CALCIUM LEVEL 8.7 MG/DL (8.8-10.2); CREATININE FOR GFR 5.05 MG/DL (0.55-1.30); GLOMERULAR FILTRATION RATE 8.8 (>39); POTASSIUM SERUM 5.1 MEQ/L (3.5-5.1)
[2019-03-22 08:23] VITALS: BP 140/66
[2019-03-22] MEDS: LOSARTAN 50 MG TAB PO SCH (08:23)
[2019-03-22] MEDS: ASPIRIN 81 MG ENTERIC TAB PO SCH (08:23)
[2019-03-22] MEDS: MULTIVITAMINS/MINERALS THERAP 1 TAB PO SCH (08:23)
[2019-03-22] MEDS: amLODIPine 10 MG TAB PO SCH (08:23)
[2019-03-22] MEDS: METOPROLOL SUCC (TopROL XL) 100MG *XL* TAB PO SCH (08:23)
[2019-03-22] MEDS: **hydrALAZINE** 10 MG TAB PO SCH (08:23)
[2019-03-22] MEDS: ATORVASTATIN 20 MG TAB PO SCH (08:23)
--- NOTE | 2019-03-22 10:18 | IPN ---
DATE OF VISIT: 03/22/2019 Mrs. Espitia is seen this morning on her bedside. She is lying in the bed flat without any distress. She is very confused and disoriented. She could not tell me month, year, place, or my name. She denies any pain, dyspnea, or edema. On physical exam, temperature 98.7 degrees Fahrenheit, heart rate 70 per minute, and respiratory rate 16 per minute. Blood pressure 140/66 mmHg and oxygen saturation 98% on room air. Head is atraumatic. She is chronically ill looking and emaciated. There is no oral thrush or ulcers. Neck veins are flat, Heart sounds are regular, and lungs have diminished breath sounds at lower one third. Abdomen: Soft and nontender. Bowel sounds present. Extremities have no cyanosis or clubbing. Neurologically, she is confused and disoriented. Today's labs show WBC count 5.8, hemoglobin 9.3, and hematocrit 27.6. Platelets are 93,000. Sodium 135, potassium 5.1, CO2 26, BUN 63, and creatinine 5.05. Calcium 8.7 and glucose 113. PROBLEMS: 1. End-stage renal disease. The patient is due for dialysis today. She is likely to be discharged and go to outpatient dialysis clinic this afternoon. 2. Altered mentation. This is mostly chronic and I do not feel that there is any acute change. The patient will be followed up as an outpatient. 3. Aplastic anemia, chronic issue, and patient has been dialysis dependent and transfusion dependent. She has not responded to high-dose erythropoietin. She will be transfused as needed. 4. Hypertension. Blood pressure has been well controlled on current medications, and no changes are being made today. 5. Disposition. The patient is likely to be discharged today and will be followed up as an outpatient.
--- NOTE | 2019-03-22 23:49 | DS.PDOC ---
Discharge Summary General Date of Admission Mar 17, 2019 at 16:17 Date of Discharge 03.22.19 Discharge Summary PROCEDURES PERFORMED DURING STAY: [None]. ADMITTING DIAGNOSES: 1. Anemia 2. ESRD 3. acute on chronic diastolic CHF DISCHARGE DIAGNOSES: 1. Anemia 2. ESRD 3. acute on chronic diastolic CHF COMPLICATIONS/CHIEF COMPLAINT: Esrd Severe Anemia. 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 Patient was noted to be anemic last week and blood transfusion was advised then but at that time she said she was done with HD and blood transfusions and wanted to be [employer]. She had a change of heart over the week end and yesterday decided that she did not want to be [employer] she wanted to continue HD and transfusions as needed but wanted to be DNR and DNI. She filled out MOLST at [facility] on 03/16/19 to this effect. Today she went to HD and blood was tested she was found to have a hb of 5.3. They tried to arrange transfusion through infusion unit but due to Holiday week end they were unable to accommodate her till Friday so she was sent to ED for blood transfusion. She did not have HD today. In the ED she was found to be severely anemic, fluid overloaded with CX showing pulmonary edema and small bilateral pleural effusions She was also hypoxic to 88% in RA so was put on 2 liters Oxygen. Today she complained of some weakness and dizziness. Says she does not walk uses wheel chair. She is being admitted for severe anemia, CHF exacerbation and hypoxia. HOSPITAL COURSE: Pt was admitted. She was dialyzed and transfused. With improvement of her volume status and anemia her symptoms resolved. She was deemed stable for dc and arranged to return to SNF and HD. DISCHARGE MEDICATIONS: Please see below. ALLERGIES: Please see below. PHYSICAL EXAMINATION ON DISCHARGE: VITAL SIGNS: Please see below. General Exam: Positive: Alert, Cooperative, No Acute Distress Eye Exam: Positive: PERRLA, Conjunctiva & lids normal, EOMI; Negative: Sclera icteric ENT Exam: Positive: Atraumatic, Pharynx Normal, Tongue Midline Neck Exam: Positive: Supple; Negative: JVD, thyromegaly Chest Exam: Positive: Clear to auscultation, Diminished (at the bases) Heart Exam: Positive: Rate Normal, Regular Rhythm, Normal S1, Normal S2; Negative: Murmurs, Rubs Telemetry: Positive: No significant arrhythmia Abdomen Exam: Positive: Normal bowel sounds, Soft; Negative: Tenderness, Hepatospenomegaly Extremity Exam: Negative: Clubbing, Cyanosis, Edema Skin Exam: Positive: Nl turgor and temperature; Negative: Rash, Breakdown Psych Exam: Positive: Mental status NL, Memory Intact, Oriented x 3 LABORATORY DATA: Please see below. ACTIVITY: [As tolerated]. DIET: renal DISPOSITION: [facility]. DISCHARGE CONDITION: [Stable]. Vital Signs/I&Os Vital Signs Date Time Temp Pulse Resp B/P (MAP) Pulse Ox O2 Delivery O2 Flow Rate FiO2 03/22/19 08:23 140/66 03/22/19 06:00 98.7 70 16 98 03/20/19 18:00 2.0 03/18/19 03:13 Nasal Cannula I&O- Last 24 Hours up to 6 AM 03/22/19 06:00 Intake Total 480 ml Output Total 800 ml Balance -320 ml Laboratory Data Labs 24H Laboratory Tests 2 03/22/19 05:47: Immature Granulocyte % (Auto) 0.5, White Blood Count 5.8, Red Blood Count 3.03L, Hemoglobin 9.3L, Hematocrit 27.6L, Mean Corpuscular Volume 91.1, Mean Corpuscular Hemoglobin 30.7, Mean Corpuscular Hemoglobin Concent 33.7, Red Cell Distribution Width 13.8, Platelet Count 93L, Neutrophils (%) (Auto) 76.2H, Lymphocytes (%) (Auto) 12.9L, Monocytes (%) (Auto) 9.2H, Eosinophils (%) (Auto) 1.0, Basophils (%) (Auto) 0.2, Neutrophils # (Auto) 4.4, Lymphocytes # (Auto) 0.7L, Monocytes # (Auto) 0.5, Eosinophils # (Auto) 0.1, Basophils # (Auto) 0.0, Nucleated Red Blood Cells % (auto) 0.0, Immature Platelet Fraction 1.0, Anion Gap 6L, Glomerular Filtration Rate 8.8L, Blood Urea Nitrogen 63H, Creatinine 5.05H, Sodium Level 135L, Potassium Level 5.1, Chloride Level 103, Carbon Dioxide Level 26, Calcium Level 8.7L CBC/BMP Laboratory Tests 03/22/19 05:47 Red Blood Count 3.03 L, Mean Corpuscular Volume 91.1, Mean Corpuscular Hemoglobin 30.7, Mean Corpuscular Hemoglobin Concent 33.7, Red Cell Distribution Width 13.8, Neutrophils (%) (Auto) 76.2 H, Lymphocytes (%) (Auto) 12.9 L, Monocytes (%) (Auto) 9.2 H, Eosinophils (%) (Auto) 1.0, Basophils (%) (Auto) 0.2, Neutrophils # (Auto) 4.4, Lymphocytes # (Auto) 0.7 L, Monocytes # (Auto) 0.5, Eosinophils # (Auto) 0.1, Basophils # (Auto) 0.0, Calcium Level 8.7 L Discharge Medications Scheduled Amlodipine Besylate (Amlodipine Besylate) 10 Mg Tablet, 10 MG PO QHS, (Reported) Aspirin (Aspirin EC) 81 Mg Tablet.dr, 81 MG PO DAILY, (Reported) Atorvastatin Calcium (Atorvastatin Calcium) 40 Mg Tablet, 40 MG PO QHS, (Reported) Cetirizine HCl (Cetirizine HCl) 10 Mg Tablet, 10 MG PO QHS, (Reported) Cholecalciferol (Vitamin D3) (Vitamin D3) 50,000 Unit Capsule, 50,000 UNIT PO QWEEK, (Reported) Eltrombopag Olamine (Promacta) 50 Mg Tablet, 50 MG PO QPM, (Reported) Hydralazine HCl (Hydralazine HCl) 10 Mg Tablet, 10 MG PO Q8H, (Reported) 0600/1400/2200 Losartan Potassium (Losartan Potassium) 100 Mg Tablet, 100 MG PO DAILY, (R eported) Metoprolol Succinate (Metoprolol Succinate) 100 Mg Tab.er.24h, 100 MG PO DAILY, (Reported) Multivitamins (Thera M Plus Tablet) 1 Each Tablet, 1 TAB PO DAILY, (Reported) Nut.tx.imp.renal Fxn,Lac-Reduc (Nepro Carb Steady) 237 Ml Liquid, 120 ML PO BID, (Reported) Polyethylene Glycol 3350 (Miralax) 119 Gm Powder, 17 GM PO QPM, (Reported) dilute in 8 ounces of water or juice Scheduled PRN Acetaminophen (Acetaminophen) 325 Mg Tablet, 650 MG PO Q4H PRN for PAIN, (Reported) Albuterol Sulf (Albuterol Sulfate) 2.5 Mg/3 Ml Vial.neb, 2.5 MG INH Q2H PRN for SHORTNESS OF BREATH, (Reported) Bisacodyl (Bisacodyl) 10 Mg Supp.rect, 10 MG NH DAILY PRN for CONSTIPATION, (Reported) Sodium Phosphate,[place]-Dibasic (Enema) 133 Ml Enema, 1 INNA NH DAILY PRN for CONSTIPATION, (Reported) Allergies Coded Allergies: No Known Allergies (Unverified , 02/23/18) MITCHEL BROWN MD Mar 22, 2019 23:49
== END 2019-03-22 12:26 | DRG 808 ==
LOC: M ED 13:01 → M ED INP 16:17 → M MS5PR 22:54 → M ICU 03-18 03:05 → M MSPAV 03-18 13:46
PROVIDERS: ADMIT Internal Medicine Nephrology; ATTEND Hospitalist
PROC: 30233N1 Transfusion of Nonautologous Red Blood Cells into Peripheral Vein, Percutaneous Approach (ICD-10-PCS; principal; 2019-03-17)
PROC: 5A1D70Z Performance of Urinary Filtration, Intermittent, Less than 6 Hours Per Day (ICD-10-PCS; 2019-03-18)
DX: D61.9 Aplastic anemia, unspecified (principal); N18.6 End stage renal disease; I50.33 Acute on chronic diastolic (congestive) heart failure; J96.01 Acute respiratory failure with hypoxia; E43 Unspecified severe protein-calorie malnutrition; I13.2 Hypertensive heart and chronic kidney disease with heart failure and with stage 5 chronic kidney disease, or end stage renal disease; M31.31 Wegener's granulomatosis with renal involvement; N25.81 Secondary hyperparathyroidism of renal origin; Z68.1 Body mass index [BMI] 19.9 or less, adult; J90 Pleural effusion, not elsewhere classified; R41.0 Disorientation, unspecified; T80.89XD Other complications following infusion, transfusion and therapeutic injection, subsequent encounter; D69.6 Thrombocytopenia, unspecified; E78.5 Hyperlipidemia, unspecified; E87.5 Hyperkalemia; I27.20 Pulmonary hypertension, unspecified; I48.0 Paroxysmal atrial fibrillation; B02.9 Zoster without complications; Z98.49 Cataract extraction status, unspecified eye; Z99.2 Dependence on renal dialysis; Z79.82 Long term (current) use of aspirin; Z79.899 Other long term (current) drug therapy

== ENCOUNTER → 2019-03-17 | Outpatient (REF) | payer MEDICARE ==
[~2019-03-17] MED LIST changes: +ACET1TAB55 PO; +ALBU83IN INH; +ASPI81TA26 PO; +BISA10SU4 PR; +MULTCAP PO; +VITA1CAP25 PO
[2019-03-17 09:34] LABS: HEMATOCRIT 15.2 % (36.0-47.0); MEAN CORPUSCULAR HGB CONC 34.2 g/dl (32.0-36.5); MEAN CORPUSCULAR VOLUME 90.5 fl (80.0-96.0); RED BLOOD COUNT 1.68 10^6/uL (4.00-5.40); WHITE BLOOD COUNT 7.3 10^3/uL (4.0-10.0)
[2019-03-17 09:57] LABS: HEMOGLOBIN 5.2 g/dl (12.0-15.5); PLATELET COUNT, AUTOMATED 82 10^3/uL (150-450)
== END ==
PROVIDERS: ATTEND Internal Medicine
DX: D61.9 Aplastic anemia, unspecified (principal)

== ENCOUNTER → 2019-03-26 | Outpatient (REF) | payer MEDICARE ==
[~2019-03-26] MED LIST changes: +ACET1TAB55 PO; +ALBU83IN INH; -ALL10TAB28 PO; +ALL10TAB29 PO; +ASPI81TA26 PO; -BISA10SU2 PR; +BISA10SU20 PR; +BISA10SU4 PR; +GUAI100L31 PO; +MULTCAP PO; +VITA1CAP25 PO; -[UNRECOGNIZED DRUG - CODE] PO
[2019-03-26 12:41] LABS: PERCENT SATURATION 121.8 % (13.2-45.0)
== END ==
PROVIDERS: ATTEND Nurse Practitioner Adult Health
DX: D64.9 Anemia, unspecified (principal)

== ENCOUNTER → 2019-03-30 | Outpatient (REF) | payer MEDICARE ==
[~2019-03-30] MED LIST changes: +ALL10TAB28 PO; -ALL10TAB29 PO
[2019-03-30 08:25] LABS: HEMATOCRIT 23.9 % (36.0-47.0); HEMOGLOBIN 8.6 g/dl (12.0-15.5); MEAN CORPUSCULAR HEMOGLOBIN 33.7 pg (27.0-33.0); MEAN CORPUSCULAR VOLUME 93.7 fl (80.0-96.0); PLATELET COUNT, AUTOMATED 117 10^3/uL (150-450); RED BLOOD COUNT 2.55 10^6/uL (4.00-5.40); WHITE BLOOD COUNT 14.3 10^3/uL (4.0-10.0)
== END ==
PROVIDERS: ATTEND Internal Medicine
DX: D61.9 Aplastic anemia, unspecified (principal)